=== PATIENT | male | born 1970 | race African-American/Black ===

== ENCOUNTER 2017-07-18 11:06 | Emergency (ER) | payer SELFPAY ==
[2017-07-18 13:43] VITALS: BP 167/117
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
== END 2017-07-18 13:43 | disposition home or self-care (01) ==
LOC: ED 11:06
DX: M54.9 Dorsalgia, unspecified (principal); G89.29 Other chronic pain; K21.9 Gastro-esophageal reflux disease without esophagitis; F17.210 Nicotine dependence, cigarettes, uncomplicated
CPT/HCPCS: 99281

== ENCOUNTER 2017-07-20 16:43 | Emergency (ER) | payer SELFPAY ==
[2017-07-20 19:04] VITALS: BP 143/104
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
[2017-07-20] MEDS ORDERED: Albuterol HFA INHALER* 8 gm MDI INH ONE (19:14)
== END 2017-07-20 19:29 | disposition home or self-care (01) ==
LOC: UCEAST 16:43
DX: G89.29 Other chronic pain (principal); M54.9 Dorsalgia, unspecified; I10 Essential (primary) hypertension; J98.01 Acute bronchospasm; B35.3 Tinea pedis; F17.200 Nicotine dependence, unspecified, uncomplicated; Z72.89 Other problems related to lifestyle
CPT/HCPCS: 99212; A9270-GY; G0463

== ENCOUNTER → 2017-09-28 17:20 | Emergency (ER) | payer OTHER ==
[~2017-09-28 17:20] MED LIST: Acetaminophen TAB* 325 MG PO ONE; Albuterol/Ipratropium NEB.SOL* Albuterol 2.5 MG/Ipratropium 0.5 MG 3 ML INH ONE; Ketorolac INJ* 30 MG/ML 1 ML VIAL IV ONE; Levofloxacin 750 MG IVPREMIX(* 750 MG/150 ML BAG IVPB ONE; Levofloxacin TAB* 750 MG PO ONE; NS 0.9% 1000 ML*IV.FLUID IV ONE; Ondansetron INJ* 2 MG/ML VIAL IV ONE; methylPREDNISolone 125 MG* 2 ML VIAL IV ONE
[2017-09-28] MEDS: Albuterol 2.5 MG/3 ML NEB.SOL* (0.083%) INH SCH (22:31)
[2017-09-28 22:43] LABS: ABS Basophils 0.1 10^3/ul (0-0.2); ABS Eosinophils 0.3 10^3/ul (0-0.6); ABS Lymphocytes 1.9 10^3/ul (1.0-4.8); ABS Monocytes 0.8 10^3/ul (0-0.8); ABS Neutrophils 3.8 10^3/ul (1.5-7.7); ABS Nucleated RBC 0 10^3/ul; Hematocrit 43 % (42-52); Hemoglobin 14.1 g/dl (14.0-18.0); Lymphocyte % 27.3 % (25-47); Mean Corpuscular HGB Conc 32 g/dl (31-36); Mean Corpuscular Hemoglobin 27 pg (27-31); Mean Corpuscular Volume 83 fL (80-94); Mean Platelet Volume 8 um3 (7.4-10.4); Nucleated Red Blood Cells % 0.1; Platelet Count 229 10^3/ul (150-450); Red Blood Count 5.24 10^6/ul (4.0-5.4); Red Cell Distribution Width 17 % (10.5-15); White Blood Count 6.8 10^3/ul (3.5-10.8)
[2017-09-28 22:57] LABS: EGFR Non-African American 49.6 (>60)
[2017-09-29 00:06] VITALS: BP 166/139
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
--- NOTE | 2017-09-29 07:45 | RAD ---
INDICATION: Cough COMPARISON: May 26, 2016 TECHNIQUE: An AP portable view obtained at 2215 hours is submitted. FINDINGS: Bones/Soft Tissues: There are no acute bony findings. Cardiomediastinal: There is an enlarged cardiac silhouette with an interval increase in size. Lungs: There are no infiltrates. Pleura: There are no pleural effusions. Other: None IMPRESSION: ENLARGED CARDIAC SILHOUETTE
== END | disposition home or self-care (01) ==
LOC: ED 17:20
DX: J11.1 Influenza due to unidentified influenza virus with other respiratory manifestations (principal); J20.9 Acute bronchitis, unspecified; F17.210 Nicotine dependence, cigarettes, uncomplicated; Z88.6 Allergy status to analgesic agent; Z88.8 Allergy status to other drugs, medicaments and biological substances
CPT/HCPCS: 36415; 71045; 80053; 83605; 85025; 86140; 87040; 87502; 94640; 96361; 96374; 96375; 99283; A9270-GY; J2930

== ENCOUNTER → 2018-01-26 08:37 | Day surgery (SDC) | payer OTHER ==
[~2018-01-26 08:37] MED LIST changes: -Acetaminophen TAB* 325 MG PO ONE; -Albuterol/Ipratropium NEB.SOL* Albuterol 2.5 MG/Ipratropium 0.5 MG 3 ML INH ONE; +Diazepam TAB(*) 5 MG ONE; +Heparin 2 UNITS/ML IVPREMIX* 3,000 ML IV ONE; +Heparin(*) 1000 UNIT/ML 10 ML VIAL CATH LAB IV ONE; +Iodixanol* (CONTRAST) 320 MG/ML 100 ML SDV ONE; -Ketorolac INJ* 30 MG/ML 1 ML VIAL IV ONE; -Levofloxacin 750 MG IVPREMIX(* 750 MG/150 ML BAG IVPB ONE; -Levofloxacin TAB* 750 MG PO ONE; +Lidocaine 1% INJ* 10 MG/ML 30 ML SDV ONE; +Midazolam* 1 MG/ML 10 ML VIAL (10 MG) ONE; +NS 0.9% 1000 ML* 1,000 ML IV SCH; -NS 0.9% 1000 ML*IV.FLUID IV ONE; -Ondansetron INJ* 2 MG/ML VIAL IV ONE; +VERAPAMIL 2.5 MG/ML 2 ML VIAL ** 5 mg/2 ml ONE; +fentaNYL* 50 MCG/ML 2 ML VIAL (100 MCG VIAL) ONE; -methylPREDNISolone 125 MG* 2 ML VIAL IV ONE; +nitroGLYCERIN DRIP* 25,000 MCG/250 ML BTL ONE
[2018-01-26 14:17] VITALS: BP 138/95
--- NOTE | 2018-01-27 10:32 | CATH ---
CC: ALISTAIR Dejesus * CARDIAC CATHETERIZATION REPORT: DATE OF PROCEDURE: 01/26/18 - [facility] CATH INDICATION FOR THE PROCEDURE: The patient with recurrent significant cardiomyopathy assessed for underlying coronary artery disease given severe left ventricular systolic dysfunction. PROCEDURE: Coronary arteriography. The patient was interviewed and examined in the office where the risks and benefits were explained. He understood them and wished to proceed. On the day of cardiac catheterization, his right radial artery was assessed in the holding area under ultrasound for assessment for possible radial artery approach, he was found to be acceptable for this. Pre-cardiac catheterization laboratory results: BUN and creatinine 15 and 1.3, sodium 140, potassium 3.9, chloride 107, bicarb 25, hemoglobin and hematocrit of 14.2 and 44 with a platelet count of 236,000. EQUIPMENT UTILIZED: 1. Radial artery sheath - 6-Mosotho Glidesheath. 2. Diagnostic catheter - a TIG4 curve 5-Mosotho catheter for the right coronary artery as well as attempts at the left coronary artery with an FL4 5-Mosotho catheter for the left coronary artery. 3. Exchange length wire was the Archuleta 260 cm curved guidewire. MEDICATIONS GIVEN DURING THE PROCEDURE: Included the radial artery cocktail with 3000 units of heparin, 3 mg verapamil and 300 mcg of nitroglycerin in addition to Valium 5 mg orally, fentanyl 25 mcg was given intravenously, and oxygen was given by nasal cannula. DESCRIPTION IN DETAIL: The patient was brought into the cardiovascular laboratory and a formal time-out was performed. He was prepped and draped in sterile fashion. Under ultrasound guidance, the right radial artery was anesthetized and then cannulated and the sheath was placed. The radial artery cocktail was given. Following this, diagnostic catheterization was performed utilizing initially the TIG4 curve 5-Mosotho catheter. To get better injections into the left coronary artery, this was exchanged for an FL4 curve 5-Mosotho diagnostic catheter. At the end of the case, the catheter and sheath were removed. Hemostasis was obtained with a Vasc Band. The reverse Barbeau was A. The total contrast used was 50 cc of Visipaque dye. The radiation exposure included 6.4 minutes of fluoro time. The air kerma radiation was 581 milligray. The DAP radiation was 3340 microgray per sq. m. RESULTS: CORONARY ARTERIOGRAPHY: A. Left coronary artery: 1. Left main - widely patent. 2. Left anterior descending artery - there was no significant disease seen throughout the course of the left anterior descending artery or its diagonal branch as it traversed to the apical region. The first diagonal branch was a large vessel free of disease paralleling the LAD to the anterolateral region. 3. Circumflex artery - a nondominant vessel supplying a very thin first obtuse marginal branch followed by moderate sized second bifurcating obtuse marginal branch and ending in a third low lying posterior left ventricular branches, no significant lesion seen throughout the course of the vessel. B. Right coronary artery - a dominant vessel supplying the PDA and 1 posterior left ventricular branch. There was no significant disease seen throughout the course of the vessel. OVERALL ASSESSMENT: Normal coronary arteries noted with no evidence of significant atherosclerosis. The patient will be followed up for a wound check next week. We will adjust medications by increasing his Coreg to 6.25 b.i.d. and anticipate increasing it further to 12.5 b.i.d. We will increase his furosemide to 20 mg a day. A consideration will be made after discussing with his family doctor what his true allergies are, whether or not we can reinstitute hydralazine which he had been on in the past or whether or not we have to consider nitrates. [id number]/[facility] #: [id number] KANDACE
== END | disposition home or self-care (01) ==
LOC: CHICATH 08:37
PROVIDERS: ATTEND Internal Medicine Cardiovascular Disease
DX: I42.9 Cardiomyopathy, unspecified (principal); I10 Essential (primary) hypertension; R06.02 Shortness of breath; I50.30 Unspecified diastolic (congestive) heart failure; I08.8 Other rheumatic multiple valve diseases; I27.20 Pulmonary hypertension, unspecified; R94.31 Abnormal electrocardiogram [ECG] [EKG]; I50.20 Unspecified systolic (congestive) heart failure; J44.9 Chronic obstructive pulmonary disease, unspecified; N18.1 Chronic kidney disease, stage 1; G47.33 Obstructive sleep apnea (adult) (pediatric); K21.9 Gastro-esophageal reflux disease without esophagitis; I12.9 Hypertensive chronic kidney disease with stage 1 through stage 4 chronic kidney disease, or unspecified chronic kidney disease; R73.03 Prediabetes; Z87.891 Personal history of nicotine dependence
CPT/HCPCS: 93454; A9270-GY; J1644; J2250; J3010

== ENCOUNTER 2018-05-04 10:37 | Inpatient (IN) | payer OTHER ==
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
--- NOTE | 2018-05-04 13:10 | RAD ---
INDICATION: Cough and shortness of breath. COMPARISON: Comparison is made with prior study from January 21, 2018. TECHNIQUE: Dual-energy PA and lateral views of the chest were obtained. FINDINGS: The heart is mildly enlarged and unchanged. There is mild diffuse prominence of the interstitial markings. No focal infiltrate or pleural effusion is seen. IMPRESSION: DIFFUSE INTERSTITIAL INFILTRATES CONSIDER CONGESTIVE HEART FAILURE OR PNEUMONIA.
[2018-05-04 13:18] LABS: ABS Basophils 0.1 10^3/ul (0-0.2); ABS Eosinophils 0.3 10^3/ul (0-0.6); ABS Lymphocytes 1.4 10^3/ul (1.0-4.8); ABS Monocytes 0.7 10^3/ul (0-0.8); ABS Neutrophils 4.8 10^3/ul (1.5-7.7); ABS Nucleated RBC 0 10^3/ul; Eosinophil % 4.4 % (0-6); Hematocrit 43 % (42-52); Hemoglobin 14.2 g/dl (14.0-18.0); Lymphocyte % 18.8 % (25-47); Mean Corpuscular HGB Conc 33 g/dl (31-36); Mean Corpuscular Hemoglobin 27 pg (27-31); Mean Corpuscular Volume 83 fL (80-94); Mean Platelet Volume 8.2 um3 (7.4-10.4); Nucleated Red Blood Cells % 0.3; Platelet Count 219 10^3/ul (150-450); Red Blood Count 5.19 10^6/ul (4.00-5.40); Red Cell Distribution Width 17 % (10.5-15); White Blood Count 7.2 10^3/ul (3.5-10.8)
[2018-05-04 13:26] LABS: INR 1.08 (0.77-1.02)
[2018-05-04 13:30] LABS: Urine Appearance Clear; Urine Blood Negative (Negative); Urine Color Yellow; Urine Ketones Negative (Negative); Urine Protein 2+(100 mg/dL) (Negative); Urine Red Blood Cell 1+(3-5/hpf) (Absent); Urine Specific Gravity 1.017 (1.010-1.030); Urine Urobilinogen Negative (Negative); Urine White Blood Cell Trace(0-5/hpf) (Absent)
[2018-05-04] MEDS ORDERED: Furosemide IV* 10 MG/ML VIAL (40 MG) IV ONE (13:35)
[2018-05-04] MEDS ORDERED: Nitroglycerin TAB 0.4 MG* 0.4 MG TAB SL ONE (13:35)
[2018-05-04 13:38] LABS: EGFR Non-African American 58.2 (>60)
[2018-05-04] MEDS ORDERED: Nitroglycerin 0.4 MG/HR PATCH* (10 MG) TRANSDERM ONE (15:33)
[2018-05-04] MEDS ORDERED: oxyCODONE TAB* 5 MG TAB PO ONE (15:33)
[2018-05-04] MEDS ORDERED: Magnesium Sulfate 2 GM IV* 2 GM/50 ML BAG IVPB ONE (16:14)
[2018-05-04] MEDS ORDERED: Albuterol/Ipratropium NEB.SOL* Albuterol 2.5 MG/Ipratropium 0.5 MG 3 ML INH PRN (16:19)
[2018-05-04] MEDS ORDERED: Mouth Piece, Nicotine* 1 EACH CARTRIDGE INH PRN ×2 (16:19)
[2018-05-04] MEDS ORDERED: Nicotine Inhaler* 10 MG AMP INH PRN (16:19)
[2018-05-04] MEDS ORDERED: Oxycodone TAB(NF) 10 MG TAB IMMEDIATE RELEASE PO SCH (17:00)
[2018-05-04] MEDS ORDERED: Potassium Chlor TAB* 20 MEQ TAB.ER PO ONE (17:57)
[2018-05-04] MEDS: Carvedilol TAB* 6.25 MG PO SCH (20:20)
[2018-05-04] MEDS: oxyCODONE TAB* 5 MG TAB PO PRN (20:22)
[2018-05-04] MEDS ORDERED: Carvedilol TAB* 6.25 MG PO SCH ×2 (21:00)
--- NOTE | 2018-05-04 21:29 | HP ---
HISTORY AND PHYSICAL: DATE OF ADMISSION: 05/04/18 PROVIDER: Abhilash Nunez NP ATTENDING PHYSICIAN: Dr. Rios * (report dictated by Abhilash Nunez NP). PRIMARY CARE PROVIDER: [facility], ALISTAIR Cam[facility]. CHIEF COMPLAINT: Increased shortness of breath. HISTORY OF PRESENT ILLNESS: Mr. Sanchez is a 47-year-old male with a past medical history of cardiomyopathy with an EF of 20 to 25%, history of current tobacco abuse, chronic back pain, hypertension, obstructive sleep apnea, on CPAP who presents to the emergency department today with report of worsening shortness of breath since 04/24/18. The patient reports slow progression of increased shortness of breath and lower extremity edema over the past 10 days. As well, he also reports that his calves feel tight bilaterally due to the edema. He has noticed recent weight gain. He reports it is difficult to tie his shoes. He reports exertional shortness of breath. He reports dry cough. Denies increased sputum production. No fevers, chills, nausea, vomiting, abdominal pain, diarrhea, or constipation. Today, he reports he is having such a difficult time wiping himself after a bowel movement due to his decreased range of motion due to his back pain and exerting himself, he reports he felt very short of breath. He denies orthopnea. He continues to smoke a couple cigarettes a day. He does report he has felt some "wheezing" the last couple days. He has not seen his primary care provider in over a month. He reports that he just finished approximately 6 weeks of cardiac rehab; however, he has not been in the last 2 weeks due to this increased worsening shortness of breath and feeling fatigued. He does report he had a few weeks last of the rehab program part. He reports that he was doing well and was having good exercise capacity. When we discussed his cardiomyopathy and low ejection fraction, he reported " I had no idea my heart was so weak." The patient reports he does not eat a low-salt diet and does not restrict salt in his food. He states that he tries to eat healthy; however, does use added salt with "Himalayan salt only." Currently, the patient reports that his shortness of breath feels a little better in the emergency department after receiving IV Lasix. He reports has filled the urinal multiple times since being in the emergency department. Currently, denies chest pain or shortness of breath. PAST MEDICAL HISTORY: 1. Hypertension. 2. Cardiomyopathy with an EF of 20 to 25%. 3. Current tobacco abuse. 4. Obstructive sleep apnea, on CPAP. 5. History of prediabetes. 6. Spinal stenosis of the lumbar region status post surgical decompression with lumbar laminectomy in 2014 and left L4-5 fusion in August 2016. 7. GERD. 8. Chronic kidney disease. 9. COPD. PAST SURGICAL HISTORY: 1. Uvulopalatopharyngoplasty (UPPP). 2. Decompressive lumbar laminectomy with instrumentation in November 2014. 3. Left L4-5 fusion in August 2016. 4. Cardiac catheterization in 2010 showing no significant stenotic coronary artery disease. 5. Cardiac catheterization in January 2018 showing normal coronary arteries with no evidence of significant atherosclerosis. CURRENT MEDICATIONS: 1. Albuterol HFA inhaler 2 puffs p.o. 4 times a day p.r.n. 2. Amlodipine 5 mg p.o. daily. 3. Oxycodone 10 mg p.o. q.6 hours p.r.n. 4. Hydrochlorothiazide 12.5 mg p.o. daily. 5. Coreg 12.5 mg p.o. b.i.d. ALLERGIES: LISINOPRIL, ASPIRIN, HYDRALAZINE, LATEX, IBUPROFEN, ACETAMINOPHEN, GADOTERIDOL, IODINATED CONTRAST, ORAL and IV DYE. FAMILY HISTORY: None. Father with drug overdose of heroin. Mother at age of 4141 years old. SOCIAL HISTORY: The patient reports he has smoked tobacco since the age of 14. He currently only smokes a couple cigarettes a day. Denies alcohol use. Currently, lives with his who is his healthcare proxy. He is currently not working since his back surgery in August 2016. He has 5 children. REVIEW OF SYSTEMS: A 14-point review of systems was performed. All the pertinent positives and negatives are mentioned in the history of present illness. Otherwise, they are negative. PHYSICAL EXAMINATION GENERAL APPEARANCE: A 47-year-old male, alert and oriented x3, sitting up in the emergency department stretcher, in no acute distress. VITAL SIGNS: Temperature 97.8, heart rate 90, respirations 18, pulse oximetry 98% on room air, blood pressure is 160/100, this is taken manually. Please note that the blood pressures recorded in the chart are most likely not accurate due to difficulty with the cuff in the emergency department. HEENT: Head is normocephalic, atraumatic. Pupils are equal and reactive to light. Oropharynx is clear. Moist mucous membranes. NECK: Supple. No JVD noted. LUNGS: Crackles noted in right base. Otherwise, clear throughout. No accessory muscle use. Mild expiratory wheezes bilaterally. CARDIAC: S1, S2. Regular rate and rhythm. Possible faint S3? Trace to 1+ lower extremity edema noted to bilateral lower extremities from his knees down through his feet. 2+ DP pulses bilaterally. ABDOMEN: Obese, soft, nontender, nondistended. Normal bowel sounds throughout. EXTREMITIES: Strength is 5/5 throughout. Full range of motion of all extremities. No clubbing, cyanosis. NEURO: Cranial nerves II through XII are grossly intact. No focal deficits noted. LABORATORY DATA AND DIAGNOSTIC STUDIES: Sodium 141, potassium 3.7, chloride 108, carbon dioxide 28, anion gap 8, BUN 15, creatinine 1.31, glucose 106. Lactic acid 1.0. Calcium 9.2. Magnesium 1.7. Total bilirubin 0.50, AST 24, ALT 24, alkaline phosphatase 69. Total creatine kinase 385, CK-MB 6.1. Troponin 0.26. C-reactive protein 13.27. BNP 623. Total protein 6.9, albumin 4.0. Lipase 152. TSH 0.87. INR 1.08. D-dimer less than 200. WBC 7.2, RBC 5.19, HGB 14.2, HCT 43, MCV 83, MCH 27, MCHC 33, RDW 17, platelet count 219. Urinalysis, 2+ protein, 1+ rbc, otherwise unremarkable. Chest x-ray, impression, "diffuse interstitial infiltrates, consider congestive heart failure, pneumonia." EKG showing a sinus rhythm with a rate of 87. In comparison to EKG on 10/09/15 , there appears to be no acute ST changes. ASSESSMENT AND PLAN: Mr. Sanchez is a 47-year-old male with a past medical history of hypertension, cardiomyopathy with an EF of 20 to 25%, current tobacco abuse, COPD, obstructive sleep apnea with CPAP, chronic kidney disease who presents to the emergency department with a report of worsening shortness of breath over the past 10 days with increased lower extremity swelling. 1. Shortness of breath. I suspect this is secondary to acute congestive heart failure exacerbation. The patient does not limit salt in his diet and it appears he most likely has a high salt intake. Chest x-ray showing evidence of congestive heart failure with diffuse interstitial infiltrates. It does not appear that he presents with pneumonia. He received 40 mg of IV Lasix in the emergency department and has been diuresing well. He reports currently his shortness of breath has improved. His BNP is elevated at 623. He denies knowing he had a low ejection fraction and was at risk for congestive heart failure. He denies CHF exacerbation before in the past. We will repeat echocardiogram to assess cardiac function. It sounds like he was doing well at cardiac rehab. We will continue him on Lasix IV 40 mg p.o. daily. Continue home medications of Norvasc and Coreg. We will replace magnesium. He presented with a magnesium of 1.7. Daily weights. Repeat magnesium, CBC, BMP in the morning. The patient should be considered to be referred back to [facility] for dietary support as he has already relationship with [facility]. 2. Elevated troponin. The patient presents with a troponin of 0.26. Most likely, this is secondary to CHF exacerbation. We will monitor on telemetry and trend troponins. The ER physician did speak with the pcb designer, Dr. Castanon who thought this is secondary to CHF. The patient had a normal cardiac catheterization in January of this year. The patient has no reported chest pain. 3. Hypertension. Continue home meds and adjust as necessary. Continue home medications, Norvasc and Coreg. We will hold hydrochlorothiazide. 4. Chronic obstructive pulmonary disease. The patient did have some mild expiratory wheezing on exam. I do not think this is a COPD exacerbation. We will order DuoNebs p.r.n. 5. Chronic back pain. Continue oxycodone p.r.n. 6. Obstructive sleep apnea. Continue CPAP at the patient's home setting. 7. Tobacco abuse. Smoking cessation. Nicotine supplementation. 8. DVT prophylaxis. Heparin subcu. 9. Code status. Full code. 10. Hospital status. Inpatient with CHF. TIME SPENT: Approximately 60 minutes were spent on this admission. ABHILASH NUNEZ, ROUTE DRIVER [id number]/[facility] #: [id number] KANDACE
[2018-05-04] MEDS: Heparin VIAL(*) 5000 UNITS/ML VIAL (FIVE THOUSAND) SUBCUT SCH (22:05)
[2018-05-04] MEDS: Nitro Patch/OINT Remove PATCH OFF SCH (23:51)
[2018-05-05] MEDS: Heparin VIAL(*) 5000 UNITS/ML VIAL (FIVE THOUSAND) SUBCUT SCH ×3 (05:19→21:13)
[2018-05-05 07:02] LABS: ABS Basophils 0 10^3/ul (0-0.2); ABS Eosinophils 0.4 10^3/ul (0-0.6); ABS Lymphocytes 1.7 10^3/ul (1.0-4.8); ABS Neutrophils 5.2 10^3/ul (1.5-7.7); ABS Nucleated RBC 0 10^3/ul; Eosinophil % 4.9 % (0-6); Hematocrit 44 % (42-52); Hemoglobin 14.4 g/dl (14.0-18.0); Lymphocyte % 20.1 % (25-47); Mean Corpuscular HGB Conc 33 g/dl (31-36); Mean Corpuscular Hemoglobin 27 pg (27-31); Mean Corpuscular Volume 83 fL (80-94); Mean Platelet Volume 8.7 um3 (7.4-10.4); Nucleated Red Blood Cells % 0.1; Platelet Count 215 10^3/ul (150-450); Red Blood Count 5.32 10^6/ul (4.00-5.40); Red Cell Distribution Width 16 % (10.5-15); White Blood Count 8.3 10^3/ul (3.5-10.8)
[2018-05-05 07:19] LABS: EGFR Non-African American 49.7 (>60)
[2018-05-05] MEDS ORDERED: amLODIPine TAB* 5 MG PO SCH (09:00)
[2018-05-05] MEDS: oxyCODONE TAB* 5 MG TAB PO PRN ×3 (09:34→23:23)
[2018-05-05] MEDS: Furosemide IV* 10 MG/ML VIAL (40 MG) IV SCH (09:34)
[2018-05-05] MEDS: Carvedilol TAB* 6.25 MG PO SCH ×2 (09:34→21:13)
--- NOTE | 2018-05-05 13:02 | PN ---
Subjective Date of Service: 05/05/18 Interval History: Mr. Sanchez is quite distraught at learning of his diagnosis of heart failure. He doesn't remember being told this though it was diagnosed as early as 2016 and has been progressing steadily since then. He denies chest pain. He reports that his breathing feels better but that he continues to get winded with activity. His lower extremity swelling has improved as well. He denies other complaint including nausea or abdominal pain. Objective Active Medications: Albuterol/Ipratropium (Duoneb (Albuterol 2.5 Mg/Ipratropium 0.5 Mg)) 1 neb INH Q4H PRN Amlodipine Besylate (Norvasc Tab*) 5 mg PO DAILY ARRON Carvedilol (Coreg Tab*) 12.5 mg PO BID ARRON Device (Nicotine Mouth Piece*) 1 each INH .USE WITH NICOTROL PRN Furosemide (Lasix Iv*) 40 mg IV DAILY [facility] Heparin Sodium (Porcine) (Heparin Vial(*)) 5,000 units SUBCUT Q8HR ARRON Nicotine (Nicotine Inhaler*) 10 mg INH Q2H PRN Oxycodone HCl (Roxycodone Tab*) 10 mg PO Q6H PRN Pharmacy Profile Note (Nitro Patch/Oint Remove*) 1 note PATCH OFF 2100 [facility] Vital Signs: Temp Pulse Resp BP Pulse Ox 98.0 F 87 22 146/109 94 05/05/18 08:56 05/05/18 08:56 05/05/18 09:34 05/05/18 08:56 05/05/18 08:56 Oxygen Devices in Use Now: None Appearance: Male lying in bed in NAD Eyes: No Scleral Icterus Ears/Nose/Mouth/Throat: Mucous Membranes Moist Neck: Trachea Midline Respiratory: Symmetrical Chest Expansion and Respiratory Effort Cardiovascular: NL Sounds; No Murmurs; No JVD Abdominal: NL Sounds; No Tenderness; No Distention Lymphatic: No Cervical Adenopathy Extremities: - - +1 pitting edema Skin: No Rash or Ulcers Neurological: Alert and Oriented x 3, NL Muscle Strength and Tone Nutrition: Taking PO's Result Diagrams: 05/05/18 05:50 05/05/18 05:50 Assess/Plan/Problems-Billing Assessment: Mr. Sanchez is a 47 yo M with a PMH of CHF with EF 20-25%, current tobacco use, and AURELIO on CPAP who was admitted on 05/04/18 with SOB secondary to acute on chronic systolic congestive heart failure exacerbation. - Patient Problems (1) Acute on chronic systolic CHF (congestive heart failure) Comment: - Worsening SOB with edema over the past few 10 days. Improved after lasix. - Echo today shows that his EF continues to deteriorate, now less than 20%. Nonischemic cardiomyopathy likely related to chronic uncontrolled hypertension. - Appreciate consultation from Dr. Vivas. Plan for life vest before discharge, patient not willing to do a defibrillator at this point though we will continue to speak with him about the importance of this. - Patient had angioedema with ACEI, so ACEI and ARBS contraindicated. Plan to add hydralazine and nitroglycerin. Continue home carvedilol. - Continue IV lasix, monitor I/Os and daily weights. - Had been following with Dr. Calderon. Patient has follow up appt with Dr. Chester next week. (2) V-tach Comment: - Two episodes of asymptomatic vtach today. - Xiomy repleted. - Patient will need life vest or ICD before discharge. (3) Elevated troponin Comment: - Denies chest pain but has SOB and edema consistent with CHF. - Trop peaked at 0.37. - Cardiac cath done on 01/2018 showing normal coronaries without significant CAD. (4) CKD (chronic kidney disease) stage 2, GFR 60-89 ml/min Comment: - Stable. (5) HTN (hypertension) Comment: - SBP 130-140s. - Continue carvedilol, hydralazine and nitroglycerin started. Stopped amlodipine. (6) Smoking Comment: - Nicotine replacement prn. (7) DVT prophylaxis Comment: - Heparin sc (8) Full code status Comment: Status and Disposition: Inpatient. Anticipate discharge to home when medically stable.
[2018-05-05] MEDS ORDERED: Potassium Chlor TAB* 20 MEQ TAB.ER PO ONE (14:14)
[2018-05-05] MEDS ORDERED: Magnesium Sulfate 2 GM IV* 2 GM/50 ML BAG IVPB ONE (14:16)
--- NOTE | 2018-05-05 15:27 | ECHO ---
Patient: ANDRAE BRANNON [facility] Rec#: [id number] : 1970 Date: 05/05/2018 Age: 47y Height: 168 cm / 66.1 in Weight: 101.6 kg / 223.9 lbs Sex: M BSA: 2.1 Room#: 452 Admit Date#: 05/05/2018 Type: Inpatient Referring: Tati Durbin Reading: Cristian Vivas MD Thread Spooler: Shayla Lawrence RDCS CC: NIRAJ FONSECA MILK PASTEURIZER Transthoracic Echocardiogram Indication: Congestive heart failure BP: 133/89 HR: 82 Rhythm: Paced Findings History: HTN, cardiomyopathy with EF 20-25%, AURELIO with CPAP, COPD, CKD, smoker. Technical Comments: The study quality is fair. Completed at 0836. Left Ventricle: The left ventricular chamber size is moderately dilated. Mild concentric left ventricular hypertrophy is observed. There is global hypokinesis of the left ventricle with minor regional variation. There is severely decreased left ventricular systolic function. The estimated ejection fraction is 20-25%. LV EF less than 20% globally in some views. Abnormal left ventricular diastolic function is observed. The left ventricular diastolic filling pattern is consistent with pseudonormalization. Left Atrium: The left atrium is moderately dilated. Right Ventricle: The right ventricle is not well visualized. The right ventricular cavity size is normal. The right ventricular global systolic function is low normal. Right Atrium: The right atrium is moderately dilated. Aortic Valve: The aortic valve is trileaflet. The aortic valve leaflets are mildly thickened. There is a trace of aortic regurgitation. There is no evidence of aortic stenosis. Mitral Valve: The mitral valve leaflets are mildly thickened. There is moderate mitral regurgitation. There is no evidence of mitral stenosis. Tricuspid Valve: The tricuspid valve leaflets are normal. There is mild tricuspid regurgitation. The right ventricular systolic pressure is estimated at 41 mmHg. There is evidence of mild pulmonary hypertension. There is no tricuspid stenosis. Pulmonic Valve: The pulmonic valve appears normal. There is a trace pulmonic regurgitation. There is no pulmonic stenosis. Pericardium: There is no significant pericardial effusion. A pericardial fat pad is visualized. Aorta: There is borderline dilatation of the ascending aorta. There is no dilatation of the aortic arch. The aortic root is normal in size. Pulmonary Artery: The main pulmonary artery appears normal. Venous: The inferior vena cava appears normal in size. There is an approximate 50% respiratory change in the inferior vena cava dimension. Summary: There are changes noted when compared to the previous study done on 12/02/2017, LV EF still severely reduced with interval decrease from 25-30% then. Conclusions The left ventricular chamber size is moderately dilated. Mild concentric left ventricular hypertrophy is observed. There is global hypokinesis of the left ventricle with minor regional variation. There is severely decreased left ventricular systolic function. The estimated ejection fraction is 20-25%. LV EF less than 20% globally in some views. The left atrium is moderately dilated. The right atrium is moderately dilated. There is a trace of aortic regurgitation. There is moderate mitral regurgitation. There is mild tricuspid regurgitation. The right ventricular systolic pressure is estimated at 41 mmHg. There is evidence of mild pulmonary hypertension. There is a trace pulmonic regurgitation. There is borderline dilatation of the ascending aorta. Measurements Name Value Normal Range RVIDd (AP) 2D 2.6 cm (0.9 - 2.6) RVDdMajor (2D) 4.2 cm (2.2 - 4.4) RAd ISD 4CH 6.4 cm (3.4 - 4.9) RA (A4C)W 4.2 cm (2.9 - 4.6) IVSd (2D) 1.1 cm (0.6 - 1) LVPWd (2D) 1.3 cm (0.6 - 1) LVIDd (2D) 6.2 cm (3.6 - 5.4) LVIDs (2D) 5.7 cm - LV FS (2D) 7 % (25 - 45) Aortic Annulus 1.6 cm (1.4 - 2.6) Ao root diameter (2D) 3.4 cm (2.1 - 3.5) Ascending Ao 3.4 cm (2.1 - 3.4) Aortic arch 2.8 cm (1.8 - 3.4) LA dimension (AP) 2D 4.6 cm (2.3 - 3.8) LAd ISD 4CH 6.6 cm (2.9 - 5.3) LA ISD 4CH W 4.2 cm (2.5 - 4.5) Name Value Normal Range LA ESV BP (A/L) index 43 ml/m2 - Name Value Normal Range MV E-wave Vmax 0.8 m/sec - MV deceleration time 123 msec - MV A-wave Vmax 0.5 m/sec - MV E:A ratio 1.7 ratio - LV septal e' Vmax 0.05 m/sec - LV lateral e' Vmax 0.04 m/sec - LV E:e' septal ratio 16 ratio - LV E:e' lateral ratio 20 ratio - Name Value Normal Range AV Vmax 1.1 m/sec - AV VTI 17.1 cm - AV peak gradient 5 mmHg - AV mean gradient 3 mmHg - LVOT Vmax 0.7 m/sec - LVOT VTI 13.2 cm - LVOT peak gradient 2 mmHg - LVOT mean gradient 1 mmHg - AMANDA Vmax 0.7 m/sec - Name Value Normal Range TR Vmax 3.1 m/sec - TR peak gradient 38 mmHg - RAP 3 mmHg - RVSP 41 mmHg - IVC diameter 1.8 cm - Name Value Normal Range PV Vmax 0.9 m/sec - PV peak gradient 3 mmHg -
[2018-05-05] MEDS ORDERED: hydrALAZINE TAB* 25 MG PO SCH (21:00)
[2018-05-05] MEDS: Nitro Patch/OINT Remove PATCH OFF SCH (21:30)
--- NOTE | 2018-05-05 23:21 | CONS ---
CC: Dr. Chester, Cardiology; Dr. Vivas; Hospitalist Service; [facility] * CONSULTATION REPORT: DATE OF CONSULT: 05/05/18 HISTORY OF PRESENT ILLNESS: The patient is a 47-year-old male patient with known history of severe nonischemic cardiomyopathy followed up with Dr. Bennett in the past, former patient of Dr. Bennett. He does have history of tobacco consumption, marijuana use, and history of systemic arterial hypertension, felt to be contributing to his nonischemic cardiomyopathy. He presented with symptoms of shortness of breath and was found to be in congestive heart failure. While he is on the monitor, he had nonsustained ventricular tachycardia documented episodes. Cardiology consult was further requested to evaluate his nonischemic cardiomyopathy and consideration for ICD implantation given his nonsustained V-tach. Apparently, the patient has some noncompliance with his medication. It was reported that he had "angioedema" secondary to MARLA inhibitors. He is on Coreg as an outpatient, not sure if he is taking it regularly. There are some issues with him being compliant with his medications. He gives no significant alcohol drinking. He gives no symptoms of chest pain. No nausea, no vomiting, no hematochezia, no fever, no chills, no skin rash, no tremors, no swelling of the lower extremities in the past. Not sure if he is using discretion in the salt intake. He was found to have a BNP of 623, troponins 0.23, 1.33, 0.37, 0.36. He had no symptoms of chest pain. He had a cardiac catheterization by Dr. Bennett, that was done in January and as per Dr. Bennett, that was done in 01/26/18. Normal coronary arteries. No evidence of significant atherosclerosis. PAST MEDICAL HISTORY: Include nonischemic cardiomyopathy, systemic arterial hypertension, and obesity. He does have history of tobacco consumption, obstructive sleep apnea on CPAP, prediabetes, gastroesophageal reflux disease, COPD, chronic kidney disease. PAST SURGICAL HISTORY: Include cardiac cath in 2010 as well as in January 2018; normal coronary artery system; left L4-5 effusion, August 2016; decompressive lumbar laminectomy and uvulopalatopharyngoplasty. MEDICATIONS: As outpatient: 1. Amlodipine 5 mg daily. 2. Coreg 12.5 mg twice a day. 3. Oxycodone. 4. Hydrochlorothiazide 12.5 mg daily. 5. Albuterol. ALLERGIES: Allergic to multiple medications include IODINE CONTRAST, ORAL and IV; LISINOPRIL; ASPIRIN; HYDRALAZINE; LATEX; IBUPROFEN; ACETAMINOPHEN; and not sure to be allergy to HYDRALAZINE was reported. He is not sure. FAMILY HISTORY: No family history of premature coronary artery disease. SOCIAL HISTORY: REVIEW OF SYSTEMS: Review of all other systems essentially is negative. PHYSICAL EXAM: On exam, he is awake, alert, and oriented. He is not in acute distress. Vitals: Blood pressure was reported to be 146/105 and then 147/96, temperature 98, respiratory rate 16, pulse 87. Head and Neck Exam: Normocephalic, atraumatic. Head, Ears, Nose, and Throat: Essentially benign. Neck: Supple. JVP is not elevated. No carotid bruit. No masses in the neck is appreciated. Chest: Clear to auscultation. No rales, no wheeze, no added sounds appreciated. Heart: Normal , regular, S1, S2. No added sounds, no gallops and no rubs. Abdomen: Benign, soft, positive bowel sounds. Extremities: No edema, no cyanosis, and no clubbing. Skin Exam: Normal. Psych: Normal affect and mood. BATTERY TESTER FIELD: No focal deficit is appreciated. DIAGNOSTIC STUDIES/LAB DATA: His lab showed the following: Sodium 141, potassium 3.9, chloride 106, total CO2 29, BUN 18, creatinine 1.5. Troponins, BNP as described. White blood cells 8.3, hemoglobin 14.4, hematocrit 44, and platelets 215. His chest x-ray, diffuse interstitial infiltrate consistent of congestive heart failure. His echo done today at 1208, EF globally less than 20% in some of the views, at best 20% to 25%. There is biatrial enlargement, trace aortic insufficiency, moderate mitral insufficiency, mild tricuspid insufficiency, [id number] pulmonary hypertension. His EKG showed him to be sinus rhythm, sinus tachycardia 103 probably right atrial enlargement, nonspecific diffuse PE abnormality. IMPRESSION: The patient is a 47-year-old with: 1. Severe nonischemic cardiopathy, EF less than 20%. 2. Cardiac cath done in January [address] Bennett, normal coronary artery system. 3. Systemic arterial hypertension, uncontrolled. 4. Obesity. 5. Obstructive sleep apnea. 6. Noncompliant. 7. Tobacco consumption and marijuana use. PLAN: Next, I talked with him as well as I discussed him with Dr. 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 This was discussed with the patient at length and after our lengthy talk benefits, risks discussed at length including sustained V-tach; sudden ; congestive heart failure, severe. He declined to stay in the hospital for ICD implantation arrangements, but he is willing once he gets discharged to have the LifeVest and he is aware of all of the benefits and risks. This was discussed at length with him as well as with Jesica Hopper from the hospitalist service and he is scheduled to see Dr. Chester, Cardiology next week. I instructed him to follow up very closely and he needs to be compliant. Medication flores, he needs beta- em, hydralazine, Nitro, and Lasix. Definitely MARLA inhibitor and ARBs are not to be use at the present time given his history of "angioedema" secondary to MARLA inhibitor. He needs to stop smoking, drinking alcohol, definitely stop marijuana use. Low salt, low fat diet. Physical activity as tolerated. Attempts to lose weight and to follow up accordingly. I answered all his concerns and questions up to his satisfaction. TIME SPENT: More than half of at least 60 to 65 plus minutes was in the education, counseling mode, explaining all of the above, and making further recommendations. [id number]/[facility] #: [id number] KANDACE
[2018-05-06 06:54] LABS: EGFR Non-African American 56.2 (>60)
[2018-05-06] MEDS: Heparin VIAL(*) 5000 UNITS/ML VIAL (FIVE THOUSAND) SUBCUT SCH ×3 (07:30→20:41)
[2018-05-06] MEDS: Furosemide IV* 10 MG/ML VIAL (40 MG) IV SCH (08:24)
[2018-05-06] MEDS: Carvedilol TAB* 6.25 MG PO SCH ×2 (08:24→20:39)
[2018-05-06] MEDS: Nitroglycerin 0.1 mg/Hr PATCH* (2.5 MG) TRANSDERM SCH (08:24)
[2018-05-06] MEDS: Spironolactone TAB* 25 MG PO SCH (08:25)
[2018-05-06] MEDS: oxyCODONE TAB* 5 MG TAB PO PRN ×2 (08:25→14:52)
--- NOTE | 2018-05-06 16:26 | PN ---
Subjective Date of Service: 05/06/18 Interval History: Much improved since admission. No new c/o. Uses his CPAP at home Objective Active Medications: Albuterol/Ipratropium (Duoneb (Albuterol 2.5 Mg/Ipratropium 0.5 Mg)) 1 neb INH Q4H PRN PRN Reason: SOB/WHEEZING Carvedilol (Coreg Tab*) 12.5 mg PO BID [facility] Last Admin: 05/06/18 08:24 Dose: 12.5 mg Device (Nicotine Mouth Piece*) 1 each INH .USE WITH NICOTROL PRN PRN Reason: CRAVING Heparin Sodium (Porcine) (Heparin Vial(*)) 5,000 units SUBCUT Q8HR [facility] Last Admin: 05/06/18 14:54 Dose: Not Given Nicotine (Nicotine Inhaler*) 10 mg INH Q2H PRN PRN Reason: CRAVING Nitroglycerin (Nitroglycerin 2.5 Mg Patch*) 1 patch TRANSDERM DAILY [facility] Last Admin: 05/06/18 08:24 Dose: 1 patch Oxycodone HCl (Roxycodone Tab*) 10 mg PO Q6H PRN PRN Reason: PAIN Last Admin: 05/06/18 14:52 Dose: 10 mg Pharmacy Profile Note (Nitro Patch/Oint Remove*) 1 note PATCH OFF 2100 [facility] Last Admin: 05/05/18 21:30 Dose: Not Given Spironolactone (Aldactone Tab*) 25 mg PO DAILY [facility] Last Admin: 05/06/18 08:25 Dose: 25 mg Torsemide (Demadex*) 20 mg PO DAILY [facility] Vital Signs - 8 hr 05/06/18 05/06/18 05/06/18 08:25 10:02 11:41 Temperature 97.8 F Pulse Rate 88 Respiratory 16 16 18 Rate Blood Pressure 122/94 (mmHg) O2 Sat by Pulse 98 Oximetry 05/06/18 14:52 Temperature Pulse Rate Respiratory 18 Rate Blood Pressure (mmHg) O2 Sat by Pulse Oximetry Oxygen Devices in Use Now: None Appearance: Alert, sitting on the edge of his bed. In good spirits. Looks comfortable. Eyes: No Scleral Icterus Respiratory: Symmetrical Chest Expansion and Respiratory Effort, Clear to Auscultation, Clear to Percussion Cardiovascular: NL Sounds; No Murmurs; No JVD, RRR Extremities: No Edema, No Clubbing, Cyanosis, - Skin: No Rash or Ulcers, No Nodules or Sclerosis, - Neurological: Alert and Oriented x 3, NL Sensation Result Diagrams: 05/05/18 05:50 05/06/18 06:11 Microbiology and Other Data: Microbiology 05/04/18 13:19 Aerobic Blood Culture - Preliminary Blood Venous No Growth Day 2 Anaerobic Blood Culture - Preliminary No Growth Day 2 05/04/18 13:07 Aerobic Blood Culture - Preliminary Blood Venous No Growth Day 2 Anaerobic Blood Culture - Preliminary No Growth Day 2 05/04/18 13:07 Urine Culture - Final Urine Assess/Plan/Problems-Billing Assessment: Mr. Sanchez is a 47 yo M with a PMH of CHF with EF 20-25%, current tobacco use, and AURELIO on CPAP who was admitted on 05/04/18 with SOB secondary to acute on chronic systolic congestive heart failure exacerbation. - Patient Problems (1) Acute on chronic systolic CHF (congestive heart failure) Current Visit: Yes Status: Acute Code(s): I50.23 - ACUTE ON CHRONIC SYSTOLIC (CONGESTIVE) HEART FAILURE SNOMED Code(s): 438190930 Comment: Improved after IV lasix. - Echo today shows that his EF continues to deteriorate, now less than 20%. Nonischemic cardiomyopathy likely related to chronic uncontrolled hypertension. - Appreciate consultation from Dr. Vivas. Life vest requested. Patient not willing to do a defibrillator at this point though we will continue to speak with him about the importance of this. - Patient had angioedema with ACEI and hydralzine, so ACEI and ARBS contraindicated. Continue NTG, carvedilol. Start po torsemide 05/07. Patient has follow up appt with Dr. Chester next week. (2) Smoking Current Visit: No Status: Acute Code(s): F17.200 - NICOTINE DEPENDENCE, UNSPECIFIED, UNCOMPLICATED SNOMED Code(s): 62740216 Comment: Pt advised to quit smoking and avoid second hand smoke. - Nicotine replacement prn. Status and Disposition: Inpatient. Anticipate discharge to home when medically stable.
[2018-05-06] MEDS: Nitro Patch/OINT Remove PATCH OFF SCH (20:41)
[2018-05-07] MEDS: Heparin VIAL(*) 5000 UNITS/ML VIAL (FIVE THOUSAND) SUBCUT SCH ×2 (05:12→13:20)
[2018-05-07 06:16] LABS: EGFR Non-African American 55.2 (>60)
[2018-05-07 07:47] VITALS: BP 116/82
[2018-05-07] MEDS: Spironolactone TAB* 25 MG PO SCH (08:13)
[2018-05-07] MEDS: Nitroglycerin 0.1 mg/Hr PATCH* (2.5 MG) TRANSDERM SCH (08:13)
[2018-05-07] MEDS: Carvedilol TAB* 6.25 MG PO SCH (08:13)
[2018-05-07] MEDS ORDERED: Torsemide TAB* 20 MG PO SCH (09:00)
--- NOTE | 2018-05-07 10:37 | PN ---
Progress Note - Progress Note Date of Service: 05/07/18 Note: Time spent on discharge 45 minutes, including exam of patient, discussion with patient, , CM, nurse, pharmacist, review of EMR and preparation of discharge documents.
--- NOTE | 2018-05-07 13:09 | PN ---
"Progress Note - Progress Note Date of Service: 05/07/18 Note: Search Terms: jeronimo sanchez, 1970 Search Date: 05/07/2018 01:08:10 PM The Drug Utilization Report below displays all of the controlled substance prescriptions, if any, that your patient has filled in the last twelve months. The information displayed on this report is compiled from pharmacy submissions to the Department, and accurately reflects the information as submitted by the pharmacies. This report was requested by: Charles Lawson | Reference #: [id number] Others' Prescriptions Patient Name: Jeronimo Sanchez Date: 1970 Address: [address] [place] [address] Sex: Male Rx Written Rx Dispensed Drug Quantity Days Supply Prescriber Name 04/10/2018 04/10/2018 oxycodone hcl 10 mg tablet 120 30 Tommy Garcia MD 03/10/2018 03/13/2018 oxycodone hcl 10 mg tablet 120 30 [place], Elif S (MS PA -C) 02/11/2018 02/11/2018 oxycodone hcl 10 mg tablet 120 30 [place], Elif S (MS PA -C) 01/07/2018 01/13/2018 hydromorphone 4 mg tablet 90 30 [place], Elif S (MS PA-C ) 12/11/2017 12/12/2017 hydromorphone 4 mg tablet 90 30 [place], Elif S (MS PA-C ) 11/09/2017 11/12/2017 hydromorphone 4 mg tablet 90 30 [place], Elif S (MS PA-C ) 10/14/2017 10/14/2017 hydromorphone 4 mg tablet 90 30 [place], Elif S (MS PA-C ) 10/01/2017 10/01/2017 hydromorphone 4 mg tablet 45 15 [place], Elif S (MS PA-C ) 09/17/2017 09/17/2017 hydromorphone 4 mg tablet 45 15 [place], Elif S (MS PA-C ) 09/02/2017 09/05/2017 oxycodone hcl er 10 mg tablet 30 30 Duncan Brown DO 09/02/2017 09/05/2017 oxycodone hcl er 20 mg tablet 30 30 Duncan Brown DO 05/12/2017 08/28/2017 promethazine vc-codeine syrup 100ml 5 Gabriel Ren 08/07/2017 08/07/2017 oxycodone hcl er 20 mg tablet 30 30 Elif Fierro (MS PA-C) 08/07/2017 08/07/2017 oxycodone hcl er 10 mg tablet 30 30 Elif Fierro (MS PA-C) 07/18/2017 07/21/2017 hydrocodone-acetaminophen 5-325 mg tablet 8 2 Jaspreet Del Angel 07/20/2017 07/21/2017 oxycodone hcl 10 mg tablet 40 20 Lesia Pettit MSN [employer]-C 06/18/2017 06/18/2017 oxycodone hcl 10 mg tablet 60 30 Gabriel Ren 06/18/2017 06/18/2017 oxycodone hcl 5 mg tablet 60 30 Gabriel Ren 06/10/2017 06/10/2017 oxycodone hcl 10 mg tablet 60 30 Devin Dorsey MD 06/10/2017 06/10/2017 oxycodone hcl 5 mg tablet 60 30 Devin Dorsey MD 06/03/2017 06/10/2017 promethazine vc-codeine syrup 100ml 5 Gabriel Ren 05/12/2017 05/14/2017 oxycodone hcl 10 mg tablet 60 30 Gabriel Ren 05/12/2017 05/13/2017 oxycodone hcl 5 mg tablet 60 30 Gabriel Ren"
--- NOTE | 2018-05-07 23:11 | DS ---
CC: Dr. Vivas; Elif Acevedole DISCHARGE SUMMARY: DATE OF ADMISSION: DATE OF DISCHARGE: 05/07/18 HOSPITAL COURSE: This 47-year-old man presents with dyspnea, has a history of severe cardiomyopathy, had little bit of wheezing. He noticed edema of his legs. He had a dry nonproductive cough. In the emergency room, he received intravenous furosemide and felt a little bit better. He was felt to have an acute on chronic exacerbation of systolic congestive heart failure. He was given more intravenous furosemide. On the day of discharge, he got an oral dose of torsemide. He had good diuresis with the intravenous furosemide. He had nonsustained V-tach which was asymptomatic on the monitor. He will receive a life vest and instruction in that and will go home with a life vest on the day of discharge. He was instructed to weigh himself daily, write down the weights and call a provider if his weight went up or down by more than 3 pounds from the baseline. He will have a BMP on 05/10/18. FINAL DIAGNOSES: 1. Severe cardiomyopathy with ventricular tachycardia. 2. Tobacco use disorder. DISCHARGE MEDICATIONS: 1. Nitroglycerin 0.1 mg per hour patch worn 12 hours a day. 2. Spironolactone 25 mg daily. 3. Torsemide 20 mg daily. 4. Albuterol inhaler 2 puffs every 4 hours p.r.n. 5. Oxycodone 10 mg every 6 hours p.r.n. 6. Carvedilol 12.5 mg b.i.d. I note the patient is reportedly allergic to both hydralazine and lisinopril. DISCHARGE DISPOSITION: Home. DISCHARGE CONDITION: Guarded. [id number]/[facility] #: [id number] [facility]
== END 2018-05-07 13:30 | disposition home or self-care (01) | DRG 205 ==
LOC: ED 10:37 → MEDTELE 15:46 → OBSVTOIN 05-05 14:18
PROVIDERS: ADMIT Internal Medicine; ATTEND Internal Medicine
DX: I42.9 Cardiomyopathy, unspecified (principal); I50.23 Acute on chronic systolic (congestive) heart failure; I47.2 Ventricular tachycardia; I13.0 Hypertensive heart and chronic kidney disease with heart failure and stage 1 through stage 4 chronic kidney disease, or unspecified chronic kidney disease; J44.9 Chronic obstructive pulmonary disease, unspecified; N18.2 Chronic kidney disease, stage 2 (mild); F17.210 Nicotine dependence, cigarettes, uncomplicated; M54.9 Dorsalgia, unspecified; G47.33 Obstructive sleep apnea (adult) (pediatric); K21.9 Gastro-esophageal reflux disease without esophagitis; I12.9 Hypertensive chronic kidney disease with stage 1 through stage 4 chronic kidney disease, or unspecified chronic kidney disease; R74.8 Abnormal levels of other serum enzymes; E66.9 Obesity, unspecified; F12.90 Cannabis use, unspecified, uncomplicated; Z79.891 Long term (current) use of opiate analgesic; Z79.899 Other long term (current) drug therapy; Z88.8 Allergy status to other drugs, medicaments and biological substances; Z88.6 Allergy status to analgesic agent; Z91.041 Radiographic dye allergy status; Z91.040 Latex allergy status; Z68.36 Body mass index [BMI] 36.0-36.9, adult; Z91.19 Patient's noncompliance with other medical treatment and regimen
CPT/HCPCS: 36415; 71046; 80048; 80053; 81003; 81015; 82550; 82553; 82728; 83036; 83605; 83690; 83735; 83880; 84443; 84484; 85025; 85379; 85610; 85730; 86140; 87040; 87086; 93005; 93306; 94640; 94660; 99283; A9270-GY; G0378; J1940; J3475

== ENCOUNTER 2018-09-16 10:18 | Emergency (ER) | payer OTHER ==
[2018-09-16 10:42] VITALS: BP 153/120
[2018-09-16] MEDS ORDERED: Albuterol 2.5 MG/3 ML NEB.SOL* (0.083%) INH ONE (11:59)
[2018-09-16] MEDS ORDERED: Ipratropium 0.5MG/2.5ML NEB* 0.5 MG/2.5 ML NEB.SOLN INH ONE (11:59)
[2018-09-16] MEDS ORDERED: Albuterol HFA INHALER* 8 gm MDI INH ONE ×2 (12:48→12:50)
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
== END 2018-09-16 13:08 | disposition home or self-care (01) ==
LOC: UCEAST 10:18
DX: J20.9 Acute bronchitis, unspecified (principal); S30.0XXA Contusion of lower back and pelvis, initial encounter; W19.XXXA Unspecified fall, initial encounter; Y92.9 Unspecified place or not applicable; Z88.8 Allergy status to other drugs, medicaments and biological substances; Z88.6 Allergy status to analgesic agent; Z91.041 Radiographic dye allergy status; Z91.040 Latex allergy status; F17.210 Nicotine dependence, cigarettes, uncomplicated
CPT/HCPCS: 71046; 72100; 99212; A9270-GY; G0463

== ENCOUNTER 2018-09-29 14:30 | Inpatient (IN) | payer OTHER ==
--- OUTSIDE RECORDS SUMMARY | 2018-09-29 14:44 | XMS REPORT | Continuity of Care Document ---
:1970 External Reference #:[id number] Author Name Janice Parada O.D. Address [address] [place] [address] Care Team Providers Name Role Phone Elif Fierro Primary Care Physician Unavailable Payers Type Date Identification Numbers Payment Provider Subscriber Policy Number: [id number] Ward Replaced By [facility] Jeronimo Sanchez PayID: [id number] [address] [place] [address] Policy Number: [id number] [employer] GABY Sanchez PayID: [id number] [address] [place] [address] Advance Directives Description No Information Available Problems Date Description Provider Status Onset: Chronic pain Active Onset: Essential hypertension Active Onset: 09/22/2018 Myopia Janice Parada O.D. Active Onset: 09/22/2018 Regular astigmatism Janice Parada O.D. Active Onset: 09/22/2018 Presbyopia Janice Parada O.D. 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 [employer] Work Status Disabled ETOH Use Occasionally consumes alcohol Tobacco Use Start: Unknown Light tobacco smoker (10 or fewer cigarettes/day) Smoking Status Reviewed: 09/22/18 Light tobacco smoker (10 or fewer cigarettes/day) Allergies, Adverse Reactions, Alerts Date Description Reaction Status Severity Comments 09/22/2018 Aspirin Active 09/22/2018 Tylenol Active 09/22/2018 Motrin Active 09/22/2018 Contrast Dye Active Medications Medication Date Status Form Strength Qnty SIG Indications Ordering Provider Prednisone 00/ Active Tablets 20mg Ryann 0000 Asad Tanner Fluticasone / Active Suspension 50mcg/Act Garrison Two Unknown Propionate 0000 Sprays In Each Nostril Every Day Oxycodone HCL / Active Tablets 10mg Lisk,Martha 0000 thy Torsemide / Active Tablets 20mg Take One Unknown 0000 Tablet By Mouth Every Day Spironolactone / Active Tablets 25mg Take One Unknown 0000 Tablet By Mouth Every Day Carvedilol / Active Tablets 12.5mg Take One Unknown 0000 Tablet By Mouth Twice A Day Immunizations Description No Information Available Vital Signs Description No Information Available Results Description No Information Available Procedures Description No Information Available Encounters Description No Information Available Plan of Treatment 09/22/2018 - Janice Parada O.D.H52.4 PresbyopiaComments:Smoking can increase the risk of developing or worsening any eye related disease, as well as affect your overall health. If you are a smoker, we strongly recommend that you quit.If you are not a smoker, we strongly recommend that you do not start. You have presbyopia. This is when the lens in your eye loses the ability to change focus, and happens as we age. A pair of reading glasses will help you see up close.Follow up:2 Year Follow Up You can expect to have your eyes dilated at your next visit. If Dr. Parada orders any additional testing, it may require extra time. We recommend that you bring sunglasses, as dilation drops often make you light sensitive until they wear off. We always recommend you bring someone to drive you home if you are uncomfortable driving with your eyes dilated. If you have any questions before your next visit, feel free to call our office at .H52.223 Regular astigmatism, bilateralComments :You have an astigmatism. Astigmatism is a common vision condition that happens when a person's cornea is not symmetrical. Dr. Parada has given you a prescription to correct for this.H52.13 Myopia, bilateralComments:You have Myopia, or near sightedness. I have given you a prescription for glasses.
[2018-09-29 15:28] LABS: ABS Basophils 0.1 10^3/ul (0-0.2); ABS Eosinophils 0.2 10^3/ul (0-0.6); ABS Lymphocytes 2.1 10^3/ul (1.0-4.8); ABS Nucleated RBC 0 10^3/ul; Eosinophil % 2.2 %; Hematocrit 45 % (42-52); Hemoglobin 14.5 g/dl (14.0-18.0); Lymphocyte % 19.9 %; Mean Corpuscular HGB Conc 32 g/dl (31-36); Mean Corpuscular Hemoglobin 28 pg (27-31); Mean Corpuscular Volume 88 fL (80-94); Mean Platelet Volume 8.9 fL (7.4-10.4); Nucleated Red Blood Cells % 0.2; Platelet Count 210 10^3/ul (150-450); Red Blood Count 5.18 10^6/ul (4.00-5.40); Red Cell Distribution Width 16 % (10.5-15); White Blood Count 10.4 10^3/ul (3.5-10.8)
[2018-09-29] MEDS ORDERED: Furosemide IV* 10 MG/ML VIAL (40 MG) IV SLOW PU ONE (15:47)
[2018-09-29 15:48] LABS: Albumin 4.1 g/dL (3.2-5.2); Albumin/Globulin Ratio 1.6 (1-3); BUN/Creatinine Ratio 12.9 (8-20); C Reactive Protein 10.71 mg/L (<8.01); Calcium 8.9 mg/dL (8.6-10.3); EGFR African American 61.6 (>60); EGFR Non-African American 50.9 (>60); Globulin 2.5 g/dL (2-4); Potassium 3.6 mmol/L (3.5-5.0); Total Bilirubin 0.5 mg/dL (0.2-1.0); Total Protein 6.6 g/dL (6.4-8.9)
[2018-09-29 15:58] LABS: Troponin I 0.24 ng/mL (<0.04)
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
[2018-09-29 16:36] LABS: Influenza A Molecular NEGATIVE (Negative); Influenza B Molecular NEGATIVE (Negative)
[2018-09-29] MEDS ORDERED: Fluticasone NASAL SPRAY 50MCG* 16 gm SPRAY BTL BOTH NARES PRN (18:12)
[2018-09-29] MEDS ORDERED: Mouth Piece, Nicotine* 1 EACH CARTRIDGE INH PRN (18:52)
[2018-09-29] MEDS: Nicotine Inhaler* 10 MG AMP INH PRN (21:05)
[2018-09-29] MEDS: Carvedilol TAB* 6.25 MG PO SCH (21:05)
[2018-09-29] MEDS: oxyCODONE TAB* 5 MG TAB PO PRN (21:05)
--- NOTE | 2018-09-29 21:28 | HP ---
HISTORY AND PHYSICAL: DATE OF ADMISSION: 09/29/18 PRIMARY CARE PROVIDER: Elif Fierro PA-C, [facility]. OUTPATIENT WATER RESOURCE PROJECT MANAGER: Dr. Carl Chester. CHIEF COMPLAINT: Shortness of breath, dyspnea on exertion, orthopnea, weight gain. HISTORY OF PRESENT ILLNESS: Jeronimo Sanchez is a 47-year-old male with past medical history of severe nonischemic cardiomyopathy with an EF of 20% to 25%; smoker; chronic back pain, on chronic opioids; hypertension; obstructive sleep apnea, on CPAP; and a history of intermittent medication noncompliance, who felt like his feet and hands were getting more more swollen, thought this was a potential side effect of his medications. So, decided to stop all of his medications, which included his torsemide, Coreg, and spironolactone. He did not discuss these changes with his [employer] stitcher or primary care provider. He has noted that he has gained approximately 40 pounds, currently around 249 from discharge of 210 back in April. He uses 3 pillows to prop himself up at night and still wakes up frequently short of breath and coughing. He has been coughing now with clear sputum. He denies any chest pain. His clothes have not fit him, he went shopping recently for a larger size and has had swelling in his legs, feet, and hands. He presented to the [facility], had a chest x-ray, which was concerning for pulmonary edema and elevated BNP of 349 after elevated troponin of 0.24, lactic acid of 2.2. Blood pressure of 193/122 , tachycardic and tachypneic and was referred to hospitalist service for admission for suspected acute CHF exacerbation in the setting severe nonischemic cardiomyopathy and medication noncompliance. He has been given 40 of IV Lasix and has already put out significant amount of clear urine. He went to [facility] on 09/11/18 for these symptoms and was given 40 mg of prednisone x5 days and a course of Augmentin. He also around this time followed up with Dr. Reed of ENT and he got 2 different nasal sprays. He has been noncompliant with his CPAP. Recently, he is complaining of excessive congestion around his mouth in the mornings and feeling suffocated inside. He had been up until 3 months ago going to cardiac rehab until "he got depressed." He attests there are no financial or access issues to his medications as he still has many of these at home currently. He does say he has a scale and does intermittently weigh himself. He sometimes follows a salt restricted diet, but complains that his oftenly buys for him cheese burgers 2 days in a row. He is still smoking about 3 cigarettes a day. PAST MEDICAL HISTORY: Severe nonischemic cardiomyopathy with ejection fraction 20% to 25%; obstructive sleep apnea; hypertension; chronic kidney disease stage 2; tobacco use; mild COPD on PFTs; GERD; prediabetes with A1c of 5.8% on ; chronic back pain, on chronic opioids. PAST SURGICAL HISTORY: Uvulopalatopharyngoplasty, decompressive lumbar laminectomy 2014 of left L4-L5 and lumbar fusion in August 2016. MEDICATIONS: Currently taking no cardiac meds for the last 3 weeks. Prior to that hw was prescribed 1. torsemide 20mg daily 2. coreg 12.5mg BID 3. spironolactone 25mg daily 4. oxycodone 10mg q6hr prn. ALLERGIES: LISINOPRIL (angioedema), IBUPROFEN, HYDRALAZINE, ASPIRIN, ACETAMINOPHEN (hives), LATEX. FAMILY HISTORY: His mother of AIDS and pneumonia, age 41. His father of heroin drug abuse in his 40s. He has a sister who has a high blood pressure, who is alive. SOCIAL HISTORY: The patient is on disability, worked 9 years at [employer] before having a syncopal episode. Current smoker of approximately 3 cigarettes per day, started at age 13, was max of 1 pack per day smoker. He is a rare alcohol user. He desires to be a full code. His medical surrogate his , Samantha Sanchez. They have 1 child. REVIEW OF SYSTEMS: A 14-point review of systems is negative except as per HPI. PHYSICAL EXAMINATION GENERAL APPEARANCE: Tachypneic, some mild respiratory distress. VITAL SIGNS: Temperature 98.5, pulse rate 103, satting 93% on room air, blood pressure 193/122. HEENT: Normocephalic, atraumatic. Pupils are equal, round, and reactive to light. Extraocular muscles intact. No scleral icterus. Moist mucous membranes. NECK: Supple. No cervical lymphadenopathy. LUNGS: No rhonchi or wheezing. Slight rales at the right base. CARDIAC: Regular rate and rhythm, but tachycardic. No murmurs, rubs, or gallops. ABDOMEN: Distended, soft. No rebound or guarding. EXTREMITIES: Warm, well perfused. 2 to 3+ pitting edema in bilateral lower extremities. NEUROLOGIC: Cranial nerves II through XII intact. Moving all extremities, grossly intact. SKIN: No lesions, no rashes. DIAGNOSTIC STUDIES/LAB DATA: White count 10.4, hemoglobin 14.5, hematocrit 45 , platelets 210. Sodium 140, potassium 3.6, chloride 108, carbon dioxide 25, BUN 19, creatinine 1.47, glucose 112, lactic acid 2.2. Total bili 0.5, AST 38, ALT 61, alk phos 63. Troponin 0.24, and repeat 0.26. CRP 10.7, BNP 349. Albumin 4.1. Influenza A and B negative. Imaging: Chest x-ray, impression: In the correct clinical setting, chest x- ray findings could be compatible with cardiogenic pulmonary edema. EKG demonstrates sinus tachycardia, T-wave inversion V5, V6, some abnormal R- wave progression. No ST depressions or elevations. Left axis deviation. Biatrial enlargement. QTc 456, heart rate 100. No significant change from prior study. ASSESSMENT AND PLAN: Jeronimo Sanchez is a 47-year-old male with past medical history of severe nonischemic cardiomyopathy, medication noncompliance, hypertension, presenting after stopping his meds 3 weeks ago as he was concerned that they may have been causing side effects of swelling in his feet and hands. He has had, however, progressive symptoms and he presents with classical signs of acute congestive heart failure. We will continue aggressive diuresis likely 60 mg IV b.i.d., strict I's and O's, daily weights. We are going to repeat an echocardiogram, last was in April 2018 with an EF of 20% to 25%. He last saw Dr. Chester on 07/06/18, who had considered initiating ARB, but given his history of medication noncompliance, thought that was risky that he might stop all of his medications instead if he felt like he was having any angioedema like sensations. Could consider initiating that this hospital stay under observation. Continue/restart spironolactone 25mg daily. Continue/ restart Coreg home dose of 12.5mg b.i.d. We will see what his repeat echocardiogram shows. For his chronic back pain, we will verify his dosing through [employer] monitoring program. He will eat a heart healthy diet. He is a full code. For his elevated troponin, he has a history of chronic elevation in the setting of likely acute CHF, we will trend those. Continue on telemetry. He has no chest pain currently, so he has been nonischemic on his left heart cath, last was in 01/26/18. We will give him a nicotine patch. Offer him CPAP , although likely will decline. Put him on heparin subcu 5000 t.i.d. for DVT prophylaxis. His surrogate is his , Samantha Sanchez. [id number]/CPS #: [id number] KANDACE
[2018-09-30] MEDS: Heparin VIAL(*) 5000 UNITS/ML VIAL (FIVE THOUSAND) SUBCUT SCH ×3 (05:35→20:35)
[2018-09-30 06:24] LABS: ABS Basophils 0.1 10^3/ul (0-0.2); ABS Eosinophils 0.3 10^3/ul (0-0.6); ABS Lymphocytes 2.2 10^3/ul (1.0-4.8); ABS Neutrophils 5.2 10^3/ul (1.5-7.7); ABS Nucleated RBC 0 10^3/ul; Eosinophil % 3.4 %; Hematocrit 45 % (42-52); Hemoglobin 14.3 g/dl (14.0-18.0); Lymphocyte % 25.7 %; Mean Corpuscular HGB Conc 32 g/dl (31-36); Mean Corpuscular Hemoglobin 28 pg (27-31); Mean Corpuscular Volume 88 fL (80-94); Mean Platelet Volume 8.7 fL (7.4-10.4); Nucleated Red Blood Cells % 0.3; Platelet Count 210 10^3/ul (150-450); Red Blood Count 5.06 10^6/ul (4.00-5.40); Red Cell Distribution Width 17 % (10.5-15); White Blood Count 8.7 10^3/ul (3.5-10.8)
[2018-09-30 06:41] LABS: Calcium 9.1 mg/dL (8.6-10.3); Magnesium 1.9 mg/dL (1.9-2.7); Potassium 4.1 mmol/L (3.5-5.0)
[2018-09-30 06:47] LABS: BUN/Creatinine Ratio 16.3 (8-20); EGFR African American 61.6 (>60); EGFR Non-African American 50.9 (>60)
[2018-09-30] MEDS ORDERED: Perflutren Lipid Microsphere* 3 ML VIAL ONE (07:56)
[2018-09-30] MEDS: Spironolactone TAB* 25 MG PO SCH (08:25)
[2018-09-30] MEDS: Furosemide IV* 10 MG/ML 10 ML VIAL (100 MG) IV SCH ×2 (08:25→14:07)
[2018-09-30] MEDS: Carvedilol TAB* 6.25 MG PO SCH ×2 (08:25→19:38)
[2018-09-30] MEDS: oxyCODONE TAB* 5 MG TAB PO PRN ×3 (08:49→22:25)
[2018-09-30] MEDS: Nicotine Inhaler* 10 MG AMP INH PRN (08:50)
--- NOTE | 2018-09-30 08:56 | PN ---
Subjective Date of Service: 09/30/18 Interval History: Breathing slightly better - able to walk to bathroom Used CPAP without difficulty Feels thirsty Objective Active Medications: Carvedilol (Coreg Tab*) 12.5 mg PO BID [facility] Last Admin: 09/30/18 08:25 Dose: 12.5 mg Device (Nicotine Mouth Piece*) 1 each INH ONCE PRN PRN Reason: CRAVING Last Admin: 09/29/18 21:05 Dose: 1 each Fluticasone Propionate (Flonase Nasal [place] 50mcg*) 2 spray BOTH NARES DAILY PRN PRN Reason: CONGESTION Furosemide (Lasix Iv*) 60 mg IV 0800,1500 [facility] Last Admin: 09/30/18 08:25 Dose: 60 mg Heparin Sodium (Porcine) (Heparin Vial(*)) 5,000 units SUBCUT Q8HR [facility] Last Admin: 09/30/18 05:35 Dose: 5,000 units Nicotine (Nicotine Inhaler*) 10 mg INH Q2H PRN PRN Reason: CRAVING Last Admin: 09/29/18 21:05 Dose: 10 mg Oxycodone HCl (Roxycodone Tab*) 10 mg PO Q6H PRN PRN Reason: PAIN Last Admin: 09/29/18 21:05 Dose: 10 mg Spironolactone (Aldactone Tab*) 25 mg PO DAILY [facility] Last Admin: 09/30/18 08:25 Dose: 25 mg Vital Signs - 8 hr 09/30/18 09/30/18 03:17 08:20 Temperature 97.5 F 97.3 F Pulse Rate 85 93 Respiratory 20 16 Rate Blood Pressure 145/94 162/112 (mmHg) O2 Sat by Pulse 87 95 Oximetry Oxygen Devices in Use Now: None Appearance: sitting in chair, NAD Eyes: No Scleral Icterus, PERRLA Ears/Nose/Mouth/Throat: NL Teeth, Lips, Gums, Mucous Membranes Moist Neck: NL Appearance and Movements; NL JVP, Trachea Midline Respiratory: Symmetrical Chest Expansion and Respiratory Effort, - - decreased in bases no rales Cardiovascular: NL Sounds; No Murmurs; No JVD, RRR Abdominal: NL Sounds; No Tenderness; No Distention, No Hepatosplenomegaly Extremities: - - 1+ LE edema b/l Skin: No Rash or Ulcers Neurological: Alert and Oriented x 3, NL Muscle Strength and Tone Result Diagrams: 09/30/18 06:02 02/08/19 06:02 Additional Lab and Data: Lab Results 09/29/18 09/29/18 09/29/18 Range/Units 15:11 15:11 15:11 WBC 10.4 (3.5-10.8) 10^3/ul RBC 5.18 (4.00-5.40) 10^6/ul Hgb 14.5 (14.0-18.0) g/dl Hct 45 (42-52) % MCV 88 (80-94) fL MCH 28 (27-31) pg MCHC 32 (31-36) g/dl RDW 16 H (10.5-15) % Plt Count 210 (150-450) 10^3/ul MPV 8.9 (7.4-10.4) fL Neut % (Auto) 67.8 % Lymph % (Auto) 19.9 % [place] % (Auto) 9.4 % Eos % (Auto) 2.2 % Baso % (Auto) 0.7 % Absolute Neuts (auto) 7.0 (1.5-7.7) 10^3/ul Absolute Lymphs (auto) 2.1 (1.0-4.8) 10^3/ul Absolute Monos (auto) 1.0 H (0-0.8) 10^3/ul Absolute Eos (auto) 0.2 (0-0.6) 10^3/ul Absolute Basos (auto) 0.1 (0-0.2) 10^3/ul Absolute Nucleated RBC 0 10^3/ul Nucleated RBC % 0.2 Sodium 140 (135-145) mmol/L Potassium 3.6 (3.5-5.0) mmol/L Chloride 108 (101-111) mmol/L Carbon Dioxide 25 (22-32) mmol/L Anion Gap 7 (2-11) mmol/L BUN 19 (6-24) mg/dL Creatinine 1.47 H (0.67-1.17) mg/dL Est GFR ( Amer) 61.6 (>60) Est GFR (Non-Af Amer) 50.9 (>60) BUN/Creatinine Ratio 12.9 (8-20) Glucose 112 H (70-100) mg/dL Lactic Acid 2.2 H* (0.5-2.0) mmol/L Calcium 8.9 (8.6-10.3) mg/dL Total Bilirubin 0.50 (0.2-1.0) mg/dL AST 38 (13-39) U/L ALT 61 H (7-52) U/L Alkaline Phosphatase 63 (34-104) U/L Troponin I 0.24 H* (<0.04) ng/mL C-Reactive Protein 10.71 H (<8.01) mg/L B-Natriuretic Peptide (<=100) pg/mL Total Protein 6.6 (6.4-8.9) g/dL Albumin 4.1 (3.2-5.2) g/dL Globulin 2.5 (2-4) g/dL Albumin/Globulin Ratio 1.6 (1-3) 09/29/18 Range/Units 15:11 WBC (3.5-10.8) 10^3/ul RBC (4.00-5.40) 10^6/ul Hgb (14.0-18.0) g/dl Hct (42-52) % MCV (80-94) fL MCH (27-31) pg MCHC (31-36) g/dl RDW (10.5-15) % Plt Count (150-450) 10^3/ul MPV (7.4-10.4) fL Neut % (Auto) % Lymph % (Auto) % [place] % (Auto) % Eos % (Auto) % Baso % (Auto) % Absolute Neuts (auto) (1.5-7.7) 10^3/ul Absolute Lymphs (auto) (1.0-4.8) 10^3/ul Absolute Monos (auto) (0-0.8) 10^3/ul Absolute Eos (auto) (0-0.6) 10^3/ul Absolute Basos (auto) (0-0.2) 10^3/ul Absolute Nucleated RBC 10^3/ul Nucleated RBC % Sodium (135-145) mmol/L Potassium (3.5-5.0) mmol/L Chloride (101-111) mmol/L Carbon Dioxide (22-32) mmol/L Anion Gap (2-11) mmol/L BUN (6-24) mg/dL Creatinine (0.67-1.17) mg/dL Est GFR ( Amer) (>60) Est GFR (Non-Af Amer) (>60) BUN/Creatinine Ratio (8-20) Glucose (70-100) mg/dL Lactic Acid (0.5-2.0) mmol/L Calcium (8.6-10.3) mg/dL Total Bilirubin (0.2-1.0) mg/dL AST (13-39) U/L ALT (7-52) U/L Alkaline Phosphatase (34-104) U/L Troponin I (<0.04) ng/mL C-Reactive Protein (<8.01) mg/L B-Natriuretic Peptide 349 H (<=100) pg/mL Total Protein (6.4-8.9) g/dL Albumin (3.2-5.2) g/dL Globulin (2-4) g/dL Albumin/Globulin Ratio (1-3) Microbiology and Other Data: Microbiology 09/29/18 16:06 Influenza Types A,B Antigen - Final Nasopharyngeal Specimen received for Influenza A/B Molecular testing Assess/Plan/Problems-Billing Assessment: 47 yo M severe NICM (ef 20% in 04/2018), AUERLIO, HTN, tobacco use, CKD pw chf exacerbation - Patient Problems (1) AURELIO (obstructive sleep apnea) Comment: counseled CPAP use patient in agreement and will continue CPAP (2) Acute on chronic systolic CHF (congestive heart failure) Comment: Patient dicontinued meds and CPAP, no home fluid restriction nor low salt diet Pt expressed frustration with declining functional status and discontinued meds. He did not have a goo dunderstanding of his condition which appears in setting of denial Repeat TTE performed restart coreg, aldactone Lasix 60IV BID strict I/o, daily weights fluid restrict 1200cc/day daily bmps CPAP Consideration for ARB (ACEi allergy) was proposed as outpatient. Consider starting in patient after other meds are started and BP is stable Declined ICD in past. Can be revisited again (3) CKD (chronic kidney disease) stage 2, GFR 60-89 ml/min Comment: stable trend (4) Elevated troponin Comment: No chest pain Down trending In setting of chf exacerbation (5) HTN (hypertension) Comment: lasix coreg (6) Smoking Comment: nicotine inhaler declining patch counseled cessation (7) DVT prophylaxis Comment: HSQ
--- NOTE | 2018-09-30 14:23 | ECHO ---
Patient: ANDREA BRANNON [facility] Rec#: [id number] : 1970 Date: 09/30/2018 Age: 47y Height: 167.64 cm / 66.0 in Weight: 108.86 kg / 239.9 lbs Sex: M BSA: 2.16 Room#: [facility] Admit Date#: 09/29/2018 Type: Inpatient Referring: Uvaldo Ford Reading: Marquez Hussein MD [employer]: Irish Ace RDCS CC: Carl Chester DO CC: NIRAJ FONSECA NP Transthoracic Echocardiogram Indication: CHF//SOB BP: 145/94 HR: 71 Rhythm: NSR Findings History: Nonischemic cardiomyopathy, smoker,HTN,AURELIO with CPAP,CKD,COPD,GERD,obesity. Technical Comments: The study is technically limited due to patient body habitus. Definity used to enhance images. Completed at 1144. Left Ventricle: The left ventricular chamber size is normal. Moderate to severe concentric left ventricular hypertrophy is observed. There is global hypokinesis of the left ventricle with minor regional variation. There is severely decreased left ventricular systolic function. The estimated ejection fraction is 25-30%. Abnormal left ventricular diastolic function is observed. Left Atrium: The left atrium is mild to moderately dilated. Right Ventricle: The right ventricular cavity size is normal. The right ventricular global systolic function is low normal. Right Atrium: The right atrium is mildly dilated. Aortic Valve: The aortic valve structure is not well visualized. There is no evidence of aortic regurgitation. There is no evidence of aortic stenosis. Mitral Valve: The mitral valve leaflets are mildly thickened. There is mild mitral regurgitation. Tricuspid Valve: The tricuspid valve leaflets are normal. There is no evidence of tricuspid valve regurgitation. Unable to estimate the right ventricular systolic pressure. Pulmonic Valve: The pulmonic valve appears normal. There is a trace pulmonic regurgitation. There is no pulmonic stenosis. Pericardium: There is no significant pericardial effusion. A pericardial fat pad is visualized. Aorta: There is no dilatation of the ascending aorta. There is no dilatation of the aortic arch. There is no dilation of the aortic root. Pulmonary Artery: The main pulmonary artery is not well visualized. Venous: The venous system is not well visualized. Contrast: Definity was used to optimize study. A total of 4 ml used. Intravenous contrast was used to enhance endocardial border definition. Conclusions There is severely decreased left ventricular systolic function. The estimated ejection fraction is 25-30%. There is global hypokinesis of the left ventricle with minor regional variation. The left ventricular chamber size is normal. Moderate to severe concentric left ventricular hypertrophy is observed. Abnormal left ventricular diastolic function is observed. The left atrium is mild to moderately dilated. The right atrium is mildly dilated. There is mild mitral regurgitation. Since the prior echocardiogram completed 05/05/18, there appears to be little change. Measurements Name Value Normal Range RVIDd (AP) 2D 2.8 cm (0.9 - 2.6) RVDdMajor (2D) 2.9 cm (2.2 - 4.4) RAd ISD 4CH 5.2 cm (3.4 - 4.9) RA (A4C)W 3.4 cm (2.9 - 4.6) IVSd (2D) 1.8 cm (0.6 - 1) LVPWd (2D) 1.6 cm (0.6 - 1) LVIDd (2D) 4.7 cm (3.6 - 5.4) LVIDs (2D) 4.4 cm - LV FS (2D) 6 % (25 - 45) Aortic Annulus 1.9 cm (1.4 - 2.6) Ao root diameter (2D) 3.3 cm (2.1 - 3.5) Ascending Ao 3.4 cm (2.1 - 3.4) Aortic arch 2.9 cm (1.8 - 3.4) Descending Ao 0.4 cm - LA dimension (AP) 2D 4.2 cm (2.3 - 3.8) LAd ISD 4CH 6 cm (2.9 - 5.3) LA ISD 4CH W 3.3 cm (2.5 - 4.5) Name Value Normal Range LA ESV SP 4CH (A/L) 45 ml - LA ESV SP 2CH (A/L) 78 ml - LA ESV BP (A/L) 62 ml - LA ESV BP (A/L) index 29 ml/m2 - LA ESV SP 4CH (MOD) 42 ml - LA ESV SP 2CH (MOD) 78 ml - Name Value Normal Range MV E-wave Vmax 0.7 m/sec - MV deceleration time 167 msec - MV A-wave Vmax 0.8 m/sec - MV E:A ratio 0.82 ratio - LV septal e' Vmax 0.05 m/sec - LV lateral e' Vmax 0.03 m/sec - LV E:e' septal ratio 14 ratio - LV E:e' lateral ratio 23.3 ratio - Name Value Normal Range AV Vmax 1.2 m/sec - AV VTI 22.9 cm - AV peak gradient 5.26 mmHg - AV mean gradient 3.28 mmHg - LVOT Vmax 0.7 m/sec - LVOT VTI 13.3 cm - LVOT peak gradient 2.1 mmHg - LVOT mean gradient 1.09 mmHg - Name Value Normal Range MR Vmax 4.7 m/sec - MR VTI 152.4 cm - Name Value Normal Range PV Vmax 0.7 m/sec - PV peak gradient 1 mmHg -
[2018-10-01] MEDS: Heparin VIAL(*) 5000 UNITS/ML VIAL (FIVE THOUSAND) SUBCUT SCH ×3 (05:01→21:00)
[2018-10-01 06:02] LABS: BUN/Creatinine Ratio 16.8 (8-20); Calcium 9.4 mg/dL (8.6-10.3); EGFR African American 51.1 (>60); EGFR Non-African American 42.2 (>60); Magnesium 1.9 mg/dL (1.9-2.7); Potassium 3.7 mmol/L (3.5-5.0)
[2018-10-01] MEDS ORDERED: Potassium Chlor TAB* 20 MEQ TAB.ER PO ONE (07:32)
[2018-10-01] MEDS ORDERED: Magnesium Oxide TAB* 400 MG PO ONE (07:32)
[2018-10-01] MEDS: Furosemide IV* 10 MG/ML VIAL (40 MG) IV SCH (08:21)
[2018-10-01] MEDS: Spironolactone TAB* 25 MG PO SCH (08:21)
[2018-10-01] MEDS: Carvedilol TAB* 6.25 MG PO SCH ×2 (08:21→19:50)
[2018-10-01] MEDS: oxyCODONE TAB* 5 MG TAB PO PRN ×2 (09:11→21:22)
--- NOTE | 2018-10-01 16:49 | PN ---
Subjective Date of Service: 10/01/18 Interval History: Breathing feels much better walking back and forth to bathroom CPAP works very well unlike his at home no complaints Objective Active Medications: Carvedilol (Coreg Tab*) 12.5 mg PO BID [facility] Last Admin: 10/01/18 08:21 Dose: 12.5 mg Device (Nicotine Mouth Piece*) 1 each INH ONCE PRN PRN Reason: CRAVING Last Admin: 09/29/18 21:05 Dose: 1 each Fluticasone Propionate (Flonase Nasal [place] 50mcg*) 2 spray BOTH NARES DAILY PRN PRN Reason: CONGESTION Furosemide (Lasix Iv*) 60 mg IV 0900 [facility] Last Admin: 10/01/18 08:21 Dose: 60 mg Heparin Sodium (Porcine) (Heparin Vial(*)) 5,000 units SUBCUT Q8HR [facility] Last Admin: 10/01/18 14:51 Dose: Not Given Nicotine (Nicotine Inhaler*) 10 mg INH Q2H PRN PRN Reason: CRAVING Last Admin: 09/30/18 08:50 Dose: 10 mg Oxycodone HCl (Roxycodone Tab*) 10 mg PO Q6H PRN PRN Reason: PAIN Last Admin: 10/01/18 09:11 Dose: 10 mg Spironolactone (Aldactone Tab*) 25 mg PO DAILY [facility] Last Admin: 10/01/18 08:21 Dose: 25 mg Vital Signs - 8 hr 10/01/18 10/01/18 09:11 11:10 Temperature 96.7 F Pulse Rate 91 Respiratory 20 16 Rate Blood Pressure 120/84 (mmHg) O2 Sat by Pulse 97 Oximetry Oxygen Devices in Use Now: None Appearance: NAD Eyes: No Scleral Icterus, PERRLA Ears/Nose/Mouth/Throat: Clear Oropharnyx, Mucous Membranes Moist Neck: NL Appearance and Movements; NL JVP, Trachea Midline Respiratory: Symmetrical Chest Expansion and Respiratory Effort, Clear to Auscultation Cardiovascular: RRR Abdominal: NL Sounds; No Tenderness; No Distention, No Hepatosplenomegaly Lymphatic: No Cervical Adenopathy Extremities: No Edema, - - no swelling Skin: No Rash or Ulcers Neurological: Alert and Oriented x 3 Result Diagrams: 09/30/18 06:02 10/01/18 05:10 Additional Lab and Data: Lab Results 09/29/18 09/29/18 09/29/18 Range/Units 15:11 15:11 15:11 WBC 10.4 (3.5-10.8) 10^3/ul RBC 5.18 (4.00-5.40) 10^6/ul Hgb 14.5 (14.0-18.0) g/dl Hct 45 (42-52) % MCV 88 (80-94) fL MCH 28 (27-31) pg MCHC 32 (31-36) g/dl RDW 16 H (10.5-15) % Plt Count 210 (150-450) 10^3/ul MPV 8.9 (7.4-10.4) fL Neut % (Auto) 67.8 % Lymph % (Auto) 19.9 % [place] % (Auto) 9.4 % Eos % (Auto) 2.2 % Baso % (Auto) 0.7 % Absolute Neuts (auto) 7.0 (1.5-7.7) 10^3/ul Absolute Lymphs (auto) 2.1 (1.0-4.8) 10^3/ul Absolute Monos (auto) 1.0 H (0-0.8) 10^3/ul Absolute Eos (auto) 0.2 (0-0.6) 10^3/ul Absolute Basos (auto) 0.1 (0-0.2) 10^3/ul Absolute Nucleated RBC 0 10^3/ul Nucleated RBC % 0.2 Sodium 140 (135-145) mmol/L Potassium 3.6 (3.5-5.0) mmol/L Chloride 108 (101-111) mmol/L Carbon Dioxide 25 (22-32) mmol/L Anion Gap 7 (2-11) mmol/L BUN 19 (6-24) mg/dL Creatinine 1.47 H (0.67-1.17) mg/dL Est GFR ( Amer) 61.6 (>60) Est GFR (Non-Af Amer) 50.9 (>60) BUN/Creatinine Ratio 12.9 (8-20) Glucose 112 H (70-100) mg/dL Lactic Acid 2.2 H* (0.5-2.0) mmol/L Calcium 8.9 (8.6-10.3) mg/dL Total Bilirubin 0.50 (0.2-1.0) mg/dL AST 38 (13-39) U/L ALT 61 H (7-52) U/L Alkaline Phosphatase 63 (34-104) U/L Troponin I 0.24 H* (<0.04) ng/mL C-Reactive Protein 10.71 H (<8.01) mg/L B-Natriuretic Peptide (<=100) pg/mL Total Protein 6.6 (6.4-8.9) g/dL Albumin 4.1 (3.2-5.2) g/dL Globulin 2.5 (2-4) g/dL Albumin/Globulin Ratio 1.6 (1-3) 09/29/18 Range/Units 15:11 WBC (3.5-10.8) 10^3/ul RBC (4.00-5.40) 10^6/ul Hgb (14.0-18.0) g/dl Hct (42-52) % MCV (80-94) fL MCH (27-31) pg MCHC (31-36) g/dl RDW (10.5-15) % Plt Count (150-450) 10^3/ul MPV (7.4-10.4) fL Neut % (Auto) % Lymph % (Auto) % [place] % (Auto) % Eos % (Auto) % Baso % (Auto) % Absolute Neuts (auto) (1.5-7.7) 10^3/ul Absolute Lymphs (auto) (1.0-4.8) 10^3/ul Absolute Monos (auto) (0-0.8) 10^3/ul Absolute Eos (auto) (0-0.6) 10^3/ul Absolute Basos (auto) (0-0.2) 10^3/ul Absolute Nucleated RBC 10^3/ul Nucleated RBC % Sodium (135-145) mmol/L Potassium (3.5-5.0) mmol/L Chloride (101-111) mmol/L Carbon Dioxide (22-32) mmol/L Anion Gap (2-11) mmol/L BUN (6-24) mg/dL Creatinine (0.67-1.17) mg/dL Est GFR ( Amer) (>60) Est GFR (Non-Af Amer) (>60) BUN/Creatinine Ratio (8-20) Glucose (70-100) mg/dL Lactic Acid (0.5-2.0) mmol/L Calcium (8.6-10.3) mg/dL Total Bilirubin (0.2-1.0) mg/dL AST (13-39) U/L ALT (7-52) U/L Alkaline Phosphatase (34-104) U/L Troponin I (<0.04) ng/mL C-Reactive Protein (<8.01) mg/L B-Natriuretic Peptide 349 H (<=100) pg/mL Total Protein (6.4-8.9) g/dL Albumin (3.2-5.2) g/dL Globulin (2-4) g/dL Albumin/Globulin Ratio (1-3) Microbiology and Other Data: Microbiology 09/29/18 16:06 Influenza Types A,B Antigen - Final Nasopharyngeal Specimen received for Influenza A/B Molecular testing Assess/Plan/Problems-Billing Assessment: 47 yo M severe NICM (ef 25), AURELIO, HTN, tobacco use, CKD pw chf exacerbation - Patient Problems (1) AURELIO (obstructive sleep apnea) Comment: CPAP use Pt's familt bring in home cpap so respiratory therapy can assist (2) Acute on chronic systolic CHF (congestive heart failure) Comment: Patient dicontinued meds and CPAP, no home fluid restriction nor low salt diet Pt expressed frustration with declining functional status and discontinued meds. He did not have a good understanding of his condition which appears in setting of denial restart coreg, aldactone Lasix 60IV BID decreased to daily on 10/01 based on rising creatinine strict I/O, daily weights fluid restrict 1200cc/day daily bmps CPAP Consideration for ARB (ACEi allergy) was proposed as outpatient. Consider starting in patient after other meds are started and BP is stable Declined ICD in past. Discussed at length today/ He will discuss more with his (3) CKD (chronic kidney disease) stage 2, GFR 60-89 ml/min Comment: trend (4) Elevated troponin Comment: No chest pain Down trending In setting of chf exacerbation (5) HTN (hypertension) Comment: lasix coreg (6) Smoking Comment: nicotine inhaler declining patch counseled cessation (7) DVT prophylaxis Comment: HSQ
[2018-10-01] MEDS ORDERED: Furosemide IV* 10 MG/ML 2 ML VIAL (20 MG) IV SLOW PU ONE (17:06)
[2018-10-02] MEDS: Heparin VIAL(*) 5000 UNITS/ML VIAL (FIVE THOUSAND) SUBCUT SCH (04:09)
[2018-10-02 06:32] LABS: BUN/Creatinine Ratio 19.7 (8-20); Blood Urea Nitrogen 30 mg/dL (6-24); CO2 Carbon Dioxide 28 mmol/L (22-32); Calcium 9.5 mg/dL (8.6-10.3); Chloride 103 mmol/L (101-111); EGFR African American 59.3 (>60); Glucose 115 mg/dL (70-100); Sodium 138 mmol/L (135-145)
[2018-10-02 06:44] LABS: Anion Gap 7 mmol/L (2-11)
[2018-10-02] MEDS: Carvedilol TAB* 6.25 MG PO SCH (08:16)
[2018-10-02] MEDS: Spironolactone TAB* 25 MG PO SCH (08:16)
[2018-10-02] MEDS: Furosemide IV* 10 MG/ML VIAL (40 MG) IV SCH (08:16)
[2018-10-02] MEDS: oxyCODONE TAB* 5 MG TAB PO PRN (10:32)
[2018-10-02 12:50] VITALS: BP 123/73
--- NOTE | 2018-10-02 22:23 | DS ---
CC: Elif Fierro PA-C; Dr. Carl Chester * DISCHARGE SUMMARY: DATE OF ADMISSION: 09/29/18 DATE OF DISCHARGE: 10/02/18 PRIMARY CARE PROVIDER: Elif Fierro PA-C. DYE TANK TENDER: Dr. Carl Chester. PRIMARY DIAGNOSIS: Systolic heart failure exacerbation. SECONDARY DIAGNOSES: Include: 1. Nonischemic cardiomyopathy. 2. Obstructive sleep apnea. 3. Hypertension. 4. Chronic kidney disease. 5. Tobacco use. 6. History of mild chronic obstructive pulmonary disease. 7. History of prediabetes. MEDICATIONS ON DISCHARGE: Include: 1. Torsemide 20 mg twice daily. 2. Fluticasone 2 sprays both nares as needed. 3. Spironolactone 25 mg daily. 4. Carvedilol 12.5 mg twice daily. 5. Oxycodone 10 mg every 6 hours as needed, none prescribed. Please note the increased dose of torsemide from 20 mg daily to 20 mg twice daily. ALLERGIES: Please note allergy to LISINOPRIL and ASPIRIN. Blood check on discharge Wednesday, 5 days from now, BMP and magnesium. PERTINENT IMAGING PERFORMED DURING HOSPITAL STAY: Transthoracic echocardiogram , impression: Severely decreased left ventricular systolic function with estimated EF of 25% to 30%, global hypokinesis of the left ventricle with minor regional variation. Left ventricular chamber size is normal, moderate to severe concentric left ventricular hypertrophy, abnormal left ventricular diastolic function, left atrium is mild to moderately dilated, right atrium is mildly dilated and there is mild MR. Little change from previous echocardiogram. HISTORY OF PRESENT ILLNESS AND HOSPITAL COURSE: This is a 47-year-old man with past medical history of nonischemic cardiomyopathy with decreased ejection fraction who had been doing relatively well, attending cardiac rehab; however, ultimately decided to stop taking his medications, stopped going to cardiac rehab, gained significant amount of weight associated with increased shortness of breath, presented to the hospital with combined systolic/ diastolic heart failure exacerbation. He was admitted to the hospital. His home medications were restarted. He was diuresed heavily with Lasix. His kidney function remained stable on approximately 80 mg of Lasix per day, with a slight increase after 120 mg of IV Lasix. Torsemide was increased to a total of 20 twice daily. On day of discharge, he was ambulating without shortness of breath around the hallways, required no oxygen and no lower extremity edema. Extensive conversation was had with the patient regarding medication compliance , fluid restriction and salt restriction. The patient will maintain fluid restriction to 1200 cc per day, low salt diet. I counseled the patient on smoking cessation, which he seems motivated to stop now. Additionally, extensive conversation was had with the patient and his regarding placement of an ICD. In the past, he has been hesitant; however, after discussion with the patient, would like to pursue placement of an ICD after following up Dr. Chester from this stay. I did ask the personnel consultant on-call to send a message to Dr. Chester via [employer] to relay this information. I would perhaps have the office call in the patient and set up a followup so he is not lost, would be of some benefit at this time when he is actively engaged in his medical care. There are no complications in the patient's hospital stay. At followup, please; 1. Repeat BMP is scheduled for 10/07/18. Please ensure stability of his renal function as well as potassium and magnesium. 2. Adjust torsemide as necessary based on actual fluid and salt consumption out of the hospital. 3. The patient encouraged to start daily weights. Please re-encourage and follow weights as he is compliant. 4. The patient has previously been enrolled in cardiac rehab, but re-enroll if possible. 5. As indicated in the body of this report, discussed placement of an ICD at length. The patient would now like to pursue the placement of an ICD, primary prevention of sudden cardiac . Please discuss further with the patient and arrange if he is still amenable. 6. No other specific labs or vitals that need followup. Reasons to return to the hospital including, but not limited to recurrent or worsening symptoms, including shortness of breath, chest pain, nausea, vomiting , lightheadedness, loss of consciousness, near loss of consciousness, palpitations, bleeding from any source or inability to obtain or tolerate medications are discussed with the patient. He acknowledged understanding. TIME SPENT: Greater than 90 minutes was spent on the discharge of this patient , greater than half was spent [id number] with the patient. [id number]/[facility] #: [id number] MTDD
== END 2018-10-02 13:30 | disposition home or self-care (01) | DRG 194 ==
LOC: ED 14:30 → MEDTELE 17:14 → OBSVTOIN 18:00
PROVIDERS: ADMIT Internal Medicine; ATTEND Internal Medicine
DX: I13.0 Hypertensive heart and chronic kidney disease with heart failure and stage 1 through stage 4 chronic kidney disease, or unspecified chronic kidney disease (principal); I50.23 Acute on chronic systolic (congestive) heart failure; I42.8 Other cardiomyopathies; N18.2 Chronic kidney disease, stage 2 (mild); M54.9 Dorsalgia, unspecified; G47.33 Obstructive sleep apnea (adult) (pediatric); J44.9 Chronic obstructive pulmonary disease, unspecified; K21.9 Gastro-esophageal reflux disease without esophagitis; R73.03 Prediabetes; F17.210 Nicotine dependence, cigarettes, uncomplicated; R74.8 Abnormal levels of other serum enzymes; Z88.6 Allergy status to analgesic agent; Z88.8 Allergy status to other drugs, medicaments and biological substances; Z91.14 Patient's other noncompliance with medication regimen; Z91.19 Patient's noncompliance with other medical treatment and regimen; Z79.891 Long term (current) use of opiate analgesic; Z79.899 Other long term (current) drug therapy; Z91.040 Latex allergy status; Z82.49 Family history of ischemic heart disease and other diseases of the circulatory system; Z81.3 Family history of other psychoactive substance abuse and dependence
CPT/HCPCS: 36415; 71046; 80048; 80053; 83605; 83735; 83880; 84484; 85025; 86140; 87040; 93005; 93306; 94660; 99284; A9270-GY; C8929; J1644; J1940

== ENCOUNTER 2018-11-21 22:52 | Emergency (ER) | payer OTHER ==
[2018-11-21 23:38] LABS: Influenza A Molecular NEGATIVE (Negative); Influenza B Molecular NEGATIVE (Negative)
[2018-11-22] MEDS ORDERED: Albuterol/Ipratropium NEB.SOL* Albuterol 2.5 MG/Ipratropium 0.5 MG 3 ML INH ONE (00:48)
[2018-11-22] MEDS ORDERED: Albuterol 2.5 MG/3 ML NEB.SOL* (0.083%) INH ONE (00:48)
[2018-11-22] MEDS ORDERED: predniSONE TAB* 20 MG PO ONE (00:49)
[2018-11-22] MEDS ORDERED: Levofloxacin TAB* 250 MG PO ONE (00:49)
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
[2018-11-22] MEDS ORDERED: Albuterol HFA INHALER* 8 gm MDI INH SCH (01:00)
[2018-11-22 01:54] VITALS: BP 153/89
== END 2018-11-22 01:53 | disposition home or self-care (01) ==
LOC: ED 22:52
DX: J20.9 Acute bronchitis, unspecified (principal); I11.0 Hypertensive heart disease with heart failure; I50.9 Heart failure, unspecified; G47.30 Sleep apnea, unspecified; F41.9 Anxiety disorder, unspecified; F32.9 Major depressive disorder, single episode, unspecified; Z88.8 Allergy status to other drugs, medicaments and biological substances; Z88.6 Allergy status to analgesic agent; Z91.041 Radiographic dye allergy status; Z91.040 Latex allergy status
CPT/HCPCS: 71046; 99282; A9270-GY; J7512

== ENCOUNTER 2018-11-24 18:58 | Emergency (ER) | payer OTHER ==
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
[2018-11-24 19:13] VITALS: BP 141/80
[2018-11-24] MEDS ORDERED: Albuterol/Ipratropium NEB.SOL* Albuterol 2.5 MG/Ipratropium 0.5 MG 3 ML INH ONE (19:24)
[2018-11-24] MEDS ORDERED: Albuterol HFA INHALER* 8 gm MDI INH ONE (20:14)
--- NOTE | 2018-11-24 20:30 | CONSULT ---
Consult Consult: I supervised the care of the physician health care legal assistant and I performed a history and physical on this patient. History: Cough, congestion, recently treated with steroid, Levaquin, breathing treatments at the ER. X-ray was negative for infiltrate. Physical exam: Harsh cough with wheezing and congestion in both bases. No wheeze/coarseness clear with cough. No JVD. No lower extremity edema. Plan: Breathing treatments here. X-ray negative for infiltrate, unchanged from previous. Does not appear to be CHF definitely not an infiltrate.
--- NOTE | 2018-11-25 13:34 | UC ---
- Progress Note Progress Note: CXR: IMPRESSION: #. Stigmata of probable obstructive lung disease. No evidence for pneumonia. No change in plan of care Course/Dx - Diagnoses Provider Diagnoses: COPD exacerbation Discharge - Sign-Out/Discharge Documenting (check all that apply): Post-Discharge Follow Up All imaging exams completed and their final reports reviewed: Yes - Discharge Plan Condition: Stable Disposition: HOME Prescriptions: Codeine Phosphate/Guaifenesin [Guaifen-Codeine 100-10 mg/5 ml] 5 ml PO QID PRN # 100 ml MDD 20mL PRN Reason: Cough Patient Education Materials: Acute Bronchitis (ED) Referrals: Elif Fierro PA [Primary Care Provider] - Additional Instructions: If you develop a fever, shortness of breath, chest pain, new or worsening symptoms - please call your PCP or go to the ED. Your blood pressure was high at todays visit. Please see your primary provider within 4 weeks for recheck and re-evaluation. Continue your medications as prescribed. Please follow up with your primary doctor if your symptoms do not improve - Billing Disposition and Condition Condition: STABLE Disposition: Home
== END 2018-11-24 20:27 | disposition home or self-care (01) ==
LOC: UCEAST 18:58
DX: I10 Essential (primary) hypertension (principal); I50.9 Heart failure, unspecified; F17.210 Nicotine dependence, cigarettes, uncomplicated; J44.1 Chronic obstructive pulmonary disease with (acute) exacerbation
CPT/HCPCS: 71046; 99212; A9270-GY; G0463

== ENCOUNTER 2018-12-06 15:03 | Emergency (ER) | payer OTHER ==
[2018-12-06 15:23] VITALS: BP 128/93
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
== END 2018-12-06 17:15 | disposition home or self-care (01) ==
LOC: UCEAST 15:03
DX: R05 Cough (principal); R53.83 Other fatigue; R06.02 Shortness of breath; I10 Essential (primary) hypertension; I50.9 Heart failure, unspecified; Z88.8 Allergy status to other drugs, medicaments and biological substances; Z88.6 Allergy status to analgesic agent; Z91.041 Radiographic dye allergy status; Z91.040 Latex allergy status; Z87.891 Personal history of nicotine dependence
CPT/HCPCS: 71046; 99201; G0463

== ENCOUNTER 2018-12-11 14:45 | Emergency (ER) | payer OTHER ==
[2018-12-11] MEDS ORDERED: Albuterol/Ipratropium NEB.SOL* Albuterol 2.5 MG/Ipratropium 0.5 MG 3 ML INH ONE (16:29)
[2018-12-11 16:39] VITALS: BP 179/118
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
== END 2018-12-11 16:37 | disposition home or self-care (01) ==
LOC: ED 14:45
DX: R05 Cough (principal); I50.9 Heart failure, unspecified; I11.0 Hypertensive heart disease with heart failure; K21.9 Gastro-esophageal reflux disease without esophagitis; M46.90 Unspecified inflammatory spondylopathy, site unspecified; F41.9 Anxiety disorder, unspecified; F32.9 Major depressive disorder, single episode, unspecified; Z88.8 Allergy status to other drugs, medicaments and biological substances; Z88.6 Allergy status to analgesic agent; Z91.041 Radiographic dye allergy status; Z88.3 Allergy status to other anti-infective agents; Z91.040 Latex allergy status; Z87.891 Personal history of nicotine dependence
CPT/HCPCS: 99282

== ENCOUNTER 2018-12-19 08:54 | Emergency (ER) | payer OTHER ==
[2018-12-19] MEDS ORDERED: Albuterol 2.5 MG/3 ML NEB.SOL* (0.083%) INH ONE (10:14)
[2018-12-19 10:28] LABS: Hematocrit 44 % (36-46); Hemoglobin 14.4 g/dL (14.0-18.0); Mean Corpuscular HGB Conc 33 g/dL (31-36); Mean Corpuscular Hemoglobin 28 pg (27-31); Mean Corpuscular Volume 86 fL (80-94); Mean Platelet Volume 7.9 fL (7.4-10.4); Platelet Count 212 10^3/uL (150-450); Red Blood Count 5.13 10^6 /uL (4.18-5.48); Red Cell Distribution Width 16 % (10.5-15); White Blood Count 6.9 10^3/uL (3.5-10.8)
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
[2018-12-19 10:51] LABS: Albumin 3.9 g/dL (3.2-5.2); Albumin/Globulin Ratio 1.4 (1-3); BUN/Creatinine Ratio 10.8 (8-20); EGFR African American 70.7 (>60); EGFR Non-African American 58.4 (>60); Globulin 2.8 g/dL (2-4); Total Bilirubin 0.4 mg/dL (0.2-1.0); Total Protein 6.7 g/dL (6.4-8.9)
[2018-12-19 11:27] LABS: Potassium 4.1 mmol/L (3.5-5.0)
[2018-12-19 12:13] VITALS: BP 171/111
[2018-12-22 15:17] LABS: Bordetella Pertussis IgG PT Negative (Negative)
== END 2018-12-19 12:12 | disposition home or self-care (01) ==
LOC: ED 08:54
DX: R05 Cough (principal); I11.0 Hypertensive heart disease with heart failure; I50.9 Heart failure, unspecified; G47.30 Sleep apnea, unspecified; K21.9 Gastro-esophageal reflux disease without esophagitis; F41.9 Anxiety disorder, unspecified; F32.9 Major depressive disorder, single episode, unspecified; Z88.6 Allergy status to analgesic agent; Z88.8 Allergy status to other drugs, medicaments and biological substances; Z91.041 Radiographic dye allergy status
CPT/HCPCS: 36415; 71045; 80053; 83880; 85027; 86615; 99282

== ENCOUNTER 2019-01-23 15:08 | Emergency (ER) | payer OTHER ==
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
[2019-01-23 19:07] VITALS: BP 156/111
== END 2019-01-23 19:06 | disposition home or self-care (01) ==
LOC: ED 15:08
DX: M54.9 Dorsalgia, unspecified (principal); I11.0 Hypertensive heart disease with heart failure; I50.9 Heart failure, unspecified; K21.9 Gastro-esophageal reflux disease without esophagitis; F41.9 Anxiety disorder, unspecified; F32.9 Major depressive disorder, single episode, unspecified; Z88.8 Allergy status to other drugs, medicaments and biological substances; Z88.6 Allergy status to analgesic agent; Z91.041 Radiographic dye allergy status; Z91.040 Latex allergy status; Z87.891 Personal history of nicotine dependence
CPT/HCPCS: 72110; 99282

== ENCOUNTER 2019-03-27 09:20 | Emergency (ER) | payer OTHER ==
[2019-03-27 10:50] VITALS: BP 150/98
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
== END 2019-03-27 10:49 | disposition home or self-care (01) ==
LOC: ED 09:20
DX: M54.9 Dorsalgia, unspecified (principal); W18.2XXA Fall in (into) shower or empty bathtub, initial encounter; Y92.002 Bathroom of unspecified non-institutional (private) residence as the place of occurrence of the external cause; I11.0 Hypertensive heart disease with heart failure; I50.9 Heart failure, unspecified; Z98.1 Arthrodesis status; Z88.8 Allergy status to other drugs, medicaments and biological substances; Z88.6 Allergy status to analgesic agent; Z91.041 Radiographic dye allergy status; Z91.040 Latex allergy status; Z87.891 Personal history of nicotine dependence
CPT/HCPCS: 99282

== ENCOUNTER 2019-04-04 23:06 | Inpatient (IN) | payer OTHER ==
--- OUTSIDE RECORDS SUMMARY | 2019-04-05 00:04 | XMS REPORT | Continuity of Care Document ---
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 Onset: 10/30/2013 Prediabetes Oswaldo Shay M.D.,FACP Onset: 06/22/2016 Obstructive sleep apnea syndrome Oswaldo Shay M.D.,FACP Onset: 2015 Note: on CPAP Primary cardiomyopathy Oswaldo Shay M.D.,FACP Onset: 06/22/2016 Note: EF 40% Obesity Jessica Gaitan MD Onset: 07/02/2016 Gastroesophageal reflux disease Jessica Gaitan MD Onset: 07/02/2016 Chronic kidney disease stage 1 Oswaldo Shay M.D.,FACP Onset: 07/15/2016 Light cigarette smoker (1-9 cigs/day) Oswaldo Shay M.D.,FACP Onset: 07/2016 Chronic obstructive lung disease Oswaldo Shay M.D.,FACP Onset: 2015 Note: mild on PFTs High enzyme level in serum Tati Durbin NP Onset: 05/04/2018 Acute on chronic combined systolic and Jesica Hopper NXimenaP. Onset: 05/05/2018 diastolic heart failure Chronic kidney disease stage 2 Jesica Hopper N.P. Onset: 05/05/2018 Hypertensive heart and chronic kidney disease Jesica Hopper N.P. Onset: 2017 with heart failure and stage 1 through stage 4 chronic kidney disease, or unspecified chronic kidney disease Tobacco use Jesica Hopper N.P. Onset: 05/05/2018 Acute on chronic systolic heart failure Jesica Hopper N.P. Onset: 05/05/2018 Tobacco user Charles Lawson M.D. Onset: 05/06/2018 Paroxysmal ventricular tachycardia Charles Lawson M.D. Onset: 05/07/2018 Social History Type Date Description Comments Sex Unknown ETOH Use Occasionally consumes alcohol Recreational Drug Use Sporadically uses Marijuana once a month Tobacco Use Start: Unknown Patient is a current smoker, smokes some days Smoking Status Reviewed: 02/20/19 Patient is a current smoker, smokes some days Exercise Type/Frequency Exercises sporadically Allergies, Adverse Reactions, Alerts Active Allergies Reaction Severity Comments Date Latex itch and gets little bumps 12/02/2010 Aspirin Nausea and Vomiting 07/11/2015 Acetaminophen hives, throat swells Severe 06/22/2016 Lisinopril angioedema 06/22/2016 Ibuprofen Nausea and Vomiting, 11/11/2017 Urticaria Iodinated Diagnostic Agents 11/11/2017 Hydralazine facial swelling 12/02/2017 Gadoteridol Nausea and Vomiting 02/01/2018 Medications Active Medications SIG Qnty Indications Ordering Date Provider Carvedilol 1 by mouth twice 180tabs I42.9 Carl Chester, 01/30/2019 12.5mg Tablets a day DO FACC Ventolin HFA 2 puffs by mouth Unknown 108(90Base) four times a day mcg/Act Aerosol as needed Triamcinolone apply thin film Unknown Acetonide twice daily 0.1% Cream Nitroglycerin apply daily and Unknown 0.1mg/HR remove at Patches 24HR bedtime as needed Spironolactone 1 by mouth every 90tabs Carl Chester, 25mg day DO FACC Tablets Torsemide 1 by mouth once 30tabs Carl Chester, 20mg Tablets daily DO FACC Oxycodone HCL 1 po every 6-8 Elif Fierro 10mg hrs prn ALISTAIR Reynolds Tablets Terbinafine HCL as directed Elif Fierro 1% Cream ALISTAIR Reynolds History Medications Carvedilol 1 tab by mouth 180tabs I42.9 Carl Chester, 10/14/2018 - 25mg twice a day DO FACC 01/30/2019 Tablets Immunizations Description No Information Available Vital Signs Date Vital Result Comment 04/03/2019 1:40pm Height 66 inches 5'6" Weight 233.50 lb Heart Rate 90 /min BP Systolic 138 mmHg BP Diastolic 76 mmHg Body Temperature 98.0 F Pain Level 9 O2 % BldC Oximetry 97 % BMI (Body Mass Index) 37.7 kg/m2 02/20/2019 12:42pm Height 66 inches 5'6" Weight 228.00 lb BP Systolic Sitting 130 mmHg BP Diastolic Sitting 88 mmHg Pain Level 10 BMI (Body Mass Index) 36.8 kg/m2 Results Test Date Facility Test Result H/L Range Note Xray 03/27/2019 [facility] CT Spine Lumbar W/O <pending> [address] [place] [address] [phone] MRI Lumbar Spine W/Wo <pending> Procedures Date Code Description Status 10/14/2018 02372 EKG Tracing & Interpretation Completed Medical Devices Description No Information Available Encounters Type Date Location Provider Dx Diagnosis Office Visit 10/14/2018 [facility] Carl Chester, I50.20 Unspecified 1:20p Of Ambulance Paramedic DO FACC systolic (congestive) heart failure I11.0 Hypertensive heart disease with heart failure I10 Essential (primary) hypertension G47.33 Obstructive sleep apnea (adult) (pediatric) E66.8 Other obesity N18.9 Chronic kidney disease, unspecified Z72.0 Tobacco use I47.2 Ventricular tachycardia Assessments Date Code Description Provider 04/03/2019 M47.814 Lumbar spondylosis ALISTAIR Erickson 02/20/2019 M43.17 Lumbar spondylolisthesis ALISTAIR Erickson 10/14/2018 I50.20 Unspecified systolic (congestive) heart Carl Chester, DO [facility] failure 10/14/2018 I11.0 Hypertensive heart disease with heart Carl Chester, DO [facility] failure 10/14/2018 I10 Essential (primary) hypertension Carl SXimena Chester, DO FACC 10/14/2018 G47.33 Obstructive sleep apnea (adult) Carl Chester, DO [facility] (pediatric) 10/14/2018 E66.8 Other obesity Carl SXimena Chester, DO [facility] 10/14/2018 N18.9 Chronic kidney disease, unspecified Carl Rodolfo Chester DO [facility]ACC 10/14/2018 Z72.0 Tobacco use Carl Rodolfo Chester DO [facility] 10/14/2018 I47.2 Ventricular tachycardia Carl Chester, DO [facility] Plan of Treatment Future Appointment(s):04/28/2019 3:30 pm - [facility]04/03/2019 - Rita Madrigal, PA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, thoracic regionReferral:Jamaal Morales MD, Physical Medicine/UpfmpS34.814 Spondylosis w/o myelopathy or radiculopathy, thoracic regionReferral:Jamaal Morales MD, Physical Medicine/Rehab Functional Status Description No Information Available Mental Status Description No Information Available Referrals Refer to Dr Reason for Referral Status Appt Date Jamaal Morales MD 48 y/o male poat L4 - S1 fusion has severe Created axial low back pain currently taking oxycodone 10 mg, but is not effective, 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 [address] [place] [address] [phone] [facility] [address] [place] [address] [phone]
[2019-04-05 01:56] LABS: ABS Basophils 0.1 10^3/ul (0-0.2); ABS Eosinophils 0.2 10^3/ul (0-0.6); ABS Lymphocytes 1.5 10^3/ul (1.0-4.8); ABS Monocytes 0.9 10^3/ul (0-0.8); Eosinophil % 2.2 %; Hematocrit 46 % (42-52); Hemoglobin 15.3 g/dL (14.0-18.0); Lymphocyte % 17.7 %; Mean Corpuscular HGB Conc 34 g/dL (31-36); Mean Corpuscular Hemoglobin 29 pg (27-31); Mean Corpuscular Volume 85 fL (80-94); Mean Platelet Volume 8.5 fL (7.4-10.4); Platelet Count 189 10^3/uL (150-450); Red Blood Count 5.36 10^6 /uL (4.18-5.48); Red Cell Distribution Width 15 % (10-15); White Blood Count 8.7 10^3/uL (3.5-10.8)
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
[2019-04-05 02:17] LABS: ALT 26 U/L (7-52); AST 26 U/L (13-39); Acetaminophen < 15 mcg/mL; Albumin 4.1 g/dL (3.2-5.2); Albumin/Globulin Ratio 1.3 (1-3); Alcohol < 10 mg/dL (<10); Alkaline Phosphatase 67 U/L (34-104); Anion Gap 6 mmol/L (2-11); BUN/Creatinine Ratio 11.5 (8-20); Blood Urea Nitrogen 15 mg/dL (6-24); CO2 Carbon Dioxide 29 mmol/L (22-32); Calcium 9.8 mg/dL (8.6-10.3); Chloride 102 mmol/L (101-111); EGFR African American 70.1 (>60); EGFR Non-African American 57.9 (>60); Globulin 3.1 g/dL (2-4); Glucose 112 mg/dL (70-100); Potassium 3.4 mmol/L (3.5-5.0); Salicylate < 2.50 mg/dL (<30); Sodium 137 mmol/L (135-145); Total Protein 7.2 g/dL (6.4-8.9)
[2019-04-05 02:19] LABS: Urine Appearance Clear; Urine Bacteria Absent (Absent); Urine Bilirubin Negative (Negative); Urine Blood Negative (Negative); Urine Color Yellow; Urine Glucose Negative (Negative); Urine Ketones Negative (Negative); Urine Nitrite Negative (Negative); Urine Protein 3+(>=500 mg/dL) (Negative); Urine Red Blood Cell Absent (Absent); Urine Specific Gravity 1.022 (1.010-1.030); Urine Urobilinogen Negative (Negative); Urine White Blood Cell Absent (Absent)
[2019-04-05 02:31] LABS: Urine Benzodiazepine Screen Presumptive Positive (None Detect); Urine Opiates Screen Presumptive Positive (None Detect)
[2019-04-05 02:32] LABS: TSH (Thyroid Stimulating Horm) 0.79 mcIU/mL (0.34-5.60)
[2019-04-05] MEDS ORDERED: Al Hydrox/Mg Hydrox/Simet LIQ* 30 ML UDC PO PRN (05:33)
[2019-04-05] MEDS ORDERED: Nicotine* 2MG (FRUIT FLAVOR) GUM PO PRN (05:33)
[2019-04-05] MEDS ORDERED: Albuterol HFA INHALER* 8 gm MDI INH PRN (05:41)
[2019-04-05] MEDS ORDERED: TERBINAFINE TOPICAL PRN (05:47)
[2019-04-05] MEDS ORDERED: oxyCODONE TAB* 5 MG TAB ONE (06:12)
[2019-04-05] MEDS: oxyCODONE TAB* 5 MG TAB PO PRN ×3 (06:15→21:10)
[2019-04-05] MEDS: Nicotine PATCH 21 MG/24 HR* PATCH TRANSDERM SCH (13:46)
[2019-04-05] MEDS: Torsemide TAB 10 MG PO SCH (13:46)
[2019-04-05] MEDS: Vitamin THERAPEUTIC TAB PO SCH (13:46)
[2019-04-05] MEDS: Cetirizine* 10 MG TAB PO SCH (13:47)
[2019-04-05] MEDS: Mometasone/Formoter 100/5 MDI INH SCH ×2 (13:47→21:12)
[2019-04-05] MEDS: BuPROPion XL* 150 MG TAB.XL PO SCH (13:47)
[2019-04-05] MEDS: Spironolactone TAB* 25 MG PO SCH (13:47)
[2019-04-05] MEDS: Carvedilol TAB* 6.25 MG PO SCH (13:50)
[2019-04-05] MEDS ORDERED: Nicotine Patch Removal NOTE PATCH OFF SCH (21:00)
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
[2019-04-06 10:57] VITALS: BP 139/68
[2019-04-06] MEDS: Carvedilol TAB* 6.25 MG PO SCH (13:00)
[2019-04-06] MEDS: Spironolactone TAB* 25 MG PO SCH (13:00)
[2019-04-06] MEDS: Torsemide TAB 10 MG PO SCH (13:01)
[2019-04-06] MEDS: Cetirizine* 10 MG TAB PO SCH (13:01)
[2019-04-06] MEDS: BuPROPion XL* 150 MG TAB.XL PO SCH (13:01)
[2019-04-06] MEDS: Vitamin THERAPEUTIC TAB PO SCH (13:01)
[2019-04-06] MEDS: Mometasone/Formoter 100/5 MDI INH SCH (13:02)
[2019-04-06] MEDS: oxyCODONE TAB* 5 MG TAB PO PRN (13:04)
[2019-04-06] MEDS: Nicotine PATCH 21 MG/24 HR* PATCH TRANSDERM SCH (13:05)
--- NOTE | 2019-04-06 17:26 | DS ---
CONTINUATION ADDENDUM NOW INCLUDED ON THIS REPORT CC: [place]; [facility]; [facility] * DISCHARGE SUMMARY: DATE OF ADMISSION: 04/05/19 DATE OF DISCHARGE: 04/06/19 PROVIDER: Heaven Bae NP, in Psychiatry. SUPERVISING PHYSICIAN: Dr. Morales Dugan.* (DICTATED BY HEAVEN BAE NP ) DIAGNOSIS: Substance-induced mood disorder. CONDITION AT THE TIME OF DISCHARGE: Improved, psychiatrically cleared, stable. Jeronimo did not participate in groups. He was not social with his peers. His is agreeable to his discharge, although Jeronimo is a bit more reluctant. He has done well here psychiatrically in that he may not have been particularly depressed when he arrived and he is not particularly depressed when he leaves. I did start Wellbutrin XL for him. He is scheduled to attend [facility]. MENTAL STATUS EXAM: At the time of discharge, Jeronimo is calm and cooperative , but makes poor eye contact. He is alert and oriented x4. His grooming is adequate. His speech pace is normal. His thought processes are logical. He is not psychotic or delusional. He denies AH, VH, SI, and HI. His insight is fair. His judgment is good. He states he is willing to follow up and he is urged to see a therapist. DISCHARGE INSTRUCTIONS TO THE PATIENT: A. Medications: 1. Albuterol inhaler 2 puffs q.6 hours p.r.n. cough. 2. Wellbutrin XL 150 mg daily. 3. Coreg 6.25 mg daily. 4. Cetirizine 10 mg daily. 5. Fluticasone propionate/salmeterol 100/50 inhaled twice a day. 6. Dulera 100/5 two puffs twice a day. 7. Nicotine gum 2 mg q.2 hours p.r.n. craving. 8. Oxycodone immediate release 10 mg q.6 hours p.r.n. pain, this was not prescribed from the hospital. 9. Spironolactone 25 mg daily. 10. Terbinafine HCl 15 g cream topically t.i.d. p.r.n. rash. 11. Torsemide 20 mg daily. B. Diet is cardiac. C. Activities as tolerated. Jeronimo is a heavy smoker, but he has declined a referral to the [facility] Smokers' Quitline at this time. If he decides to access this free service in the future, he can contact the Quitline toll free at [phone]. There are no studies pending at the time of discharge. D. Followup care. He has an appointment at [facility] on 04/10/19, at 10:45 with Nerissa Donovan. He has an appointment at the [facility] which is scheduled on 04/07/19, at 3:30. He has a referral in to [facility], who will contact him for a case management. He also has an appointment with [facility] on Wednesday, , at 11 a.m. with Samara. Tori Escobar. He is going home with his to his apartment in [facility]. F. Substance abuse followup. He is referred to the [facility] for substance abuse treatment. HOSPITAL COURSE: Part A: Chief Complaint: "I don't get the respect I think I deserve." The patient is a 48-year-old black male with a history of substance abuse who arrives brought in by car and is here on a voluntary status following his being missing for a day and ending up in the emergency department, stating he is no longer interested in living. Jeronimo on Wednesday had a colonoscopy. Apparently, he did not respond well to the anesthesia and later in the day became confused and wandered away from his home. His searched for him from 6 p.m. to midnight, and when he did not return, she phoned the police. He was labeled a missing person and there was concern that he had ended his life. He was found, however, in the hospital emergency department, where he stated that he feels as though he has been fighting for a long time and then he sleeps a lot. He feels like he does not want to participate with his family and that he is not motivated. He also reports that he cries sometimes, especially when he is thinking of harming himself or abandoning his family. Jeronimo states he does not have any trusting relationships and that he has a very limited network of supports. On Wednesday, however, he was snorting cocaine and had a disagreement with his . He said that he does not feel like his family cares enough, but he was surprised at the overwhelming response to his missing personship being reported. He also had a fight with his about his visiting family down state. He does not feel as though he is supported by her, although they have been together for, I believe, 27 years. When asked why the suicidal ideation right now, he states "I need to own up to, " "there is a problem here." "I need to admit there is a problem" and I need this hospitalization to "help me see the light again." He states that he has been putting himself on the back burner. He has not been washing. He has been breaking promises. He has been procrastinating and sleeping all day. His stressors include not being a social person, hiding his cocaine use and the recent administration of anesthesia, which may account for the benzodiazepines that are present on his toxicology screen. As well as his confusion. He is somnolent. He is frequently sad. He cries at unusual times. He is experiencing psychomotor retardation. He is avoiding activities. He cannot concentrate. CONTINUATION ADDENDUM: HOSPITAL COURSE: Part B: Psychiatric treatment was rendered. Jeronimo was admitted to the adult behavioral unit and placed on 15-minute checks for his safety. Jeronimo did not participate in unit groups or in socializing with other patients. In fact, he slept and went to meals and that was the extent of his interaction. He had stated understanding that he knew he would not be able to stay unless he participated and that was 1 element of the choice to discharge him. The other is that he was no longer suicidal and he agreed that, that was the case. I did start him on Wellbutrin XL 150 mg in an effort to provide him with a remedy to the lack of the energy that he feels and the lack of interest in motivation that he feels. 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 Jeronimo's labs came back with positives on the opiates, benzodiazepines, cocaine, and cannabinoids screens. He was unenthusiastic about sharing those results with his , which may be one of the reason as he was eager to stay in the hospital; that is to not argue with his when he got home. When I told Jeronimo that he would be going home, he became somewhat hostile and walked away. He was then confronted by his social sciences lecturer who made it very clear that he was going to be going home today. It is thought that he is unhappy about his finding out that he had been using cocaine. No consults were entered. He is improved. He is motivated in some regards to seek help at the [facility] as he wants to "vent" his frustrations. 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 Jeronimo is future oriented and ready to go home in our estimation and he did become more agreeable to that idea over the course of the lunch hour. HEAVEN BAE NP [id number]/CPS #: [id number]/CPS #: [id number] KANDACE
--- NOTE | 2019-04-06 20:12 | DS ---
CC: Reach; [facility]; [facility] [place] DISCHARGE SUMMARY: DATE OF ADMISSION: DATE OF DISCHARGE: ADDENDUM: HOSPITAL COURSE: Part B: Psychiatric treatment was rendered. Jeronimo was admitted to the adult behavioral unit and placed on 15-minute checks for his safety. Jeronimo did not participate in unit groups or in socializing with other patients. In fact, he slept and went to meals and that was the extent of his interaction. He had stated understanding that he knew he would not be able to stay unless he participated and that was 1 element of the choice to discharge him. The other is that he was no longer suicidal and he agreed that, that was the case. I did start him on Wellbutrin XL 150 mg in an effort to provide him with a remedy to the lack of the energy that he feels and the lack of interest in motivation that he feels. 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 Jeronimo's labs came back with positives on the opiates, benzodiazepines, cocaine, and cannabinoids screens. He was unenthusiastic about sharing those results with his , which may be one of the reason as he was eager to stay in the hospital; that is to not argue with his when he got home. When I told Jeronimo that he would be going home, he became somewhat hostile and walked away. He was then confronted with who made it very clear that he was going to be going home today. No consults were entered. He is improved. He is motivated in some regards to seek help at the [facility] as he wants to "vent" his frustrations. He would also do well to continue to see his assessment nurse and his medical staff as he is having congestive heart failure and has COPD and is a heavy smoker as well. Jeronimo is future oriented and ready to go home in our estimation and he did become more agreeable to that idea over the course of the lunch hour. RONEL FLORES, FRANSISCO [id number]/[facility] #: [id number] [facility] CENTERBushra
== END 2019-04-06 13:38 | disposition home or self-care (01) | DRG 776 ==
LOC: ED 23:06 → BSU 04-05 04:25 → ED 04-05 05:50 → BSU 04-05 21:00
PROVIDERS: ADMIT Psychiatry & Neurology Psychiatry; ATTEND Psychiatry & Neurology Psychiatry
DX: F19.14 Other psychoactive substance abuse with psychoactive substance-induced mood disorder (principal); I13.0 Hypertensive heart and chronic kidney disease with heart failure and stage 1 through stage 4 chronic kidney disease, or unspecified chronic kidney disease; I50.9 Heart failure, unspecified; J44.9 Chronic obstructive pulmonary disease, unspecified; R07.9 Chest pain, unspecified; G47.30 Sleep apnea, unspecified; K21.9 Gastro-esophageal reflux disease without esophagitis; M47.9 Spondylosis, unspecified; F41.9 Anxiety disorder, unspecified; F32.9 Major depressive disorder, single episode, unspecified; N18.9 Chronic kidney disease, unspecified; Z82.49 Family history of ischemic heart disease and other diseases of the circulatory system; Z83.3 Family history of diabetes mellitus; F17.210 Nicotine dependence, cigarettes, uncomplicated
CPT/HCPCS: 36415; 80053; 80307; 80320; 80329; 81003; 81015; 84443; 85025; 94660; 99222; 99238; 99285; A9270-GY; G0480

== ENCOUNTER 2019-04-09 18:13 | Emergency (ER) | payer OTHER ==
--- OUTSIDE RECORDS SUMMARY | 2019-04-09 18:28 | XMS REPORT | Continuity of Care Document ---
:1970 External Reference #:[id number] Author Name Mary Dejesus (transmitted by agent of provider Tommy Garcia) Address [address] [place] [address] Care Team Providers Name Role Phone HCP/LW on file Care Team Information Auditor Medical Claims Unavailable Problems Active Problems Provider Date Essential hypertension Mary Dejesus Onset: 02/11/2018 Chronic pain syndrome Margot Infante PA Onset: 03/16/2018 Cardiomyopathy Margot Infante PA Onset: 03/16/2018 Social History Type Date Description Comments Sex Unknown Tobacco Use Start: Unknown Denies Cigarette Use ETOH Use Denies alcohol use Recreational Drug Use Denies Drug Use Tobacco Use Start: Unknown End: Unknown Patient is a former smoker Smoking Status Reviewed: 01/26/19 Patient is a former smoker Sun Exposure Does not use sunscreen Seat Belt/Car Seat always uses seat belt Guns in Home No Smoke Alarms Yes smoke alarm Allergies, Adverse Reactions, Alerts Active Allergies Reaction Severity Comments Date Ibuprofen hives, vomiting 08/06/2017 Acetaminophen hives, vomiting 08/06/2017 Contrast Dye 08/14/2017 Latex 08/14/2017 Lisinopril cough Moderate 01/28/2018 Medications Active Medications SIG Qnty Indications Ordering Date Provider Carvedilol take one tablet by 60tabs Duncan Brown, 02/17/2019 12.5mg mouth twice a day, D.O. Tablets no more refills w/o appt Fluticasone 2 puff bid 2units R06.00 Duncan Brown, 01/29/2019 Propionate/Salmeterol D.O. 232-14mcg/Act Aerosol Cetirizine HCL 1 by mouth every 30tabs J30.9 Silcoff, 01/26/2019 10mg day for allergies Flores Sanders Tablets Torsemide take one tablet by 30tabs I42.9 Silcoff, 10/02/2018 20mg Tablets mouth twice a day Flores Sanders Oxycodone HCL 1 q6 hours, as 112tabs G89.4 Silcoff, 02/11/2018 10mg needed for pain; Flores Sanders Tablets rx due 03/06/19 Triamcinolone apply to affected 30gm R21 Silcoff, 12/22/2017 Acetonide areas on legs for Flores Sanders 0.1% Cream the rash, 2 times a day, discontinue when it improves Tubing And Mouth Use nightly for 1units G47.30 Silcoff, 10/26/2017 Piece/Mask For Cpap sleep apnea Flores Sanders Terbinafine HCL use two times a 60gm B35.3 Silcoff, 10/01/2017 1% day on feet x at Flores Sanders Cream least 3 months Ventolin HFA 1-2 puffs every 8gm Silcoff, 09/29/2017 4-6 hours as Flores Sanders 108(90Base) mcg/Act needed Aerosol Spironolactone take 1 tablet by 90tabs Silcoff, 25mg mouth daily for Flores Sanders Tablets heart failure Nitroglycerin Unknown 0.1mg/HR Patches 24HR History Medications Oxycodone HCL 1 capsule by mouth 28caps Tommy Garcia, 02/16/2019 - 5mg four times a day, M.DXimena 02/16/2019 Capsules for back pain Oxycodone HCL 1 tablets every 28tabs Tommy Garcia, 02/16/2019 - 5mg 4-6 hours for pain M.DXimena 02/18/2019 Tablets Immunizations CPT Code Status Date Vaccine Lot # [id number] Given 07/18/2018 Influenza Virus Vaccine, Quadrivalent, Split, [id number] Preservative Free U-Flu Refused 09/17/2017 Influenza,Unspecified Vital Signs Date Vital Result Comment 03/02/2019 9:01am BP Systolic 132 mmHg BP Diastolic 92 mmHg Weight 228.00 lb with sneakers 01/26/2019 1:15pm BP Systolic 130 mmHg BP Diastolic 100 mmHg BP Systolic Recheck 138 mmHg BP Diastolic Recheck 98 mmHg Heart Rate 94 /min O2 % BldC Oximetry 96 % Weight 226.50 lb Results Test Date Facility Test Result H/L Range Note CBC Auto Diff 04/05/2019 [facility] White Blood 8.7 10^3/uL Normal 3.5-10.8 [phone] Count Red Blood Count 5.36 10^6/uL Normal 4.18-5.48 Hemoglobin 15.3 g/dL Normal 14.0-18.0 Hematocrit 46 % Normal 42-52 Mean Corpuscular Volume 85 fL Normal 80-94 Mean Corpuscular Hemoglobin 29 pg Normal 27-31 Mean Corpuscular HGB Conc 34 g/dL Normal 31-36 Red Cell Distribution Width 15 % Normal 10-15 Platelet Count 189 10^3/uL Normal 150-450 Mean Platelet Volume 8.5 fL Normal 7.4-10.4 Abs Neutrophils 6.0 10^3/uL Normal 1.5-7.7 Abs Lymphocytes 1.5 10^3/uL Normal 1.0-4.8 Abs Monocytes 0.9 10^3/uL High 0-0.8 Abs Eosinophils 0.2 10^3/uL Normal 0-0.6 Abs Basophils 0.1 10^3/uL Normal 0-0.2 Abs Nucleated RBC 0.0 10^3/uL Granulocyte % 68.8 % Lymphocyte % 17.7 % Monocyte % 10.5 % Eosinophil % 2.2 % Basophil % 0.8 % Nucleated Red Blood Cells % 0.0 Urine Drug 04/05/2019 [facility] Urine Amphetamine None Detected None Detect SCR ED & [phone] Screen Pain Clinic Urine Barbiturates Screen None Detected None Detect Urine Benzodiazepine Screen Presumptive Posi <SEE NOTE> Abnormal None Detect 1 Urine Cannabinoids Screen Presumptive Posi <SEE NOTE> Abnormal None Detect 2 Urine Cocaine Screen Presumptive Posi <SEE NOTE> Abnormal None Detect 3 Urine Opiates Screen Presumptive Posi <SEE NOTE> Abnormal None Detect 4 Urine Phencyclidine Screen None Detected None Detect 5 Urinalysis Profile 04/05/2019 [facility] Urine Color Yellow [phone] Urine Appearance Clear Urine Specific [place] 1.022 Normal 1.010-1.030 Urine pH 6.0 Normal 5-9 Urine Urobilinogen Negative Negative Urine Ketones Negative Negative Urine Protein 3+(>=500 mg/dL) Abnormal Negative Urine Leukocytes Negative Negative Urine Blood Negative Negative Urine Nitrite Negative Negative Urine Bilirubin Negative Negative Urine Glucose Negative Negative Urine White Blood Cell Absent Absent Urine Red Blood Cell Absent Absent Urine Bacteria Absent Absent Comp Metabolic Panel 04/05/2019 [facility] Sodium 137 mmol/L Normal 135-145 [phone] Potassium 3.4 mmol/L Low 3.5-5.0 Chloride 102 mmol/L Normal 101-111 Co2 Carbon Dioxide 29 mmol/L Normal 22-32 Anion Gap 6 mmol/L Normal 2-11 Glucose 112 mg/dL High 70-100 Blood Urea Nitrogen 15 mg/dL Normal 6-24 Creatinine 1.31 mg/dL High 0.67-1.17 BUN/Creatinine Ratio 11.5 Normal 8-20 Calcium 9.8 mg/dL Normal 8.6-10.3 Total Protein 7.2 g/dL Normal 6.4-8.9 Albumin 4.1 g/dL Normal 3.2-5.2 Globulin 3.1 g/dL Normal 2-4 Albumin/Globulin Ratio 1.3 Normal 1-3 Total Bilirubin 0.60 mg/dL Normal 0.2-1.0 Alkaline Phosphatase 67 U/L Normal 34-104 Alt 26 U/L Normal 7-52 Ast 26 U/L Normal 13-39 Egfr Non- 57.9 >60 Egfr 70.1 >60 6 Laboratory test finding 04/05/2019 [facility] Acetaminophen < 15 g/ mL 7 [phone] Alcohol < 10 mg/dL Normal <10 Salicylate < 2.50 mg/dL <30 TSH (Thyroid Stim Horm) 0.79 mcIU/mL Normal 0.34-5.60 Urine Drug Screen Inhouse 03/02/2019 In House Ua Cocaine - Ua Opiates - Ua Amphetamines - Urine Methanphetamines - Urine Benzodiazepines QN [place] - Urine Oxycodone QL + Drug Abuse 20 Urine 02/16/2019 [facility] Urine Amphetamine Negative ng /mL 8 [phone] Urine Barbiturates Negative ng/mL 9 Urine Benzodiazepines Negative ng/mL 10 Urine Cocaine Negative ng/mL 11 Urine Phencyclidine Negative ng/mL Cutoff: 25 Urine Tetrahydrocannabinol Negative ng/mL Cutoff: 50 12 Creatinine, Urine 27.5 mg/dL Specific [place] 1.008 pH 6.3 Oxidants Negative 13 Adulterants Comment Normal Codeine, Ur Not Detected ng/mL Cutoff: 25 14 Cwxzdgn-4-wycx-glucuronide, Ur Not Detected ng/mL 15 Morphine, Ur Not Detected ng/mL Cutoff: 25 16 Ybtcprmf-5-xcnj-glucuronide, U Not Detected ng/mL 17 6-monoacetylmorphine, Ur Not Detected ng/mL Cutoff: 25 18 Hydrocodone, Ur Not Detected ng/mL Cutoff: 25 19 Norhydrocodone, Ur Not Detected ng/mL Cutoff: 25 20 Dihydrocodeine, Ur Not Detected ng/mL Cutoff: 25 21 Hydromorphone, Ur Not Detected ng/mL Cutoff: 25 22 Nxohubgiguiqy7xlajmxpashwemqy Not Detected ng/mL 23 Oxycodone, Ur Present ng/mL Abnormal Cutoff: 25 24 Noroxycodone, Ur Present ng/mL Abnormal Cutoff: 25 25 Oxymorphone, Ur Not Detected ng/mL Cutoff: 25 26 Kxindomrbhv-4-yfxn-glucuronide Present ng/mL Abnormal 27 Noroxymorphone, Ur Present ng/mL Abnormal Cutoff: 25 28 Fentanyl, Ur Not Detected ng/mL Cutoff: 2 29 Norfentanyl, Ur Not Detected ng/mL Cutoff: 2 30 Meperidine, Ur Not Detected ng/mL Cutoff: 25 31 Normeperidine, Ur Not Detected ng/mL Cutoff: 25 32 Naloxone, Ur Not Detected ng/mL Cutoff: 25 33 Qscafehs-2-lzev-glucuronide, U Not Detected ng/mL 34 Methadone, Ur Not Detected ng/mL Cutoff: 25 35 Eddp, Ur Not Detected ng/mL Cutoff: 25 36 Propoxyphene, Ur Not Detected ng/mL Cutoff: 25 37 Norpropoxyphene, Ur Not Detected ng/mL Cutoff: 25 38 Tramadol, Ur Not Detected ng/mL Cutoff: 25 39 O-desmethyltramadol, Ur Not Detected ng/mL Cutoff: 25 40 Tapentadol, Ur Not Detected ng/mL Cutoff: 25 41 N-desmethyltapentadol, Ur Not Detected ng/mL Cutoff: 50 42 Gwwjdguqit-ktii-sdwnemoumyw, U Not Detected ng/mL 43 Buprenorphine, Ur Not Detected ng/mL Cutoff: 5 44 Norbuprenorphine, Ur Not Detected ng/mL Cutoff: 5 45 Norbuprenorphine glucuronide Not Detected ng/mL Cutoff: 20 46 Opioid Interpretation See Comment 47 Laboratory test finding 01/26/2019 In House Hemoglobin A1c 5.6 Ua Inhouse 01/26/2019 In House Ua Glucose - 48 Ua Bilirubin - Ua Ketones - Ua Specific [place] 1.010 Ua Blood - Ua PH 6.0 Ua Protein - Ua Urobilinogen - Ua Nitrite - Ua Leukocytes - Comp Metabolic Panel 12/19/2018 [facility] Sodium 139 mmol/L Normal 135-145 [phone] Chloride 110 mmol/L Normal 101-111 Co2 Carbon Dioxide 24 mmol/L Normal 22-32 Glucose 105 mg/dL High 70-100 Blood Urea Nitrogen 14 mg/dL Normal 6-24 Creatinine 1.30 mg/dL High 0.67-1.17 BUN/Creatinine Ratio 10.8 Normal 8-20 Calcium 9.0 mg/dL Normal 8.6-10.3 Total Protein 6.7 g/dL Normal 6.4-8.9 Albumin 3.9 g/dL Normal 3.2-5.2 Globulin 2.8 g/dL Normal 2-4 Albumin/Globulin Ratio 1.4 Normal 1-3 Total Bilirubin 0.40 mg/dL Normal 0.2-1.0 Alkaline Phosphatase 64 U/L Normal 34-104 Alt 22 U/L Normal 7-52 Egfr Non- 58.4 >60 Egfr 70.7 >60 49 Potassium 4.1 mmol/L Normal 3.5-5.0 Anion Gap 5 mmol/L Normal 2-11 Ast 18 U/L Normal 13-39 Bordetella 12/19/2018 [facility] Bordetella Negative Negative 50 Pertussis AB, Igg [phone] Pertussis IgG PT Bordetella Pertussis IgG Fha 11.60 IU/mL 51 Laboratory test 12/19/2018 [facility] B-Type 152 pg/mL High <=100 finding [phone] Natriuretic Peptide BNP CBC No Diff 12/19/2018 [facility] White Blood 6.9 Normal 3.5-10.8 [phone] Count 10^3/uL Red Blood Count 5.13 10^6/uL Normal 4.18-5.48 Hemoglobin 14.4 g/dL Normal 14.0-18.0 Hematocrit 44 % Normal 36-46 Mean Corpuscular Volume 86 fL Normal 80-94 Mean Corpuscular Hemoglobin 28 pg Normal 27-31 Mean Corpuscular HGB Conc 33 g/dL Normal 31-36 Red Cell Distribution Width 16 % High 10.5-15 Platelet Count 212 10^3/uL Normal 150-450 Mean Platelet Volume 7.9 fL Normal 7.4-10.4 Rapid Influenza A 11/21/2018 [facility] Influenza A NEGATIVE Negative 52 & B Molecular [phone] Molecular Influenza B Molecular NEGATIVE Negative 1 Presumptive Positive Presumptive positive results are unconfirmed. 2 Presumptive Positive Presumptive positive results are unconfirmed. 3 Presumptive Positive Presumptive positive results are unconfirmed. 4 Presumptive Positive Presumptive positive results are unconfirmed. 5 The urine specimen was tested at the listed cutoffs: Drug class test level (ng/mL) Amphetamines 500 Barbiturates 200 Benzodiazepine metabolites 200 Cocaine metabolites 150 Cannabinoids 50 Opiates 300 Pcp 25 Specimen was received without chain of custody. Results should be used for medical purposes only. 6 Because ethnic data is not always readily available, this report includes an eGFR for both -Americans and non- Americans. The National Kidney Disease Education Program (NKDEP) does not endorse the use of the MDRD equation for patients that are not between the ages of 18 and 70, are , have extremes of body size, muscle mass, or nutritional status, or are non- or non-. According to the National Kidney Foundation, irrespective of diagnosis, the stage of the disease is based on the level of kidney function: Stage Description GFR(mL/min/1.73 m(2)) 1 Kidney damage with normal or decreased GFR 90 2 Kidney damage with mild decrease in GFR 60-89 3 Moderate decrease in GFR 30-59 4 Severe decrease in GFR 15-29 5 Kidney failure <15 (or dialysis) 7 Therapeutic concentration: <50 ug/mL Toxic concentration: >120 ug/mL 8 REFERENCE VALUE Cutoff: 500 9 REFERENCE VALUE Cutoff: 200 10 REFERENCE VALUE Cutoff: 100 11 REFERENCE VALUE Cutoff: 150 12 ADDITIONAL INFORMATION This report is intended for use in clinical monitoring or management of patients. It is not intended for use in employment-related testing. 13 REFERENCE VALUE Cutoff: 200 mg/L 14 Tylenol 3 15 Metabolite of codeine REFERENCE VALUE Cutoff: 100 16 Masha Ludwig, Contin; Also a minor metabolite (10%) of codeine and can be seen in low concentrations (<2,000 ng/mL) with poppy seed ingestion. 17 Metabolite of morphine REFERENCE VALUE Cutoff: 100 18 Metabolite of heroin 19 Lortab, [place], Vicodin; Also a very minor metabolite of codeine and impurity (<1%) of oxycodone. 20 Metabolite of hydrocodone 21 Metabolite of hydrocodone 22 Dilaudid, Exalgo; Also a metabolite of hydrocodone and a minor (<5%) metabolite of morphine. 23 Metabolite of hydromorphone REFERENCE VALUE Cutoff: 100 24 Endocet, Percocet, Oxycontin 25 Metabolite of oxycodone 26 Numorphan, Opana; Also a metabolite of oxycodone. 27 Metabolite of oxymorphone REFERENCE VALUE Cutoff: 100 28 Metabolite of oxymorphone 29 Actiq, Duragesic, Fentora 30 Metabolite of fentanyl 31 Demerol 32 Metabolite of meperidine 33 Narcan 34 Metabolite of naloxone REFERENCE VALUE Cutoff: 100 35 Dolophine 36 Metabolite of methadone 37 Darvon, Darvocet 38 Metabolite of propoxyphene 39 Tradol, Ultram, Ultracet 40 Metabolite of tramadol 41 Nucynta 42 Metabolite of tapentadol 43 Metabolite of tapentadol REFERENCE VALUE Cutoff: 100 44 Buprenex, Suboxone 45 Metabolite of buprenorphine 46 Metabolite of buprenorphine 47 Test detected the presence of oxycodone and several metabolites (noroxycodone, noroxymorphone, and jzjnvzrfcnh-3-namy-glucuronide). Suspect use of oxycodone and/or oxymorphone within the past three days. ADDITIONAL INFORMATION This test was developed and its performance characteristics determined by [facility] in a manner consistent with CLIA requirements. This test has not been cleared or approved by the U.S. Food and Drug Administration. Test Performed by: [facility] [employer] [facility] [address] [place] [id number] 48 void, clear, light yellow 49 Because ethnic data is not always readily available, this report includes an eGFR for both -Americans and non- Americans. The National Kidney Disease Education Program (NKDEP) does not endorse the use of the MDRD equation for patients that are not between the ages of 18 and 70, are , have extremes of body size, muscle mass, or nutritional status, or are non- or non-. According to the National Kidney Foundation, irrespective of diagnosis, the stage of the disease is based on the level of kidney function: Stage Description GFR(mL/min/1.73 m(2)) 1 Kidney damage with normal or decreased GFR 90 2 Kidney damage with mild decrease in GFR 60-89 3 Moderate decrease in GFR 30-59 4 Severe decrease in GFR 15-29 5 Kidney failure <15 (or dialysis) 50 No IgG antibodies to pertussis toxin (PT) detected. Results may be falsely negative in patients with < 2 weeks of symptoms. 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 unspecified M54.5 Low back pain R06.00 Dyspnea, unspecified G89.4 Chronic pain syndrome E66.9 Obesity, unspecified J30.9 Allergic rhinitis, unspecified K59.00 Constipation, unspecified I10 Essential (primary) hypertension Z12.11 Encounter for screening for malignant neoplasm of colon J44.9 Chronic obstructive pulmonary disease, unspecified Office Visit 10/10/2018 1:20p Main Office Elif [place], I42.9 Cardiomyopathy, P.A. unspecified I50.22 Chronic systolic (congestive) heart failure I10 Essential (primary) hypertension M54.5 Low back pain Z91.128 Patient's intentl undrdose of meds regimen for oth reason T50.0x6D Underdosing of mineralocorticoids and their antag, subs T46.5x6D Underdosing of other antihypertensive drugs, subs encntr Assessments Date Code Description Provider 03/02/2019 G89.4 Chronic pain syndrome Elif [place], P.A. 03/02/2019 Z79.891 oil heaterman (current) use of opiate analgesic Elif [place] , P.A. 01/26/2019 I42.9 Cardiomyopathy, unspecified Elif [place], P.A. 01/26/2019 M54.5 Low back pain Elif [place], P.A. 01/26/2019 R06.00 Dyspnea, unspecified Elif [place], P.A. 01/26/2019 G89.4 Chronic pain syndrome Elif [place], P.A. 01/26/2019 E66.9 Obesity, unspecified Elif [place], P.A. 01/26/2019 J30.9 Allergic rhinitis, unspecified Elif [place], P.A. 01/26/2019 K59.00 Constipation, unspecified Elif [place], P.A. 01/26/2019 I10 Essential (primary) hypertension Elif [place], P.A. 01/26/2019 Z12.11 Encounter for screening for malignant Elif [place], P.A. neoplasm of colon 01/26/2019 J44.9 Chronic obstructive pulmonary disease, Elif [place], P.A. unspecified 10/10/2018 I42.9 Cardiomyopathy, unspecified Elif [place], P.A. 10/10/2018 I50.22 Chronic systolic (congestive) heart failure Elif [place] , P.A. 10/10/2018 I10 Essential (primary) hypertension Elif [place], P.A. 10/10/2018 M54.5 Low back pain Elif [place], P.A. 10/10/2018 Z91.128 Patient's intentional underdosing of Elif [place], P.A. medication regimen for 10/10/2018 T50.0x6D Underdosing of mineralocorticoids and their Rachel Dejesus. antagonists, sub 10/10/2018 T46.5x6D Underdosing of other antihypertensive drugs, Rachel Dejesus. subsequent enco Plan of Treatment 03/02/2019 - Mary DejesusG89.4 Chronic pain ofgyfptlB44.891 oil heaterman ( current) use of opiate analgesicComments:discussed that will be keeping much closer eye on his use and UDS than has been q 3-6 months, will be required to come in monthly Functional Status Description No Information Available Mental Status Description No Information Available Referrals Refer to Reason for Referral Status Appt Date [facility] Colon screen, no sxs at this time, has Sent 2018 multiple other issues Consult and Testing - Specialist decides - Follow up needed [facility] [place] [address] [phone] Jessica Gaitan MD pt with COPD, uses CPAP, has cardiomyopathy and Sent chr low back pain. COPD poor control. Pt has difficulty getting to our office regularly, lives in [place]. [facility] [address], [address] [place] [address] [phone] Marlene Hill Md Chronic back pain with hx of lumbar spine Closed fusion this pain recently took pt to the hospital [facility] [address], [place] [address] [phone]
--- OUTSIDE RECORDS SUMMARY | 2019-04-09 18:28 | XMS REPORT | Continuity of Care Document ---
:1970 External Reference #:[id number] Author Name Mary Dejesus (transmitted by agent of provider Tommy Garcia) Address [address] [place] [address] Care Team Providers Name Role Phone HCP/LW on file Care Team Information [employer] Dipper Unavailable Problems Active Problems Provider Date Essential [...] 10/01/2017 1% day on feet x at [facility] least 3 months Ventolin HFA [...] Oxycodone HCL 1 tablets every 28tabs Tommy aGrcia, 02/16/2019 - 5mg 4-6 hours for pain M.DXimena 02/18/2019 Tablets Immunizations CPT Code Status Date Vaccine Lot # [id number] Given 07/18/2018 Influenza Virus Vaccine, Quadrivalent, Split, [...] H/L Range Note CBC Auto Diff 04/05/2019 [facility] White Blood 8.7 10^3/uL Normal 3.5-10.8 [phone] Count Red Blood Count 5.36 10^6/uL Normal [...] Blood Cells % 0.0 Urine Drug 04/05/2019 [facility] Urine Amphetamine None Detected None Detect SCR ED & [phone] Screen Pain Clinic Urine Barbiturates Screen None [...] Detected None Detect 5 Urinalysis Profile 04/05/2019 [facility] Urine Color Yellow [phone] Urine Appearance Clear Urine Specific [place] 1.022 Normal 1.010-1.030 Urine pH 6.0 Normal 5-9 Urine Urobilinogen Negative Negative Urine Ketones Negative Negative Urine Protein 3+(>=500 mg/dL) Abnormal Negative Urine Leukocytes Negative Negative Urine Blood Negative Negative Urine Nitrite Negative Negative Urine Bilirubin Negative Negative Urine Glucose Negative Negative Urine White Blood Cell Absent Absent Urine Red Blood Cell Absent Absent Urine Bacteria Absent Absent Comp Metabolic Panel 04/05/2019 [facility] Sodium 137 mmol/L Normal 135-145 [phone] Potassium 3.4 mmol/L Low 3.5-5.0 Chloride 102 [...] 70.1 >60 6 Laboratory test finding 04/05/2019 [facility] Acetaminophen < 15 g/ mL 7 [phone] Alcohol < 10 mg/dL Normal <10 Salicylate < 2.50 mg/dL <30 TSH (Thyroid Stim Horm) 0.79 mcIU/mL Normal 0.34-5.60 Urine Drug Screen Inhouse 03/02/2019 In House Ua Cocaine - Ua Opiates - Ua Amphetamines - Urine Methanphetamines - Urine Benzodiazepines QN Lyn[place] - Urine Oxycodone QL + Drug Abuse 20 Urine 02/16/2019 [facility] Urine Amphetamine Negative ng /mL 8 [phone] Urine Barbiturates Negative ng/mL 9 Urine Benzodiazepines Negative ng/mL 10 Urine Cocaine Negative ng/mL 11 Urine Phencyclidine Negative ng/mL Cutoff: 25 Urine Tetrahydrocannabinol Negative ng/mL Cutoff: 50 12 Creatinine, Urine 27.5 mg/dL Specific [place] 1.008 pH 6.3 Oxidants Negative 13 Adulterants Comment Normal Codeine, Ur Not Detected ng/mL Cutoff: 25 14 Dpgshfi-0-uvax-glucuronide, Ur Not Detected ng/mL 15 Morphine, Ur Not Detected ng/mL Cutoff: 25 16 Mxmfnmsh-3-ejuf-glucuronide, U Not Detected ng/mL 17 6-monoacetylmorphine, Ur Not Detected ng/mL Cutoff: 25 18 Hydrocodone, Ur Not Detected ng/mL Cutoff: 25 19 Norhydrocodone, Ur Not Detected ng/mL Cutoff: 25 20 Dihydrocodeine, Ur Not Detected ng/mL Cutoff: 25 21 Hydromorphone, Ur Not Detected ng/mL Cutoff: 25 22 Ltqlifgwixnfz8njkoxzlrjbmpgjr Not Detected ng/mL 23 Oxycodone, Ur Present ng/mL Abnormal Cutoff: 25 24 Noroxycodone, Ur Present ng/mL Abnormal Cutoff: 25 25 Oxymorphone, Ur Not Detected ng/mL Cutoff: 25 26 Gplcspubjxl-8-zvfr-glucuronide Present ng/mL Abnormal 27 Noroxymorphone, Ur Present ng/mL Abnormal Cutoff: 25 28 Fentanyl, Ur Not Detected ng/mL Cutoff: 2 29 Norfentanyl, Ur Not Detected ng/mL Cutoff: 2 30 Meperidine, Ur Not Detected ng/mL Cutoff: 25 31 Normeperidine, Ur Not Detected ng/mL Cutoff: 25 32 Naloxone, Ur Not Detected ng/mL Cutoff: 25 33 Zikmppko-5-vnes-glucuronide, U Not Detected ng/mL 34 Methadone, Ur [...] Ur Not Detected ng/mL Cutoff: 50 42 Nrhnsrezeg-kyif-tinckscaiqp, U Not Detected ng/mL 43 Buprenorphine, Ur Not Detected ng/mL Cutoff: 5 44 Norbuprenorphine, Ur Not Detected ng/mL Cutoff: 5 45 Norbuprenorphine glucuronide Not Detected ng/mL Cutoff: 20 46 Opioid Interpretation See Comment 47 Laboratory test finding 01/26/2019 In House Hemoglobin A1c 5.6 Ua Inhouse 01/26/2019 In House Ua Glucose - 48 Ua Bilirubin - Ua Ketones - Ua Specific [place] 1.010 Ua Blood - Ua PH 6.0 Ua Protein - Ua Urobilinogen - Ua Nitrite - Ua Leukocytes - Comp Metabolic Panel 12/19/2018 [facility] Sodium 139 mmol/L Normal 135-145 [phone] Chloride 110 mmol/L Normal 101-111 Co2 Carbon [...] Ast 18 U/L Normal 13-39 Bordetella 12/19/2018 [facility] Bordetella Negative Negative 50 Pertussis AB, Igg [phone] Pertussis IgG PT Bordetella Pertussis IgG Fha 11.60 IU/mL 51 Laboratory test 12/19/2018 [facility] B-Type 152 pg/mL High <=100 finding [phone] Natriuretic Peptide BNP CBC No Diff 12/19/2018 [facility] White Blood 6.9 Normal 3.5-10.8 [phone] Count 10^3/uL Red Blood Count 5.13 10^6/uL [...] fL Normal 7.4-10.4 Rapid Influenza A 11/21/2018 [facility] Influenza A NEGATIVE Negative 52 & B Molecular [phone] Molecular Influenza B Molecular NEGATIVE Negative 1 [...] 100 18 Metabolite of heroin 19 Lortab, [place], Vicodin; Also a very minor metabolite of [...] oxycodone and several metabolites (noroxycodone, noroxymorphone, and lzjclmzeglx-3-fuub-glucuronide). Suspect use of oxycodone and/or oxymorphone within the past three days. ADDITIONAL INFORMATION This test was developed and its performance characteristics determined by [facility] in a manner consistent with CLIA requirements. This test has not been cleared or approved by the U.S. Food and Drug Administration. Test Performed by: [facility] [address] [place] [address] [id number] 48 void, clear, light yellow 49 Because [...] >=100 IU/mL = Positive Test Performed by: [facility] [address] [place] [id number] [employer] Farm Support Specialist: [id number] Procedures Date Code Description Status 01/26/2019 12098 Bronchospasm Evaluation Pre & Post Completed Medical Devices Description No Information Available Encounters Type Date Location Provider Dx Diagnosis Office Visit 03/02/2019 Main Office Mary Dejesus G89.4 Chronic pain 8:40a syndrome 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 unspecified I50.22 Chronic systolic (congestive) heart failure I10 Essential (primary) hypertension M54.5 Low back pain Z91.128 Patient's intentl undrdose of meds regimen for oth reason T50.0x6D Underdosing of mineralocorticoids and their antag, subs T46.5x6D Underdosing of other antihypertensive drugs, subs encntr Assessments Date Code Description Provider 03/02/2019 G89.4 Chronic pain syndrome Elif [place], P.A. 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 01/26/2019 I42.9 Cardiomyopathy, unspecified Elif [place], P.A. 01/26/2019 M54.5 Low back pain Elif [place], P.A. 01/26/2019 R06.00 Dyspnea, unspecified Elif [place], P.A. 01/26/2019 G89.4 Chronic pain syndrome Elif [place], P.A. 01/26/2019 E66.9 Obesity, unspecified Elif [place], P.A. 01/26/2019 J30.9 Allergic rhinitis, unspecified Elif [place], P.A. 01/26/2019 K59.00 Constipation, unspecified Elif [place], P.A. 01/26/2019 I10 Essential (primary) hypertension Elif [place], P.A. 01/26/2019 Z12.11 Encounter for screening for malignant Elif [place], P.A. neoplasm of colon 01/26/2019 J44.9 Chronic obstructive pulmonary disease, Elif [place], P.A. unspecified 10/10/2018 I42.9 Cardiomyopathy, unspecified Elif [place], P.A. 10/10/2018 I50.22 Chronic systolic (congestive) heart failure Elif [place] , P.A. 10/10/2018 I10 Essential (primary) hypertension Elif [place], P.A. 10/10/2018 M54.5 Low back pain Elif [place], P.A. 10/10/2018 Z91.128 Patient's intentional underdosing of Elif [place], P.A. medication regimen for 10/10/2018 T50.0x6D Underdosing of mineralocorticoids and their Rachel Dejesus. antagonists, sub 10/10/2018 T46.5x6D Underdosing of other antihypertensive drugs, Rachel Dejesus. subsequent enco Plan of Treatment 03/02/2019 - Mary DejesusG89.4 Chronic pain irbduqmjI23.891 long term care administrator ( current) use of opiate analgesicComments:discussed that will be keeping much closer eye on his use and UDS than has been q 3-6 months, will be required to come in monthly Functional Status Description No Information Available Mental Status Description No Information Available Referrals Refer to Reason for Referral Status Appt Date [facility] Colon screen, no sxs at this time, has Sent 2018 multiple other issues Consult and Testing - Specialist decides - Follow up needed [facility] [place] [address] [phone] Jessica Gaitan MD pt with COPD, uses CPAP, has cardiomyopathy and Sent chr low back pain. COPD poor control. Pt has difficulty getting to our office regularly, lives in [place]. [facility] [address], [address] [place] [address] [phone] Marlene Hill Md Chronic back pain with hx of lumbar spine Closed fusion this pain recently took pt to the hospital [facility] [address], [place] [address] [phone]
[2019-04-09] MEDS ORDERED: Tetracaine 0.5% OPTH.SOL 4 ML* 1 DROP BTL SCH (19:00)
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
[2019-04-09] MEDS ORDERED: Fluorescein Sodium TOPICAL* 1 MG TEST STRIP OPHTHALMIC ONE (19:24)
[2019-04-09] MEDS ORDERED: Gentamicin 0.3% OPHTH.SOLN* 5 ML BTL RIGHT EYE SCH (19:30)
[2019-04-09 20:11] VITALS: BP 142/92
== END 2019-04-09 20:04 | disposition home or self-care (01) ==
LOC: ED 18:13
DX: S05.01XA Injury of conjunctiva and corneal abrasion without foreign body, right eye, initial encounter (principal); R05 Cough; X58.XXXA Exposure to other specified factors, initial encounter; Y92.9 Unspecified place or not applicable; I50.9 Heart failure, unspecified; I11.0 Hypertensive heart disease with heart failure; K21.9 Gastro-esophageal reflux disease without esophagitis; F41.9 Anxiety disorder, unspecified; F32.9 Major depressive disorder, single episode, unspecified; Z87.891 Personal history of nicotine dependence; Z88.8 Allergy status to other drugs, medicaments and biological substances; Z88.6 Allergy status to analgesic agent; Z91.041 Radiographic dye allergy status; Z91.040 Latex allergy status
CPT/HCPCS: 99281; A9270-GY

== ENCOUNTER 2019-04-10 22:21 | Emergency (ER) | payer OTHER ==
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
[2019-04-10] MEDS ORDERED: Tetracaine 0.5% OPTH.SOL 4 ML* 1 DROP BTL ONE ×2 (23:21→23:30)
[2019-04-10] MEDS ORDERED: Gentamicin 0.3% OPHTH.SOLN* 5 ML BTL LEFT EYE SCH (23:30)
[2019-04-10 23:48] VITALS: BP 153/107
== END 2019-04-10 23:47 | disposition home or self-care (01) ==
LOC: ED 22:21
DX: H10.33 Unspecified acute conjunctivitis, bilateral (principal); I11.0 Hypertensive heart disease with heart failure; I50.9 Heart failure, unspecified; Z88.8 Allergy status to other drugs, medicaments and biological substances; Z88.6 Allergy status to analgesic agent; Z91.041 Radiographic dye allergy status; Z91.040 Latex allergy status; Z87.891 Personal history of nicotine dependence
CPT/HCPCS: 99281; A9270-GY

== ENCOUNTER 2019-04-24 20:40 | Emergency (ER) | payer OTHER ==
--- OUTSIDE RECORDS SUMMARY | 2019-04-24 20:49 | XMS REPORT | Continuity of Care Document ---
:1970 External Reference #:[id number] Author Name Mary Dejesus (transmitted by agent of provider Duncan Brown) Address [address] [place] [address] Care Team Providers Name Role Phone HCP/LW on file Care Team Information Supervisor Functional Testing Unavailable Problems Active Problems Provider Date Essential [...] CPT Code Status Date Vaccine Lot # [id number] Given 07/18/2018 Influenza Virus Vaccine, Quadrivalent, Split, [...] H/L Range Note CBC Auto Diff 04/05/2019 [facility] White Blood 8.7 10^3/uL Normal 3.5-10.8 [phone] Count Red Blood Count 5.36 10^6/uL Normal [...] Blood Cells % 0.0 Urine Drug 04/05/2019 [facility] Urine Amphetamine None Detected None Detect SCR ED & [phone] Screen Pain Clinic Urine Barbiturates Screen None [...] Detected None Detect 5 Urinalysis Profile 04/05/2019 [facility] Urine Color Yellow [phone] Urine Appearance Clear Urine Specific [place] 1.022 Normal 1.010-1.030 Urine pH 6.0 Normal 5-9 Urine Urobilinogen Negative Negative Urine Ketones Negative Negative Urine Protein 3+(>=500 mg/dL) Abnormal Negative Urine Leukocytes Negative Negative Urine Blood Negative Negative Urine Nitrite Negative Negative Urine Bilirubin Negative Negative Urine Glucose Negative Negative Urine White Blood Cell Absent Absent Urine Red Blood Cell Absent Absent Urine Bacteria Absent Absent Comp Metabolic Panel 04/05/2019 [facility] Sodium 137 mmol/L Normal 135-145 [phone] Potassium 3.4 mmol/L Low 3.5-5.0 Chloride 102 [...] 70.1 >60 6 Laboratory test finding 04/05/2019 [facility] Acetaminophen < 15 g/ mL 7 [phone] Alcohol < 10 mg/dL Normal <10 Salicylate < 2.50 mg/dL <30 TSH (Thyroid Stim Horm) 0.79 mcIU/mL Normal 0.34-5.60 Urine Drug Screen Inhouse 03/02/2019 In House Ua Cocaine - Ua Opiates - Ua Amphetamines - Urine Methanphetamines - Urine Benzodiazepines QN [place] - Urine Oxycodone QL + Drug Abuse 20 Urine 02/16/2019 [facility] Urine Amphetamine Negative ng /mL 8 [phone] Urine Barbiturates Negative ng/mL 9 Urine Benzodiazepines Negative ng/mL 10 Urine Cocaine Negative ng/mL 11 Urine Phencyclidine Negative ng/mL Cutoff: 25 Urine Tetrahydrocannabinol Negative ng/mL Cutoff: 50 12 Creatinine, Urine 27.5 mg/dL Specific [place] 1.008 pH 6.3 Oxidants Negative 13 Adulterants Comment Normal Codeine, Ur Not Detected ng/mL Cutoff: 25 14 Wfjyowj-1-qtct-glucuronide, Ur Not Detected ng/mL 15 Morphine, Ur Not Detected ng/mL Cutoff: 25 16 Tdypyhxd-7-rzww-glucuronide, U Not Detected ng/mL 17 6-monoacetylmorphine, Ur Not Detected ng/mL Cutoff: 25 18 Hydrocodone, Ur Not Detected ng/mL Cutoff: 25 19 Norhydrocodone, Ur Not Detected ng/mL Cutoff: 25 20 Dihydrocodeine, Ur Not Detected ng/mL Cutoff: 25 21 Hydromorphone, Ur Not Detected ng/mL Cutoff: 25 22 Xsqsqxoazqery1lktvphbqvjmrzdv Not Detected ng/mL 23 Oxycodone, Ur Present ng/mL Abnormal Cutoff: 25 24 Noroxycodone, Ur Present ng/mL Abnormal Cutoff: 25 25 Oxymorphone, Ur Not Detected ng/mL Cutoff: 25 26 Kuujslnmqfq-1-ggfb-glucuronide Present ng/mL Abnormal 27 Noroxymorphone, Ur Present ng/mL Abnormal Cutoff: 25 28 Fentanyl, Ur Not Detected ng/mL Cutoff: 2 29 Norfentanyl, Ur Not Detected ng/mL Cutoff: 2 30 Meperidine, Ur Not Detected ng/mL Cutoff: 25 31 Normeperidine, Ur Not Detected ng/mL Cutoff: 25 32 Naloxone, Ur Not Detected ng/mL Cutoff: 25 33 Hxkvuwlb-2-fysi-glucuronide, U Not Detected ng/mL 34 Methadone, Ur [...] Ur Not Detected ng/mL Cutoff: 50 42 Tpacqewdvi-qyyu-jdcubhlsebc, U Not Detected ng/mL 43 Buprenorphine, Ur Not Detected ng/mL Cutoff: 5 44 Norbuprenorphine, Ur Not Detected ng/mL Cutoff: 5 45 Norbuprenorphine glucuronide Not Detected ng/mL Cutoff: 20 46 Opioid Interpretation See Comment 47 Laboratory test finding 01/26/2019 In House Hemoglobin A1c 5.6 Ua Inhouse 01/26/2019 In House Ua Glucose - 48 Ua Bilirubin - Ua Ketones - Ua Specific [place] 1.010 Ua Blood - Ua PH 6.0 Ua Protein - Ua Urobilinogen - Ua Nitrite - Ua Leukocytes - Comp Metabolic Panel 12/19/2018 [facility] Sodium 139 mmol/L Normal 135-145 [phone] Chloride 110 mmol/L Normal 101-111 Co2 Carbon [...] Ast 18 U/L Normal 13-39 Bordetella 12/19/2018 [facility] Bordetella Negative Negative 50 Pertussis AB, Igg [phone] Pertussis IgG PT Bordetella Pertussis IgG Fha 11.60 IU/mL 51 Laboratory test 12/19/2018 [facility] B-Type 152 pg/mL High <=100 finding [phone] Natriuretic Peptide BNP CBC No Diff 12/19/2018 [facility] White Blood 6.9 Normal 3.5-10.8 [phone] Count 10^3/uL Red Blood Count 5.13 10^6/uL [...] fL Normal 7.4-10.4 Rapid Influenza A 11/21/2018 [facility] Influenza A NEGATIVE Negative 52 & B Molecular [phone] Molecular Influenza B Molecular NEGATIVE Negative 1 [...] 100 18 Metabolite of heroin 19 Lortab, [place], Vicodin; Also a very minor metabolite of [...] oxycodone and several metabolites (noroxycodone, noroxymorphone, and qwmvrjqpznm-1-yvrc-glucuronide). Suspect use of oxycodone and/or oxymorphone within the past three days. ADDITIONAL INFORMATION This test was developed and its performance characteristics determined by [facility] in a manner consistent with CLIA requirements. This test has not been cleared or approved by the U.S. Food and Drug Administration. Test Performed by: 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 unspecified M54.5 Low back pain R06.00 Dyspnea, unspecified G89.4 Chronic pain syndrome E66.9 Obesity, unspecified J30.9 Allergic rhinitis, unspecified K59.00 Constipation, unspecified I10 Essential (primary) hypertension Z12.11 Encounter for screening for malignant neoplasm of colon J44.9 Chronic obstructive pulmonary disease, unspecified Assessments Date Code Description Provider 03/02/2019 G89.4 Chronic pain syndrome Elif Harvard, P.A. 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 01/26/2019 I42.9 Cardiomyopathy, unspecified Elif Harvard, P.A. 01/26/2019 M54.5 Low back pain Elif Harvard, P.A. 01/26/2019 R06.00 Dyspnea, unspecified Elif Harvard, P.A. 01/26/2019 G89.4 Chronic pain syndrome Elif Harvard, P.A. 01/26/2019 E66.9 Obesity, unspecified Elif Harvard, P.A. 01/26/2019 J30.9 Allergic rhinitis, unspecified Elif Harvard, P.A. 01/26/2019 K59.00 Constipation, unspecified Elif Harvard, P.A. 01/26/2019 I10 Essential (primary) hypertension Elif Fierro, P.A. 01/26/2019 Z12.11 Encounter for screening for malignant neoplasm Elif Fierro P.A. of colon 01/26/2019 J44.9 Chronic obstructive pulmonary disease, Elif Harvard, P.A. unspecified Plan of Treatment 03/02/2019 - Elif Fierro, P.A.G89.4 Chronic pain mxeqfkisI18.891 nursing home ( current) use of opiate analgesicComments:discussed that will be keeping much closer eye on his use and UDS than has been q 3-6 months, will be required to come in monthly Functional Status Description No Information Available Mental Status Description No Information Available Referrals Refer to Reason for Referral Status Appt Date [facility] [place] [facility] Colon screen, no sxs at this time, has Sent 2018 multiple other issues Consult and Testing - Specialist decides - Follow up needed [facility] [place] [address] [phone] Marlene Hill Md Chronic back pain with hx of lumbar spine Closed fusion this pain recently took pt to the hospital [facility] [address], [place] [address] [phone] Jessica Gaitan MD pt with COPD, uses CPAP, has cardiomyopathy and Closed chr low back pain. COPD poor control. Pt has difficulty getting to our office regularly, lives in [place]. [facility] [address], [address] [place] [address] [phone]
--- OUTSIDE RECORDS SUMMARY | 2019-04-24 20:49 | XMS REPORT | Continuity of Care Document ---
:1970 External Reference #:[id number] Author Name Lashon Whitehead DO (transmitted by agent of provider Stacia Banks) Address [address] [place] [id number] Care Team Providers Name Role Phone Rita Madrigal PA - Medical Care Team Information Tourist Agent [phone] Problems Active Problems Provider Date Essential hypertension [...] on chronic combined systolic and Jesica Hopper N.P. Onset: 05/05/2018 diastolic heart failure Chronic kidney [...] is a current smoker, smokes some days Tobacco Use Start: Unknown Light tobacco smoker (10 or fewer cigarettes/day) Smoking Status Reviewed: 04/13/19 Light tobacco smoker (10 or fewer cigarettes/day) Exercise Type/Frequency Exercises sporadically Allergies, Adverse Reactions, Alerts Active Allergies Reaction Severity Comments Date Latex itch and gets little bumps 12/02/2010 Aspirin Nausea and Vomiting 07/11/2015 Acetaminophen hives, throat swells Severe 06/22/2016 Lisinopril angioedema 06/22/2016 Ibuprofen Nausea and Vomiting, 11/11/2017 [place] Iodinated Diagnostic Agents 11/11/2017 Hydralazine facial swelling 12/02/2017 Gadoteridol Nausea and Vomiting 02/01/2018 Medications Active Medications SIG Qnty Indications Ordering Date Provider Promethazine HCL every 4 hours as 473ml R05 Lashon Whitehead, 04/13/2019 needed for cough DO 6.25mg/5ML Syrup Amoxicillin/Clavulana one by mouth twice 10tabs R05 Lashon Whitehead, 2018 te Potassium a day DO 500-125mg Tablets Carvedilol 1 by mouth twice a 180tabs I42.9 Carl S. 01/30/2019 12.5mg day Chester, DO FACC Tablets Ventolin HFA 2 puffs by mouth Unknown four times a day 108(90Base) mcg/Act as needed Aerosol Triamcinolone apply thin film Unknown Acetonide twice daily 0.1% Cream Nitroglycerin apply daily and Unknown 0.1mg/HR remove at bedtime Patches 24HR as needed Spironolactone 1 by mouth every 90tabs Carl S. 25mg day Chester, DO FACC Tablets Torsemide 1 by mouth once 90tabs Carl S. 20mg Tablets daily Chester, DO FACC Oxycodone HCL 1 po every 6-8 hrs BensonElif arnold 10mg prn SXimena PA Tablets Terbinafine HCL as directed Benson Elif 1% S., PA Cream Promethazine-Codeine 5 milliliters Unknown every 4 hours as 6.25-10mg/5ML needed Solution Immunizations Description No Information Available Vital Signs Date Vital Result Comment 04/13/2019 9:57am Height 66 inches 5'6" Weight 222.25 lb Heart Rate 67 /min BP Systolic 124 mmHg BP Diastolic 91 mmHg Body Temperature 98.1 F O2 % BldC Oximetry 97 % BMI (Body Mass Index) 35.9 kg/m2 04/03/2019 1:40pm Height 66 inches 5'6" Weight 233.50 lb Heart Rate 90 /min BP Systolic 138 mmHg BP Diastolic 76 mmHg Body Temperature 98.0 F Pain Level 9 O2 % BldC Oximetry 97 % BMI (Body Mass Index) 37.7 kg/m2 Results Test Date Facility Test Result H/L Range Note Xray 03/27/[address] [facility] [address] Spine Lumbar W/O <pending> [address] [place] [address] [phone] MRI Lumbar Spine W/Wo <pending> Procedures Description No Information Available Medical Devices Description No Information Available Encounters Description No Information Available Assessments Date Code Description Provider 04/13/2019 R05 Cough Lashon Whitehead, 04/13/2019 I11.0 Hypertensive heart disease with heart failure Lashon Whitehead DO 04/13/2019 I10 Essential (primary) hypertension Lashon Whitehead DO 04/13/2019 J44.9 Chronic obstructive pulmonary disease, Lashon Whitehead DO unspecified 04/13/2019 G47.33 Obstructive sleep apnea (adult) (pediatric) Lashon Whitehead DO 04/13/2019 E66.8 Other obesity Lahson Whitehead DO 04/03/2019 M47.814 Lumbar spondylosis ALISTAIR Erickson 02/20/2019 M43.17 Lumbar spondylolisthesis ALISTAIR Erickson Plan of Treatment Future Appointment(s):05/11/2019 8:20 am - Lashon Whitehead DO at [facility] - [address]/28/2019 3:30 pm - ALISTAIR Erickson [facility]04/13/2019 - MANDO Matthew CoughNew Medication: Promethazine HCL 6.25 mg/5ML - every 4 hours as needed for coughAmoxicillin/ Clavulanate Potassium 500-125 mg - one by mouth twice a dayFollow up:one wsbabF07.0 Hypertensive heart disease with heart tdfretmD29 Essential (primary) iayljrfdruglY22.9 Chronic obstructive pulmonary disease, anicihffaqwW50.33 Obstructive sleep apnea (adult) (pediatric)E66.8 Other obesity Functional Status Description No Information Available Mental Status Description No Information Available Referrals Refer to Reason for Referral Status Appt Jamaal Blanco MD 48 y/o male poat L4 - S1 fusion has severe Sent axial low back pain currently taking oxycodone 10 mg, but is not effective, 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 [address] [place] [address] [phone] [facility] [address] [place], [place] [id number] [phone]
--- OUTSIDE RECORDS SUMMARY | 2019-04-24 20:49 | XMS REPORT | Continuity of Care Document ---
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 Unavailable Problems Active Problems Provider Date Essential [...] CPT Code Status Date Vaccine Lot # [id number] Given 07/18/2018 Influenza Virus Vaccine, Quadrivalent, Split, [...] H/L Range Note CBC Auto Diff 04/05/2019 [facility] White Blood 8.7 10^3/uL Normal 3.5-10.8 [phone] Count Red Blood Count 5.36 10^6/uL Normal [...] Blood Cells % 0.0 Urine Drug 04/05/2019 [facility] Urine Amphetamine None Detected None Detect SCR ED & [phone] Screen Pain Clinic Urine Barbiturates Screen None [...] Detected None Detect 5 Urinalysis Profile 04/05/2019 [facility] Urine Color Yellow [phone] Urine Appearance Clear Urine Specific [place] 1.022 Normal 1.010-1.030 Urine pH 6.0 Normal 5-9 Urine Urobilinogen Negative Negative Urine Ketones Negative Negative Urine Protein 3+(>=500 mg/dL) Abnormal Negative Urine Leukocytes Negative Negative Urine Blood Negative Negative Urine Nitrite Negative Negative Urine Bilirubin Negative Negative Urine Glucose Negative Negative Urine White Blood Cell Absent Absent Urine Red Blood Cell Absent Absent Urine Bacteria Absent Absent Comp Metabolic Panel 04/05/2019 [facility] Sodium 137 mmol/L Normal 135-145 [phone] Potassium 3.4 mmol/L Low 3.5-5.0 Chloride 102 [...] 70.1 >60 6 Laboratory test finding 04/05/2019 [facility] Acetaminophen < 15 g/ mL 7 [phone] Alcohol < 10 mg/dL Normal <10 Salicylate < 2.50 mg/dL <30 TSH (Thyroid Stim Horm) 0.79 mcIU/mL Normal 0.34-5.60 Urine Drug Screen Inhouse 03/02/2019 In House Ua Cocaine - Ua Opiates - Ua Amphetamines - Urine Methanphetamines - Urine Benzodiazepines QN Lima - Urine Oxycodone QL + Drug Abuse 20 Urine 02/16/2019 [facility] Urine Amphetamine Negative ng /mL 8 [phone] Urine Barbiturates Negative ng/mL 9 Urine Benzodiazepines Negative ng/mL 10 Urine Cocaine Negative ng/mL 11 Urine Phencyclidine Negative ng/mL Cutoff: 25 Urine Tetrahydrocannabinol Negative ng/mL Cutoff: 50 12 Creatinine, Urine 27.5 mg/dL Specific [place] 1.008 pH 6.3 Oxidants Negative 13 Adulterants Comment Normal Codeine, Ur Not Detected ng/mL Cutoff: 25 14 Zwbkpdy-5-lxtf-glucuronide, Ur Not Detected ng/mL 15 Morphine, Ur Not Detected ng/mL Cutoff: 25 16 Bctqmgfd-0-hwmf-glucuronide, U Not Detected ng/mL 17 6-monoacetylmorphine, Ur Not Detected ng/mL Cutoff: 25 18 Hydrocodone, Ur Not Detected ng/mL Cutoff: 25 19 Norhydrocodone, Ur Not Detected ng/mL Cutoff: 25 20 Dihydrocodeine, Ur Not Detected ng/mL Cutoff: 25 21 Hydromorphone, Ur Not Detected ng/mL Cutoff: 25 22 Kucrikqyrlldf6jbxybyakvrghgdq Not Detected ng/mL 23 Oxycodone, Ur Present ng/mL Abnormal Cutoff: 25 24 Noroxycodone, Ur Present ng/mL Abnormal Cutoff: 25 25 Oxymorphone, Ur Not Detected ng/mL Cutoff: 25 26 Uixyewrklvh-1-yhee-glucuronide Present ng/mL Abnormal 27 Noroxymorphone, Ur Present ng/mL Abnormal Cutoff: 25 28 Fentanyl, Ur Not Detected ng/mL Cutoff: 2 29 Norfentanyl, Ur Not Detected ng/mL Cutoff: 2 30 Meperidine, Ur Not Detected ng/mL Cutoff: 25 31 Normeperidine, Ur Not Detected ng/mL Cutoff: 25 32 Naloxone, Ur Not Detected ng/mL Cutoff: 25 33 Zipjrwar-9-tewl-glucuronide, U Not Detected ng/mL 34 Methadone, Ur [...] Ur Not Detected ng/mL Cutoff: 50 42 Xakvwvtnqf-kpqd-lyeizgnztta, U Not Detected ng/mL 43 Buprenorphine, Ur Not Detected ng/mL Cutoff: 5 44 Norbuprenorphine, Ur Not Detected ng/mL Cutoff: 5 45 Norbuprenorphine glucuronide Not Detected ng/mL Cutoff: 20 46 Opioid Interpretation See Comment 47 Laboratory test finding 01/26/2019 In House Hemoglobin A1c 5.6 Ua Inhouse 01/26/2019 In House Ua Glucose - 48 Ua Bilirubin - Ua Ketones - Ua Specific [place] 1.010 Ua Blood - Ua PH 6.0 Ua Protein - Ua Urobilinogen - Ua Nitrite - Ua Leukocytes - Comp Metabolic Panel 12/19/2018 [facility] Sodium 139 mmol/L Normal 135-145 [phone] Chloride 110 mmol/L Normal 101-111 Co2 Carbon [...] Ast 18 U/L Normal 13-39 Bordetella 12/19/2018 [facility] Bordetella Negative Negative 50 Pertussis AB, Igg [phone] Pertussis IgG PT Bordetella Pertussis IgG Fha 11.60 IU/mL 51 Laboratory test 12/19/2018 [facility] B-Type 152 pg/mL High <=100 finding [phone] Natriuretic Peptide BNP CBC No Diff 12/19/2018 [facility] White Blood 6.9 Normal 3.5-10.8 [phone] Count 10^3/uL Red Blood Count 5.13 10^6/uL [...] fL Normal 7.4-10.4 Rapid Influenza A 11/21/2018 [facility] Influenza A NEGATIVE Negative 52 & B Molecular [phone] Molecular Influenza B Molecular NEGATIVE Negative 1 [...] 100 18 Metabolite of heroin 19 Lortab, [place], Vicodin; Also a very minor metabolite of [...] oxycodone and several metabolites (noroxycodone, noroxymorphone, and lnahgloszus-1-nyjx-glucuronide). Suspect use of oxycodone and/or oxymorphone within the past three days. ADDITIONAL INFORMATION This test was developed and its performance characteristics determined by [facility] in a manner consistent with CLIA requirements. This test has not been cleared or approved by the U.S. Food and Drug Administration. Test Performed by: [facility] [employer] [facility] [address] [place] [address] 48 void, clear, light yellow 49 Because [...] >=100 IU/mL = Positive Test Performed by: [facility] [address] [place] [id number] Productivity Engineer: [id number] Procedures Date Code Description Status 01/26/2019 55200 Bronchospasm Evaluation Pre & Post Completed Medical Devices Description No Information Available Encounters Type Date Location Provider Dx Diagnosis Office Visit 03/02/2019 Main Office Mary Dejesus G89.4 Chronic pain 8:40a syndrome 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 01/26/2019 I42.9 Cardiomyopathy, unspecified Elif [place], P.A. 01/26/2019 M54.5 Low back pain Elif [place], P.A. 01/26/2019 R06.00 Dyspnea, unspecified Elif [place], P.A. 01/26/2019 G89.4 Chronic pain syndrome Elif [place], P.A. 01/26/2019 E66.9 Obesity, unspecified Elif [place], P.A. 01/26/2019 J30.9 Allergic rhinitis, unspecified Elif [place], P.A. 01/26/2019 K59.00 Constipation, unspecified Elif [place], P.A. 01/26/2019 I10 Essential (primary) hypertension Elif Fierro, P.A. 01/26/2019 Z12.11 Encounter for screening for malignant neoplasm Elif Fierro P.A. of colon 01/26/2019 J44.9 Chronic obstructive pulmonary disease, Elif [place], P.A. unspecified Plan of Treatment 03/02/2019 - Elif Fierro, P.A.G89.4 Chronic pain gsmaqftvT80.891 FPC ( current) use of opiate analgesicComments:discussed that will be keeping much closer eye on his use and UDS than has been q 3-6 months, will be required to come in monthly Functional Status Description No Information Available Mental Status Description No Information Available Referrals Refer to Reason for Referral Status Appt Date [facility] Colon screen, no sxs at this time, has Sent 2018 multiple other issues Consult and Testing - Specialist decides - Follow up needed [facility] [place] [address] [phone] Marlene Hill Md Chronic back pain with hx of lumbar spine Closed fusion this pain recently took pt to the hospital [facility] [address], [place] [address] [phone] Jessica Gaitan MD pt with COPD, uses CPAP, has cardiomyopathy and Closed chr low back pain. COPD poor control. Pt has difficulty getting to our office regularly, lives in [place]. [facility] of [address], [address] [place] [address] [phone]
--- OUTSIDE RECORDS SUMMARY | 2019-04-24 20:49 | XMS REPORT | Continuity of Care Document ---
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 Onset: 05/05/2018 diastolic heart failure Chronic kidney [...] (10 or fewer cigarettes/day) Smoking Status Reviewed: 04/18/19 Light tobacco smoker (10 or fewer cigarettes/day) [...] Date Provider Carvedilol 1 by mouth twice 60tabs I42.9 Uvaldo Ford MD 04/18/2019 25mg Tablets a day Omeprazole 1 by mouth every 30caps Uvaldo Ford MD 04/18/[address] day Promethazine HCL every 4 hours as 473ml R05 Uvaldo Ford MD 04/13/2019 6.25mg/5ML needed for cough Syrup Amoxicillin/Clavulanate one by mouth 10tabs R05 Lashon Whitehead, 04/13/2019 Potassium twice a day DO 500-125mg Tablets Ventolin HFA 2 puffs by mouth Unknown 108(90Base) four times a day mcg/Act Aerosol as needed Triamcinolone Acetonide apply thin film Unknown twice daily 0.1% Cream Nitroglycerin apply daily and Unknown 0.1mg/HR remove at Patches 24HR bedtime as needed Spironolactone 1 by mouth every 90tabs Carl Chester, 25mg Tablets day DO FACC Torsemide 1 by mouth once 90tabs Carl [place], 20mg Tablets daily DO FACC Oxycodone HCL 1 po every 6-8 GnadenhuttenElif 10mg Tablets hrs prn ALISTAIR Reynolds Terbinafine HCL as directed GnadenhuttenFlorentinoElif 1% Cream ALISTAIR Reynolds Black Seed Oil Liquid 2 tsp Unknown daily History Medications Carvedilol 1 by mouth 180tabs I42.9 Carl Chester, 01/30/2019 - 12.5mg twice a day DO FACC 04/18/2019 Tablets Immunizations Description No Information Available Vital Signs Date Vital Result Comment 04/18/2019 4:14pm Height 66 inches 5'6" Weight 225.00 lb Shoes Heart Rate 110 /min BP Systolic 140 mmHg BP Diastolic 89 mmHg Body Temperature 98.0 F O2 % BldC Oximetry 98 % BMI (Body Mass Index) 36.3 kg/m2 04/13/2019 9:57am Height 66 inches 5'6" Weight 222.25 lb Heart Rate 67 /min BP Systolic 124 mmHg BP Diastolic 91 mmHg Body Temperature 98.1 F O2 % BldC Oximetry 97 % BMI (Body Mass Index) 35.9 kg/m2 Results Test Date Facility Test Result H/L Range Note Order 04/18/2019 [employer] In-House EKG given to Lipid Profile 04/13/2019 [facility] Triglycerides 88 mg/dL 1 (Trig/Chol/HDL) [address] [place] [address] [phone] Cholesterol 157 mg/dL 2 HDL Cholesterol 43.8 mg/dL 3 LDL Cholesterol 96 mg/dL 4 Laboratory test 04/13/2019 [facility] Hemoglobin A1c 6.0 % High 4.0-5.[address] (Glyco HGB) [place] [address] [phone] Xray 03/27/[address] [facility] [address] Spine Lumbar <pending [address] W/O > [place] [address] [phone] MRI Lumbar Spine W/Wo <pending> 1 Desirable: <150 Borderline High: 150-199 High: 200-499 Very High: >500 2 Desirable: <200 Borderline High: 200-239 High: >239 3 Low: <40 Desirable: 40-60 High: >60 4 Desirable: <100 Near Optimal: 100-129 Borderline High: 130-159 High: 160-189 Very High: >189 5 Therapeutic target for the treatment of diabetes mellitus patients is <7% HBA1C, and in selective patients <6.0%. Please refer to [place] [employer] diabetic care guidelines for further information. Procedures Date Code Description Status 04/18/2019 80799 EKG Tracing & Interpretation Completed Medical Devices Description No Information Available Encounters Type Date Location Provider Dx Diagnosis Office Visit 02/20/2019 Neurosurgery Rita Madrigal M54.16 Radiculopathy, 1:00[facility] lumbar region Z98.1 Arthrodesis status Assessments Date Code Description Provider 04/18/2019 I50.22 Chronic systolic (congestive) heart failure Aarti Peguero MD 04/18/2019 I10 Essential (primary) hypertension Aarti Peguero MD 04/18/2019 R05 Cough Aarti Peguero MD 04/13/2019 R05 Cough Lashon Whitehead DO 04/13/2019 I11.0 Hypertensive heart disease with heart failure Lashon Whitehead, 04/13/2019 I10 Essential (primary) hypertension Lashon Whitehead DO 04/13/2019 J44.9 Chronic obstructive pulmonary disease, Lashon Whitehead, DO unspecified 04/13/2019 G47.33 Obstructive sleep apnea (adult) (pediatric) Lashon Whitehead , 04/13/2019 E66.8 Other obesity Lashon Whitehead DO 04/03/2019 M47.814 Lumbar spondylosis ALISTAIR Erickson 02/20/2019 M54.16 Radiculopathy, lumbar region ALISTAIR Erickson 02/20/2019 Z98.1 Arthrodesis status ALISTAIR Erickson Plan of Treatment Future Appointment(s):04/26/2019 4:00 pm - Uvaldo Ford MD at [facility] - [address]/ 8:20 am - Lashon Whitehead DO at [facility] - [address]/28/2019 3:30 pm - ALISTAIR Erickson at [facility]04/18/2019 - Aarti Peguero MDI50.22 Chronic systolic ( congestive) heart failureComments:Double your torsemide for next four days, then take your normal dose which is 1 tablet daily. Your coreg has been increased to 25 mg twice daily.Follow up in 1 week.I10 Essential (primary) hxosloohbvuyG08 CoughComments:We have added omeprazole 40 mg once daily. Functional Status Description No Information Available Mental Status Description No Information Available Referrals Refer to Dr Reason for Referral Status Appt Calr Perea, , FACC increased cough, ?PND for last month. Created missed last appointment with you. tachycardic. [address] [place] [address] [phone] Jamaal Morales MD 48 y/o male poat L4 - S1 fusion has severe axial Sent low back pain currently taking oxycodone 10 mg, but is not effective, 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 [address] [place] [address] [phone]
[2019-04-24] MEDS ORDERED: Albuterol/Ipratropium NEB.SOL* Albuterol 2.5 MG/Ipratropium 0.5 MG 3 ML INH ONE (21:15)
[2019-04-24 21:42] LABS: ABS Basophils 0.1 10^3/ul (0-0.2); ABS Eosinophils 0.3 10^3/ul (0-0.6); ABS Lymphocytes 1.8 10^3/ul (1.0-4.8); ABS Monocytes 0.9 10^3/ul (0-0.8); ABS Neutrophils 5.9 10^3/ul (1.5-7.7); Eosinophil % 3.1 %; Hematocrit 46 % (42-52); Hemoglobin 15.5 g/dL (14.0-18.0); Lymphocyte % 20.3 %; Mean Corpuscular HGB Conc 34 g/dL (31-36); Mean Corpuscular Hemoglobin 29 pg (27-31); Mean Corpuscular Volume 85 fL (80-94); Platelet Count 232 10^3/uL (150-450); Red Blood Count 5.43 10^6 /uL (4.18-5.48); Red Cell Distribution Width 15 % (10-15); White Blood Count 9.1 10^3/uL (3.5-10.8)
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
[2019-04-24 22:03] LABS: ALT 21 U/L (7-52); Albumin/Globulin Ratio 1.3 (1-3); Alkaline Phosphatase 75 U/L (34-104); BUN/Creatinine Ratio 10.6 (8-20); Blood Urea Nitrogen 19 mg/dL (6-24); C Reactive Protein 9.35 mg/L (<8.01); CO2 Carbon Dioxide 28 mmol/L (22-32); Chloride 103 mmol/L (101-111); EGFR African American 48.6 (>60); EGFR Non-African American 40.1 (>60); Globulin 3.2 g/dL (2-4); Glucose 102 mg/dL (70-100); Sodium 138 mmol/L (135-145); Total Protein 7.2 g/dL (6.4-8.9)
[2019-04-24 22:04] LABS: AST 21 U/L (13-39); Anion Gap 7 mmol/L (2-11); Potassium 3.6 mmol/L (3.5-5.0)
[2019-04-24 22:07] LABS: Troponin I 0.13 ng/mL (<0.04)
[2019-04-24] MEDS ORDERED: guaiFENesin/CODIEN 100MG-10MG* 5 ML UDC PO ONE (22:11)
[2019-04-24] MEDS ORDERED: predniSONE TAB* 20 MG PO ONE (22:14)
[2019-04-24 22:49] VITALS: BP 148/101
== END 2019-04-24 22:48 | disposition home or self-care (01) ==
LOC: ED 20:40
DX: J40 Bronchitis, not specified as acute or chronic (principal); I11.0 Hypertensive heart disease with heart failure; I50.9 Heart failure, unspecified; K21.9 Gastro-esophageal reflux disease without esophagitis; F41.9 Anxiety disorder, unspecified; F32.9 Major depressive disorder, single episode, unspecified; Z87.891 Personal history of nicotine dependence; Z79.899 Other long term (current) drug therapy; Z88.8 Allergy status to other drugs, medicaments and biological substances; Z88.6 Allergy status to analgesic agent; Z91.041 Radiographic dye allergy status; Z91.040 Latex allergy status
CPT/HCPCS: 36415; 71046; 80053; 83880; 84484; 85025; 86140; 93005; 99283; A9270-GY; J7512

== ENCOUNTER 2019-05-12 05:26 | Inpatient (IN) | payer OTHER ==
[2019-05-12 06:42] LABS: INR 1.24 (0.82-1.09)
[2019-05-12 06:51] LABS: ALT 31 U/L (7-52); AST 19 U/L (13-39); Albumin 4.2 g/dL (3.2-5.2); Albumin/Globulin Ratio 1.7 (1-3); Alkaline Phosphatase 73 U/L (34-104); Anion Gap 9 mmol/L (2-11); BUN/Creatinine Ratio 13.9 (8-20); Blood Urea Nitrogen 22 mg/dL (6-24); CO2 Carbon Dioxide 24 mmol/L (22-32); Calcium 9.4 mg/dL (8.6-10.3); Chloride 105 mmol/L (101-111); EGFR African American 56.5 (>60); EGFR Non-African American 46.7 (>60); Globulin 2.5 g/dL (2-4); Glucose 87 mg/dL (70-100); Potassium 3.9 mmol/L (3.5-5.0); Sodium 138 mmol/L (135-145); Total Protein 6.7 g/dL (6.4-8.9)
[2019-05-12 06:57] LABS: Troponin I 0.19 ng/mL (<0.04)
[2019-05-12 08:21] LABS: ABS Basophils 0.1 10^3/ul (0-0.2); ABS Eosinophils 0.1 10^3/ul (0-0.6); ABS Lymphocytes 1.6 10^3/ul (1.0-4.8); ABS Monocytes 1.1 10^3/ul (0-0.8); ABS Neutrophils 10.7 10^3/ul (1.5-7.7); Eosinophil % 0.4 %; Hematocrit 44 % (42-52); Hemoglobin 14.4 g/dL (14.0-18.0); Lymphocyte % 11.5 %; Mean Corpuscular HGB Conc 33 g/dL (31-36); Mean Corpuscular Hemoglobin 28 pg (27-31); Mean Corpuscular Volume 85 fL (80-94); Mean Platelet Volume 8.1 fL (7.4-10.4); Platelet Count 195 10^3/uL (150-450); Red Blood Count 5.17 10^6 /uL (4.18-5.48); Red Cell Distribution Width 16 % (10-15); White Blood Count 13.5 10^3/uL (3.5-10.8)
--- OUTSIDE RECORDS SUMMARY | 2019-05-12 08:30 | XMS REPORT | Continuity of Care Document ---
:1970 External Reference #:[id number] Author Name Carl Chester DO FACC (transmitted by agent of provider Betsy Toledo) Address [facility] [place] [address] Care Team Providers Name Role Phone Lashon Whitehead DO - Hospitalist Care Team Information Receiving Manager Rita Madrigal PA - Medical Care Team Information Receiving Manager [phone] Problems Active Problems Provider Date Essential hypertension [...] (10 or fewer cigarettes/day) Smoking Status Reviewed: 04/26/19 Light tobacco smoker (10 or fewer cigarettes/day) [...] Qnty Indications Ordering Date Provider Promethazine HCL take every 8 14tabs R05 Uvaldo Ford MD 04/20/2019 25mg hours as needed Tablets for nausea or cough Carvedilol 1 by mouth twice 60tabs I42.9 Uvaldo Ford MD 04/18/2019 25mg Tablets a day Omeprazole 1 by mouth every 30caps Uvaldo Ford MD 04/18/[address] day Amoxicillin/Clavulanate one by mouth 10tabs R05 Lashon [...] Tablets daily DO FACC Oxycodone HCL 1 by mouth every 60tabs Uvaldo Ford MD 10mg Tablets 6 hours as needed for severe pain Terbinafine HCL as directed Elif Fierro 1% Cream [place], [place] Black Seed Oil Liquid 2 tsp Unknown daily History Medications Promethazine HCL every 4 hours as 473ml R05 Uvaldo Ford MD 04/13/2019 - needed for cough 04/20/2019 6.25mg/5ML Syrup Carvedilol 1 by mouth twice 180tabs I42.9 Carl Reynolds 01/30/2019 - 12.5mg Tablets a day DO Henrik 04/18/2019 FACC Immunizations Description No Information Available Vital Signs Date Vital Result Comment 04/26/2019 3:54pm Height 66 inches 5'6" Weight 226.00 lb Heart Rate 112 /min BP Systolic Sitting 148 mmHg BP Diastolic Sitting 100 mmHg Body Temperature 97.7 F O2 % BldC Oximetry 97 % BMI (Body Mass Index) 36.5 kg/m2 04/18/2019 4:14pm Height 66 inches 5'6" Weight 225.00 lb Shoes Heart Rate 110 /min BP Systolic 140 mmHg BP Diastolic 89 mmHg Body Temperature 98.0 F O2 % BldC Oximetry 98 % BMI (Body Mass Index) 36.3 kg/m2 Results Test Date Facility Test Result H/L Range Note CBC Auto 04/24/2019 [facility] White Blood 9.1 10^3/uL Normal 3.5-10.[address] [place] [address] [phone] Red Blood Count 5.43 10^6/uL Normal 4.18-5.48 Hemoglobin 15.5 g/dL Normal 14.0-18.0 Hematocrit 46 % Normal 42-52 Mean Corpuscular Volume 85 fL Normal 80-94 Mean Corpuscular Hemoglobin 29 pg Normal 27-31 Mean Corpuscular HGB Conc 34 g/dL Normal 31-36 Red Cell Distribution Width 15 % Normal 10-15 Platelet Count 232 10^3/uL Normal 150-450 Mean Platelet Volume 8.0 fL Normal 7.4-10.4 Abs Neutrophils 5.9 10^3/uL Normal 1.5-7.7 Abs Lymphocytes 1.8 10^3/uL Normal 1.0-4.8 Abs Monocytes 0.9 10^3/uL High 0-0.8 Abs Eosinophils 0.3 10^3/uL Normal 0-0.6 Abs Basophils 0.1 10^3/uL Normal 0-0.2 Abs Nucleated RBC 0.0 10^3/uL Granulocyte % 65.2 % Lymphocyte % 20.3 % Monocyte % 10.5 % Eosinophil % 3.1 % Basophil % 0.9 % Nucleated Red Blood Cells % 0.0 Comp Metabolic 04/24/2019 [facility] Sodium 138 mmol/L Normal 135-[address] [place] [address] [phone] Chloride 103 mmol/L Normal 101-111 Co2 Carbon Dioxide 28 mmol/L Normal 22-32 Glucose 102 mg/dL High 70-100 Blood Urea Nitrogen 19 mg/dL Normal 6-24 Creatinine 1.80 mg/dL High 0.67-1.17 BUN/Creatinine Ratio 10.6 Normal 8-20 Calcium 9.0 mg/dL Normal 8.6-10.3 Total Protein 7.2 g/dL Normal 6.4-8.9 Albumin 4.0 g/dL Normal 3.2-5.2 Globulin 3.2 g/dL Normal 2-4 Albumin/Globulin Ratio 1.3 Normal 1-3 Total Bilirubin 0.30 mg/dL Normal 0.2-1.0 Alkaline Phosphatase 75 U/L Normal 34-104 Alt 21 U/L Normal 7-52 Egfr Non- 40.1 >60 Egfr 48.6 >60 1 Potassium 3.6 mmol/L Normal 3.5-5.0 Anion Gap 7 mmol/L Normal 2-11 Ast 21 U/L Normal 13-39 Laboratory test 04/24/2019 [facility] C Reactive 9.35 mg/L High <8.[address] [place] [address] [phone] Troponin-I (TnI) 0.13 ng/mL Critical high <0.04 2 B-Type Natriuretic Peptide BNP 52 pg/mL <=100 Laboratory test 04/22/2019 [facility] B-Type 96 pg/mL <=[address] [place] [address] Peptide BNP [phone] Magnesium 1.7 mg/dL Low 1.9-2.7 Basic Metabolic 04/22/2019 [facility] Sodium 139 mmol/L Normal 135-[address] [place] [address] [phone] Potassium 4.0 mmol/L Normal 3.5-5.0 Chloride 104 mmol/L Normal 101-111 Co2 Carbon Dioxide 28 mmol/L Normal 22-32 Anion Gap 7 mmol/L Normal 2-11 Glucose 102 mg/dL High 70-100 Blood Urea Nitrogen 14 mg/dL Normal 6-24 Creatinine 1.48 mg/dL High 0.67-1.17 BUN/Creatinine Ratio 9.5 Normal 8-20 Calcium 9.4 mg/dL Normal 8.6-10.3 Egfr Non- 50.3 >60 Egfr 60.9 >60 3 Order 04/18/2019 [employer] In-House EKG given to Lipid Profile 04/13/2019 [facility] Triglycerides 88 mg/dL 4 (Trig/Chol/HDL) [address] [place] [address] [phone] Cholesterol 157 mg/dL 5 HDL Cholesterol 43.8 mg/dL 6 LDL Cholesterol 96 mg/dL 7 Laboratory test 04/13/2019 [facility] Hemoglobin A1c 6.0 % High 4.0-5.[address] (Glyco HGB) [place] [address] [phone] Xray 03/27/[address] [facility] [address] Spine Lumbar <pending [address] W/O > [place] [address] [phone] MRI Lumbar Spine W/Wo <pending> 1 Because ethnic data is not always readily [...] 15-29 5 Kidney failure <15 (or dialysis) 2 Result TnIDx:0.13 Called to [id number] at: 22:05:21 by:[id number] Read back by: [id number] Troponin-I testing on Plasma Separator Tubes (PST) has a known false positive rate of 0.20-0.40%. All positive troponins reflex immediately to secondary confirmatory testing. Using the ChronoWakeI 800 Access Immunoassay systems, the 99th percentile upper reference limit was demonstrated to be < 0.03 ng/mL. 3 Because ethnic data is not always readily [...] 15-29 5 Kidney failure <15 (or dialysis) 4 Desirable: <150 Borderline High: 150-199 High: 200-499 Very High: >500 5 Desirable: <200 Borderline High: 200-239 High: >239 6 Low: <40 Desirable: 40-60 High: >60 7 Desirable: <100 Near Optimal: 100-129 Borderline High: 130-159 High: 160-189 Very High: >189 8 Therapeutic target for the treatment of diabetes mellitus patients is <7% HBA1C, and in selective patients <6.0%. Please refer to [place] [employer] diabetic care guidelines for further information. Procedures Date Code Description Status 04/18/2019 29113 EKG Tracing & Interpretation Completed Medical Devices Description No Information Available Encounters Type Date Location Provider Dx Diagnosis Office Visit 04/13/2019 9:40a [facility] Internal Medicine Lashon Whitehead DO R05 Cough - Suite [address] I11.0 Hypertensive heart disease with heart failure I10 Essential (primary) hypertension J44.9 Chronic obstructive pulmonary disease, unspecified G47.33 Obstructive sleep apnea (adult) (pediatric) E66.8 Other obesity Office Visit 02/20/2019 Neurosurgery Rita M54.16 Radiculopathy, 1:00p [facility] [place] lumbar region Z98.1 Arthrodesis status Assessments Date Code Description Provider 04/26/2019 I10 Essential (primary) hypertension Uvaldo Ford MD 04/26/2019 I50.22 Chronic systolic (congestive) heart failure Uvaldo Ford MD 04/26/2019 R05 Cough Uvaldo Ford MD 04/18/2019 I50.22 Chronic systolic (congestive) heart failure Aarti Peguero MD 04/18/2019 I10 Essential (primary) hypertension Aarti Peguero MD 04/18/2019 R05 Cough Aarti Peguero MD 04/13/2019 R05 Cough Lashon Whitehead, 04/13/2019 I11.0 Hypertensive heart disease with heart failure Lashon Whitehead, 04/13/2019 I10 Essential (primary) hypertension Lashon Whitehead, 04/13/2019 J44.9 Chronic obstructive pulmonary disease, Lashon Whitehead DO unspecified 04/13/2019 G47.33 Obstructive sleep apnea (adult) (pediatric) Lashon Whitehead , 04/13/2019 E66.8 Other obesity Lashon Whitehead DO 04/03/2019 M47.814 Lumbar spondylosis ALISTAIR Erickson 02/20/2019 M54.16 Radiculopathy, lumbar region [facility] Erickson 02/20/2019 Z98.1 Arthrodesis status [facility] Erickson Plan of Treatment Future Appointment(s):06/07/2019 12:00 pm - Marlene Hill MD at [facility]05/11/2019 8:20 am - Lashon Whitehead DO at [facility] Internal Medicine - [address]/26/2019 - Uvaldo Ford MDI10 Essential (primary) putdqkwvolncP04.22 Chronic systolic (congestive) heart failureFollow up:With Dr. Whitehead in 1-2 weeks.R05 Cough Functional Status Description No Information Available Mental Status Description No Information Available Referrals Refer to Dr Reason for Referral Status Appt Date Carl Chester DO, FACC increased cough, ?PND for last month. Sent 2018 missed last appointment with you. tachycardic. [facility] [place] [address] [phone] Jamaal Morales MD 48 y/o male poat L4 - S1 fusion has severe Scheduled axial low back pain currently taking oxycodone 10 mg, but is not effective, 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 [address] [place] [address] [phone]
--- OUTSIDE RECORDS SUMMARY | 2019-05-12 08:30 | XMS REPORT | Continuity of Care Document ---
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 Fahad Hopper Onset: 05/05/2018 diastolic heart failure Chronic kidney [...] consumes alcohol Recreational Drug Use Sporadically uses once a month Marijuana Tobacco Use Start: Unknown End: Patient is a former Unknown smoker Smoking Status Reviewed: 05/10/19 Patient is a former smoker Exercise Type/Frequency Exercises sporadically Allergies, Adverse Reactions, [...] Date Provider Carvedilol 1 by mouth twice I42.9 Uvaldo Ford MD 05/10/2019 12.5mg Tablets a day Triamcinolone apply thin film Unknown Acetonide twice daily 0.1% Cream Nitroglycerin apply daily and Unknown 0.1mg/HR remove at Patches 24HR bedtime as needed Spironolactone 1 by mouth every 90tabs Carl Chester, 25mg day DO FACC Tablets Torsemide 1 by mouth once 90tabs Carl Chester, 20mg Tablets daily DO FACC Oxycodone HCL 1 by mouth every 120tabs Juanita Mcwilliams MD 10mg 6 hours as Tablets needed for severe pain Terbinafine HCL as directed Elif Fierro 1% Cream S., [place] Black Seed Oil Liquid 2 tsp Unknown daily History Medications Promethazine HCL take every 8 14tabs R05 Uvaldo Ford MD 04/20/2019 - 25mg hours as needed 05/10/2019 Tablets for nausea or cough Carvedilol 1 by mouth 60tabs I42.9 Uvaldo Ford MD 04/18/2019 - 25mg Tablets twice a day 05/10/2019 Omeprazole 1 by mouth 30caps Uvaldo Ford MD 04/18/2019 - 40mg every day 05/10/2019 Capsules Promethazine HCL every 4 hours 473ml R05 Uvaldo Ford MD 04/13/2019 - as needed for 04/20/2019 6.25mg/5ML Syrup cough Amoxicillin/Clavulana one by mouth 10tabs R05 Lashon Whitehead, 04/13/2019 - te Potassium twice a day DO 05/10/2019 500-125mg Tablets Carvedilol 1 by mouth 180tabs I42.9 Carl Chester, 01/30/2019 - 12.5mg twice a day DO FACC 04/18/2019 Tablets Ventolin HFA 2 puffs by 8gm Unknown - mouth four 05/10/2019 108(90Base) mcg/Act times a day as Aerosol needed Immunizations Description No Information Available Vital Signs Date Vital Result Comment 05/10/2019 8:32am Height 66 inches 5'6" Weight 219.00 lb Heart Rate 92 /min BP Systolic 135 mmHg 128/96 BP Diastolic 98 mmHg 128/96 Body Temperature 98.2 F O2 % BldC Oximetry 95 % BMI (Body Mass Index) 35.3 kg/m2 04/26/2019 3:54pm Height 66 inches 5'6" Weight 226.00 lb Heart Rate 112 /min BP Systolic Sitting 148 mmHg BP Diastolic Sitting 100 mmHg Body Temperature 97.7 F O2 % BldC Oximetry 97 % BMI (Body Mass Index) 36.5 kg/m2 Results Test Date Facility Test Result H/L Range Note CBC Auto 04/24/2019 [facility] White Blood 9.1 10^3/uL Normal 3.5-10.[address] [place] [address] [phone] Red Blood Count 5.43 10^6/uL Normal 4.18-5.48 [...] Blood Cells % 0.0 Comp Metabolic 04/24/2019 [facility] Sodium 138 mmol/L Normal 135-145 Panel [address] [place] [address] [phone] Chloride 103 mmol/L Normal 101-111 Co2 Carbon [...] 21 U/L Normal 13-39 Laboratory test 04/24/2019 [facility] C Reactive 9.35 mg/L High <8.[address] [place] [address] [phone] Troponin-I (TnI) 0.13 ng/mL Critical high <0.04 2 B-Type Natriuretic Peptide BNP 52 pg/mL <=100 Laboratory test 04/22/2019 [facility] B-Type 96 pg/mL <=100 finding [address] [place] [address] Peptide BNP [phone] Magnesium 1.7 mg/dL Low 1.9-2.7 Basic Metabolic 04/22/2019 [facility] Sodium 139 mmol/L Normal 135-[address] [place] [address] [phone] Potassium 4.0 mmol/L Normal 3.5-5.0 Chloride 104 mmol/L Normal 101-111 Co2 Carbon Dioxide 28 mmol/L Normal 22-32 Anion Gap 7 mmol/L Normal 2-11 Glucose 102 mg/dL High 70-100 Blood Urea Nitrogen 14 mg/dL Normal 6-24 Creatinine 1.48 mg/dL High 0.67-1.17 BUN/Creatinine Ratio 9.5 Normal 8-20 Calcium 9.4 mg/dL Normal 8.6-10.3 Egfr Non- 50.3 >60 Egfr 60.9 >60 3 Order 04/18/2019 [facility] In-House EKG given to Lipid Profile 04/13/2019 [facility] Triglycerides 88 mg/dL 4 (Trig/Chol/HDL) [address] [place] [address] [phone] Cholesterol 157 mg/dL 5 HDL Cholesterol 43.8 mg/dL 6 LDL Cholesterol 96 mg/dL 7 Laboratory test 04/13/2019 [facility] Hemoglobin A1c 6.0 % High 4.0-5.[address] (Glyco HGB) [place] [address] [phone] Xray 03/27/2019 [facility] CT Spine Lumbar <pending [address] W/O > [place] [address] [phone] MRI Lumbar Spine W/Wo <pending> 1 Because [...] (or dialysis) 2 Result TnIDx:0.13 Called to [id number] at: 22:05:21 by:[id number] Read back by: [id number] Troponin-I testing on Plasma Separator Tubes (PST) has a known false positive rate of 0.20-0.40%. All positive troponins reflex immediately to secondary confirmatory testing. Using the Gracenote DxI 800 Access Immunoassay systems, the 99th percentile [...] in selective patients <6.0%. Please refer to [place] Diabetes Association diabetic care guidelines for further information. Procedures Date Code Description Status 04/18/2019 31496 EKG Tracing & Interpretation Completed Medical Devices Description No Information Available Encounters Type Date Location Provider Dx Diagnosis Office Visit 04/13/2019 9:40a [facility] Internal Medicine Lashon Whitehead DO R05 Cough - Suite [address] I11.0 Hypertensive heart disease with heart failure I10 Essential (primary) hypertension J44.9 Chronic obstructive pulmonary disease, unspecified G47.33 Obstructive sleep apnea (adult) (pediatric) E66.8 Other obesity Office Visit 02/20/2019 Neurosurgery Rita M54.16 Radiculopathy, 1:00p [facility] ALISTAIR Madrigal lumbar region Z98.1 Arthrodesis status Assessments Date Code Description Provider 05/10/2019 K62.5 Hemorrhage of anus and rectum Juanita Mcwilliams MD 05/10/2019 G89.4 Chronic pain syndrome Juanita Mcwilliams MD 04/26/2019 I10 Essential (primary) hypertension Uvaldo Ford MD 04/26/2019 I50.22 Chronic systolic (congestive) heart failure Uvaldo Ford MD 04/26/2019 R05 Katie Ford MD 04/18/2019 I50.22 Chronic systolic (congestive) [...] Lashon Whitehead DO 04/13/2019 E66.8 Other obesity Lashon Whitehead DO 04/03/2019 M47.814 Lumbar spondylosis ALISTAIR Erickson 02/20/2019 M54.16 Radiculopathy, lumbar region [facility] Erickson 02/20/2019 Z98.1 Arthrodesis status ALISTAIR Erickson Plan of Treatment Future Appointment(s):06/07/2019 12:00 pm - Marlene Hill MD at [facility]05/10/2019 - Juanita Mcwilliams MDK62.5 Hemorrhage of anus and rectumReferral:Darren Zamora MD, PxdzfjnbpjtdoghfI74.4 Chronic pain syndromeComments:Medication was refilled for 30 days Functional Status Description No Information Available Mental Status Description No Information Available Referrals Refer to Reason for Referral Status Appt Date Darren Zamora MD Created [address] [place] [address] [phone] Carl Chester, DO, FACC increased cough, ?PND for last month. Sent 2018 missed last appointment with you. tachycardic. [address] [place] [address] [phone] Jamaal Morales MD 48 y/o male poat L4 - S1 fusion has severe Scheduled axial low back pain currently taking oxycodone 10 mg, but is not effective, 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 [address] [place] [address] [phone]
--- OUTSIDE RECORDS SUMMARY | 2019-05-12 08:31 | XMS REPORT | Continuity of Care Document ---
:1970 External Reference #:[id number] Author Name Uvaldo Ford MD (transmitted by agent of provider Stacia Banks) Address [address] [place] [id number] Care Team Providers Name Role Phone Lashon Whitehead DO - Hospitalist Care Team Information [employer] Rita Madrigal PA - Medical Care Team Information [employer] T[employer] [phone] Problems Active Problems Provider Date Essential hypertension [...] directed Elif Fierro 1% Cream [facility]IST[facility] Reynolds Black Seed Oil [...] Result H/L Range Note CBC Auto 04/24/2019 [facility] White Blood 9.1 10^3/uL Normal 3.5-10.[address] [place] [address] [phone] Red Blood Count 5.43 10^6/uL Normal 4.18-5.48 [...] Blood Cells % 0.0 Comp Metabolic 04/24/2019 [facility] Sodium 138 mmol/L Normal 135-[address] [place] [address] [phone] Chloride 103 mmol/L Normal 101-111 Co2 Carbon [...] 21 U/L Normal 13-39 Laboratory test 04/24/2019 [facility] C Reactive 9.35 mg/L High <8.[address] [place] [address] [phone] Troponin-I (TnI) 0.13 ng/mL Critical high <0.04 2 B-Type Natriuretic Peptide BNP 52 pg/mL <=100 Laboratory test 04/22/2019 [facility] B-Type 96 pg/mL <=[address] [place] [address] Peptide BNP [phone] Magnesium 1.7 mg/dL Low 1.9-2.7 Basic Metabolic 04/22/2019 [facility] Sodium 139 mmol/L Normal 135-[address] [place] [address] [phone] Potassium 4.0 mmol/L Normal 3.5-5.0 Chloride 104 mmol/L Normal 101-111 Co2 Carbon Dioxide 28 mmol/L Normal 22-32 Anion Gap 7 mmol/L Normal 2-11 Glucose 102 mg/dL High 70-100 Blood Urea Nitrogen 14 mg/dL Normal 6-24 Creatinine 1.48 mg/dL High 0.67-1.17 BUN/Creatinine Ratio 9.5 Normal 8-20 Calcium 9.4 mg/dL Normal 8.6-10.3 Egfr Non- 50.3 >60 Egfr 60.9 >60 3 Order 04/18/2019 [employer] In-House EKG given to Lipid Profile 04/13/2019 [facility] Triglycerides 88 mg/dL 4 (Trig/Chol/HDL) [address] [place] [address] [phone] Cholesterol 157 mg/dL 5 HDL Cholesterol 43.8 mg/dL 6 LDL Cholesterol 96 mg/dL 7 Laboratory test 04/13/2019 [facility] Hemoglobin A1c 6.0 % High 4.0-5.6 [address] (Glyco HGB) [place] [address] [phone] Xray 03/27/[address] [facility] [address] Spine Lumbar <pending [address] W/O > [place] [address] [phone] MRI Lumbar Spine W/Wo <pending> 1 Because [...] (or dialysis) 2 Result TnIDx:0.13 Called to [id number] at: 22:05:21 by:[id number] Read back by: [id number] Troponin-I testing on Plasma Separator Tubes (PST) has a known false positive rate of 0.20-0.40%. All positive troponins reflex immediately to secondary confirmatory testing. Using the [employer] InnsI 800 Access Immunoassay systems, the 99th percentile [...] in selective patients <6.0%. Please refer to [place] [employer] diabetic care guidelines for further information. Procedures Date Code Description Status 04/18/2019 94264 EKG Tracing & Interpretation Completed Medical Devices Description No Information Available Encounters Type Date Location Provider Dx Diagnosis Office Visit 04/13/2019 9:40a [facility] Internal Medicine Lashon Whitehead DO R05 Cough [...] status ALISTAIR Erickson Plan of Treatment Future Appointment(s):05/09/2019 8:20 am - Carl Chester DO FACC at [facility]05/11/2019 8:20 am - Lashon Whitehead DO at [facility] Internal Medicine - [address]/26/2019 - Uvaldo Ford MDI10 Essential (primary) eoxymqehpttdB64.22 Chronic systolic (congestive) heart failureFollow up:With Dr. Whitehead in 1-2 weeks.R05 Cough Functional Status Description No Information Available Mental Status Description No Information Available Referrals Refer to Dr Reason for Referral Status Appt Date Carl Chester DO, FACC increased cough, ?PND for last month. Sent 2018 missed last appointment with you. tachycardic. [facility] [place] [address] [phone] Jamaal Morales MD 48 y/o male poat L4 - S1 fusion has severe axial Sent 06/05/2019 low back pain currently taking oxycodone 10 mg, but is not effective, 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 [address] [place] [address] [phone]
--- OUTSIDE RECORDS SUMMARY | 2019-05-12 08:31 | XMS REPORT | Continuity of Care Document ---
:1970 External Reference #:[id number] Author Name Uvaldo Ford MD (transmitted by agent of provider Stacia Banks) Address [address] [place] [id number] Care Team Providers Name Role Phone Lashon Whitehead DO - Hospitalist Care Team Information Rate Analyst [phone] Rita Madrigal PA - Medical Care Team Information Rate Analyst [phone] Problems Active Problems Provider Date Essential hypertension [...] Result H/L Range Note CBC Auto 04/24/2019 [facility] White Blood 9.1 10^3/uL Normal 3.5-10.[address] [place] [address] [phone] Red Blood Count 5.43 10^6/uL Normal 4.18-5.48 [...] Blood Cells % 0.0 Comp Metabolic 04/24/2019 [facility] Sodium 138 mmol/L Normal 135-[address] [place] [address] [phone] Chloride 103 mmol/L Normal 101-111 Co2 Carbon [...] 21 U/L Normal 13-39 Laboratory test 04/24/2019 [facility] C Reactive 9.35 mg/L High <8.[address] [place] [address] [phone] Troponin-I (TnI) 0.13 ng/mL Critical high <0.04 2 B-Type Natriuretic Peptide BNP 52 pg/mL <=100 Laboratory test 04/22/2019 [facility] B-Type 96 pg/mL <=[address] [place] [address] Peptide BNP [phone] Magnesium 1.7 mg/dL Low 1.9-2.7 Basic Metabolic 04/22/2019 [facility] Sodium 139 mmol/L Normal 135-[address] [place] [address] [phone] Potassium 4.0 mmol/L Normal 3.5-5.0 Chloride 104 mmol/L Normal 101-111 Co2 Carbon Dioxide 28 mmol/L Normal 22-32 Anion Gap 7 mmol/L Normal 2-11 Glucose 102 mg/dL High 70-100 Blood Urea Nitrogen 14 mg/dL Normal 6-24 Creatinine 1.48 mg/dL High 0.67-1.17 BUN/Creatinine Ratio 9.5 Normal 8-20 Calcium 9.4 mg/dL Normal 8.6-10.3 Egfr Non- 50.3 >60 Egfr 60.9 >60 3 Order 04/18/2019 [facility] In-House EKG given to Lipid Profile 04/13/2019 [facility] Triglycerides 88 mg/dL 4 (Trig/Chol/HDL) [address] [place] [address] [phone] Cholesterol 157 mg/dL 5 HDL Cholesterol 43.8 mg/dL 6 LDL Cholesterol 96 mg/dL 7 Laboratory test 04/13/2019 [facility] Hemoglobin A1c 6.0 % High 4.0-5.[address] (Glyco HGB) [place] [address] [phone] Xray 03/27/[address] [facility] [address] Spine Lumbar <pending [address] W/O > [place] [address] [phone] MRI Lumbar Spine W/Wo <pending> 1 Because [...] (or dialysis) 2 Result TnIDx:0.13 Called to [id number] at: 22:05:21 by:[id number] Read back by: [id number] Troponin-I testing on Plasma Separator Tubes (PST) has a known false positive rate of 0.20-0.40%. All positive troponins reflex immediately to secondary confirmatory testing. Using the [employer]aggable[employer] 800 Access Immunoassay systems, the 99th percentile [...] in selective patients <6.0%. Please refer to [place] [employer] diabetic care guidelines for further information. Procedures Date Code Description Status 04/18/2019 36255 EKG Tracing & Interpretation Completed Medical Devices Description No Information Available Encounters Type Date Location Provider Dx Diagnosis Office Visit 04/13/2019 9:40a [facility] Lashon Whitehead DO R05 Cough [...] am - Carl Chester DO FACC at [facility]05/11/2019 8:20 am - Lashon Whitehead DO at [facility] - [address]/26/2019 - Uvaldo Ford MDI10 Essential (primary) [id number] Chronic systolic (congestive) heart [id number] Cough Functional Status Description No Information Available Mental Status Description No Information Available Referrals Refer to Dr Reason for Referral Status Appt Date Carl Chester DO, FACC increased cough, ?PND for last month. Sent 2018 missed last appointment with you. tachycardic. [facility] [place] [address] [phone] Jamaal Morales MD 48 y/o male poat L4 - S1 fusion has severe axial Sent 06/05/2019 low back pain currently taking oxycodone 10 mg, but is not effective, 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 [address] [place] [address] [phone]
[2019-05-12 09:01] LABS: Troponin I 0.21 ng/mL (<0.04)
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
[2019-05-12] MEDS ORDERED: Ondansetron INJ* 2 MG/ML VIAL IV PRN (09:53)
[2019-05-12] MEDS ORDERED: Acetaminophen TAB* 325 MG PO PRN (09:53)
[2019-05-12] MEDS ORDERED: Albuterol HFA INHALER* 8 gm MDI INH PRN (10:03)
[2019-05-12 10:49] LABS: Troponin I 0.21 ng/mL (<0.04)
[2019-05-12] MEDS: Enoxaparin(*) 40 MG/0.4 ML SYR SUBCUT SCH (11:57)
[2019-05-12] MEDS: oxyCODONE TAB* 5 MG TAB PO PRN ×2 (12:04→20:45)
--- NOTE | 2019-05-12 12:41 | HP ---
CC: Dr. Lashon Whitehead; Dr. Carl Chester * ADMISSION HISTORY AND PHYSICAL: DATE OF ADMISSION: 05/12/19 PRIMARY CARE PROVIDER: Dr. Lashon Whitehead. MY ATTENDING WHILE IN THE HOSPITAL: Dr. Manisha Rios.* (DICTATED BY ALISTAIR PEÑALOZA) CONSULTING FIELD CROP FARM WORKER: Dr. Carl Chester. CHIEF COMPLAINT: Hopelessness, cocaine use. HISTORY OF PRESENT ILLNESS: Mr. Sanchez is a 48-year-old male with past medical history significant for severe nonischemic cardiomyopathy related to a combination of hypertension, alcohol abuse and cocaine use, who presents to the emergency department today after claiming that yesterday he used cocaine for the first time in 18 years and had 3 beers not caring whether or not he ended his life, this is after conflict with his who he has a very tumultuous relationship with. The patient came into the emergency department, seeking help with regards to his drug use. While in the emergency department, the patient was found to have an elevated troponin. The patient states that he over the past 2 weeks particularly has not been taking his meds assiduously, but this is not new for him, he does not generally take his meds assiduously. He has been having episodes of chest pain that can last seconds to minutes, can be severe, associated with diaphoresis, palpitations and shortness of breath and afterwards, he feels incredibly tired, some times has to lay down for a significant periods of time. He feels as if sometimes he is going to pass out with these episodes, but has not passed out. The patient previously has refused or not been eligible for a primary prevention ICD and does have a history of paroxysmal ventricular tachycardia. The patient states that after these episodes, he usually takes his meds particularly his carvedilol and torsemide, which do seem to help prevent these episodes from occurring. The patient was recently treated through his primary care provider for bronchitis. The patient has not noticed any swelling in his legs. The patient does feel as if sometimes he does not make very much urine and has been having issues with mild urinary incontinence. The patient has also been having issues with rectal bleeding since his colonoscopy last month after which time he was admitted to the psychiatric unit. The patient denies any other changes in medications, fevers, chills. The patient denies current chest pain. The patient denies nausea or vomiting, abdominal pain. The patient has never had a large amount of rectal bleeding. Due to concern for elevated troponin, history of chest pain and substance abuse, we were asked to evaluate the patient for admission to the hospital. PAST MEDICAL HISTORY: Hypertension, congestive heart failure, reduced ejection fraction most recently 20% to 25%, lumbar spinal pathology, COPD, alcohol and cocaine abuse, history of paroxysmal and ventricular tachycardia, chronic kidney disease stage 2, obstructive sleep apnea, GERD, prediabetes, chronic pain. PAST SURGICAL HISTORY: Colonoscopy, 2 lumbar surgeries, 1 lumbar fusion, uvulopharyngoplasty. MEDICATIONS: 1. Torsemide 20 mg p.o. daily. 2. Carvedilol 25 mg p.o. b.i.d. 3. Spironolactone 12.5 mg p.o. daily. 4. Oxycodone 10 mg p.o. daily. 5. Ventolin inhaler as needed. 6. Flaxseed oil. Of note, the patient has been taking all of these medications intermittently. ALLERGIES: LISINOPRIL, IBUPROFEN, HYDRALAZINE, ASPIRIN, TYLENOL, LATEX. FAMILY HISTORY: The patient's mother of complications with AIDS. The patient's father's family history is unknown. The patient does not know the medical history of his siblings. SOCIAL HISTORY: The patient smoked 7 to 10 cigarettes in the last 24 hours and has states that he has been abstinent for a significant period of time since then, but used to smoke about 10 cigarettes a day. The patient drinks alcohol infrequently, drank 3 beers in the last 24 hours. The patient has never used any illicit drugs except for cocaine. The patient is on disability and works at [employer]. The patient was recently admitted to the hospital due to suicidality and cocaine use in March 2019. The patient is and has 5 children. The patient has very tumultuous relationship with his , but still would like her to be his surrogate decision maker. The patient's 's name is Samantha Sanchez. REVIEW OF SYSTEMS: A 10-point review of systems was reviewed and is negative except as above in the HPI. PHYSICAL EXAMINATION GENERAL: The patient is a 48-year-old male, who appears stated age and sitting comfortably in the bed, in no acute distress. VITAL SIGNS: At the time of evaluation, temperature 98.2, pulse rate 94, respiratory rate 20, oxygen saturation 96% on room air, blood pressure 156/101. HEENT: Head: Normocephalic and atraumatic. Sclerae anicteric. No conjunctival injection. Nasal mucosa moist. Oral mucosa moist. No pharyngeal erythema, discharge or exudate. NECK: Supple, nontender. No lymphadenopathy. No carotid bruits auscultated. No JVD. RESPIRATORY: Clear to auscultation bilaterally. No wheezes, rales, or rhonchi. Good air exchange bilaterally. CARDIAC: Regular rate and rhythm. No clicks, murmurs, gallops, or rubs. Pulses are 2+ in the bilateral dorsalis pedis, posterior tibialis, and radial areas. 1+ bilateral lower extremity edema noted. ABDOMEN: Soft, nontender, nondistended. Bowel sounds present and normoactive in all 4 quadrants. No hepatosplenomegaly. No abdominal bruits auscultated. No hepatojugular reflux. GENITOURINARY: No suprapubic or CVA tenderness. NEURO: Cranial nerves II through XII intact. No focal deficits. Alert and oriented x3. PSYCHIATRIC: Pleasant and cooperative. SKIN: Clean, dry and intact. No rashes. DIAGNOSTIC STUDIES/LAB DATA: White blood cell count 13.5, hemoglobin 14.4, platelet count 195. INR 1.24, APTT 30.0. Sodium , potassium 3.9, chloride 105, carbon dioxide 24, anion gap 9, BUN 22, creatinine 1.58, glucose 87, calcium 9.4. Bilirubin 0.7, AST 19, ALT 31, alkaline phosphatase 73. Troponin I 0.19, repeat 0.21. BNP 241. Protein 6.7, albumin 4.2, globulin 2.5. Studies: EKG shows normal sinus rhythm, T-wave inversions in the lateral leads , left ventricular hypertrophy, left axis deviation, left atrial enlargement, incomplete right bundle branch block. Chest x-ray read as no acute cardiopulmonary disease. Compared to previous exam , EKG is unchanged. ASSESSMENT AND PLAN: Impression: Mr. Sanchez is a 48-year-old male with past medical history significant for hypertension, nonischemic cardiomyopathy, cocaine abuse, paroxysmal ventricular tachycardia, who presents to the emergency department with relapse on cocaine and 2 weeks of intermittent chest pain particularly with exertion and is medication noncompliant. The patient will be admitted to the hospital for cardiac evaluation and medical optimization. 1. Chest pain. The patient's chest pain is mainly with exertion. The patient is not having obstructive coronary artery disease as of a catheterization from 2018 is unlikely related to type 1, myocardial infarction or even unstable angina. The patient claims to have only used cocaine once, but this has not worn out based on previous records and drug screens. The patient has history of nonsustained ventricular tachycardia and has been noncompliant with his meds , particularly he is taking his beta-em on and off, this may represent episodes of ventricular tachycardia or other tachyarrhythmia brought in by cocaine, beta-em discontinuation syndrome or naturally occurring based on his low ejection fraction. The patient will have a repeat echocardiogram, is likely no utility in a stress test. At this point, the patient is seen in consultation by Cardiology, who is familiar with his history. The patient will have his troponins trended and repeat EKG in the morning. 2. Congestive heart failure. The patient's BNP is slightly elevated above his normal. The patient has increased shortness of breath with exertion and some lower extremity edema. The patient has not been taking his medications. The patient will be restarted on his home medication dosing and his clinical status will be assessed. The patient will be on strict I's and O's and daily weights, at some point ARB may be considered particularly given the patient's hypertension, though given his recent cocaine use, his hypertension will be trended over a longer period of time. Continue spironolactone, carvedilol, torsemide. 3. Hypertension. Management as above. 4. Alcohol and cocaine abuse. The patient will be seen in consultation by Psychiatry who are familiar with his case and recommend current treatment and outpatient resources for management of his cocaine and alcohol use disorders. 5. Chronic obstructive pulmonary disease. P.r.n. inhaler. The patient is not currently in exacerbation. 6. History of ventricular tachycardia. The patient will be monitored on telemetry with medication compliance to assess for recurrence. 7. Rectal bleeding. The patient's rectal bleeding sounds to be hemorrhoidal. The patient has a followup appointment through an outside specifications writer, which he should go to. The patient is currently not anemic, RDW possibly showing early iron deficiency. 8. Leukocytosis. This is likely relative to his cocaine use. 9. DVT prophylaxis. Lovenox subcu. 10. FEN. The patient will have a heart-healthy diet without caffeine. The patient does not require any fluids. 11. Disposition: The patient will be admitted to observation in the hospital. TIME SPENT: Approximately 60 minutes was spent on the admission of this patient , 30 of which was spent [id number] with the patient obtaining history and physical and discussing treatment plan. This plan has been discussed with my attending, Dr. Manisha Rios, and she is in agreement. ALISTAIR PEÑALOZA [id number]/CPS #: [id number] KANDACE
[2019-05-12] MEDS ORDERED: Perflutren Lipid Microsphere* 3 ML VIAL ONE (14:01)
--- NOTE | 2019-05-12 15:50 | CONSULT ---
Subjective Date of Service: 05/12/19 Interval History: Service: Hospitalist Date of consult 05/12/2019 CC: Psychological distres Reason for consult: CHF HPI Jeronimo Sanchez is a 48 year old black man known to me from previous medical encounters. He was recently discharged from [facility] for multiple no show appointments. He has history of heart failure exacerbation secondary to medication non-adherence. His prior CHF exacerbations are usually manifested by chest pain and dyspnea. He has chronically elevated troponin levels related to his structural heart disease. He recently separate from his . He relapsed on cocaine after 18 years. He has not been taking his medications or using CPAP regularly. He has intermittent sharp chest pain, dyspnea and palpitations. BP is severely elevated. His troponin is near baseline. There is no evidence of a type 1 OH. PMhx: Hypertensive related non-ischemic cardiomyopathy, systolic HF NSVT patient ultimately decided not to have a primary prevention ICD Hypertension CKD Sleep apnea Obesity. Surgical Hx: Uvulopalatopharyngloplasty (UPPP) Decompressive Lumbar Laminectomy w/Instrumentation - (11/2014) left L4-5 Allergies: Latex 12/02/10 Aspirin 07/11/15 Acetaminophen 06/22/16 Lisinopril 06/22/16 - angioedema Iodinated Diagnostic Agents 11/11/17 Hydralazine 12/02/17 Gadoteridol 02/01/18 allergy list reviewed on 10/14/2018 FH: None. Father: due to Drug Overdose - heroin. Mother: due to AIDS - (age 41 Years). SH: Recently separate from after 25 years of marriage Recent cocaine use relapse + tobacco use + alcohol use, patient states not excessive Medications Active Medications: Albuterol (Ventolin Hfa Inhaler*) 2 puff INH Q4H PRN PRN Reason: SOB/WHEEZING Carvedilol (Coreg Tab*) 25 mg PO BID [facility] Enoxaparin Sodium (Lovenox(*)) 40 mg SUBCUT Q24H [facility] Last Admin: 05/12/19 11:57 Dose: 40 mg Ondansetron HCl (Zofran Inj*) 4 mg IV Q6H PRN PRN Reason: NAUSEA Oxycodone HCl (Roxycodone Tab*) 10 mg PO Q6H PRN PRN Reason: back pain Last Admin: 05/12/19 12:04 Dose: 10 mg Spironolactone (Aldactone Tab*) 25 mg PO DAILY [facility] Torsemide (Demadex*) 20 mg PO BID [facility] Home Medications: Albuterol HFA INHALER* [Ventolin HFA Inhaler*] 2 puff INH Q4H PRN 05/12/19 [ History Confirmed 05/12/19] Carvedilol TAB* [Coreg TAB*] 25 mg PO BID 05/12/19 [History Confirmed 05/12/19] Oxycodone HCl 10 mg PO Q6H PRN 05/12/19 [History Confirmed 05/12/19] Spironolactone 25 mg PO DAILY 05/12/19 [History Confirmed 05/12/19] Torsemide 20 mg PO BID 05/12/19 [History Confirmed 05/12/19] Review of Systems - Measurements Intake and Output: Intake and Output Last 24 Hours 05/10/19 05/11/19 05/12/19 05/13/19 06:59 06:59 06:59 06:59 Weight 219 lb 224 lb 8 oz - Review of Systems Constitutional Symptoms: Positive: Weakness, Fatigue Negative: Weight Gain, Weight Loss, Fever, Night Sweats Dermatology: Negative: Rash, Skin Lesions HEENT: Negative: Change in Hearing, Vertigo Eyes: Negative: Change in Vision, Double Vision Thyroid: Positive: Palpitations Negative: Cold Intolerance, Heat Intolerance, Weight Loss, Weight Gain Pulmonary: Positive: Respiratory Distress, Shortness of Breath, Exercise Intolerance Cardiology: Positive: Chest Pain, Shortness of Breath, Palpitations Negative: Swelling of Ankles, Peripheral Vascular Dis, Edema, Syncope Gastroenterology: Negative: Blood in Stools, Haematemesis Genital - Urinary: Negative: Dysuria, Hematuria Musculoskeletal: Negative: Joint Pain, Joint Stiffness Endocrinology: Positive: Obesity Negative: Polydipsia, Polyuria Hematologic/Lymphatic: Negative: Use of Anticoagulant, Use of Antiplatelet Drugs Neurology: Negative: Change in Vision, Change in Speech, Change in Walking, Hx of Stroke \TIA Psychiatry: Positive: Depressed Mood, Guilt Feelings Allergic/Immunologic: Negative: Hx HIV, Immunocompromise Review of Systems Statement: All other review of systems negative, unless stated above. Objective Vital Signs: Temp Pulse Resp BP Pulse Ox 98.2 F 101 20 138/81 96 05/12/19 11:45 05/12/19 11:45 05/12/19 14:06 05/12/19 11:45 05/12/19 11:45 Oxygen Devices in Use Now: None Appearance: nad, pleasant Ears/Nose/Mouth/Throat: Clear Oropharnyx, Mucous Membranes Moist Neck: NL Appearance and Movements; NL JVP, Trachea Midline Respiratory: Symmetrical Chest Expansion and Respiratory Effort, Clear to Auscultation Cardiovascular: RRR, No Edema, - - uncertain jvp, no significant murmur Abdominal: - - soft, obese, nontender Extremities: No Edema, No Clubbing, Cyanosis Skin: No Rash or Ulcers Neurological: Alert and Oriented x 3 Laboratory Results: 05/12/19 08:08 05/12/19 06:25 INR (Anticoag Therapy) 1.24 (0.82-1.09) H 05/12/19 06:25 APTT 30.0 seconds (26.0-38.0) 05/12/19 06:25 Total Bilirubin 0.70 mg/dL (0.2-1.0) 05/12/19 06:25 AST 19 U/L (13-39) 05/12/19 06:25 ALT 31 U/L (7-52) 05/12/19 06:25 Alkaline Phosphatase 73 U/L (34-104) 05/12/19 06:25 B-Natriuretic Peptide 241 pg/mL (<=100) H 05/12/19 06:25 Total Protein 6.7 g/dL (6.4-8.9) 05/12/19 06:25 Albumin 4.2 g/dL (3.2-5.2) 05/12/19 06:25 Globulin 2.5 g/dL (2-4) 05/12/19 06:25 Albumin/Globulin Ratio 1.7 (1-3) 05/12/19 06:25 05/12/19 05/12/19 05/12/19 06:25 08:28 10:20 Troponin I 0.19 H* 0.21 H* 0.21 H* 09/29/2018 bnp 349, cTnI 0.26 relatively stable on repeat lfts' normal except alt 61 09/30/2018 wbc 8.7, hgb 14.3, plts 210 10/12/2018 na 138, k 4.3, cr 1.52 Diagnostic Imaging: Echocardiogram - (09/30/2018) Concentric LVH, LVEF 25-30%, LA mild-moderately dilated, mild MR Echocardiogram - (05/05/2018) LVEF 20-25%, moderate LA dilation, moderate MR, mild pulmonary HTN Echocardiogram - (12/02/2017) LVEF 25-30% Echocardiogram - (08/04/2016) LVEF 40% Echocardiogram - (06/15/2011) LVEF 35-40% Echocardiogram - (10/09/2015) LVEF 40-45% Cardiac Procedures: Cardiac Catheterization - (01/26/2018) Normal coronary arteries Cardiac Catheterization - (06/15/2011) no significant stenotic coronary artery disease. CXR: 05/12/19 IMPRESSION: No acute cardiomegaly process. Transthoracic Echocardiogram Study Date: 05/12/2019 Summary: - Left ventricle: The cavity size is mildly dilated. Wall thickness is moderately increased. Systolic function is moderately to severely reduced. The estimated ejection fraction is 25-30%. Severe diffuse hypokinesis. - Right ventricle: The cavity size is normal. Systolic function is normal. - Left atrium: The atrium is mildly to moderately dilated. - No significant valvular abnormalities noted. EKG Data: ekg 05/12/2019 #1. Sinus tachcyardia 111 bpm, LAD/repolarization abnormalities likely related to lvh Reepat ekg: NSr 89 bpm,pac LAD and repolarization abnormalities likely related to LVH similar to 04/24/2019 Assessment/Plan 1. Acute on chronic NICM systolic HF exacerbation - Secondary to medication nonadherence, CPAP nonadherence and cocaine use 2. Hypertension 3. CKD 4. Obesity 5. Sleep apnea 6. History of recurrent medication non-adherence Recommend to restart prior medications including - Torsemide 20 mg po bid - Spironolactone 25 mg po daily - Carvedilol 25 mg po bid - He would benefit from an ARB trial (as I think chance of angioedema would be low) at some point although he has a known chronic history of issues with medications leading to self discontinue of all medications so will hold off for now on adding medication and focus on adherence with medications prescribed Recommend CPAP adherence and need for weight loss It was discussed, and patient expressed understanding that further illicit drug or medication nonadherence increases his risk of things including but not limited to . Patient will need to find another cardiology practice to establish care with after discharge
--- NOTE | 2019-05-12 16:16 | ECHO ---
*[facility]* [place] [address] Fax #: [phone] Transthoracic Echocardiogram Patient: Jeronimo Sanchez : 1970 Study Date: 05/12/2019 Age: 48 Gender: M HR: 119 bpm Height: 66 in /167.6 cm BSA: 2.08 m^2 Weight: 218.5 lb /99.3 kg BMI: 35.3 kg/m^2 *Adolescent Medicine Specialist: Irish Sims [facility] *Referring Physician: * Gabriel Johnson *Reading Physician: * Carl Chester MD Indications: Congestive Heart Failure. History: Chronic kidney disease, AURELIO with CPAP,former smoker,ETOH, cocaine and marijuana use. Risk factors: Hypertension. Conclusions Summary: - Left ventricle: The cavity size is mildly dilated. Wall thickness is moderately increased. Systolic function is moderately to severely reduced. The estimated ejection fraction is 25-30%. Severe diffuse hypokinesis. - Right ventricle: The cavity size is normal. Systolic function is normal. - Left atrium: The atrium is mildly to moderately dilated. - No significant valvular abnormalities noted. Recommendations: Findings similar to 09/2018 echocardiogram. Study data: Transthoracic echocardiogram. Procedure: Transthoracic echocardiography was performed. Image quality was suboptimal. Intravenous Definity , 4.5 mlswas administered. Image enhancement administered by Complete 2D, spectral Doppler, and color flow Doppler. Patient status: Observation. Patient room number: 442-2. Rhythm: Tachycardia. Findings Left ventricle: The cavity size is mildly dilated. Wall thickness is moderately increased. Systolic function is moderately to severely reduced. The estimated ejection fraction is 25-30%. Severe diffuse hypokinesis. Doppler parameters are consistent with abnormal left ventricular relaxation (grade 1 diastolic dysfunction). Right ventricle: The cavity size is normal. Systolic function is normal. Ventricular septum: Well visualized. Left atrium: Well visualized. The atrium is mildly to moderately dilated. Right atrium: Well visualized. The atrium is normal in size. Atrial septum: Well visualized. No defect or patent foramen ovale is identified. Mitral valve: Well visualized. The leaflets are mildly thickened. No echocardiographic evidence for prolapse. There is no evidence of stenosis. There is mild regurgitation. Aortic valve: Well visualized. The valve is trileaflet. The leaflets are normal thickness. There is no evidence of stenosis. There is no significant regurgitation. Tricuspid valve: Poorly visualized. The leaflets are normal thickness. There is no evidence of stenosis. Cannot assess regurgitation. Pulmonic valve: Not well visualized. Aorta: The aorta is well visualized and normal size. The aortic root appears normal. The aortic arch appears normal. Pericardium: There is no pericardial effusion. No evidence of pleural fluid accumulation. Pulmonary arteries: Not well visualized. Systemic veins: Not well visualized. Pulmonary veins: Visualization of the pulmonary venous anatomy is incomplete, but a significant abnormality is unlikely. Measurements Left ventricle Value Ref Right atrium Value Ref IFTIKHAR, LAX (H) 6.1 cm 4.2 - SI dim, ES (H) 5.4 cm 3.4 - 5.3 5.8 ML dim, ES, A4C 3.9 cm 2.6 - 4.4 ESD, LAX (H) 5.0 cm 2.5 - SI dim, ES, A4C (H) 5.4 cm 3.4 - 5.3 4.0 SI dim/bsa, ES, A4C 2.6 cm/m^2 1.8 - 3.0 FS, LAX (L) 18 % 25 - 43 PW, ED, LAX (H) 1.5 cm 0.6 - Aortic valve Value Ref 1.0 Jeanmarie diam, ED 2.0 cm --------- FS (L) 18 % 25 - 43 Jeanmarie diam/bsa, ED 1.0 cm/m^2 --------- Mid-wall FS 10 % -------- Peak v, S 1.5 m/sec --------- PW, ED (H) 1.5 cm 0.6 - VTI, S 25.2 cm --------- 1.0 Mean grad, S 5.0 mm Hg --------- PW/ID, ED 0.25 -------- Peak grad, S 9.0 mm Hg --------- E', lat jeanmarie, TDI (L) 4.1 cm/sec >=10.0 LVOT/AV, VTI ratio 0.62 - -------- E/e', lat jeanmarie, TDI 17 -------- E', med jeanmarie, TDI 10.7 cm/sec >=7.0 Mitral valve Value R ef E/e', med jeanmarie, TDI 6 -------- Peak E 0.69 m/sec ---- ----- E', avg, TDI 7.4 cm/sec -------- Peak A 0.9 m/sec ---- ----- E/e', avg, TDI 9 <=14 Decel time 95 ms - -------- Peak E/A ratio 0.8 --------- LVOT Value Ref Peak fabio, S 1.13 m/sec -------- Pulmonic valve Value Ref VTI, S 15.7 cm -------- Peak v, S 0.76 m/sec --------- Peak grad, S 5 mm Hg -------- Peak grad, S 2.0 mm Hg --------- Mean grad, S 2 mm Hg -------- Aortic root Value Ref Ventricular septum Value Ref Root diam 3.4 cm <4.2 IVS, ED 1.0 cm 0.6 - Root max diam, ED 3.4 cm <4.2 1.0 Ascending aorta Value Ref Right ventricle Value Ref AAo AP diam, S 3.1 cm --------- IFTIKHAR, LAX 2.3 cm -------- AAo AP diam/bsa, S 1.5 cm/m^2 --------- IFTIKHAR minor ax, A4C 3.1 cm 1.9 - mid 3.5 Aortic arch Value Ref Arch diam 2.4 cm --------- Left atrium Value Ref ML dim, A4C 4.4 cm -------- SI dim, A4C 7.2 cm -------- Vol/bsa, ES, 1-p 26 ml/m^2 12 - 37 A4C Vol/bsa, ES, A/L 30 ml/m^2 16 - 34 Legend: (L) and (H) darren values outside specified reference range. Prepared and electronically signed by Carl Chester MD 05/12/2019 16:15
[2019-05-12 16:19] LABS: Troponin I 0.21 ng/mL (<0.04)
[2019-05-12] MEDS: Carvedilol TAB* 25 MG PO SCH (20:42)
[2019-05-12] MEDS: Torsemide TAB* 20 MG PO SCH (20:42)
[2019-05-13] MEDS: oxyCODONE TAB* 5 MG TAB PO PRN (01:20)
[2019-05-13 07:04] LABS: ABS Eosinophils 0.3 10^3/ul (0-0.6); ABS Lymphocytes 1.5 10^3/ul (1.0-4.8); ABS Monocytes 0.9 10^3/ul (0-0.8); ABS Neutrophils 4.5 10^3/ul (1.5-7.7); Eosinophil % 3.5 %; Hematocrit 46 % (42-52); Lymphocyte % 20.4 %; Mean Corpuscular HGB Conc 33 g/dL (31-36); Mean Corpuscular Hemoglobin 28 pg (27-31); Mean Corpuscular Volume 86 fL (80-94); Mean Platelet Volume 8.4 fL (7.4-10.4); Nucleated Red Blood Cells % 0.1; Platelet Count 187 10^3/uL (150-450); Red Blood Count 5.32 10^6 /uL (4.18-5.48); Red Cell Distribution Width 16 % (10-15); White Blood Count 7.2 10^3/uL (3.5-10.8)
[2019-05-13 07:23] LABS: EGFR African American 54.8 (>60); EGFR Non-African American 45.3 (>60); HDL Cholesterol 52.2 mg/dL; Magnesium 1.7 mg/dL (1.9-2.7); Potassium 3.6 mmol/L (3.5-5.0)
[2019-05-13] MEDS ORDERED: Magnesium Sulfate 2 GM IV* 2 GM/50 ML BAG IVPB ONE (08:36)
[2019-05-13] MEDS: Enoxaparin(*) 40 MG/0.4 ML SYR SUBCUT SCH (09:23)
[2019-05-13] MEDS: Spironolactone TAB* 25 MG PO SCH (09:23)
[2019-05-13] MEDS: Carvedilol TAB* 25 MG PO SCH ×2 (09:23→20:48)
[2019-05-13] MEDS: Torsemide TAB* 20 MG PO SCH (09:23)
--- NOTE | 2019-05-13 10:21 | PN ---
Subjective Date of Service: 05/13/19 Interval History: f/u CHF exacerbation patient resting comfortably on cpap, denies any chest pain or dyspnea BP coming under better control with prior medications restarted tele: NSR, no arrhythmias Medications Active Medications: Albuterol (Ventolin Hfa Inhaler*) 2 puff INH Q4H PRN PRN Reason: SOB/WHEEZING Carvedilol (Coreg Tab*) 25 mg PO BID [facility] Last Admin: 05/13/19 09:23 Dose: 25 mg Enoxaparin Sodium (Lovenox(*)) 40 mg SUBCUT Q24H [facility] Last Admin: 05/13/19 09:23 Dose: 40 mg Ondansetron HCl (Zofran Inj*) 4 mg IV Q6H PRN PRN Reason: NAUSEA Oxycodone HCl (Roxycodone Tab*) 10 mg PO Q6H PRN PRN Reason: back pain Last Admin: 05/13/19 01:20 Dose: 10 mg Spironolactone (Aldactone Tab*) 25 mg PO DAILY [facility] Last Admin: 05/13/19 09:23 Dose: 25 mg Torsemide (Demadex*) 20 mg PO BID [facility] Last Admin: 05/13/19 09:23 Dose: 20 mg Objective Vital Signs: Temp Pulse Resp BP Pulse Ox 97.4 F 75 20 148/95 100 05/13/19 09:35 05/13/19 09:10 05/13/19 09:10 05/13/19 09:10 05/13/19 09:10 Oxygen Devices in Use Now: None Appearance: nad, Neck: Trachea Midline Respiratory: Symmetrical Chest Expansion and Respiratory Effort Cardiovascular: RRR, No Edema, - - uncertain jvp, no significant murmur Abdominal: - - soft, obese, nontender Extremities: No Edema Skin: No Rash or Ulcers Neurological: Alert and Oriented x 3 Laboratory Results: 05/13/19 06:50 05/13/19 06:50 INR (Anticoag Therapy) 1.24 (0.82-1.09) H 05/12/19 06:25 APTT 30.0 seconds (26.0-38.0) 05/12/19 06:25 Total Bilirubin 0.70 mg/dL (0.2-1.0) 05/12/19 06:25 AST 19 U/L (13-39) 05/12/19 06:25 ALT 31 U/L (7-52) 05/12/19 06:25 Alkaline Phosphatase 73 U/L (34-104) 05/12/19 06:25 B-Natriuretic Peptide 241 pg/mL (<=100) H 05/12/19 06:25 Total Protein 6.7 g/dL (6.4-8.9) 05/12/19 06:25 Albumin 4.2 g/dL (3.2-5.2) 05/12/19 06:25 Globulin 2.5 g/dL (2-4) 05/12/19 06:25 Albumin/Globulin Ratio 1.7 (1-3) 05/12/19 06:25 Triglycerides 86 mg/dL 05/13/19 06:50 Cholesterol 172 mg/dL 05/13/19 06:50 LDL Cholesterol 103 mg/dL 05/13/19 06:50 HDL Cholesterol 52.2 mg/dL 05/13/19 06:50 05/12/19 05/12/19 05/12/19 06:25 08:28 10:20 Troponin I 0.19 H* 0.21 H* 0.21 H* 05/12/19 15:51 Troponin I 0.21 H* Diagnostic Imaging: Echocardiogram - (09/30/2018) Concentric LVH, LVEF 25-30%, LA mild-moderately dilated, mild MR Echocardiogram - (05/05/2018) LVEF 20-25%, moderate LA dilation, moderate MR, mild pulmonary HTN Echocardiogram - (12/02/2017) LVEF 25-30% Echocardiogram - (08/04/2016) LVEF 40% Echocardiogram - (06/15/2011) LVEF 35-40% Echocardiogram - (10/09/2015) LVEF 40-45% Cardiac Procedures: Cardiac Catheterization - (01/26/2018) Normal coronary arteries Cardiac Catheterization - (06/15/2011) no significant stenotic coronary artery disease. CXR: 05/12/19 IMPRESSION: No acute cardiomegaly process. Transthoracic Echocardiogram Study Date: 05/12/2019 Summary: - Left ventricle: The cavity size is mildly dilated. Wall thickness is moderately increased. Systolic function is moderately to severely reduced. The estimated ejection fraction is 25-30%. Severe diffuse hypokinesis. - Right ventricle: The cavity size is normal. Systolic function is normal. - Left atrium: The atrium is mildly to moderately dilated. - No significant valvular abnormalities noted. EKG Data: ekg 05/12/2019 #1. Sinus tachcyardia 111 bpm, LAD/repolarization abnormalities likely related to lvh Reepat ekg: NSr 89 bpm,pac LAD and repolarization abnormalities likely related to LVH similar to 04/24/2019 Assessment/Plan 1. Acute on chronic NICM systolic HF exacerbation - Secondary to medication nonadherence, CPAP nonadherence and cocaine use 2. Hypertension 3. CKD 4. Obesity 5. Sleep apnea 6. 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 Please do not hesitate to contact me with questions or concerns.
[2019-05-13] MEDS ORDERED: Acetaminophen TAB* 325 MG PO PRN (12:28)
[2019-05-13] MEDS ORDERED: Metoclopramide TAB* 10 MG PO ONE (13:12)
[2019-05-13] MEDS ORDERED: NS 0.9% 1000 ML** 1,000 ML IV ONE (15:59)
--- NOTE | 2019-05-13 16:52 | PN ---
Subjective Date of Service: 05/13/19 Interval History: Patient felt dizzy after getting up from bed. Feeling sleepy No chestpain or shortness of breath Is not participating well in conversation Non adherence on CPAP Objective Active Medications: Albuterol (Ventolin Hfa Inhaler*) 2 puff INH Q4H PRN PRN Reason: SOB/WHEEZING Carvedilol (Coreg Tab*) 12.5 mg PO BID [facility] Enoxaparin Sodium (Lovenox(*)) 40 mg SUBCUT Q24H [facility] Last Admin: 05/13/19 09:23 Dose: 40 mg Sodium Chloride (Ns 0.9% 1000 Ml) 1,000 mls @ 150 mls/hr IV .PER RATE ONE Stop: 05/13/19 22:38 Ondansetron HCl (Zofran Inj*) 4 mg IV Q6H PRN PRN Reason: NAUSEA Oxycodone HCl (Roxycodone Tab*) 10 mg PO Q6H PRN PRN Reason: back pain Last Admin: 05/13/19 01:20 Dose: 10 mg Spironolactone (Aldactone Tab*) 25 mg PO DAILY [facility] Last Admin: 05/13/19 09:23 Dose: 25 mg Vital Signs - 8 hr 05/13/19 05/13/19 05/13/19 09:10 09:35 11:15 Temperature 96.5 F 97.4 F 97.4 F Pulse Rate 75 74 Respiratory 20 20 Rate Blood Pressure 148/95 115/91 (mmHg) O2 Sat by Pulse 100 99 Oximetry 05/13/19 05/13/19 13:46 15:33 Temperature Pulse Rate 51 88 Respiratory Rate Blood Pressure 136/79 100/71 (mmHg) O2 Sat by Pulse Oximetry Oxygen Devices in Use Now: None Exam: Patient is lying on a bed and is feeling sleepy HEENT: NOrmocephalic and atrauamtic LUngs: clear on ascultation Heart: S1/S2 heard with no murmur Abdomen: Soft, nondistended and nontender. NOrmal BS heard Extremities: NO swelling Neuro: Alert, conscious and oriented; although sleepy Result Diagrams: 05/13/19 06:50 05/13/19 06:50 Additional Lab and Data: Lab Results 05/12/19 05/12/19 05/12/19 Range/Units 06:25 06:25 06:25 WBC (3.5-10.8) 10^3/uL RBC (4.18-5.48) 10^6 /uL Hgb (14.0-18.0) g/dL Hct (42-52) % MCV (80-94) fL MCH (27-31) pg MCHC (31-36) g/dL RDW (10-15) % Plt Count (150-450) 10^3/uL MPV (7.4-10.4) fL Neut % (Auto) % Lymph % (Auto) % [place] % (Auto) % Eos % (Auto) % Baso % (Auto) % Absolute Neuts (auto) (1.5-7.7) 10^3/ul Absolute Lymphs (auto) (1.0-4.8) 10^3/ul Absolute Monos (auto) (0-0.8) 10^3/ul Absolute Eos (auto) (0-0.6) 10^3/ul Absolute Basos (auto) (0-0.2) 10^3/ul Absolute Nucleated RBC 10^3/ul Nucleated RBC % INR (Anticoag Therapy) 1.24 H (0.82-1.09) APTT 30.0 (26.0-38.0) seconds Sodium 138 (135-145) mmol/L Potassium 3.9 (3.5-5.0) mmol/L Chloride 105 (101-111) mmol/L Carbon Dioxide 24 (22-32) mmol/L Anion Gap 9 (2-11) mmol/L BUN 22 (6-24) mg/dL Creatinine 1.58 H (0.67-1.17) mg/dL Est GFR ( Amer) 56.5 (>60) Est GFR (Non-Af Amer) 46.7 (>60) BUN/Creatinine Ratio 13.9 (8-20) Glucose 87 (70-100) mg/dL Calcium 9.4 (8.6-10.3) mg/dL Total Bilirubin 0.70 (0.2-1.0) mg/dL AST 19 (13-39) U/L ALT 31 (7-52) U/L Alkaline Phosphatase 73 (34-104) U/L Troponin I 0.19 H* (<0.04) ng/mL B-Natriuretic Peptide 241 H (<=100) pg/mL Total Protein 6.7 (6.4-8.9) g/dL Albumin 4.2 (3.2-5.2) g/dL Globulin 2.5 (2-4) g/dL Albumin/Globulin Ratio 1.7 (1-3) 05/12/19 05/12/19 Range/Units 08:08 08:28 WBC 13.5 H (3.5-10.8) 10^3/uL RBC 5.17 (4.18-5.48) 10^6 /uL Hgb 14.4 (14.0-18.0) g/dL Hct 44 (42-52) % MCV 85 (80-94) fL MCH 28 (27-31) pg MCHC 33 (31-36) g/dL RDW 16 H (10-15) % Plt Count 195 (150-450) 10^3/uL MPV 8.1 (7.4-10.4) fL Neut % (Auto) 79.2 % Lymph % (Auto) 11.5 % Door % (Auto) 8.4 % Eos % (Auto) 0.4 % Baso % (Auto) 0.5 % Absolute Neuts (auto) 10.7 H (1.5-7.7) 10^3/ul Absolute Lymphs (auto) 1.6 (1.0-4.8) 10^3/ul Absolute Monos (auto) 1.1 H (0-0.8) 10^3/ul Absolute Eos (auto) 0.1 (0-0.6) 10^3/ul Absolute Basos (auto) 0.1 (0-0.2) 10^3/ul Absolute Nucleated RBC 0.0 10^3/ul Nucleated RBC % 0.0 INR (Anticoag Therapy) (0.82-1.09) APTT (26.0-38.0) seconds Sodium (135-145) mmol/L Potassium (3.5-5.0) mmol/L Chloride (101-111) mmol/L Carbon Dioxide (22-32) mmol/L Anion Gap (2-11) mmol/L BUN (6-24) mg/dL Creatinine (0.67-1.17) mg/dL Est GFR ( Amer) (>60) Est GFR (Non-Af Amer) (>60) BUN/Creatinine Ratio (8-20) Glucose (70-100) mg/dL Calcium (8.6-10.3) mg/dL Total Bilirubin (0.2-1.0) mg/dL AST (13-39) U/L ALT (7-52) U/L Alkaline Phosphatase (34-104) U/L Troponin I 0.21 H* (<0.04) ng/mL B-Natriuretic Peptide (<=100) pg/mL Total Protein (6.4-8.9) g/dL Albumin (3.2-5.2) g/dL Globulin (2-4) g/dL Albumin/Globulin Ratio (1-3) Assess/Plan/Problems-Billing Assessment: 48 y/o M with h/o NICM(EF 25-30%), NSVT, Alcohol and cocaine abuse, chronic elevated troponin presented with episodes of chest pain associated with diaphoresis, palpitation and SOB. Found to have cocaine use, acute on chronic heart failure. Echo shows EF of 25-30% with severe diffuse hypokinesis. - Patient Problems (1) Orthostatic hypotension Current Visit: Yes Status: Acute Code(s): I95.1 - ORTHOSTATIC HYPOTENSION SNOMED Code(s): 72864449 Comment: patient felt dizzy after getting up from bed and was wobbly found to have orthostatic hypotension giving iv fluids (2) Acute on chronic systolic CHF (congestive heart failure) Current Visit: No Status: Acute Code(s): I50.23 - ACUTE ON CHRONIC SYSTOLIC (CONGESTIVE) HEART FAILURE SNOMED Code(s): 397842085 Comment: HX of NICM Hx of NSVT; refused ICD in past Non adherence to mediaction and diet. used cocaine 1 day before presentation after conflict with . Echo shows EF of 25-30% with severe diffuse hypokinesis counselled on medication use and foolowing heart healthy diet continue spironolactone 25 mg and carvedilol mg torsemide stopped because of orthostatic hypotension (3) Elevated troponin Current Visit: No Status: Acute Code(s): R74.8 - ABNORMAL LEVELS OF OTHER SERUM ENZYMES SNOMED Code(s): 028055470 Comment: has chronically elevated troponin on baseline due to structural heart disease has to be compliant with his med (4) Chronic kidney disease (CKD) Current Visit: Yes Status: Acute Code(s): N18.9 - CHRONIC KIDNEY DISEASE, UNSPECIFIED SNOMED Code(s): 296287291 Comment: GFR 45 creatinine 1.62 baseline (5) HTN (hypertension) Current Visit: No Status: Acute Code(s): I10 - ESSENTIAL (PRIMARY) HYPERTENSION SNOMED Code(s): 67001622 Comment: on coreg and aldactone stopped torsemide (6) Substance abuse Current Visit: Yes Status: Acute Code(s): F19.10 - OTHER PSYCHOACTIVE SUBSTANCE ABUSE, UNCOMPLICATED SNOMED Code(s): 51331125 Comment: past history of cocaine, opiod and marijuana use drinks alcohol infrequently used cocaine and 3 beers 1 day before presentation because of conflict with his (7) DVT prophylaxis Current Visit: No Status: Acute Code(s): FIF1640 - SNOMED Code(s): 883546589 Comment: on lovenox (8) Full code status Current Visit: No Status: Acute Code(s): Z78.9 - OTHER SPECIFIED HEALTH STATUS SNOMED Code(s): 222107010 Comment: Status and Disposition: Inpatient Attending: Helen Bell Attestation Documenting Resident: Aarti Peguero Supervising Physician: Helen Bell Attending/Supervising Physician Comment: Pt with cocaine chest pain, possible HF exacerbation. History of nonadherence to medications, ongoing substance use disorder. Symptoms resolved but now with orthostatic hypotension, confirmed on vitals, likely from high dose of carvedilol started last night (unlikely pt taking this beta-em recently, so caused rapid lowering of BP and HR). Will decrease BB dose, stop torsemide ( got it last night), give 1 L IVF, and follow symptoms. Pt euvolemic on exam. Also nonadherence to CPAP. With daytime somnolence. Attestation: This service has been performed in part by a resident under the direction of a teaching physician.I, Helen Bell, performed the service, or was physically present during the critical, or watts portions of the service, furnished by the resident. I participated in the management of the patient.
[2019-05-14] MEDS: Spironolactone TAB* 25 MG PO SCH (08:56)
[2019-05-14] MEDS: Carvedilol TAB* 25 MG PO SCH (08:56)
[2019-05-14] MEDS: Enoxaparin(*) 40 MG/0.4 ML SYR SUBCUT SCH (08:56)
[2019-05-14 13:16] LABS: Urine Appearance Clear; Urine Bacteria Absent (Absent); Urine Bilirubin Negative (Negative); Urine Blood Negative (Negative); Urine Color Yellow; Urine Glucose Negative (Negative); Urine Ketones Trace (Negative); Urine Nitrite Negative (Negative); Urine Protein 2+(100 mg/dL) (Negative); Urine Red Blood Cell 1+(3-5/hpf) (Absent); Urine Specific Gravity 1.026 (1.010-1.030); Urine Urobilinogen Negative (Negative); Urine White Blood Cell Trace(0-5/hpf) (Absent)
[2019-05-14 13:29] LABS: BUN/Creatinine Ratio 13.1 (8-20); Calcium 9.1 mg/dL (8.6-10.3); EGFR African American 70.7 (>60); EGFR Non-African American 58.4 (>60); Magnesium 2.2 mg/dL (1.9-2.7); Potassium 3.9 mmol/L (3.5-5.0)
--- NOTE | 2019-05-14 17:03 | PN ---
Subjective Date of Service: 05/14/19 Interval History: Pt feeling much better today after stopping diuretic, giving IVF, and decreasing BB dose. Now more open on interview. Reports he does not have a home to return to, cannot contact his son either. Very interested in detox. Denies symptoms now except tiredness, and reports poor adherence to CPAP. Case discussed with SW and plan for discharge to detox after the weekend. Objective Active Medications: Albuterol (Ventolin Hfa Inhaler*) 2 puff INH Q4H PRN PRN Reason: SOB/WHEEZING Carvedilol (Coreg Tab*) 12.5 mg PO BID [facility] Last Admin: 05/14/19 08:56 Dose: 12.5 mg Enoxaparin Sodium (Lovenox(*)) 40 mg SUBCUT Q24H [facility] Last Admin: 05/14/19 08:56 Dose: 40 mg Ondansetron HCl (Zofran Inj*) 4 mg IV Q6H PRN PRN Reason: NAUSEA Oxycodone HCl (Roxycodone Tab*) 10 mg PO Q6H PRN PRN Reason: back pain Last Admin: 05/13/19 01:20 Dose: 10 mg Spironolactone (Aldactone Tab*) 25 mg PO DAILY [facility] Last Admin: 05/14/19 08:56 Dose: 25 mg Vital Signs - 8 hr 05/14/19 05/14/19 12:00 15:15 Temperature 98 F 97.6 F Pulse Rate 67 55 Respiratory 18 24 Rate Blood Pressure 113/87 102/54 (mmHg) O2 Sat by Pulse 98 99 Oximetry Oxygen Devices in Use Now: None Appearance: tired appearing, NAD, alert and interactive Eyes: No Scleral Icterus Ears/Nose/Mouth/Throat: Clear Oropharnyx, Mucous Membranes Moist Neck: NL Appearance and Movements; NL JVP, Trachea Midline Respiratory: Symmetrical Chest Expansion and Respiratory Effort, Clear to Auscultation Cardiovascular: NL Sounds; No Murmurs; No JVD, RRR Abdominal: NL Sounds; No Tenderness; No Distention, No Hepatosplenomegaly Extremities: No Edema Skin: No Rash or Ulcers Neurological: Alert and Oriented x 3 Result Diagrams: 05/13/19 06:50 05/14/19 11:12 Additional Lab and Data: Lab Results 09/20/19 09/20/19 09/20/19 Range/Units 06:25 06:25 06:25 WBC (3.5-10.8) 10^3/uL RBC (4.18-5.48) 10^6 /uL Hgb (14.0-18.0) g/dL Hct (42-52) % MCV (80-94) fL MCH (27-31) pg MCHC (31-36) g/dL RDW (10-15) % Plt Count (150-450) 10^3/uL MPV (7.4-10.4) fL Neut % (Auto) % Lymph % (Auto) % [place] % (Auto) % Eos % (Auto) % Baso % (Auto) % Absolute Neuts (auto) (1.5-7.7) 10^3/ul Absolute Lymphs (auto) (1.0-4.8) 10^3/ul Absolute Monos (auto) (0-0.8) 10^3/ul Absolute Eos (auto) (0-0.6) 10^3/ul Absolute Basos (auto) (0-0.2) 10^3/ul Absolute Nucleated RBC 10^3/ul Nucleated RBC % INR (Anticoag Therapy) 1.24 H (0.82-1.09) APTT 30.0 (26.0-38.0) seconds Sodium 138 (135-145) mmol/L Potassium 3.9 (3.5-5.0) mmol/L Chloride 105 (101-111) mmol/L Carbon Dioxide 24 (22-32) mmol/L Anion Gap 9 (2-11) mmol/L BUN 22 (6-24) mg/dL Creatinine 1.58 H (0.67-1.17) mg/dL Est GFR ( Amer) 56.5 (>60) Est GFR (Non-Af Amer) 46.7 (>60) BUN/Creatinine Ratio 13.9 (8-20) Glucose 87 (70-100) mg/dL Calcium 9.4 (8.6-10.3) mg/dL Total Bilirubin 0.70 (0.2-1.0) mg/dL AST 19 (13-39) U/L ALT 31 (7-52) U/L Alkaline Phosphatase 73 (34-104) U/L Troponin I 0.19 H* (<0.04) ng/mL B-Natriuretic Peptide 241 H (<=100) pg/mL Total Protein 6.7 (6.4-8.9) g/dL Albumin 4.2 (3.2-5.2) g/dL Globulin 2.5 (2-4) g/dL Albumin/Globulin Ratio 1.7 (1-3) 05/12/19 05/12/19 Range/Units 08:08 08:28 WBC 13.5 H (3.5-10.8) 10^3/uL RBC 5.17 (4.18-5.48) 10^6 /uL Hgb 14.4 (14.0-18.0) g/dL Hct 44 (42-52) % MCV 85 (80-94) fL MCH 28 (27-31) pg MCHC 33 (31-36) g/dL RDW 16 H (10-15) % Plt Count 195 (150-450) 10^3/uL MPV 8.1 (7.4-10.4) fL Neut % (Auto) 79.2 % Lymph % (Auto) 11.5 % [place] % (Auto) 8.4 % Eos % (Auto) 0.4 % Baso % (Auto) 0.5 % Absolute Neuts (auto) 10.7 H (1.5-7.7) 10^3/ul Absolute Lymphs (auto) 1.6 (1.0-4.8) 10^3/ul Absolute Monos (auto) 1.1 H (0-0.8) 10^3/ul Absolute Eos (auto) 0.1 (0-0.6) 10^3/ul Absolute Basos (auto) 0.1 (0-0.2) 10^3/ul Absolute Nucleated RBC 0.0 10^3/ul Nucleated RBC % 0.0 INR (Anticoag Therapy) (0.82-1.09) APTT (26.0-38.0) seconds Sodium (135-145) mmol/L Potassium (3.5-5.0) mmol/L Chloride (101-111) mmol/L Carbon Dioxide (22-32) mmol/L Anion Gap (2-11) mmol/L BUN (6-24) mg/dL Creatinine (0.67-1.17) mg/dL Est GFR ( Amer) (>60) Est GFR (Non-Af Amer) (>60) BUN/Creatinine Ratio (8-20) Glucose (70-100) mg/dL Calcium (8.6-10.3) mg/dL Total Bilirubin (0.2-1.0) mg/dL AST (13-39) U/L ALT (7-52) U/L Alkaline Phosphatase (34-104) U/L Troponin I 0.21 H* (<0.04) ng/mL B-Natriuretic Peptide (<=100) pg/mL Total Protein (6.4-8.9) g/dL Albumin (3.2-5.2) g/dL Globulin (2-4) g/dL Albumin/Globulin Ratio (1-3) Assess/Plan/Problems-Billing Assessment: 48M with NICM (EF 25-30%), NSVT, polysubstance abuse (cocaine/etoh), chronic elevated troponin, presented with episodes of chest pain associated with diaphoresis, palpitation and SOB. Found to have cocaine use, acute on chronic heart failure. Echo shows EF of 25-30% with severe diffuse hypokinesis. - Patient Problems (1) Acute on chronic systolic CHF (congestive heart failure) Comment: HX of NICM, NSVT; refused ICD in past. Non adherence to mediaction and diet. Used cocaine 1 day before presentation after conflict with . Echo shows EF of 25-30% with severe diffuse hypokinesis. - cardiology consulted and recommended restarting home meds, low suspicion for ACS - counselled on medication use and following heart healthy diet - continue spironolactone 25 mg and carvedilol 12.5 mg bid - torsemide stopped because of orthostatic hypotension - monitor volume status (2) Orthostatic hypotension Comment: patient felt dizzy after getting up from bed and was wobbly found to have orthostatic hypotension, improved after IVF and decreasing carvedilol dose (3) Elevated troponin Comment: has chronically elevated troponin on baseline due to structural heart disease has to be compliant with his med (4) AURELIO (obstructive sleep apnea) Comment: - encourage adherence to CPAP (5) Chronic kidney disease (CKD) Comment: GFR 45 creatinine 1.62 baseline (6) HTN (hypertension) Comment: - cont spironolactone and carvedilol (7) Substance abuse Comment: past history of cocaine, opiod and marijuana use drinks alcohol infrequently used cocaine and 3 beers 1 day before presentation because of conflict with his - interested in detox on discharge, DENI rosales (8) DVT prophylaxis Current Visit: No Status: Acute Code(s): CSR3655 - SNOMED Code(s): 956383694 Comment: on lovenox (9) Full code status Current Visit: No Status: Acute Code(s): Z78.9 - OTHER SPECIFIED HEALTH STATUS SNOMED Code(s): 755500196 Comment: Status and Disposition: Inpatient
[2019-05-14] MEDS ORDERED: oxyCODONE TAB* 5 MG TAB PO PRN (20:22)
[2019-05-14] MEDS: Carvedilol TAB* 6.25 MG PO SCH (21:43)
[2019-05-15] MEDS: Enoxaparin(*) 40 MG/0.4 ML SYR SUBCUT SCH (09:08)
[2019-05-15] MEDS: Spironolactone TAB* 25 MG PO SCH (09:08)
[2019-05-15] MEDS: Carvedilol TAB* 6.25 MG PO SCH ×2 (09:08→22:08)
--- NOTE | 2019-05-15 15:43 | PN ---
Subjective Date of Service: 05/15/19 Interval History: Pt had no complain of chest pain, palpitation. He felt tremulous though, last drink was before admission. No sweating, no nausea, vomiting. Keen for outpt detox. Objective Active Medications: Albuterol (Ventolin Hfa Inhaler*) 2 puff INH Q4H PRN PRN Reason: SOB/WHEEZING Carvedilol (Coreg Tab*) 6.25 mg PO BID [facility] Last Admin: 05/15/19 09:08 Dose: 6.25 mg Enoxaparin Sodium (Lovenox(*)) 40 mg SUBCUT Q24H [facility] Last Admin: 05/15/19 09:08 Dose: 40 mg Ondansetron HCl (Zofran Inj*) 4 mg IV Q6H PRN PRN Reason: NAUSEA Oxycodone HCl (Roxycodone Tab*) 10 mg PO 12 PRN PRN Reason: back pain Spironolactone (Aldactone Tab*) 25 mg PO DAILY [facility] Last Admin: 05/15/19 09:08 Dose: 25 mg Vital Signs - 8 hr 05/15/19 05/15/19 08:00 11:15 Temperature 98 F Pulse Rate 71 Respiratory 20 20 Rate Blood Pressure 128/89 (mmHg) O2 Sat by Pulse 97 Oximetry Oxygen Devices in Use Now: None Exam: General - NAD, sitting up in bed, well groomed Cardiovascular - RRR no m/r/g, no JVD, no carotid bruits Lungs - Clear to auscltation, no use of acessory muscles, no crackles or wheezes. Skin - No rashes, skin warm and dry, no erythematous areas Abdomen - Normal bowel sounds, abdomen soft and nontender Extremities - No edema, cyanosis or clubbing Musculo Skeletal - 5/5 strength, normal range of motion, no swollen or erythematous joints. Neurological Alert and oriented x 3, CN 2-12 grossly intact. Psychiatry- mood is stable, not anxious. Result Diagrams: 05/13/19 06:50 05/14/19 11:12 Additional Lab and Data: Lab Results 05/12/19 05/12/19 05/12/19 Range/Units 06:25 06:25 06:25 WBC (3.5-10.8) 10^3/uL RBC (4.18-5.48) 10^6 /uL Hgb (14.0-18.0) g/dL Hct (42-52) % MCV (80-94) fL MCH (27-31) pg MCHC (31-36) g/dL RDW (10-15) % Plt Count (150-450) 10^3/uL MPV (7.4-10.4) fL Neut % (Auto) % Lymph % (Auto) % [place] % (Auto) % Eos % (Auto) % Baso % (Auto) % Absolute Neuts (auto) (1.5-7.7) 10^3/ul Absolute Lymphs (auto) (1.0-4.8) 10^3/ul Absolute Monos (auto) (0-0.8) 10^3/ul Absolute Eos (auto) (0-0.6) 10^3/ul Absolute Basos (auto) (0-0.2) 10^3/ul Absolute Nucleated RBC 10^3/ul Nucleated RBC % INR (Anticoag Therapy) 1.24 H (0.82-1.09) APTT 30.0 (26.0-38.0) seconds Sodium 138 (135-145) mmol/L Potassium 3.9 (3.5-5.0) mmol/L Chloride 105 (101-111) mmol/L Carbon Dioxide 24 (22-32) mmol/L Anion Gap 9 (2-11) mmol/L BUN 22 (6-24) mg/dL Creatinine 1.58 H (0.67-1.17) mg/dL Est GFR ( Amer) 56.5 (>60) Est GFR (Non-Af Amer) 46.7 (>60) BUN/Creatinine Ratio 13.9 (8-20) Glucose 87 (70-100) mg/dL Calcium 9.4 (8.6-10.3) mg/dL Total Bilirubin 0.70 (0.2-1.0) mg/dL AST 19 (13-39) U/L ALT 31 (7-52) U/L Alkaline Phosphatase 73 (34-104) U/L Troponin I 0.19 H* (<0.04) ng/mL B-Natriuretic Peptide 241 H (<=100) pg/mL Total Protein 6.7 (6.4-8.9) g/dL Albumin 4.2 (3.2-5.2) g/dL Globulin 2.5 (2-4) g/dL Albumin/Globulin Ratio 1.7 (1-3) 05/12/19 05/12/19 Range/Units 08:08 08:28 WBC 13.5 H (3.5-10.8) 10^3/uL RBC 5.17 (4.18-5.48) 10^6 /uL Hgb 14.4 (14.0-18.0) g/dL Hct 44 (42-52) % MCV 85 (80-94) fL MCH 28 (27-31) pg MCHC 33 (31-36) g/dL RDW 16 H (10-15) % Plt Count 195 (150-450) 10^3/uL MPV 8.1 (7.4-10.4) fL Neut % (Auto) 79.2 % Lymph % (Auto) 11.5 % [place] % (Auto) 8.4 % Eos % (Auto) 0.4 % Baso % (Auto) 0.5 % Absolute Neuts (auto) 10.7 H (1.5-7.7) 10^3/ul Absolute Lymphs (auto) 1.6 (1.0-4.8) 10^3/ul Absolute Monos (auto) 1.1 H (0-0.8) 10^3/ul Absolute Eos (auto) 0.1 (0-0.6) 10^3/ul Absolute Basos (auto) 0.1 (0-0.2) 10^3/ul Absolute Nucleated RBC 0.0 10^3/ul Nucleated RBC % 0.0 INR (Anticoag Therapy) (0.82-1.09) APTT (26.0-38.0) seconds Sodium (135-145) mmol/L Potassium (3.5-5.0) mmol/L Chloride (101-111) mmol/L Carbon Dioxide (22-32) mmol/L Anion Gap (2-11) mmol/L BUN (6-24) mg/dL Creatinine (0.67-1.17) mg/dL Est GFR ( Amer) (>60) Est GFR (Non-Af Amer) (>60) BUN/Creatinine Ratio (8-20) Glucose (70-100) mg/dL Calcium (8.6-10.3) mg/dL Total Bilirubin (0.2-1.0) mg/dL AST (13-39) U/L ALT (7-52) U/L Alkaline Phosphatase (34-104) U/L Troponin I 0.21 H* (<0.04) ng/mL B-Natriuretic Peptide (<=100) pg/mL Total Protein (6.4-8.9) g/dL Albumin (3.2-5.2) g/dL Globulin (2-4) g/dL Albumin/Globulin Ratio (1-3) Assess/Plan/Problems-Billing Assessment: 48M with NICM (EF 25-30%), NSVT, polysubstance abuse (cocaine/etoh), chronic elevated troponin, presented with episodes of chest pain associated with diaphoresis, palpitation and SOB. Found to have cocaine use, acute on chronic heart failure. Echo shows EF of 25-30% with severe diffuse hypokinesis. - Patient Problems (1) Acute on chronic systolic CHF (congestive heart failure) Current Visit: Yes Status: Acute Code(s): I50.23 - ACUTE ON CHRONIC SYSTOLIC (CONGESTIVE) HEART FAILURE SNOMED Code(s): 756329221 Comment: HX of NICM, NSVT; refused ICD in past. Non adherence to mediaction and diet. Used cocaine 1 day before presentation after conflict with . Echo shows EF of 25-30% with severe diffuse hypokinesis. - cardiology consulted and recommended restarting home meds, trop baseline, low ACS suspicion. - counselled on medication use and following heart healthy diet - continue spironolactone 25 mg and carvedilol 12.5 mg bid - torsemide stopped because of orthostatic hypotension - monitor volume status (2) Elevated troponin Current Visit: Yes Status: Acute Code(s): R74.8 - ABNORMAL LEVELS OF OTHER SERUM ENZYMES SNOMED Code(s): 136700199 Comment: has chronically elevated troponin on baseline due to structural heart disease (3) Substance abuse Current Visit: Yes Status: Acute Code(s): F19.10 - OTHER PSYCHOACTIVE SUBSTANCE ABUSE, UNCOMPLICATED SNOMED Code(s): 88201649 Comment: - past history of cocaine, opiod and marijuana use - drinks alcohol infrequently - used cocaine and 3 beers 1 day before presentation because of conflict with his - interested in detox on discharge, SW aware (4) Chronic kidney disease (CKD) Current Visit: Yes Status: Acute Code(s): N18.9 - CHRONIC KIDNEY DISEASE, UNSPECIFIED SNOMED Code(s): 250059309 Comment: GFR 45 creatinine 1.62 baseline (5) HTN (hypertension) Current Visit: Yes Status: Acute Code(s): I10 - ESSENTIAL (PRIMARY) HYPERTENSION SNOMED Code(s): 30108907 Comment: - cont spironolactone and carvedilol (6) Orthostatic hypotension Current Visit: Yes Status: Acute Code(s): I95.1 - ORTHOSTATIC HYPOTENSION SNOMED Code(s): 44323685 Comment: patient felt dizzy after getting up from bed and was wobbly found to have orthostatic hypotension, improved after IVF and decreasing carvedilol dose (7) AURELIO (obstructive sleep apnea) Current Visit: Yes Status: Acute Code(s): G47.33 - OBSTRUCTIVE SLEEP APNEA ( ADULT) (PEDIATRIC) SNOMED Code(s): 50287655 Comment: - encourage adherence to CPAP (8) DVT prophylaxis Current Visit: No Status: Acute Code(s): QWV0402 - SNOMED Code(s): 136136658 Comment: on lovenox (9) Full code status Current Visit: No Status: Acute Code(s): Z78.9 - OTHER SPECIFIED HEALTH STATUS SNOMED Code(s): 206987221 Comment: Status and Disposition: Inpatient, will need a inpatient facility for detox. Attestation Documenting Resident: Ellie Trevino Supervising Physician: Lashon Whitehead Attending/Supervising Physician Comment: chest pain resolved, no evidence of heart failure exacerbation. he remains depressed and distressed about his home situation. wam monitoring today as he is about 72 hours since his last drink (was drinking 1/2 bottle of vodka plus " a few" beers per day); if remains stable we will dc wam. tolerating low doses of heart failure meds, had not been taking them at home. social work following for help with dispo planning as he is currently homeless. Attestation: This service has been performed in part by a resident under the direction of a teaching physician.I, Lashon Whitehead, performed the service, or was physically present during the critical, or watts portions of the service, furnished by the resident. I participated in the management of the patient.
[2019-05-16] MEDS: Spironolactone TAB* 25 MG PO SCH (08:43)
[2019-05-16] MEDS: Enoxaparin(*) 40 MG/0.4 ML SYR SUBCUT SCH (08:43)
[2019-05-16] MEDS: Carvedilol TAB* 6.25 MG PO SCH (08:43)
--- NOTE | 2019-05-16 10:11 | PN ---
Subjective Date of Service: 05/16/19 Interval History: Patient complained of tingling and sensation abnormality in his fingers and legs since yesterday. He was agitated yesterday evening but improving this morning. He complained of double vision, generalized tingling, distorted body image, no nausea/vomiting, no chest pain. Objective Active Medications: Albuterol (Ventolin Hfa Inhaler*) 2 puff INH Q4H PRN PRN Reason: SOB/WHEEZING Carvedilol (Coreg Tab*) 6.25 mg PO BID [facility] Last Admin: 05/16/19 08:43 Dose: 6.25 mg Enoxaparin Sodium (Lovenox(*)) 40 mg SUBCUT Q24H [facility] Last Admin: 05/16/19 08:43 Dose: 40 mg Oxycodone HCl (Roxycodone Tab*) 10 mg PO 12 PRN PRN Reason: back pain Last Admin: 05/15/19 22:08 Dose: 10 mg Spironolactone (Aldactone Tab*) 25 mg PO DAILY [facility] Last Admin: 05/16/19 08:43 Dose: 25 mg Vital Signs - 8 hr 05/16/19 05/16/19 05/16/19 03:00 03:08 05:00 Temperature 98.2 F Pulse Rate 63 Respiratory 20 20 20 Rate Blood Pressure 120/76 (mmHg) O2 Sat by Pulse 98 Oximetry 05/16/19 05/16/19 05/16/19 05:18 07:15 07:30 Temperature 97.4 F Pulse Rate 93 Respiratory 20 20 20 Rate Blood Pressure 116/80 135/83 (mmHg) O2 Sat by Pulse 97 Oximetry Oxygen Devices in Use Now: None Exam: General - NAD, lying on the bed. Cardiovascular - RRR no m/r/g, no JVD, no carotid bruits Lungs - Clear to auscltation, no use of acessory muscles, no crackles or wheezes. Skin - No rashes, skin warm and dry, no erythematous areas Abdomen - Normal bowel sounds, abdomen soft and nontender Extremities - No edema, cyanosis or clubbing Musculo Skeletal - 5/5 strength, normal range of motion, no swollen or erythematous joints. Neurological Alert and oriented x 3, CN 2-12 grossly intact. left side sensation deficit. Psychiatry- anxious and mild agitation Result Diagrams: 05/13/19 06:50 05/14/19 11:12 Additional Lab and Data: Lab Results 05/12/19 05/12/19 05/12/19 Range/Units 06:25 06:25 06:25 WBC (3.5-10.8) 10^3/uL RBC (4.18-5.48) 10^6 /uL Hgb (14.0-18.0) g/dL Hct (42-52) % MCV (80-94) fL MCH (27-31) pg MCHC (31-36) g/dL RDW (10-15) % Plt Count (150-450) 10^3/uL MPV (7.4-10.4) fL Neut % (Auto) % Lymph % (Auto) % Wagoner % (Auto) % Eos % (Auto) % Baso % (Auto) % Absolute Neuts (auto) (1.5-7.7) 10^3/ul Absolute Lymphs (auto) (1.0-4.8) 10^3/ul Absolute Monos (auto) (0-0.8) 10^3/ul Absolute Eos (auto) (0-0.6) 10^3/ul Absolute Basos (auto) (0-0.2) 10^3/ul Absolute Nucleated RBC 10^3/ul Nucleated RBC % INR (Anticoag Therapy) 1.24 H (0.82-1.09) APTT 30.0 (26.0-38.0) seconds Sodium 138 (135-145) mmol/L Potassium 3.9 (3.5-5.0) mmol/L Chloride 105 (101-111) mmol/L Carbon Dioxide 24 (22-32) mmol/L Anion Gap 9 (2-11) mmol/L BUN 22 (6-24) mg/dL Creatinine 1.58 H (0.67-1.17) mg/dL Est GFR ( Amer) 56.5 (>60) Est GFR (Non-Af Amer) 46.7 (>60) BUN/Creatinine Ratio 13.9 (8-20) Glucose 87 (70-100) mg/dL Calcium 9.4 (8.6-10.3) mg/dL Total Bilirubin 0.70 (0.2-1.0) mg/dL AST 19 (13-39) U/L ALT 31 (7-52) U/L Alkaline Phosphatase 73 (34-104) U/L Troponin I 0.19 H* (<0.04) ng/mL B-Natriuretic Peptide 241 H (<=100) pg/mL Total Protein 6.7 (6.4-8.9) g/dL Albumin 4.2 (3.2-5.2) g/dL Globulin 2.5 (2-4) g/dL Albumin/Globulin Ratio 1.7 (1-3) 05/12/19 05/12/19 Range/Units 08:08 08:28 WBC 13.5 H (3.5-10.8) 10^3/uL RBC 5.17 (4.18-5.48) 10^6 /uL Hgb 14.4 (14.0-18.0) g/dL Hct 44 (42-52) % MCV 85 (80-94) fL MCH 28 (27-31) pg MCHC 33 (31-36) g/dL RDW 16 H (10-15) % Plt Count 195 (150-450) 10^3/uL MPV 8.1 (7.4-10.4) fL Neut % (Auto) 79.2 % Lymph % (Auto) 11.5 % Wagoner % (Auto) 8.4 % Eos % (Auto) 0.4 % Baso % (Auto) 0.5 % Absolute Neuts (auto) 10.7 H (1.5-7.7) 10^3/ul Absolute Lymphs (auto) 1.6 (1.0-4.8) 10^3/ul Absolute Monos (auto) 1.1 H (0-0.8) 10^3/ul Absolute Eos (auto) 0.1 (0-0.6) 10^3/ul Absolute Basos (auto) 0.1 (0-0.2) 10^3/ul Absolute Nucleated RBC 0.0 10^3/ul Nucleated RBC % 0.0 INR (Anticoag Therapy) (0.82-1.09) APTT (26.0-38.0) seconds Sodium (135-145) mmol/L Potassium (3.5-5.0) mmol/L Chloride (101-111) mmol/L Carbon Dioxide (22-32) mmol/L Anion Gap (2-11) mmol/L BUN (6-24) mg/dL Creatinine (0.67-1.17) mg/dL Est GFR ( Amer) (>60) Est GFR (Non-Af Amer) (>60) BUN/Creatinine Ratio (8-20) Glucose (70-100) mg/dL Calcium (8.6-10.3) mg/dL Total Bilirubin (0.2-1.0) mg/dL AST (13-39) U/L ALT (7-52) U/L Alkaline Phosphatase (34-104) U/L Troponin I 0.21 H* (<0.04) ng/mL B-Natriuretic Peptide (<=100) pg/mL Total Protein (6.4-8.9) g/dL Albumin (3.2-5.2) g/dL Globulin (2-4) g/dL Albumin/Globulin Ratio (1-3) Assess/Plan/Problems-Billing Assessment: 48M with NICM (EF 25-30%), NSVT, polysubstance abuse (cocaine/etoh), chronic elevated troponin, presented with episodes of chest pain associated with diaphoresis, palpitation and SOB. Found to have cocaine use, acute on chronic heart failure. Echo shows EF of 25-30% with severe diffuse hypokinesis. - Patient Problems (1) Acute on chronic systolic CHF (congestive heart failure) Current Visit: Yes Status: Acute Code(s): I50.23 - ACUTE ON CHRONIC SYSTOLIC (CONGESTIVE) HEART FAILURE SNOMED Code(s): 191762609 Comment: HX of NICM, NSVT; refused ICD in past. Non adherence to mediaction and diet. Used cocaine 1 day before presentation after conflict with . Echo shows EF of 25-30% with severe diffuse hypokinesis. - cardiology consulted and recommended restarting home meds, trop baseline, low ACS suspicion. - counselled on medication use and following heart healthy diet - continue spironolactone 25 mg and carvedilol 12.5 mg bid - torsemide stopped because of orthostatic hypotension (2) Elevated troponin Current Visit: Yes Status: Acute Code(s): R74.8 - ABNORMAL LEVELS OF OTHER SERUM ENZYMES SNOMED Code(s): 475343268 Comment: has chronically elevated troponin on baseline due to structural heart disease (3) Substance abuse Current Visit: Yes Status: Acute Code(s): F19.10 - OTHER PSYCHOACTIVE SUBSTANCE ABUSE, UNCOMPLICATED SNOMED Code(s): 70723783 Comment: - past history of cocaine, opiod and marijuana use - drinks alcohol infrequently - used cocaine and 3 beers 1 day before presentation because of conflict with his - interested in detox on discharge,awaiting [facility] inview today. (4) Chronic kidney disease (CKD) Current Visit: Yes Status: Acute Code(s): N18.9 - CHRONIC KIDNEY DISEASE, UNSPECIFIED SNOMED Code(s): 307823967 Comment: GFR 45 creatinine 1.62 baseline (5) HTN (hypertension) Current Visit: Yes Status: Acute Code(s): I10 - ESSENTIAL (PRIMARY) HYPERTENSION SNOMED Code(s): 79308994 Comment: - cont spironolactone and carvedilol (6) Orthostatic hypotension Current Visit: Yes Status: Acute Code(s): I95.1 - ORTHOSTATIC HYPOTENSION SNOMED Code(s): 09076862 Comment: patient felt dizzy after getting up from bed and was wobbly found to have orthostatic hypotension, improved after IVF and decreasing carvedilol dose (7) AURELIO (obstructive sleep apnea) Current Visit: Yes Status: Acute Code(s): G47.33 - OBSTRUCTIVE SLEEP APNEA ( ADULT) (PEDIATRIC) SNOMED Code(s): 87505176 Comment: - encourage adherence to CPAP (8) DVT prophylaxis Current Visit: No Status: Acute Code(s): THN1883 - SNOMED Code(s): 277043826 Comment: on lovenox (9) Full code status Current Visit: No Status: Acute Code(s): Z78.9 - OTHER SPECIFIED HEALTH STATUS SNOMED Code(s): 499548223 Comment: Status and Disposition: Inpatient, will need a inpatient facility for detox. waiting [facility] phone interview today. Attestation Documenting Resident: Ellie Trevino Supervising Physician: Ranjith Whitehead Attestation: This service has been performed in part by a resident under the direction of a teaching physician.I, Ranjith Whitehead, performed the service, or was physically present during the critical, or watts portions of the service, furnished by the resident. I participated in the management of the patient.
[2019-05-16 13:39] VITALS: BP 141/87
--- NOTE | 2019-05-16 17:14 | PN ---
Subjective Date of Service: 05/16/19 Interval History: Called to see patient for AMA Patient was frustrated that renal social worker didn't help him much in terms of his placement. He met renal social worker Pilar this morning, and was told about 1pm interview with [facility]. He was unhappy that renal social worker said she would assist him, but she never came back and assisted him. I called renal social worker, she is willing to come back tomorrow to help him with this interview. Reassured him that we would help him with all these and send him to a place in the end. Patient understood the plan. Patient insisted that he wanted to leave against medical advice. When asked about his plan, he said he would stay in his son's place short term. He had made appointment with [facility] tomorrow to get outpt detox , he is planning to go back to work while doing outpt detox. In a long run, he is planning to get apartment from social security. Consequences of leaving AMA were explained to patient, 1. back to substance use , previous efforts of quitting wasted, 2. longer waiting time outpatient, it takes months to get into a detox place, 3. unable to obtain an inpatient detox spot, 4. life threatening condition related to substance uses. Patient was unable to understand and repeat above consequences. Family member, his son; nurse in charge Michelle was also present during the conversation. His son is willing to accommodate him as a interim. AMA form signed, attending Dr. Whitehead was informed. Objective Active Medications: Albuterol (Ventolin Hfa Inhaler*) 2 puff INH Q4H PRN PRN Reason: SOB/WHEEZING Carvedilol (Coreg Tab*) 6.25 mg PO BID [facility] Last Admin: 05/16/19 08:43 Dose: 6.25 mg Enoxaparin Sodium (Lovenox(*)) 40 mg SUBCUT Q24H [facility] Last Admin: 05/16/19 08:43 Dose: 40 mg Oxycodone HCl (Roxycodone Tab*) 10 mg PO 12 PRN PRN Reason: back pain Last Admin: 05/15/19 22:08 Dose: 10 mg Spironolactone (Aldactone Tab*) 25 mg PO DAILY [facility] Last Admin: 05/16/19 08:43 Dose: 25 mg Vital Signs - 8 hr 05/16/19 11:37 Temperature 97.5 F Pulse Rate 83 Respiratory 20 Rate Blood Pressure 141/87 (mmHg) O2 Sat by Pulse 97 Oximetry Oxygen Devices in Use Now: None Result Diagrams: 05/13/19 06:50 05/14/19 11:12 Additional Lab and Data: Lab Results 05/12/19 05/12/19 05/12/19 Range/Units 06:25 06:25 06:25 WBC (3.5-10.8) 10^3/uL RBC (4.18-5.48) 10^6 /uL Hgb (14.0-18.0) g/dL Hct (42-52) % MCV (80-94) fL MCH (27-31) pg MCHC (31-36) g/dL RDW (10-15) % Plt Count (150-450) 10^3/uL MPV (7.4-10.4) fL Neut % (Auto) % Lymph % (Auto) % Davis % (Auto) % Eos % (Auto) % Baso % (Auto) % Absolute Neuts (auto) (1.5-7.7) 10^3/ul Absolute Lymphs (auto) (1.0-4.8) 10^3/ul Absolute Monos (auto) (0-0.8) 10^3/ul Absolute Eos (auto) (0-0.6) 10^3/ul Absolute Basos (auto) (0-0.2) 10^3/ul Absolute Nucleated RBC 10^3/ul Nucleated RBC % INR (Anticoag Therapy) 1.24 H (0.82-1.09) APTT 30.0 (26.0-38.0) seconds Sodium 138 (135-145) mmol/L Potassium 3.9 (3.5-5.0) mmol/L Chloride 105 (101-111) mmol/L Carbon Dioxide 24 (22-32) mmol/L Anion Gap 9 (2-11) mmol/L BUN 22 (6-24) mg/dL Creatinine 1.58 H (0.67-1.17) mg/dL Est GFR ( Amer) 56.5 (>60) Est GFR (Non-Af Amer) 46.7 (>60) BUN/Creatinine Ratio 13.9 (8-20) Glucose 87 (70-100) mg/dL Calcium 9.4 (8.6-10.3) mg/dL Total Bilirubin 0.70 (0.2-1.0) mg/dL AST 19 (13-39) U/L ALT 31 (7-52) U/L Alkaline Phosphatase 73 (34-104) U/L Troponin I 0.19 H* (<0.04) ng/mL B-Natriuretic Peptide 241 H (<=100) pg/mL Total Protein 6.7 (6.4-8.9) g/dL Albumin 4.2 (3.2-5.2) g/dL Globulin 2.5 (2-4) g/dL Albumin/Globulin Ratio 1.7 (1-3) 05/12/19 05/12/19 Range/Units 08:08 08:28 WBC 13.5 H (3.5-10.8) 10^3/uL RBC 5.17 (4.18-5.48) 10^6 /uL Hgb 14.4 (14.0-18.0) g/dL Hct 44 (42-52) % MCV 85 (80-94) fL MCH 28 (27-31) pg MCHC 33 (31-36) g/dL RDW 16 H (10-15) % Plt Count 195 (150-450) 10^3/uL MPV 8.1 (7.4-10.4) fL Neut % (Auto) 79.2 % Lymph % (Auto) 11.5 % Davis % (Auto) 8.4 % Eos % (Auto) 0.4 % Baso % (Auto) 0.5 % Absolute Neuts (auto) 10.7 H (1.5-7.7) 10^3/ul Absolute Lymphs (auto) 1.6 (1.0-4.8) 10^3/ul Absolute Monos (auto) 1.1 H (0-0.8) 10^3/ul Absolute Eos (auto) 0.1 (0-0.6) 10^3/ul Absolute Basos (auto) 0.1 (0-0.2) 10^3/ul Absolute Nucleated RBC 0.0 10^3/ul Nucleated RBC % 0.0 INR (Anticoag Therapy) (0.82-1.09) APTT (26.0-38.0) seconds Sodium (135-145) mmol/L Potassium (3.5-5.0) mmol/L Chloride (101-111) mmol/L Carbon Dioxide (22-32) mmol/L Anion Gap (2-11) mmol/L BUN (6-24) mg/dL Creatinine (0.67-1.17) mg/dL Est GFR ( Amer) (>60) Est GFR (Non-Af Amer) (>60) BUN/Creatinine Ratio (8-20) Glucose (70-100) mg/dL Calcium (8.6-10.3) mg/dL Total Bilirubin (0.2-1.0) mg/dL AST (13-39) U/L ALT (7-52) U/L Alkaline Phosphatase (34-104) U/L Troponin I 0.21 H* (<0.04) ng/mL B-Natriuretic Peptide (<=100) pg/mL Total Protein (6.4-8.9) g/dL Albumin (3.2-5.2) g/dL Globulin (2-4) g/dL Albumin/Globulin Ratio (1-3) Assess/Plan/Problems-Billing Assessment: 48M with NICM (EF 25-30%), NSVT, polysubstance abuse (cocaine/etoh), chronic elevated troponin, presented with episodes of chest pain associated with diaphoresis, palpitation and SOB. Found to have cocaine use, acute on chronic heart failure. Echo shows EF of 25-30% with severe diffuse hypokinesis. - Patient Problems (1) Acute on chronic systolic CHF (congestive heart failure) Current Visit: Yes Status: Acute Code(s): I50.23 - ACUTE ON CHRONIC SYSTOLIC (CONGESTIVE) HEART FAILURE SNOMED Code(s): 114707003 Comment: HX of NICM, NSVT; refused ICD in past. Non adherence to mediaction and diet. Used cocaine 1 day before presentation after conflict with . Echo shows EF of 25-30% with severe diffuse hypokinesis. - cardiology consulted and recommended restarting home meds, trop baseline, low ACS suspicion. - counselled on medication use and following heart healthy diet - continue spironolactone 25 mg and carvedilol 12.5 mg bid - torsemide stopped because of orthostatic hypotension (2) Elevated troponin Current Visit: Yes Status: Acute Code(s): R74.8 - ABNORMAL LEVELS OF OTHER SERUM ENZYMES SNOMED Code(s): 884184258 Comment: has chronically elevated troponin on baseline due to structural heart disease (3) Substance abuse Current Visit: Yes Status: Acute Code(s): F19.10 - OTHER PSYCHOACTIVE SUBSTANCE ABUSE, UNCOMPLICATED SNOMED Code(s): 49307766 Comment: - past history of cocaine, opiod and marijuana use - drinks alcohol infrequently - used cocaine and 3 beers 1 day before presentation because of conflict with his - interested in detox on discharge,awaiting [facility] inview today. (4) Chronic kidney disease (CKD) Current Visit: Yes Status: Acute Code(s): N18.9 - CHRONIC KIDNEY DISEASE, UNSPECIFIED SNOMED Code(s): 769262715 Comment: GFR 45 creatinine 1.62 baseline (5) HTN (hypertension) Current Visit: Yes Status: Acute Code(s): I10 - ESSENTIAL (PRIMARY) HYPERTENSION SNOMED Code(s): 16424266 Comment: - cont spironolactone and carvedilol (6) Orthostatic hypotension Current Visit: Yes Status: Acute Code(s): I95.1 - ORTHOSTATIC HYPOTENSION SNOMED Code(s): 14491509 Comment: patient felt dizzy after getting up from bed and was wobbly found to have orthostatic hypotension, improved after IVF and decreasing carvedilol dose (7) AURELIO (obstructive sleep apnea) Current Visit: Yes Status: Acute Code(s): G47.33 - OBSTRUCTIVE SLEEP APNEA ( ADULT) (PEDIATRIC) SNOMED Code(s): 73271164 Comment: - encourage adherence to CPAP (8) DVT prophylaxis Current Visit: No Status: Acute Code(s): LHH5391 - SNOMED Code(s): 943692536 Comment: on lovenox (9) Full code status Current Visit: No Status: Acute Code(s): Z78.9 - OTHER SPECIFIED HEALTH STATUS SNOMED Code(s): 445953829 Comment: Status and Disposition: Inpatient, will need a inpatient facility for detox. waiting [facility] phone interview today. Attestation Documenting Resident: Ellie Trevino Supervising Physician: Ranjith Whitehead Attestation: This service has been performed in part by a resident under the direction of a teaching physician.I, Ranjith Whitehead, performed the service, or was physically present during the critical, or watts portions of the service, furnished by the resident. I participated in the management of the patient.
--- NOTE | 2019-05-16 23:26 | DS ---
CC: Lashon Whitehead DO * DISCHARGE SUMMARY: DATE OF ADMISSION: 05/12/19 DATE OF DISCHARGE: 05/16/19 PRINCIPAL DISCHARGE DIAGNOSES: 1. Non-ST elevation myocardial infarction. 2. Acute on chronic systolic heart failure. 3. Polysubstance use disorder. SECONDARY DISCHARGE DIAGNOSES: 1. Obstructive sleep apnea. 2. Chronic kidney disease. 3. Chronic pain syndrome. MEDICATIONS AT DISCHARGE: 1. Coreg 25 mg b.i.d. 2. Spironolactone 25 mg daily. 3. Oxycodone 10 mg q.12 p.r.n. pain. PHYSICAL EXAMINATION AT DISCHARGE: Temperature 97.5, heart rate 83, respiratory rate 20, pulse ox 97% on room air, blood pressure 141/87. General: Alert, well appearing, agitated, young man, who is in no respiratory distress , breathing comfortably. Ambulating in the hallways, requesting to leave AMA. HEENT: Pupils equal, round, and reactive to light with no nystagmus. Oral mucosa is moist. Neck: No JVP or adenopathy. Chest: He is in regular rate and rhythm with no murmurs. His lungs are clear bilaterally. Abdomen: Soft, nontender, nondistended. No guarding or rebound. Extremities: No edema, rashes, or ulcers. HOSPITAL COURSE BY PROBLEM: 1. NSTEMI. This was thought to be a type 2 NSTEMI and related to cocaine use. Dr. Chester was consulted and agreed that this was a type 2 NSTEMI provoked by substance use. He was restarted on his beta em, which she had not been taking at home and his chest pain did not return during this hospitalization. An echocardiogram showed no regional wall motion abnormalities. 2. Acute on chronic systolic heart failure, likely again related to substance use. An echo was repeated and showed an ejection fraction of 25% to 30% with severe diffuse hypokinesis. He has declined discussions of an ICD. He has history of angioedema to MARLA inhibitors, so this was avoided and he was continued on a beta em and spironolactone. Imdur and hydralazine is a good consideration for him; however, he admits that he does not take his medications at home and will be unlikely to take this regimen. Unfortunately, he has been discharged from our cardiology clinic due to no shows, so he will follow up with me as an outpatient. He was educated on the cardiac dangers of both alcohol and cocaine and he had been using heavily prior to arrival to the hospital. 3. Polysubstance use disorder. He initially expressed interest in a rehabilitation program and social work was following along closely. They offered him several rehab options, however, he was not interested in the ones they offered and he elected to leave AMA on 05/16/19 as discussed below. 4. Obstructive sleep apnea. He wore his CPAP during his hospitalization and tolerated it well. He is to continue wearing at home. 5. Chronic kidney disease. His creatinine returned to its baseline at 1.3. DISPOSITION: Mr. Sanchez has elected to leave against medical advice on . A lengthy discussion was had with Mr. Sanchez about the risks of leaving AMA , the benefits of staying to obtain a more secure disposition plan. However, he demonstrated clear thought process and ability to make decisions for himself with appropriate reasoning and demonstrated frustration in the options available to him for rehab, so he has chosen to leave AMA today. He agrees to take his home medications and come to see me in the office. [id number]/CPS #: [id number] MTDD
== END 2019-05-16 17:00 | disposition left against medical advice (07) | DRG 190 ==
LOC: ED 05:26 → MEDTELE 11:15 → OBSVTOIN 05-14 12:05
PROVIDERS: ADMIT Internal Medicine; ATTEND Internal Medicine
DX: I21.A1 Myocardial infarction type 2 (principal); I50.23 Acute on chronic systolic (congestive) heart failure; I47.2 Ventricular tachycardia; I42.8 Other cardiomyopathies; I13.0 Hypertensive heart and chronic kidney disease with heart failure and stage 1 through stage 4 chronic kidney disease, or unspecified chronic kidney disease; G47.33 Obstructive sleep apnea (adult) (pediatric); G89.4 Chronic pain syndrome; N18.2 Chronic kidney disease, stage 2 (mild); J44.9 Chronic obstructive pulmonary disease, unspecified; F14.10 Cocaine abuse, uncomplicated; F10.10 Alcohol abuse, uncomplicated; K21.9 Gastro-esophageal reflux disease without esophagitis; R73.03 Prediabetes; D72.828 Other elevated white blood cell count; I95.1 Orthostatic hypotension; I45.10 Unspecified right bundle-branch block; F17.210 Nicotine dependence, cigarettes, uncomplicated; E66.9 Obesity, unspecified; Z68.35 Body mass index [BMI] 35.0-35.9, adult; Z79.891 Long term (current) use of opiate analgesic; Z99.89 Dependence on other enabling machines and devices; Z79.899 Other long term (current) drug therapy; Z88.8 Allergy status to other drugs, medicaments and biological substances; Z88.6 Allergy status to analgesic agent; Z91.040 Latex allergy status; Z91.14 Patient's other noncompliance with medication regimen
CPT/HCPCS: 36415; 36600; 70450; 71045; 80048; 80053; 80061; 81003; 81015; 82803; 83036; 83735; 83880; 84484; 85025; 85610; 85730; 87086; 93005; 93306; 94660; 96365; 96372; 99284; A9270-GY; C8929; G0378; J1650; J3475

== ENCOUNTER 2019-05-18 07:43 | Inpatient (IN) | payer OTHER ==
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
[2019-05-18 08:12] LABS: ABS Basophils 0.1 10^3/ul (0-0.2); ABS Eosinophils 0.1 10^3/ul (0-0.6); ABS Lymphocytes 1.5 10^3/ul (1.0-4.8); ABS Monocytes 0.9 10^3/ul (0-0.8); ABS Neutrophils 7.3 10^3/ul (1.5-7.7); Eosinophil % 0.8 %; Hematocrit 49 % (42-52); Lymphocyte % 15.6 %; Mean Corpuscular HGB Conc 33 g/dL (31-36); Mean Corpuscular Hemoglobin 28 pg (27-31); Mean Corpuscular Volume 86 fL (80-94); Mean Platelet Volume 8.1 fL (7.4-10.4); Nucleated Red Blood Cells % 0.1; Platelet Count 254 10^3/uL (150-450); Red Cell Distribution Width 16 % (10-15); White Blood Count 9.9 10^3/uL (3.5-10.8)
[2019-05-18 08:18] LABS: INR 1.31 (0.82-1.09)
[2019-05-18 08:21] LABS: ALT 27 U/L (7-52); Albumin 4.5 g/dL (3.2-5.2); Albumin/Globulin Ratio 1.4 (1-3); Alkaline Phosphatase 71 U/L (34-104); BUN/Creatinine Ratio 12.6 (8-20); Blood Urea Nitrogen 22 mg/dL (6-24); CO2 Carbon Dioxide 26 mmol/L (22-32); Calcium 9.8 mg/dL (8.6-10.3); Chloride 102 mmol/L (101-111); EGFR African American 50.2 (>60); EGFR Non-African American 41.5 (>60); Globulin 3.3 g/dL (2-4); Glucose 92 mg/dL (70-100); Sodium 137 mmol/L (135-145); Total Protein 7.8 g/dL (6.4-8.9)
[2019-05-18 08:28] LABS: Troponin I 0.19 ng/mL (<0.04)
[2019-05-18 08:38] LABS: CKMB ng/mL 5.8 ng/mL (0.6-6.3)
[2019-05-18 08:48] LABS: Anion Gap 9 mmol/L (2-11)
[2019-05-18 09:00] LABS: C Reactive Protein 12.87 mg/L (<8.01); Creatine Kinase 188 U/L (10-223)
[2019-05-18 09:38] LABS: Potassium Redraw 3.9 mmol/L (3.5-5.0)
[2019-05-18 09:56] LABS: Urine Appearance Clear; Urine Bacteria Absent (Absent); Urine Bilirubin Negative (Negative); Urine Blood Negative (Negative); Urine Color Amber; Urine Glucose Negative (Negative); Urine Ketones Negative (Negative); Urine Nitrite Negative (Negative); Urine Protein 2+(100 mg/dL) (Negative); Urine Red Blood Cell Trace(0-2/hpf) (Absent); Urine Specific Gravity 1.025 (1.010-1.030); Urine Squamous Epithelial Cell Present (Absent); Urine Urobilinogen Positive (Negative); Urine White Blood Cell Trace(0-5/hpf) (Absent)
[2019-05-18 10:11] LABS: Urine Benzodiazepine Screen None Detected (None Detect); Urine Opiates Screen None Detected (None Detect)
[2019-05-18 11:32] LABS: Troponin I 0.16 ng/mL (<0.04)
[2019-05-18] MEDS ORDERED: Acetaminophen TAB* 325 MG PO PRN (11:58)
[2019-05-18] MEDS ORDERED: NS 0.9% 1000 ML** 1,000 ML IV SCH (12:00)
[2019-05-18] MEDS ORDERED: Albuterol HFA INHALER* 8 gm MDI INH PRN (13:08)
--- NOTE | 2019-05-18 13:45 | HP ---
History of Present Illness - History of Present Illness Reason for Visit: Chest Pain History of Present Illness: Mr. Sanchez is a 48 years old male with past medical history of severe nonischemic cardiomyopathy realted to a combination of hypertension, alcohol and cocaine use disorder, presented to ED for chest pain after AMA discharge the day before (05/16). He was admitted previous admission for chest pain after cocaine use, also was seeking for inpatient detoxication, he left AMA before getting accepted in an inpatient detox program. He didn't go for outpatient appointment as he promised. Instead he went to a bar and snored cocaine again , also he had a cup of vodka yesterday night. He had worsening chest pain after having cocaine. He had longstanding intermittent chest pain, he described as "pulsatation" chest pain, starting from central chest, radiating to left ribs and flanks, lasting 3-4 mins each time, cocaine use made it worse, Coreg and spironolactone made it better. Also he complained of shortness of breath, aggravated by exertion for long. Noted collaborative history from his son, he had 2 episodes of vomiting this morning. When asked what he wanted to do differently this time, he said he wanted to go outpatient detoxication now, also he wanted to get a life vest and go to cardiac rehab. When asked about barriers for stopping cocaine, he admitted that those "old folks" asked him to do it again, he regretted that he redid it, he said he didn't want to destroyhis heart and family with his cocaine use. - Past Medical History Past Medical History: 1. HTN 2. Nonischemic cardiomyopathy, EF 20-25% 3. Lumbar spinal pathology 4. COPD 5. Alcohol and cocaine abuse 6. History of paroxysmal and ventricular tachycardia 7. Chronic kidney stage 2 8. Obstructive sleep apnea 9. GERD 10. Prediabetes - Past Surgical History Past Surgical History: 1. colonoscopy 2. 2 lumbar surgeries 3. 1 lumbar fusion 4. uvulopharyngoplasty - Past Family History Past Family History: Mother of AIDS complications. Father's history unknown. - Past Social History Past Social History: He used to smoke about 10 cigarettes per day for unknown years. He drank vodka 1 cup yesterday, used cocaine yesterday. Denied other substance use. Working in [employer], last work 1 week ago. He is with 5 children, his relationship with his is currently at edge. Review of Systems - Review of Systems Constitutional: Negative: Fever, Chills, Sweats, Weakness, Malaise, Other Eyes: Negative: Pain, Vision Change, Conjunctivae Inflammation, Eyelid Inflammation, Redness, Other ENT: Negative: Ear Pain, Ear Discharge, Nose Pain, Nose Discharge, Nose Congestion, Mouth Pain, Mouth Swelling, Throat Pain, Throat Swelling, Other Respiratory: Negative: Cough, Dry, Shortness of Breath, Hemoptysis, SOB with Excertion, Pleuritic Pain, Sputum, Wheezing Cardiovascular: Positive: Chest Pain Gastrointestinal: Negative: Nausea, Vomiting, Abdominal Pain, Diarrhea, Constipation, Melena, Hematochezia, Other Genitourinary: Negative: Dysuria, Frequency, Incontinence, Hematuria, Retention , Other Musculoskeletal: Negative: Neck Pain, Shoulder Pain, Arm Pain, Back Pain, Hand Pain, Leg Pain, Foot Pain, Other Skin: Negative: Rash, Lesions, Cortez, Bruising, Other Neurological: Negative: Weakness, Numbness, Incoordination, Change in Speech, Confusion, Seizures, Other - Medications/Allergies Allergies/Adverse Reactions: Allergies Allergy/AdvReac Type Severity Reaction Status Date / Time lisinopril Allergy Severe See Comment Verified 05/28/19 03:12 aspirin Allergy Intermediate Itching Verified 05/28/19 03:12 hydralazine Allergy Intermediate See Comment Verified 05/28/19 03:12 Iodinated Contrast Media Allergy Intermediate See Comment Verified 05/28/19 03: 12 [Iodinated Contrast- Oral and IV Dye] acetaminophen Allergy Hives Verified 05/28/19 03:12 gadoteridol Allergy Nausea Verified 05/28/19 03:12 latex Allergy Rash And Verified 05/28/19 03:12 Itching ibuprofen AdvReac Intermediate Nausea And Verified 05/28/19 03:12 Vomiting Medications: Home Med 1. Torsemide 20 mg p.o. daily. 2. Carvedilol 25 mg p.o. b.i.d. 3. Spironolactone 12.5 mg p.o. daily. 4. Oxycodone 10 mg p.o. daily. 5. Ventolin inhaler as needed. 6. Flaxseed oil. Patient has been taking all of these medications intermittently. Exam Vital Signs: Vital Signs (72 hours) 05/18/19 05/18/19 05/18/19 07:46 08:00 08:02 Temperature 98.3 F Pulse Rate 111 113 Respiratory 18 24 22 Rate Blood Pressure 148/85 111/77 (mmHg) O2 Sat by Pulse 97 96 Oximetry 05/18/19 05/18/19 05/18/19 09:00 09:08 09:40 Temperature Pulse Rate 109 111 115 Respiratory 17 32 38 Rate Blood Pressure 142/101 140/101 (mmHg) O2 Sat by Pulse 95 96 96 Oximetry 05/18/19 05/18/19 05/18/19 10:00 10:08 10:38 Temperature Pulse Rate 103 107 Respiratory 26 31 30 Rate Blood Pressure 122/80 130/89 (mmHg) O2 Sat by Pulse 95 94 Oximetry 05/18/19 05/18/19 05/18/19 11:00 11:08 11:38 Temperature Pulse Rate 102 99 99 Respiratory 33 28 27 Rate Blood Pressure 150/83 119/89 (mmHg) O2 Sat by Pulse 95 98 96 Oximetry 05/18/19 05/18/19 05/18/19 12:00 12:07 12:38 Temperature Pulse Rate Respiratory 26 26 24 Rate Blood Pressure 125/82 (mmHg) O2 Sat by Pulse Oximetry 05/18/19 05/18/19 05/18/19 12:59 13:00 13:08 Temperature 99.1 F Pulse Rate 109 103 Respiratory 16 25 18 Rate Blood Pressure 125/82 126/86 (mmHg) O2 Sat by Pulse 94 96 Oximetry Exam: General - appeared stated age, lying on the bed with a dirty leonidas, no acute distress Eyes - PERRLA, EOM intact, mildly red Lymph Nodes - No lymphadenopathy Cardiovascular - RRR no m/r/g, no JVD, no carotid bruits Lungs - Clear to auscltation, no use of acessory muscles, no crackles or wheezes. Skin - right side abdomen scratching naranjo. No rashes, skin warm and dry, no erythematous areas Abdomen - Normal bowel sounds, abdomen soft and nontender Extremeties - No edema, cyanosis or clubbing Musculo Skeletal - 5/5 strength, normal range of motion, no swollen or erythematous joints. Neurological Alert and oriented x 3, CN 2-12 grossly intact. Assessment/Plan - Assessment/Plan Assessment: Mr. Sanchez is a 48 years old male with significant past medical history of nonischemic cardiomyopathy with EF 20-25%, cocaine and alcohol abuse, presented with relapse on cocaine and recurrent intermittent chest pain. He was just AMA discharged 2 days ago for which he was admitted for the same reason, found to have cocaine related chest pain, and planned for inpatient detoxication placement. Trop is downtrending from the last result with no EKG change, likely it's related to cocaine use. Plan: 1. Chest pain - Trop elevated at 0.16, downtrending from last result during last admission EKG no new changes, T wave inversion at lateral leads are old changes CXR: no active cardiopulmonary diseases Likely cocaine related - keep trending trop I - no need for benzodiazepine since 0 chest pain now, nitroglycerin prn - cardiology consult for life vest - continue old med including spironolactone, torsemide, carvedilol 2. Cocaine use disorder - patient refused inpatient detox program - would refer forensic social worker for outpatient program 3. Alcohol use disorder - [facility] protocol - currently score 0 - would watch for withdrawal sx 4. DVT prophylaxis - ambulant, no med required - Attestation Documenting Resident: Ellie Trevino Supervising Physician: Ranjith Whitehead Attestation: This service has been performed in part by a resident under the direction of a teaching physician.I, Ranjith Whitehead, performed the service, or was physically present during the critical, or watts portions of the service, furnished by the resident. I participated in the management of the patient.
[2019-05-18 15:13] LABS: Troponin I 0.18 ng/mL (<0.04)
[2019-05-18] MEDS: Heparin VIAL(*) 5000 UNITS/ML VIAL (FIVE THOUSAND) SUBCUT SCH ×2 (15:24→22:56)
[2019-05-18] MEDS: oxyCODONE TAB* 5 MG TAB PO PRN (15:25)
[2019-05-18] MEDS: Carvedilol TAB* 6.25 MG PO SCH (20:35)
[2019-05-18] MEDS: Torsemide TAB* 20 MG PO SCH (20:37)
[2019-05-18] MEDS ORDERED: LORazepam TAB(*) 1 MG PO SCH (23:00)
[2019-05-19] MEDS: Heparin VIAL(*) 5000 UNITS/ML VIAL (FIVE THOUSAND) SUBCUT SCH ×3 (05:42→20:56)
[2019-05-19] MEDS: oxyCODONE TAB* 5 MG TAB PO PRN (05:48)
[2019-05-19] MEDS: Spironolactone TAB* 25 MG PO SCH (09:31)
[2019-05-19] MEDS: Torsemide TAB* 20 MG PO SCH ×2 (09:31→20:56)
[2019-05-19] MEDS: Thiamine TAB* 100 MG TAB PO SCH (09:31)
[2019-05-19] MEDS: Carvedilol TAB* 6.25 MG PO SCH ×2 (09:32→20:56)
[2019-05-19 17:22] LABS: Magnesium 1.8 mg/dL (1.9-2.7); Potassium 4.3 mmol/L (3.5-5.0)
--- NOTE | 2019-05-19 18:28 | PN ---
Subjective Date of Service: 05/19/19 Interval History: Feeling good, motivated to make changes in his life. No furhter chest pain Objective Active Medications: Albuterol (Ventolin Hfa Inhaler*) 2 puff INH Q4H PRN PRN Reason: SOB/WHEEZING Carvedilol (Coreg Tab*) 6.25 mg PO BID [facility] Last Admin: 05/19/19 09:32 Dose: 6.25 mg Heparin Sodium (Porcine) (Heparin Vial(*)) 5,000 units SUBCUT Q8HR [facility] Last Admin: 05/19/19 13:59 Dose: 5,000 units Lorazepam (Ativan Tab(*)) 0 - 6 mg PO .PER [facility] PROTOCOL [facility]; Protocol Last Admin: 05/18/19 22:55 Dose: 2 mg Magnesium Chloride (Slow Mag Ec Tab*) 64 mg PO DAILY [facility] Oxycodone HCl (Roxycodone Tab*) 10 mg PO Q12H PRN PRN Reason: back pain Last Admin: 05/19/19 05:48 Dose: 10 mg Spironolactone (Aldactone Tab*) 25 mg PO DAILY [facility] Last Admin: 05/19/19 09:31 Dose: 25 mg Thiamine HCl (Vitamin B-1 Tab*) 100 mg PO DAILY [facility] Last Admin: 05/19/19 09:31 Dose: 100 mg Torsemide (Demadex*) 20 mg PO BID [facility] Last Admin: 05/19/19 09:31 Dose: 20 mg Vital Signs - 8 hr 05/19/19 05/19/19 05/19/19 12:00 13:56 16:00 Temperature 98 F 97.9 F 97.4 F Pulse Rate 99 92 104 Respiratory 16 28 18 Rate Blood Pressure 132/84 111/72 109/82 (mmHg) O2 Sat by Pulse 100 100 99 Oximetry Oxygen Devices in Use Now: None Appearance: alert, well appearing, walking his room Eyes: No Scleral Icterus Ears/Nose/Mouth/Throat: NL Teeth, Lips, Gums Neck: NL Appearance and Movements; NL JVP Respiratory: Symmetrical Chest Expansion and Respiratory Effort Cardiovascular: RRR Abdominal: NL Sounds; No Tenderness; No Distention Lymphatic: No Cervical Adenopathy Extremities: No Edema Result Diagrams: 05/18/19 07:58 05/19/19 17:01 Microbiology and Other Data: Microbiology 05/18/19 09:37 Urine Culture - Final Urine No Growth (<1,000 CFU/mL) Assess/Plan/Problems-Billing Assessment: 48 year old man with history of NICM, chronic pain syndrome, and HTN admitted with cocaine chest pain - Patient Problems (1) Chest pain Current Visit: No Status: Acute Code(s): R07.9 - CHEST PAIN, UNSPECIFIED SNOMED Code(s): 85450823 Comment: Resolved; likely related to cocaine use Echo shows LVH, mod MR, EF 45%.(was 55% in 2013) stress shows ischemia and EF of 37%. Pt has h/o negative cath in 2010. Cardiology re-evaluated him last week; no new recommendations. (2) Acute on chronic systolic CHF (congestive heart failure) Current Visit: No Status: Acute Code(s): I50.23 - ACUTE ON CHRONIC SYSTOLIC (CONGESTIVE) HEART FAILURE SNOMED Code(s): 595761748 Comment: now with NSVT unable to get him a lifevest because his last one was lost with a missing piece replete lytes; attempt diuresis, increase coreg, monitor on tele (3) Elevated troponin Current Visit: No Status: Acute Code(s): R74.8 - ABNORMAL LEVELS OF OTHER SERUM ENZYMES SNOMED Code(s): 579206046 Comment: likely related to cocaine + acute on chronic chf (4) Cocaine use disorder Current Visit: Yes Status: Acute Code(s): F14.10 - COCAINE ABUSE, UNCOMPLICATED SNOMED Code(s): 98016052 Comment: interested in rehab for etoh + cocaine and alcohol and drug [place]
[2019-05-19] MEDS: Magnesium Chloride EC TAB* 64 MG PO SCH (20:56)
[2019-05-20] MEDS: Heparin VIAL(*) 5000 UNITS/ML VIAL (FIVE THOUSAND) SUBCUT SCH ×3 (06:12→21:15)
[2019-05-20 07:26] LABS: BUN/Creatinine Ratio 17.4 (8-20); Calcium 9.6 mg/dL (8.6-10.3); EGFR African American 62.8 (>60); EGFR Non-African American 51.9 (>60); Magnesium 1.8 mg/dL (1.9-2.7); Potassium 3.9 mmol/L (3.5-5.0)
[2019-05-20] MEDS ORDERED: Potassium Chlor TAB* 20 MEQ TAB.ER PO ONE (07:32)
[2019-05-20] MEDS: Magnesium Chloride EC TAB* 64 MG PO SCH (08:23)
[2019-05-20] MEDS: oxyCODONE TAB* 5 MG TAB PO PRN ×2 (08:23→21:16)
[2019-05-20] MEDS: Carvedilol TAB* 6.25 MG PO SCH ×2 (08:23→21:15)
[2019-05-20] MEDS: Torsemide TAB* 20 MG PO SCH (08:23)
[2019-05-20] MEDS: Thiamine TAB* 100 MG TAB PO SCH (08:24)
[2019-05-20] MEDS: Spironolactone TAB* 25 MG PO SCH (08:24)
[2019-05-20] MEDS ORDERED: Torsemide TAB* 20 MG PO PRN (14:18)
--- NOTE | 2019-05-20 18:37 | DS ---
ADDENDUM NOW INCLUDED ON THIS REPORT CC: Dr. Uvaldo Ford, [facility] * DISCHARGE SUMMARY: DATE OF ADMISSION: 05/18/19 DATE OF DISCHARGE: 05/20/19 DISPOSITION: Against medical advice. PRINCIPAL DISCHARGE DIAGNOSES: 1. Nonsustained ventricular tachycardia. 2. Nonischemic cardiomyopathy. 3. Cocaine chest pain. 4. Cocaine use disorder. SECONDARY DISCHARGE DIAGNOSES: 1. Alcohol use disorder. 2. Chronic kidney disease. 3. Chronic pain syndrome. 4. Obstructive sleep apnea. PHYSICAL EXAMINATION: At discharge, temperature 98.3, heart rate 90, respiratory rate 20, pulse ox 100% on room air, blood pressure 116/81. General : Alert, well- appearing young man in no distress. He is breathing comfortably , ambulating around his room. HEENT: Pupils 4 mm bilaterally and reactive to light. Oral mucosa is moist. Neck: No JVP is appreciable. No adenopathy. Chest: He is in a regular rate and rhythm with a laterally displaced PMI. His lungs are clear bilaterally. Abdomen is obese, soft, nontender, nondistended. No guarding or rebound. Extremities: No edema, rashes, or ulcers. Neurologic: His gait is normal. His strength is 5/5 throughout. He is oriented. Psych: He is pleasant with reasonable thought processes and forward thinking. HOSPITAL COURSE BY PROBLEM: 1. Cocaine chest pain. Mr. Sanchez presented to the emergency department 2 days after leaving against medical advice and using cocaine after his discharge with recurrent chest pain that began immediately after cocaine use. His troponin was elevated again with no EKG changes and by the time he arrived to the emergency department, his chest pain was resolved. Cardiology had seen the patient several days prior and I did touch base with them. They agreed with continuing medical management and Mr. Sanchez agreed to restarting his medications, which he had not picked up when he left the hospital. His chest pain did not recur during his admission. 2. Nonsustained V-tach. On 05/19/19, Mr. Sanchez had a 26-beat run of V-tach. Even prior to this episode, he was agreeable to a LifeVest; however, this decision was complicated by the fact that he had a LifeVest in the past and had never returned it to the supply company. We contacted them and they were willing to supply him with a new LifeVest if he was able to return all of the parts, but he was unable to find all the parts of his LifeVest to return. Therefore, I asked Cardiology if they be willing to implant an ICD and they agreed that this would be a reasonable choice for Mr. Sanchez. They offered to implant an ICD on 05/22/19. I discussed this option with Mr. Sanchez, explained that this will be a life saving procedure and he understands; however, he does not want to stay the weekend for this and prefers to go home and look for the part of his LifeVest that is missing and opt for the LifeVest instead of the implantable ICD. His beta-em was uptitrated while he was here and he was given magnesium and he will be discharged on magnesium. 3. Nonischemic cardiomyopathy. He was continued on a beta-em. He was normotensive during his hospitalization. He has a history of angioedema to an MARLA inhibitor and also has an allergy to HYDRALAZINE. He has been sensitive to torsemide in the past, so he was discharged on p.r.n. torsemide and is instructed to take it only if he gains 3 pounds in a day. 4. Cocaine and alcohol use disorders. Social work was consulted and they helped to arrange outpatient rehab for him at [facility]. He also has an appointment with [facility], which he agrees to follow up with. DISPOSITION: Mr. Sanchez has chosen to leave against medical advice on 05/20/19 and defer the option of having an ICD implanted by Cardiology in 2 days. I have explained to him at length the risks for sudden cardiac and fatal arrhythmias given his heart failure and tendency towards ventricular arrhythmias. He clearly understands these risks and is able to repeat them back to me and says he would rather take the risk of dying at home than stay in the hospital and have an ICD placed. He expresses thoughtful insight and understanding of his disease process and is willing to accept the risk of leaving against medical advice on 05/20/19. CONDITION AT THE TIME OF DISCHARGE: Guarded. ADDENDUM: Mr. Sanchez spoke with his and his son, who suggested to him that he stay over the weekend and have the ICD placed on Wednesday. I talked to Jeronimo and his son and his myself and explained the reasoning for the ICD and they agreed. Quan now agrees to stay after our conversations and I will communicate this plan with Dr. Vivas. [id number]/CPS #: [id number] A- [id number]/CPS #: [id number] KANDACE
--- NOTE | 2019-05-20 19:02 | DS ---
DISCHARGE SUMMARY: DATE OF ADMISSION: DATE OF DISCHARGE: ADDENDUM: Mr. Sanchez spoke with his and his son, who suggested to him that he stay over the weekend and have the ICD placed on Wednesday. I talked to Jeronimo and his son and his myself and explained the reasoning for the ICD and they agreed. Quan now agrees to stay after our conversations and I will communicate this plan with Dr. Vivas. [id number]/[facility] #: [id number] KANDACE
[2019-05-21] MEDS: Heparin VIAL(*) 5000 UNITS/ML VIAL (FIVE THOUSAND) SUBCUT SCH ×3 (05:26→20:01)
[2019-05-21] MEDS: Thiamine TAB* 100 MG TAB PO SCH (09:02)
[2019-05-21] MEDS: Spironolactone TAB* 25 MG PO SCH (09:02)
[2019-05-21] MEDS: Magnesium Chloride EC TAB* 64 MG PO SCH (09:02)
[2019-05-21] MEDS: Carvedilol TAB* 6.25 MG PO SCH ×2 (09:02→19:57)
--- NOTE | 2019-05-21 09:13 | PN ---
Subjective Date of Service: 05/21/19 Interval History: Mr. Sanchez changed his mind yesterday about leaving AMA. He decided to stay for an ICD on Wednesday after talking with his and son. He feels good today and has no complaints other than his back pain, which is unchanged from baseline. Objective Active Medications: Albuterol (Ventolin Hfa Inhaler*) 2 puff INH Q4H PRN PRN Reason: SOB/WHEEZING Carvedilol (Coreg Tab*) 12.5 mg PO BID [facility] Last Admin: 05/21/19 09:02 Dose: 12.5 mg Heparin Sodium (Porcine) (Heparin Vial(*)) 5,000 units SUBCUT Q8HR [facility] Last Admin: 05/21/19 05:26 Dose: 5,000 units Lorazepam (Ativan Tab(*)) 0 - 6 mg PO .PER [facility] PROTOCOL [facility]; Protocol Last Admin: 05/18/19 22:55 Dose: 2 mg Magnesium Chloride (Slow Mag Ec Tab*) 64 mg PO DAILY [facility] Last Admin: 05/21/19 09:02 Dose: 64 mg Spironolactone (Aldactone Tab*) 25 mg PO DAILY [facility] Last Admin: 05/21/19 09:02 Dose: 25 mg Thiamine HCl (Vitamin B-1 Tab*) 100 mg PO DAILY [facility] Last Admin: 05/21/19 09:02 Dose: 100 mg Torsemide (Demadex*) 20 mg PO DAILY PRN PRN Reason: edema Vital Signs - 8 hr 05/21/19 05/21/19 03:58 08:00 Temperature 98.0 F 97.4 F Pulse Rate 80 86 Respiratory 18 18 Rate Blood Pressure 102/57 146/105 (mmHg) O2 Sat by Pulse 96 100 Oximetry Oxygen Devices in Use Now: None Appearance: alert, well appearing, walking around the room Eyes: No Scleral Icterus Ears/Nose/Mouth/Throat: NL Teeth, Lips, Gums Neck: NL Appearance and Movements; NL JVP Respiratory: Symmetrical Chest Expansion and Respiratory Effort Cardiovascular: NL Sounds; No Murmurs; No JVD, RRR Abdominal: NL Sounds; No Tenderness; No Distention Lymphatic: No Cervical Adenopathy Extremities: No Edema Skin: No Rash or Ulcers Neurological: Alert and Oriented x 3 Result Diagrams: 05/18/19 07:58 05/20/19 06:50 Microbiology and Other Data: Microbiology 05/18/19 09:37 Urine Culture - Final Urine No Growth (<1,000 CFU/mL) Assess/Plan/Problems-Billing Assessment: 48 year old man with history of NICM, chronic pain syndrome, and HTN admitted with cocaine chest pain - Patient Problems (1) NSVT (nonsustained ventricular tachycardia) Current Visit: Yes Status: Acute Code(s): I47.2 - VENTRICULAR TACHYCARDIA SNOMED Code(s): 235195221 Comment: improved with increased dose of coreg plan for ICD tomorrow; will discuss with Dr. Vivas check mag and K today (2) Chest pain Current Visit: No Status: Acute Code(s): R07.9 - CHEST PAIN, UNSPECIFIED SNOMED Code(s): 50157608 Comment: Resolved; likely related to cocaine use Echo shows LVH, mod MR, EF 25-30% with regional wall motion abnormalities Negative LHC in 2010 (3) Acute on chronic systolic CHF (congestive heart failure) Current Visit: No Status: Acute Code(s): I50.23 - ACUTE ON CHRONIC SYSTOLIC (CONGESTIVE) HEART FAILURE SNOMED Code(s): 356537852 Comment: euvolemic; continue bb, spironolactone. no MARLA or imdur/hydral due to allergies. (4) Elevated troponin Current Visit: No Status: Acute Code(s): R74.8 - ABNORMAL LEVELS OF OTHER SERUM ENZYMES SNOMED Code(s): 721838153 Comment: likely related to cocaine + acute on chronic chf (5) Cocaine use disorder Current Visit: Yes Status: Acute Code(s): F14.10 - COCAINE ABUSE, UNCOMPLICATED SNOMED Code(s): 42975224 Comment: interested in rehab for etoh + cocaine and alcohol and drug [place] Status and Disposition: plan for ICD tomorrow
[2019-05-21] MEDS: oxyCODONE TAB* 5 MG TAB PO PRN ×3 (09:55→23:25)
[2019-05-21 11:21] LABS: Magnesium 1.8 mg/dL (1.9-2.7); Potassium 4.2 mmol/L (3.5-5.0)
[2019-05-21] MEDS: Magnesium Oxide TAB* 400 MG PO SCH (16:04)
[2019-05-22] MEDS: Heparin VIAL(*) 5000 UNITS/ML VIAL (FIVE THOUSAND) SUBCUT SCH ×3 (05:39→20:20)
[2019-05-22] MEDS: oxyCODONE TAB* 5 MG TAB PO PRN ×3 (06:58→20:19)
[2019-05-22] MEDS: Carvedilol TAB* 6.25 MG PO SCH ×2 (08:06→20:17)
[2019-05-22] MEDS: Magnesium Oxide TAB* 400 MG PO SCH (08:06)
[2019-05-22] MEDS: Thiamine TAB* 100 MG TAB PO SCH (08:07)
[2019-05-22] MEDS: Spironolactone TAB* 25 MG PO SCH (08:07)
[2019-05-22 09:05] LABS: ABS Basophils 0.1 10^3/ul (0-0.2); ABS Eosinophils 0.3 10^3/ul (0-0.6); ABS Lymphocytes 1.9 10^3/ul (1.0-4.8); ABS Monocytes 0.8 10^3/ul (0-0.8); ABS Neutrophils 3.2 10^3/ul (1.5-7.7); Eosinophil % 5.3 %; Hematocrit 43 % (42-52); Hemoglobin 14.1 g/dL (14.0-18.0); Lymphocyte % 30.2 %; Mean Corpuscular HGB Conc 33 g/dL (31-36); Mean Corpuscular Hemoglobin 28 pg (27-31); Mean Corpuscular Volume 86 fL (80-94); Mean Platelet Volume 8.1 fL (7.4-10.4); Nucleated Red Blood Cells % 0.1; Platelet Count 234 10^3/uL (150-450); Red Blood Count 4.98 10^6 /uL (4.18-5.48); Red Cell Distribution Width 16 % (10-15); White Blood Count 6.3 10^3/uL (3.5-10.8)
[2019-05-22 09:19] LABS: Anion Gap 5 mmol/L (2-11); BUN/Creatinine Ratio 17.4 (8-20); Blood Urea Nitrogen 26 mg/dL (6-24); CO2 Carbon Dioxide 27 mmol/L (22-32); Calcium 9.5 mg/dL (8.6-10.3); Chloride 103 mmol/L (101-111); EGFR African American 60.4 (>60); EGFR Non-African American 49.9 (>60); Glucose 97 mg/dL (70-100); Magnesium 1.8 mg/dL (1.9-2.7); Potassium 4.3 mmol/L (3.5-5.0); Sodium 135 mmol/L (135-145)
[2019-05-22 09:38] LABS: Troponin I 0.15 ng/mL (<0.04)
[2019-05-22] MEDS ORDERED: Dextrose 50% Syringe 50 ML* 25 GM/50 ML SYRINGE IV PUSH STA (09:41)
[2019-05-22] MEDS ORDERED: Dextrose 50% Syringe 50 ML* 25 GM/50 ML SYRINGE IV PUSH ONE (10:00)
--- NOTE | 2019-05-22 13:03 | CONS ---
CARDIOLOGY CONSULTATION: DATE OF CONSULT: 05/22/19 INDICATION FOR CONSULTATION: Cardiomyopathy, ventricular tachycardia. HISTORY OF PRESENT ILLNESS: The patient is a 48-year-old gentleman with a history of severe non-ischemic cardiomyopathy. The patient had been in our practice for a number of years. He had been followed by Dr. Chester. The patient had been a no show on a number of office visits and noncompliance with medical advice and he was discharged from our practice by Dr. Chester. The patient was admitted to the hospital for inpatient detoxification and chest pain. While he was in the hospital, he had runs of nonsustained ventricular tachycardia. I was consulted to discuss with the patient his cardiology medical care and his potential for ICD. The patient at this time is asymptomatic. He has no chest pain, no shortness of breath, no palpitations, no lightheadedness, dizziness, or syncope. PAST MEDICAL HISTORY: Significant for: 1. Hypertension. 2. Non-ischemic cardiomyopathy. 3. COPD. 4. Alcohol and cocaine abuse. 5. Paroxysmal ventricular tachycardia. 6. Prediabetes. PAST SURGICAL HISTORY: 1. Colonoscopy. 2. Lumbar surgery. MEDICATIONS: Outpatient medications are reviewed. ALLERGIES: To LISINOPRIL, HYDRALAZINE, and IODINE CONTRAST DYE. FAMILY HISTORY: Mother of age, father of unknown causes. SOCIAL HISTORY: He uses tobacco and significant alcohol and cocaine use. He works at [employer]. He is . REVIEW OF SYSTEMS: Negative for fevers and chills. Negative for changes in bowel or bladder habits. Negative for change in weight. Other 12-point reviews unremarkable. PHYSICAL EXAM: Height 5 feet 6 inches, weight 219 pounds, temperature 97.7, heart rate 83, blood pressure 143/93, respiratory rate is 20, oxygen saturation 100% on room air. Sclerae anicteric. Oropharynx is pink without erythema. Carotids are 2+ without bruits. JVD is normal. Thyroid is normal. Cardiac Exam: S1, S2 without any murmurs, rubs, or gallops. PMI is normal. Lungs are clear to auscultation. Abdomen is obese, soft, nontender, and nondistended with normoactive bowel sounds. Extremities show no edema. He has 2+ pulses throughout. The patient is awake, alert, and oriented. He moves all 4 extremities equally. DIAGNOSTIC STUDIES/LAB DATA: CBC within normal limits. Chemistries within normal limits. Troponin is minimally elevated at 0.15. BUN 26, creatinine 1.4. Tox screen is positive for cocaine and cannabis use. IMPRESSION AND RECOMMENDATIONS: This is a 48-year-old gentleman with a history of non-ischemic cardiomyopathy, who was admitted to the hospital for chemical detoxification. The patient in our practice but was discharged because of noncompliance with both office visits and medications. I was consulted to talk to the patient about ICD implantation. The patient clearly meets criteria for ICD implantation. Because of his ongoing substance abuse and noncompliance in the past, I am hesitant to place a defibrillator in this patient. The patient has been discharged from our patient. The patient is on appropriate medications. My recommendation, the patient will be discharged on a LifeVest. The patient should seek another machine welt butter to overtake his cardiology care and through that office arrange for ICD implantation. This was discussed with the care givers of this patient during this hospitalization. They understand my reluctance to place ICD in the patient who has been very noncompliant in the past. [id number]/CPS #: [id number] MTDD
--- NOTE | 2019-05-22 17:02 | PN ---
Subjective Date of Service: 05/22/19 Interval History: Saw patient around 8:30am this morning,complained of sudden onset of diaphoresis and SOB. Checked sugar 96, glucose drink was given with relief. Appreciate cardiology input regarding ICD placement. He was discharged from cardiology service due to too many no shows, also direct harm related to ICD insertion overweights the continuous churn buttermaker benefits of ICD. Dr. Zapata and I had long conversation with patient and his family, decision made not for ICD insertion, instead looking for getting a external defibrillation for her. We are trying to sort out the barriers of getting a lifevest though he is known for losing his prev lifevest. Objective Active Medications: Albuterol (Ventolin Hfa Inhaler*) 2 puff INH Q4H PRN PRN Reason: SOB/WHEEZING Carvedilol (Coreg Tab*) 12.5 mg PO BID [facility] Last Admin: 05/22/19 08:06 Dose: 12.5 mg Heparin Sodium (Porcine) (Heparin Vial(*)) 5,000 units SUBCUT Q8HR [facility] Last Admin: 05/22/19 15:23 Dose: 5,000 units Lorazepam (Ativan Tab(*)) 0 - 6 mg PO .PER [facility] PROTOCOL [facility]; Protocol Last Admin: 05/18/19 22:55 Dose: 2 mg Magnesium Oxide (Magox 400 Tab*) 400 mg PO DAILY [facility] Last Admin: 05/22/19 08:06 Dose: 400 mg Oxycodone HCl (Roxycodone Tab*) 10 mg PO Q6H PRN PRN Reason: back pain Last Admin: 05/22/19 12:47 Dose: 10 mg Spironolactone (Aldactone Tab*) 25 mg PO DAILY [facility] Last Admin: 05/22/19 08:07 Dose: 25 mg Thiamine HCl (Vitamin B-1 Tab*) 100 mg PO DAILY [facility] Last Admin: 05/22/19 08:07 Dose: 100 mg Vital Signs - 8 hr 05/22/19 05/22/19 05/22/19 11:39 12:47 15:28 Respiratory 20 18 18 Rate Oxygen Devices in Use Now: None Exam: Oxygen Devices in Use Now: None Appearance: alert, well appearing, walking his room Eyes: No Scleral Icterus Ears/Nose/Mouth/Throat: NL Teeth, Lips, Gums Neck: NL Appearance and Movements; NL JVP Respiratory: Symmetrical Chest Expansion and Respiratory Effort Cardiovascular: RRR Abdominal: NL Sounds; No Tenderness; No Distention Lymphatic: No Cervical Adenopathy Extremities: No Edema Result Diagrams: 05/22/19 08:53 05/22/19 08:53 Microbiology and Other Data: Microbiology 05/18/19 09:37 Urine Culture - Final Urine No Growth (<1,000 CFU/mL) Assess/Plan/Problems-Billing Assessment: 48 year old man with history of NICM, chronic pain syndrome, and HTN admitted with cocaine chest pain. - Patient Problems (1) Acute on chronic systolic CHF (congestive heart failure) Current Visit: No Status: Acute Code(s): I50.23 - ACUTE ON CHRONIC SYSTOLIC (CONGESTIVE) HEART FAILURE SNOMED Code(s): 097078517 Comment: euvolemic; continue bb, spironolactone. no MARLA or imdur/hydral due to allergies. plan for life vest for arrythmia prevention and follow up with [place] flower arranger since he was discharged from [facility] flower arranger service (2) Chest pain Current Visit: No Status: Acute Code(s): R07.9 - CHEST PAIN, UNSPECIFIED SNOMED Code(s): 55750734 Comment: Resolved; likely related to cocaine use Echo shows LVH, mod MR, EF 25-30% with regional wall motion abnormalities Negative LHC in 2010 (3) Elevated troponin Current Visit: No Status: Acute Code(s): R74.8 - ABNORMAL LEVELS OF OTHER SERUM ENZYMES SNOMED Code(s): 108321277 Comment: likely related to cocaine + acute on chronic chf (4) Cocaine use disorder Current Visit: Yes Status: Acute Code(s): F14.10 - COCAINE ABUSE, UNCOMPLICATED SNOMED Code(s): 87041581 Comment: interested in rehab for etoh + cocaine and alcohol and drug [place] Status and Disposition: plan to get lifevest for him before discharge. Attestation Documenting Resident: Ellie Trevino Supervising Physician: Nolan Zapata Attending/Supervising Physician Comment: Agree with plan as outline din today's note by Dr. Trevino unless indicated here. Seen multiple times today. Cardiology service hesitant to place ICD 2/2 long history of non compliance with follow up shown by patient in the past. Plan is to work with life vest manufacturers service representative to get a new device in order to bridge to different outpatient cardiologists. Pt is adamant about changing his pervious behaviors although it is understood there are multiple psychosocial contributions to his non adherence. Working with [facility] and community resources to assist patient in community. Attestation: This service has been performed in part by a resident under the direction of a teaching physician.I, Nolan Zapata, performed the service, or was physically present during the critical, or watts portions of the service, furnished by the resident. I participated in the management of the patient.
[2019-05-23] MEDS: Heparin VIAL(*) 5000 UNITS/ML VIAL (FIVE THOUSAND) SUBCUT SCH ×2 (05:42→13:41)
[2019-05-23] MEDS: Carvedilol TAB* 6.25 MG PO SCH ×2 (10:03→20:29)
[2019-05-23] MEDS: Spironolactone TAB* 25 MG PO SCH (10:03)
[2019-05-23] MEDS: Magnesium Oxide TAB* 400 MG PO SCH (10:03)
[2019-05-23] MEDS: Thiamine TAB* 100 MG TAB PO SCH (10:03)
[2019-05-23] MEDS: oxyCODONE TAB* 5 MG TAB PO PRN ×2 (13:41→20:29)
--- NOTE | 2019-05-23 15:04 | PN ---
Subjective Date of Service: 05/23/19 Interval History: No complains overnight. Concerned about discharge plan. He had called [facility] himself and scheduled a cardiologsits appointment. NO new tachyarrhythmia in EKG Objective Active Medications: Albuterol (Ventolin Hfa Inhaler*) 2 puff INH Q4H PRN PRN Reason: SOB/WHEEZING Carvedilol (Coreg Tab*) 12.5 mg PO BID [facility] Last Admin: 05/23/19 10:03 Dose: 12.5 mg Heparin Sodium (Porcine) (Heparin Vial(*)) 5,000 units SUBCUT Q8HR [facility] Last Admin: 05/23/19 13:41 Dose: 5,000 units Lorazepam (Ativan Tab(*)) 0 - 6 mg PO .PER [facility] PROTOCOL [facility]; Protocol Last Admin: 05/18/19 22:55 Dose: 2 mg Magnesium Oxide (Magox 400 Tab*) 400 mg PO DAILY [facility] Last Admin: 05/23/19 10:03 Dose: 400 mg Oxycodone HCl (Roxycodone Tab*) 10 mg PO Q6H PRN PRN Reason: back pain Last Admin: 05/23/19 13:41 Dose: 10 mg Spironolactone (Aldactone Tab*) 25 mg PO DAILY [facility] Last Admin: 05/23/19 10:03 Dose: 25 mg Thiamine HCl (Vitamin B-1 Tab*) 100 mg PO DAILY [facility] Last Admin: 05/23/19 10:03 Dose: 100 mg Vital Signs - 8 hr 05/23/19 05/23/19 05/23/19 07:42 08:00 11:22 Temperature 98.5 F 98.3 F Pulse Rate 81 86 Respiratory 20 20 20 Rate Blood Pressure 147/90 125/79 (mmHg) O2 Sat by Pulse 100 100 Oximetry 05/23/19 13:41 Temperature Pulse Rate Respiratory 20 Rate Blood Pressure (mmHg) O2 Sat by Pulse Oximetry Oxygen Devices in Use Now: None Exam: Appearance: alert, well appearing, walking around the room Eyes: No Scleral Icterus Ears/Nose/Mouth/Throat: NL Teeth, Lips, Gums Neck: NL Appearance and Movements; NL JVP Respiratory: Symmetrical Chest Expansion and Respiratory Effort Cardiovascular: NL Sounds; No Murmurs; No JVD, RRR Abdominal: NL Sounds; No Tenderness; No Distention Lymphatic: No Cervical Adenopathy Extremities: No Edema Skin: No Rash or Ulcers Neurological: Alert and Oriented x 3 Result Diagrams: 05/22/19 08:53 05/22/19 08:53 Microbiology and Other Data: Microbiology 05/18/19 09:37 Urine Culture - Final Urine No Growth (<1,000 CFU/mL) Assess/Plan/Problems-Billing Assessment: 48 year old man with history of NICM, chronic pain syndrome, and HTN admitted with cocaine chest pain. - Patient Problems (1) Acute on chronic systolic CHF (congestive heart failure) Current Visit: No Status: Acute Code(s): I50.23 - ACUTE ON CHRONIC SYSTOLIC (CONGESTIVE) HEART FAILURE SNOMED Code(s): 058397819 Comment: euvolemic; continue bb, spironolactone. no MARLA or imdur/hydral due to allergies. to negotiate with [employer] to find life vest cover after getting it lost. plan for life vest for arrythmia prevention and follow up with [place] box car loader since he was discharged from [facility] box car loader service (2) Chest pain Current Visit: No Status: Acute Code(s): R07.9 - CHEST PAIN, UNSPECIFIED SNOMED Code(s): 57620299 Comment: Resolved; likely related to cocaine use Echo shows LVH, mod MR, EF 25-30% with regional wall motion abnormalities Negative LHC in 2010 (3) Elevated troponin Current Visit: No Status: Acute Code(s): R74.8 - ABNORMAL LEVELS OF OTHER SERUM ENZYMES SNOMED Code(s): 641695722 Comment: likely related to cocaine + acute on chronic chf (4) Cocaine use disorder Current Visit: Yes Status: Acute Code(s): F14.10 - COCAINE ABUSE, UNCOMPLICATED SNOMED Code(s): 82966313 Comment: interested in rehab for etoh + cocaine and alcohol and drug [place] Status and Disposition: plan to get lifevest for him before discharge. Attestation Documenting Resident: Ellie Trevino Supervising Physician: Nolan Zapata Attending/Supervising Physician Comment: Agree with plan as outlined in note from today by Dr. Trevion unless indicated here. NICM with NSVT during this stay - candidate for ICD but cardiology group hesitant to place 2/2 substance use and history of non compliance. Lifevest is alternative but he has lost a piece ($8000) and was minimally communicative with [employer] when they tried to retrieve the vest from him previously. Additional information from [facility] include date that pt only wore the lifevest for 9 of 91 days he had it (<10%). Pt adamant that he wants to live, change and be compliant in the future. Unclear best path forward for this pt and we understand that an ethics consult has been placed to help identify best/safest/ most just pathway forward. During the day pt frustrated with lack of progress. Intermittently planning to leave but then stays. After my last conversation with pt he indicated he would be staying. Attestation: This service has been performed in part by a resident under the direction of a teaching physician.I, Nolan Zapata, performed the service, or was physically present during the critical, or watts portions of the service, furnished by the resident. I participated in the management of the patient.
[2019-05-24 08:40] VITALS: BP 125/89
[2019-05-24] MEDS: Carvedilol TAB* 6.25 MG PO SCH (09:13)
[2019-05-24] MEDS: oxyCODONE TAB* 5 MG TAB PO PRN (09:13)
[2019-05-24] MEDS: Spironolactone TAB* 25 MG PO SCH (09:14)
[2019-05-24] MEDS: Thiamine TAB* 100 MG TAB PO SCH (09:14)
[2019-05-24] MEDS: Magnesium Oxide TAB* 400 MG PO SCH (09:15)
--- NOTE | 2019-05-24 23:01 | DS ---
CC: Dr. Whitehead * DISCHARGE SUMMARY: DATE OF ADMISSION: 05/18/19 DATE OF LEAVING AGAINST MEDICAL ADVICE: 05/24/19 PRIMARY CARE PROVIDER: Dr. Whitehead. DISPOSITION ON DISCHARGE: The patient left AMA. CONDITION ON DISCHARGE: Stable, although tenuous. HISTORY OF PRESENT ILLNESS: This is a 48-year-old man with past medical history of nonischemic cardiomyopathy, EF less than 30%, who presented to the hospital with chest pain in the setting of cocaine use. He had elevated biomarkers. Troponin peaked at 0.19, although not thought to be ischemic in nature. During the course of the hospital stay, the patient was noted to have an over 20-beat run of nonsustained ventricular tachycardia. In the setting of his decreased ejection fraction as well as notable NSVT, ICD was recommended. However, on further review with the private pilot, he has been discharged from the cardiology practice and there was some concern if an ICD was placed then he would not follow up, putting him at an increased risk for complication with placement of ICD. ICD was postponed; however, the patient was not discharged. The patient has previously been given a LifeVest and we were in discussion with [employer] about obtaining the LifeVest; however, he had lost the tube backer which is an 8000-dollar piece. Additionally, [employer] relayed the information that while he had the LifeVest, he only wore it for 9 out of 91 days and he was quite unresponsive when they are trying to contact him to recover the device. For this reason, [employer] was unwilling to give him another LifeVest. In this setting, presented with the situation of not being able to receive a LifeVest and not being offered an ICD, an Ethics consultation was obtained on the day of the patient's AMA. Their recommendations were rendered approximately an hour-and-a- half prior to the patient deciding to leave. Therefore, no action was able to be taken on any of the recommendations including further discussion with cardiology team. At the time of the patient's leaving against medical advice, he did adequately understand the risks and benefits of leaving. However, my appreciation of his distress was that nothing was happening and nothing would happen while he was in the hospital stay, although I did indicate we were trying to arrange further services and support, and potentially placement and/ or transfer for an ICD placement. However, the patient decided that he would want to leave. He was of sound mind to make this decision in this author's opinion. A discussion with the patient was had in the presence of multiple RNs , as well as the patient's son, who is in agreement about the patient leaving. Alternatives to leaving were presented and summarily declined by the patient. At the time of leaving, he has not been established with any new private pilot nor was there any plan to obtain a Zoll and/or ICD with a new company and/or a private pilot. The patient was encouraged to look for the missing tube backer for his LifeVest and if he finds it, to contact the company rep. Prior to his discharge he was arranged with a bottle caser from [facility], which may assist in him negotiating the healthcare environment outside the hospital. All medications were refilled, sent to pharmacy of choosing, and discussed with the patient before he left. He has a followup appointment arranged prior to his discharge. Reasons to return to the hospital including, but not limited to, recurrent or worsening symptoms, chest pain, shortness of breath, nausea, vomiting, lightheadedness, loss of consciousness, near loss of consciousness, bleeding from any source, inability to obtain or tolerate medication were discussed with the patient. Additionally, the risk of leaving against medical advice including , but not limited to, severe morbidity including stroke, heart attack, loss of consciousness, broken bones, or sudden , which we discussed at length. We discussed with the patient, he acknowledged understanding. TIME SPENT: Greater than 60 minutes were spent on the discharge of this patient , greater than half of that time was spent [id number] with the patient. [id number]/CPS #: [id number] KANDACE
--- NOTE | 2019-06-08 12:14 | PN ---
Progress Note - Progress Note Date of Service: 06/08/19 Note: Addendum to discharge on 05/24/2019 Discharge diagnosis: Chest pain
== END 2019-05-24 15:30 | disposition left against medical advice (07) | DRG 205 ==
LOC: ED 07:43 → MEDTELE 11:58 → OBSVTOIN 05-21 15:45
PROVIDERS: ADMIT Internal Medicine; ATTEND Internal Medicine
DX: I42.9 Cardiomyopathy, unspecified (principal); I50.23 Acute on chronic systolic (congestive) heart failure; I47.2 Ventricular tachycardia; I13.0 Hypertensive heart and chronic kidney disease with heart failure and stage 1 through stage 4 chronic kidney disease, or unspecified chronic kidney disease; G47.33 Obstructive sleep apnea (adult) (pediatric); J44.9 Chronic obstructive pulmonary disease, unspecified; 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, unspecified with other cocaine-induced disorder; K21.9 Gastro-esophageal reflux disease without esophagitis; N18.2 Chronic kidney disease, stage 2 (mild); F10.10 Alcohol abuse, uncomplicated; E66.9 Obesity, unspecified; G89.4 Chronic pain syndrome; R07.89 Other chest pain; R73.03 Prediabetes; R74.8 Abnormal levels of other serum enzymes; Z87.891 Personal history of nicotine dependence; Z88.8 Allergy status to other drugs, medicaments and biological substances; Z88.6 Allergy status to analgesic agent; Z91.041 Radiographic dye allergy status; Z91.040 Latex allergy status; Z79.891 Long term (current) use of opiate analgesic; Z79.899 Other long term (current) drug therapy; Z68.35 Body mass index [BMI] 35.0-35.9, adult
CPT/HCPCS: 36415; 71046; 80048; 80053; 80307; 81003; 81015; 82550; 82553; 83735; 83880; 84132; 84484; 85025; 85610; 86140; 87086; 93005; 94660; 99284; A9270-GY; G0378; J1644

== ENCOUNTER 2019-05-28 02:49 | Emergency (ER) | payer OTHER ==
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
--- OUTSIDE RECORDS SUMMARY | 2019-05-28 03:58 | XMS REPORT | Continuity of Care Document ---
:1970 External Reference #:[id number] Author Name Jose Gonzalez M.D. (transmitted by agent of provider Claudine Mccullough ) Address [address] [place] [id number] Care Team Providers Name Role Phone Lashon Whitehead DO - Hospitalist Care Team Information [employer]de[employer] Consultant [phone] Rita Madrigal PA - Medical Care Team Information [employer] Ende[employer] Consultant [phone] Problems Active Problems Provider Date Essential hypertension [...] ventricular tachycardia Charles Lawson M.D. Onset: 05/07/2018 Cough Uvaldo Ford MD Onset: 04/26/2019 Chronic pain syndrome Uvaldo Ford MD Onset: 04/26/2019 Thoracic spondylosis without myelopathy Uvaldo Ford MD Onset: 04/26/2019 Chronic systolic dysfunction of left ventricle Uvaldo Ford MD Onset: 2018 Social History Type Date Description Comments Sex [...] Ford MD 05/10/2019 12.5mg Tablets a day Albuterol Sulfate HFA 2 puffs by mouth 8gm Juanita Mcwilliams MD 05/10/2019 four times a day 108(90Base) mcg/Act as [...] Date Facility Test Result H/L Range Note Laboratory 05/18/20 [facility] Troponin-I 0.16 ng/mL Critical <0.04 1 test finding [address] (TnI) [place] [address] [phone] Urine Drug SCR 05/18/20 [facility] Urine None None ED & Pain [address] Amphetamine [place] [address] Screen [phone] Urine Barbiturates Screen None Detected None Detect Urine Benzodiazepine Screen None Detected None Detect Urine Cannabinoids Screen Presumptive Posi <SEE NOTE> Abnormal None Detect 2 Urine Cocaine Screen Presumptive Posi <SEE NOTE> Abnormal None Detect 3 Urine Opiates Screen None Detected None Detect Urine Phencyclidine Screen None Detected None Detect 4 Laboratory test 05/18/2019 [facility] Potassium 3.9 mmol/L Normal 3.5-5.[address] [place] [address] [phone] Ast Redraw 19 U/L Normal 13-39 CBC Auto 05/18/2019 [facility] White Blood 9.9 10^3/uL Normal 3.5-10.[address] [place] [address] [phone] Red Blood Count 5.70 10^6/uL High 4.18-5.48 Hemoglobin 16.0 g/dL Normal 14.0-18.0 Hematocrit 49 % Normal 42-52 Mean Corpuscular Volume 86 fL Normal 80-94 Mean Corpuscular Hemoglobin 28 pg Normal 27-31 Mean Corpuscular HGB Conc 33 g/dL Normal 31-36 Red Cell Distribution Width 16 % High 10-15 Platelet Count 254 10^3/uL Normal 150-450 Mean Platelet Volume 8.1 fL Normal 7.4-10.4 Abs Neutrophils 7.3 10^3/uL Normal 1.5-7.7 Abs Lymphocytes 1.5 10^3/uL Normal 1.0-4.8 Abs Monocytes 0.9 10^3/uL High 0-0.8 Abs Eosinophils 0.1 10^3/uL Normal 0-0.6 Abs Basophils 0.1 10^3/uL Normal 0-0.2 Abs Nucleated RBC 0.0 10^3/uL Granulocyte % 73.9 % Lymphocyte % 15.6 % Monocyte % 8.8 % Eosinophil % 0.8 % Basophil % 0.9 % Nucleated Red Blood Cells % 0.1 Comp Metabolic 05/18/2019 [facility] Sodium 137 mmol/L Normal 135-145 Panel 101 [place] [address] [phone] Chloride 102 mmol/L Normal 101-111 Co2 Carbon Dioxide 26 mmol/L Normal 22-32 Glucose 92 mg/dL Normal 70-100 Blood Urea Nitrogen 22 mg/dL Normal 6-24 Creatinine 1.75 mg/dL High 0.67-1.17 BUN/Creatinine Ratio 12.6 Normal 8-20 Calcium 9.8 mg/dL Normal 8.6-10.3 Total Protein 7.8 g/dL Normal 6.4-8.9 Albumin 4.5 g/dL Normal 3.2-5.2 Globulin 3.3 g/dL Normal 2-4 Albumin/Globulin Ratio 1.4 Normal 1-3 Total Bilirubin 0.90 mg/dL Normal 0.2-1.0 Alkaline Phosphatase 71 U/L Normal 34-104 Alt 27 U/L Normal 7-52 Egfr Non- 41.5 >60 Egfr 50.2 >60 5 Potassium TNP mmol/L 3.5-5.0 6 Anion Gap 9 mmol/L Normal 2-11 Ast TNP U/L 13-39 7 Laboratory 05/18/2019 [facility] Troponin-I 0.19 Critical < 0.04 8 test finding 101 (TnI) ng/[place] [address] [phone] CKMB 05/18/2019 [facility] CKMB ng/mL 5.8 Normal 0.6-6.3 101 ng/[place] [address] [phone] Laboratory 05/18/2019 [facility] Creatine 188 U/L Normal 10- 223 test finding Kinase(CK) [place] [address] [phone] C Reactive Protein 12.87 mg/L High <8.01 Urinalysis Profile 05/18/2019 [facility] Urine Color Neda [address] [place] [address] [phone] Urine Appearance Clear Urine Specific [place] 1.025 Normal 1.010-1.030 Urine pH 5.0 Normal 5-9 Urine Urobilinogen Positive Abnormal Negative Urine Ketones Negative Negative Urine Protein 2+(100 mg/dL) Abnormal Negative Urine Leukocytes Negative Negative Urine Blood Negative Negative Urine Nitrite Negative Negative Urine Bilirubin Negative Negative Urine Glucose Negative Negative Urine White Blood Cell Trace(0-5/hpf) Absent Urine Red Blood Cell Trace(0-2/hpf) Absent Urine Bacteria Absent Absent Urine Squamous Epithelial Cell Present Abnormal Absent Urine Hyaline Casts Present Abnormal Absent Laboratory test 05/18/2019 [facility] B-Type 123 High <=[address] Natriuretic pg/[place] [address] Peptide BNP [phone] Inr/Protime 05/18/2019 [facility] Inr 1.31 High 0.82-1. [address] 09 [place], [place] [id number] [phone] Urine Culture 05/18/2019 [facility] Urine Culture SEE [address] [place] [address] BELOW [phone] Laboratory test 05/12/2019 [facility] Troponin-I 0.19 Critical <0.04 [address] (TnI) ng/mL high [place], [place] [id number] [phone] B-Type Natriuretic Peptide BNP 241 pg/mL High <=100 Comp Metabolic 05/12/2019 [facility] Sodium 138 mmol/L Normal 135-[address] [place] [address] [phone] Potassium 3.9 mmol/L Normal 3.5-5.0 Chloride 105 mmol/L Normal 101-111 Co2 Carbon Dioxide 24 mmol/L Normal 22-32 Anion Gap 9 mmol/L Normal 2-11 Glucose 87 mg/dL Normal 70-100 Blood Urea Nitrogen 22 mg/dL Normal 6-24 Creatinine 1.58 mg/dL High 0.67-1.17 BUN/Creatinine Ratio 13.9 Normal 8-20 Calcium 9.4 mg/dL Normal 8.6-10.3 Total Protein 6.7 g/dL Normal 6.4-8.9 Albumin 4.2 g/dL Normal 3.2-5.2 Globulin 2.5 g/dL Normal 2-4 Albumin/Globulin Ratio 1.7 Normal 1-3 Total Bilirubin 0.70 mg/dL Normal 0.2-1.0 Alkaline Phosphatase 73 U/L Normal 34-104 Alt 31 U/L Normal 7-52 Ast 19 U/L Normal 13-39 Egfr Non- 46.7 >60 Egfr 56.5 >60 12 Laboratory 05/12/2019 [facility] Partial 30.0 Normal 26.0- 38.0 test finding [address] [place] [address] Time PTT [phone] Inr/Protime 05/12/2019 [facility] Inr 1.24 High 0.82-1.[address] [place] [address] [phone] CBC Auto Diff 05/12/2019 [facility] White Blood 13.5 High 3.5- 10.[address] Count 10^3/[place] [address] [phone] Red Blood Count 5.17 10^6/uL Normal 4.18-5.48 Hemoglobin 14.4 g/dL Normal 14.0-18.0 Hematocrit 44 % Normal 42-52 Mean Corpuscular Volume 85 fL Normal 80-94 Mean Corpuscular Hemoglobin 28 pg Normal 27-31 Mean Corpuscular HGB Conc 33 g/dL Normal 31-36 Red Cell Distribution Width 16 % High 10-15 Platelet Count 195 10^3/uL Normal 150-450 Mean Platelet Volume 8.1 fL Normal 7.4-10.4 Abs Neutrophils 10.7 10^3/uL High 1.5-7.7 Abs Lymphocytes 1.6 10^3/uL Normal 1.0-4.8 Abs Monocytes 1.1 10^3/uL High 0-0.8 Abs Eosinophils 0.1 10^3/uL Normal 0-0.6 Abs Basophils 0.1 10^3/uL Normal 0-0.2 Abs Nucleated RBC 0.0 10^3/uL Granulocyte % 79.2 % Lymphocyte % 11.5 % Monocyte % 8.4 % Eosinophil % 0.4 % Basophil % 0.5 % Nucleated Red Blood Cells % 0.0 Laboratory 05/12/2019 [facility] Troponin-I 0.21 ng/mL Critical <0.04 15 test finding [address] (TnI) [place] [address] [phone] Laboratory 05/12/2019 [facility] Troponin-I 0.21 ng/mL Critical <0.04 16 test finding [address] (TnI) [place] [address] [phone] Drug Abuse 20 05/10/2019 [facility] Urine Negative 17, Urine [address] Amphetamine ng/mL 18 [place] [address] [phone] Urine Barbiturates Negative ng/mL 19 Urine Benzodiazepines Negative ng/mL 20 Urine Cocaine Presumptive Posi <SEE NOTE> Abnormal 21 ng/mL Urine Phencyclidine Negative ng/mL Cutoff: 25 Urine Tetrahydrocannabinol Negative ng/mL Cutoff: 50 22 Creatinine, Urine 40.4 mg/dL Specific [place] 1.009 pH 5.4 Oxidants Negative 23 Adulterants Comment Normal Codeine, Ur Not Detected ng/mL Cutoff: 25 24 Jmzvghg-8-aajg-glucuronide, Ur Not Detected ng/mL 25 Morphine, Ur Not Detected ng/mL Cutoff: 25 26 Uhpwqxrl-9-wjnn-glucuronide, U Not Detected ng/mL 27 6-monoacetylmorphine, Ur Not Detected ng/mL Cutoff: 25 28 Hydrocodone, Ur Not Detected ng/mL Cutoff: 25 29 Norhydrocodone, Ur Not Detected ng/mL Cutoff: 25 30 Dihydrocodeine, Ur Not Detected ng/mL Cutoff: 25 31 Hydromorphone, Ur Not Detected ng/mL Cutoff: 25 32 Julglozxbkjor3atkaqrnxmubkdoa Not Detected ng/mL 33 Oxycodone, Ur Present ng/mL Abnormal Cutoff: 25 34 Noroxycodone, Ur Present ng/mL Abnormal Cutoff: 25 35 Oxymorphone, Ur Not Detected ng/mL Cutoff: 25 36 Iylgkzoxlgv-6-zrwt-glucuronide Present ng/mL Abnormal 37 Noroxymorphone, Ur Present ng/mL Abnormal Cutoff: 25 38 Fentanyl, Ur Not Detected ng/mL Cutoff: 2 39 Norfentanyl, Ur Not Detected ng/mL Cutoff: 2 40 Meperidine, Ur Not Detected ng/mL Cutoff: 25 41 Normeperidine, Ur Not Detected ng/mL Cutoff: 25 42 Naloxone, Ur Not Detected ng/mL Cutoff: 25 43 Eynjdpwa-9-ksvt-glucuronide, U Not Detected ng/mL 44 Methadone, Ur Not Detected ng/mL Cutoff: 25 45 Eddp, Ur Not Detected ng/mL Cutoff: 25 46 Propoxyphene, Ur Not Detected ng/mL Cutoff: 25 47 Norpropoxyphene, Ur Not Detected ng/mL Cutoff: 25 48 Tramadol, Ur Not Detected ng/mL Cutoff: 25 49 O-desmethyltramadol, Ur Not Detected ng/mL Cutoff: 25 50 Tapentadol, Ur Not Detected ng/mL Cutoff: 25 51 N-desmethyltapentadol, Ur Not Detected ng/mL Cutoff: 50 52 Nudkiykzek-ddub-gmwlhoalcdx, U Not Detected ng/mL 53 Buprenorphine, Ur Not Detected ng/mL Cutoff: 5 54 Norbuprenorphine, Ur Not Detected ng/mL Cutoff: 5 55 Norbuprenorphine glucuronide Not Detected ng/mL Cutoff: 20 56 Opioid Interpretation See Comment 57 Urine Cocaine 05/10/2019 [facility] Urine Negative Cutoff: [address] Cocaine ng/[place] [address] Confirm [phone] (GC/MS) Ur Benzoylecgonine Confirm 2239 ng/mL Cutoff: 50 Urine Cocaine Interpretation Positive. 58 CBC Auto 04/24/2019 [facility] White Blood 9.1 10^3/uL Normal 3.5-10.[address] Count [place], [place] [id number] [phone] Red Blood Count 5.43 10^6/uL Normal 4.18-5.48 [...] Blood Cells % 0.0 Comp Metabolic 04/24/2019 [facility] Sodium 138 mmol/L Normal 135-[address] [place], [place] [address] [phone] Chloride 103 mmol/L Normal 101-111 Co2 Carbon [...] Egfr Non- 40.1 >60 Egfr 48.6 >60 59 Potassium 3.6 mmol/L Normal 3.5-5.0 Anion Gap 7 mmol/L Normal 2-11 Ast 21 U/L Normal 13-39 Laboratory test 04/24/2019 [facility] C Reactive 9.35 mg/L High <8.01 finding [address] [facility] [place] [address] [phone] Troponin-I (TnI) 0.13 ng/mL Critical high <0.04 60 B-Type Natriuretic Peptide BNP 52 pg/mL <=100 Laboratory test 04/22/2019 [facility] B-Type 96 pg/mL <=[address] [place] [address] Peptide BNP [phone] Magnesium 1.7 mg/dL Low 1.9-2.7 Basic Metabolic 04/22/2019 [facility] Sodium 139 mmol/L Normal 135-[address] [place] [address] [phone] Potassium 4.0 mmol/L Normal 3.5-5.0 Chloride 104 mmol/L Normal 101-111 Co2 Carbon Dioxide 28 mmol/L Normal 22-32 Anion Gap 7 mmol/L Normal 2-11 Glucose 102 mg/dL High 70-100 Blood Urea Nitrogen 14 mg/dL Normal 6-24 Creatinine 1.48 mg/dL High 0.67-1.17 BUN/Creatinine Ratio 9.5 Normal 8-20 Calcium 9.4 mg/dL Normal 8.6-10.3 Egfr Non- 50.3 >60 Egfr 60.9 >60 61 Order 04/18/2019 [facility] EKG given to Lipid Profile 04/13/2019 [facility] Triglycerides 88 mg/dL 62 (Trig/Chol/HDL) [address] [place] [address] [phone] Cholesterol 157 mg/dL 63 HDL Cholesterol 43.8 mg/dL 64 LDL Cholesterol 96 mg/dL 65 Laboratory test 04/13/2019 [facility] Hemoglobin A1c 6.0 % High 4.0-5.6 [address] (Glyco HGB) [place] [address] [phone] Xray 03/27/2019 [facility] CT Spine Lumbar <pending [address] W/O > [place] [address] [phone] MRI Lumbar Spine W/Wo <pending> 1 Result TnIDx:0.16 Called to SHAYLEE at: 11:30:27 by:[id number] Read back by: [email or web address] Troponin-I testing on Plasma Separator Tubes (PST) has a known false positive rate of 0.20-0.40%. All positive troponins reflex immediately to secondary confirmatory testing. Using the [employer] DxI 800 Access Immunoassay systems, the 99th percentile upper reference limit was demonstrated to be < 0.03 ng/mL. 2 Presumptive Positive Presumptive positive results are unconfirmed. 3 Presumptive Positive Presumptive positive results are unconfirmed. 4 The urine specimen was tested at the listed cutoffs: Drug class test level (ng/mL) Amphetamines 500 Barbiturates 200 Benzodiazepine metabolites 200 Cocaine metabolites 150 Cannabinoids 50 Opiates 300 Pcp 25 Specimen was received without chain of custody. Results should be used for medical purposes only. 5 Because ethnic data is not always readily [...] 15-29 5 Kidney failure <15 (or dialysis) 6 Specimen Hemolyzed. Result may not be valid. Unable to report test result due to hemolysis. 7 Unable to report test result due to hemolysis. 8 Result TnIDx:0.19 Called to [id number] at: 08:25:55 by:[id number] Read back by: [id number] Troponin-I testing on Plasma Separator Tubes (PST) has a known false positive rate of 0.20-0.40%. All positive troponins reflex immediately to secondary confirmatory testing. Using the [employer] DxI 800 Access Immunoassay systems, the 99th percentile upper reference limit was demonstrated to be < 0.03 ng/mL. 9 Standard intensity warfarin therapeutic range: 2.0-3.0 High intensity warfarin therapeutic range: 2.5-3.5 10 SEE RESULT BELOW Name: ANDREA SANCHEZ : [address]: Lashon Whitehead DO Acct: [id number] Unit: [id number] AGE: 48 Location: [place] [address] Re05/18/19 SEX: M Status: ADM Timur SPEC: [id number] ROSANNA: 05/18/19-0937 [facility] DR: Jaspreet Del Angel MD REQ: [id number] RECD: 05/18/19 STATUS: SAVANNAH GARNER DR: Lashon Whitehead DO _ SOURCE: URINE [facility]: ORDERED: Urine Culture Procedure Result Reported Site Urine Culture Final 05/19/19- 0851 ML No Growth (<1,000 CFU/mL) * ML - Main Lab . END OF REPORT DEPARTMENT OF PATHOLOGY, [address] [place] [address] Jaxon Galindo M.D. Director [facility] # [id number] 11 Result TnIDx:0.19 Called to [id number] at: 06:55:02 by:[id number] Read back by: [id number] Troponin-I testing on Plasma Separator Tubes (PST) has a known false positive rate of 0.20-0.40%. All positive troponins reflex immediately to secondary confirmatory testing. Using the [employer] 800 Access Immunoassay systems, the 99th percentile upper reference limit was demonstrated to be < 0.03 ng/mL. 12 Because ethnic data is not always readily [...] 15-29 5 Kidney failure <15 (or dialysis) 13 Standard intensity warfarin therapeutic range: 2.0-3.0 High intensity warfarin therapeutic range: 2.5-3.5 14 Comment: last collection clotted 15 Result TnIDx:0.21 Called to [id number] at: 08:59 by:[id number] Read back by: [id number] Troponin-I testing on Plasma Separator Tubes (PST) has a known false positive rate of 0.20-0.40%. All positive troponins reflex immediately to secondary confirmatory testing. Using the [employer] DxI 800 Access Immunoassay systems, the 99th percentile upper reference limit was demonstrated to be < 0.03 ng/mL. 16 Result TnIDx:0.21 Called to [id number] at: 10:47:08 by:[id number] Read back by: [id number] Troponin-I testing on Plasma Separator Tubes (PST) has a known false positive rate of 0.20-0.40%. All positive troponins reflex immediately to secondary confirmatory testing. Using the [employer] DxI 800 Access Immunoassay systems, the 99th percentile upper reference limit was demonstrated to be < 0.03 ng/mL. 17 [id number] REFERENCE VALUE Cutoff: 500 19 REFERENCE VALUE Cutoff: 200 20 REFERENCE VALUE Cutoff: 100 21 Presumptive Positive Drug confirmation to follow. Presumptive Positive means that the screening method is positive, but the test needs to be run by a confirmatory method before being finalized. REFERENCE VALUE Cutoff: 150 22 ADDITIONAL INFORMATION This report is intended for use in clinical monitoring or management of patients. It is not intended for use in employment-related testing. Test Performed by: [facility] [address] [place] [address] Director [employer] Partnerships: Gabriel Lechuga M.D. Ph.D.; IA# [id number] 23 REFERENCE VALUE Cutoff: 200 mg/L 24 Tylenol 3 25 Metabolite of codeine REFERENCE VALUE Cutoff: 100 26 Masha Ludwig, Contin; Also a minor metabolite (10%) of codeine and can be seen in low concentrations (<2,000 ng/mL) with poppy seed ingestion. 27 Metabolite of morphine REFERENCE VALUE Cutoff: 100 28 Metabolite of heroin 29 Lortab, Blanco, Vicodin; Also a very minor metabolite of codeine and impurity (<1%) of oxycodone. 30 Metabolite of hydrocodone 31 Metabolite of hydrocodone 32 Dilaudid, Exalgo; Also a metabolite of hydrocodone and a minor (<5%) metabolite of morphine. 33 Metabolite of hydromorphone REFERENCE VALUE Cutoff: 100 34 Endocet, Percocet, Oxycontin 35 Metabolite of oxycodone 36 Numorphan, Opana; Also a metabolite of oxycodone. 37 Metabolite of oxymorphone REFERENCE VALUE Cutoff: 100 38 Metabolite of oxymorphone 39 Actiq, Duragesic, Fentora 40 Metabolite of fentanyl 41 Demerol 42 Metabolite of meperidine 43 Narcan 44 Metabolite of naloxone REFERENCE VALUE Cutoff: 100 45 Dolophine 46 Metabolite of methadone 47 Darvon, Darvocet 48 Metabolite of propoxyphene 49 Tradol, Ultram, Ultracet 50 Metabolite of tramadol 51 Nucynta 52 Metabolite of tapentadol 53 Metabolite of tapentadol REFERENCE VALUE Cutoff: 100 54 Buprenex, Suboxone 55 Metabolite of buprenorphine 56 Metabolite of buprenorphine 57 Test detected the presence of oxycodone and several metabolites (noroxycodone, noroxymorphone, and geqgmwtvonk-1-pabu-glucuronide). Suspect use of oxycodone and/or oxymorphone within the past three days. ADDITIONAL INFORMATION This test was developed and its performance characteristics determined by [facility] in a manner consistent with CLIA requirements. This test has not been cleared or approved by the U.S. Food and Drug Administration. 58 ADDITIONAL INFORMATION This report is intended for use in clinical monitoring and management of patients. It is not intended for use in employment-related testing. This test was developed and its performance characteristics determined by [facility] in a manner consistent with CLIA requirements. This test has not been cleared or approved by the U.S. Food and Drug Administration. Test Performed by: [facility] [place] [address] Director Agency & Strategic Partnerships: Gabriel Lechuga M.D. Ph.D.; CLIA# [id number] 59 Because ethnic data is not always readily [...] 15-29 5 Kidney failure <15 (or dialysis) 60 Result TnIDx:0.13 Called to [id number] at: 22:05:21 by:[id number] Read back by: [id number] Troponin-I testing on Plasma Separator Tubes (PST) has a known false positive rate of 0.20-0.40%. All positive troponins reflex immediately to secondary confirmatory testing. Using the [employer] DxI 800 Access Immunoassay systems, the 99th percentile upper reference limit was demonstrated to be < 0.03 ng/mL. 61 Because ethnic data is not always readily [...] 15-29 5 Kidney failure <15 (or dialysis) 62 Desirable: <150 Borderline High: 150-199 High: 200-499 Very High: >500 63 Desirable: <200 Borderline High: 200-239 High: >239 64 Low: <40 Desirable: 40-60 High: >60 65 Desirable: <100 Near Optimal: 100-129 Borderline High: 130-159 High: 160-189 Very High: >189 66 Therapeutic target for the treatment of diabetes mellitus patients is <7% HBA1C, and in selective patients <6.0%. Please refer to [place] [employer] diabetic care guidelines for further information. Procedures Date Code Description Status 05/12/2019 91330 ECHO Transthorasic Realtime 2D W Doppler & Color Flow Hosp Completed 04/18/2019 49146 EKG Tracing & Interpretation Completed Medical Devices Description No Information Available Encounters Type Date Location Provider Dx Diagnosis Office Visit 05/15/2019 [facility] Lashon Whitehead, I13.0 Hyp hrt & chr 9:37a Assoc,pc DO [place] dis w hrt Hospitalists fail and stg 1-4/unsp chr [place] I50.23 Acute on chronic systolic (congestive) heart failure N18.9 Chronic kidney disease, unspecified I95.1 Orthostatic hypotension Office Visit 05/14/2019 9:35a [facility] Helen Bell, I13.0 Hyp hrt & chr Assoc,pc MD [place] goldman w hrt Hospitalists fail and stg 1-4/unsp chr kdny N18.9 Chronic kidney disease, unspecified I50.23 Acute on chronic systolic (congestive) heart failure I95.1 Orthostatic hypotension F10.10 Alcohol abuse, uncomplicated F14.10 Cocaine abuse, uncomplicated Office Visit 05/12/2019 9:33a [facility] Alex, R07.89 Other chest Assoc,pc PA pain Hospitalists I50.9 Heart failure, unspecified F10.10 Alcohol abuse, uncomplicated F14.10 Cocaine abuse, uncomplicated I11.0 Hypertensive heart disease with heart failure Office Visit 05/10/2019 9:00a [facility] Internal Juanita Mcwilliams, K62.5 Hemorrhage of anus Medicine - Suite and rectum R G89.4 Chronic pain syndrome J44.9 Chronic obstructive pulmonary disease, unspecified Office Visit 04/26/2019 4:00p [facility] Internal Uvaldo Ford, I50.22 Chronic systolic Medicine - Suite (congestive) heart R failure G89.4 Chronic pain syndrome 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, thoracic region R05 Cough I11.0 Hypertensive heart disease with heart failure Office Visit 04/18/2019 4:00p [facility] Internal Aarti I50.22 Chronic systolic Medicine - MD Sudhir (congestive) heart Suite R failure R05 Cough I11.0 Hypertensive heart disease with heart failure Office Visit 04/13/2019 9:40a [facility] Internal Medicine - Lashon Whitehead DO R05 Cough Suite R I11.0 Hypertensive heart disease with heart failure I10 Essential (primary) hypertension J44.9 Chronic obstructive pulmonary disease, unspecified G47.33 Obstructive sleep apnea (adult) (pediatric) E66.8 Other obesity Office Visit 04/03/2019 [facility] M47.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, lumbar region Office Visit 02/20/2019 [facility] Rita M54.16 Radiculopathy, 1:00p [facility] lumbar region Z98.1 Arthrodesis status Assessments Date Code Description Provider 05/16/2019 I21.4 Non-St elevation (Nstemi) myocardial Lashon Whitehead DO infarction 05/16/2019 I13.0 Hypertensive heart and chronic kidney Lashon Whitehead, DO disease with heart failure and stage 1 through stage 4 chronic kidney disease, or unspecified chronic kidney disease 05/16/2019 I50.23 Acute on chronic systolic (congestive) Lashon Senner, DO heart failure 05/16/2019 N18.9 Chronic kidney disease, unspecified Lashon Senner, DO 05/16/2019 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, unspecified with other Lashon Senner, 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 05/16/2019 F10.988 Alcohol use, unspecified with other Lashon Senner, DO alcohol-induced disorder 05/16/2019 Z53.21 Procedure and treatment not carried out Lashon Whitehead DO due to patient leaving prior to being seen by health care provider 05/15/2019 I13.0 Hypertensive heart and chronic kidney Lashon Whitehead, DO disease with heart failure and stage 1 through stage 4 chronic kidney disease, or unspecified chronic kidney disease 05/15/2019 I50.23 Acute on chronic systolic (congestive) Lashon Whitehead, DO heart failure 05/15/2019 N18.9 Chronic kidney disease, unspecified Lashon Senner, DO 05/15/2019 I95.1 Orthostatic hypotension Lashon Whitehead, DO 05/14/2019 I13.0 Hypertensive heart and chronic kidney Helen Bell MD disease with heart failure and stage 1 through stage 4 chronic kidney disease, or unspecified chronic kidney disease 05/14/2019 N18.9 Chronic kidney disease, unspecified Helen Bell MD 05/14/2019 I50.23 Acute on chronic systolic (congestive) Helen Bell MD heart failure 05/14/2019 I95.1 Orthostatic hypotension Helen Bell MD 05/14/2019 F10.10 Alcohol abuse, uncomplicated Helen Bell MD 05/14/2019 F14.10 Cocaine abuse, uncomplicated Helen Bell MD 05/13/2019 I50.23 Acute on chronic systolic (congestive) Carl Chester, DO [facility] heart failure 05/13/2019 I13.0 Hypertensive heart and chronic kidney Helen Bell MD disease with heart failure and stage 1 through stage 4 chronic kidney disease, or unspecified chronic kidney disease 05/13/2019 I42.9 Cardiomyopathy, unspecified Carl Chester, DO FACC 05/13/2019 I50.23 Acute on chronic systolic (congestive) Helen Bell MD heart failure 05/13/2019 I13.0 Hypertensive heart and chronic kidney Carl Chester, DO FACC disease with heart failure and stage 1 through stage 4 chronic kidney disease, or unspecified chronic kidney disease 05/13/2019 N18.9 Chronic kidney disease, unspecified Helen Bell MD 05/13/2019 N18.9 Chronic kidney disease, unspecified Carl Chester, DO FACC 05/13/2019 I95.1 Orthostatic hypotension Helen Bell MD 05/13/2019 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, unspecified with other Carl Chester, DO [facility] cocaine-induced disorder 05/13/2019 R74.8 Abnormal levels of other serum enzymes Helen Bell MD 05/12/2019 I50.9 Heart failure, unspecified Carl Chester, DO FACC 05/12/2019 I11.0 Hypertensive heart disease with heart Carl Chester, DO FACC failure 05/12/2019 I13.0 Hypertensive heart and chronic kidney Carl Chester DO FACC disease with heart failure and stage 1 through stage 4 chronic kidney disease, or unspecified chronic kidney disease 05/12/2019 N18.9 Chronic kidney disease, unspecified Carl SXimena Chester, DO FACC 05/12/2019 R07.89 Other chest pain ALISTAIR [place]ward 05/12/2019 I50.23 Acute on chronic systolic (congestive) Carl Chester, DO FACC heart failure 05/12/2019 F14.90 Cocaine use, unspecified, uncomplicated Carl SXimena Chester, DO FACC 05/12/2019 Z91.128 Patient's intentional underdosing of Carl S. Henrik, DO [facility] medication regimen for other reason 05/12/2019 I50.9 Heart failure, unspecified ALISTAIR [place] 05/12/2019 F10.10 Alcohol abuse, uncomplicated ALISTAIR [place] 05/12/2019 F14.10 Cocaine abuse, uncomplicated ALISTAIR [place] 05/12/2019 I11.0 Hypertensive heart disease with heart ALISTAIR Hayward failure 05/10/2019 K62.5 Hemorrhage of anus and rectum Juanita Mcwilliams MD 05/10/2019 G89.4 Chronic pain syndrome Juanita Mcwilliams MD 05/10/2019 J44.9 Chronic obstructive pulmonary disease, Juanita Mcwilliams MD unspecified 04/26/2019 I50.22 Chronic systolic (congestive) heart Uvaldo Ford MD failure 04/26/2019 G89.4 Chronic pain syndrome Uvaldo Ford MD 04/26/2019 M47.814 Lumbar spondylosis Uvaldo Ford MD 04/26/2019 R05 Cough Uvaldo Ford MD 04/26/2019 I11.0 Hypertensive heart disease with heart Uvaldo Ford MD failure 04/18/2019 I50.22 Chronic systolic (congestive) heart Aarti Peguero MD failure 04/18/2019 R05 Katie Peguero MD 04/18/2019 I11.0 Hypertensive heart disease with heart Aarti Peguero MD failure 04/13/2019 R05 Cough Lashon Whitehead DO 04/13/2019 I11.0 Hypertensive heart disease with heart Lashon Whitehead DO failure 04/13/2019 I10 Essential (primary) hypertension Lashon Whitehead DO 04/13/2019 J44.9 Chronic obstructive pulmonary disease, Lashon Whitehead DO unspecified 04/13/2019 G47.33 Obstructive sleep apnea (adult) Lashon Whitehead DO (pediatric) 04/13/2019 E66.8 Other obesity Lashon Whitehead DO 04/03/2019 M47.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 ALISTAIR Erickson radiculopathy, lumbar region 02/20/2019 M54.16 Radiculopathy, lumbar region ALISTAIR Eric[place]on 02/20/2019 Z98.1 Arthrodesis status ALISTAIR [place] Plan of Treatment Future Appointment(s):06/09/2019 9:00 am - Lashon Whitehead DO at [facility] - [address]/10/2019 - Juanita Mcwilliams MDK62.5 Hemorrhage of anus and rectumReferral:Darren Zamora MD, MrijkhpbuktbsknsT65.4 Chronic pain syndromeComments:Medication was refilled for 30 daysJ44.9 Chronic obstructive pulmonary disease, unspecifiedComments:Script sent in for ventolin Functional Status Description No Information Available Mental Status Description No Information Available Referrals Refer to Dr Reason for Referral Status Appt Date Darren Zamora MD [address] [place] [address] [phone] Carl Chester, DO, FACC increased cough, ?PND for last month. Sent 2018 missed last appointment with you. tachycardic. [facility] [place] [address] [phone] Jamaal Morales MD 48 y/o male poat L4 - S1 fusion has severe Scheduled axial low back pain currently taking oxycodone 10 mg, but is not effective, 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 [address] [place] [address] [phone]
[2019-05-28 04:55] LABS: Troponin I 0.13 ng/mL (<0.04)
[2019-05-28 05:05] LABS: Albumin 4.4 g/dL (3.2-5.2); Anion Gap 15 mmol/L (2-11); CO2 Carbon Dioxide 19 mmol/L (22-32); Calcium 9.4 mg/dL (8.6-10.3); Chloride 104 mmol/L (101-111); Potassium 4.4 mmol/L (3.5-5.0); Sodium 138 mmol/L (135-145)
[2019-05-28 05:08] LABS: ALT 37 U/L (7-52); AST 24 U/L (13-39); Albumin/Globulin Ratio 1.8 (1-3); Alkaline Phosphatase 69 U/L (34-104); BUN/Creatinine Ratio 12.8 (8-20); Blood Urea Nitrogen 17 mg/dL (6-24); EGFR African American 68.9 (>60); EGFR Non-African American 56.9 (>60); Globulin 2.4 g/dL (2-4); Glucose 91 mg/dL (70-100); Total Protein 6.8 g/dL (6.4-8.9)
[2019-05-28 05:20] LABS: Mean Platelet Volume 7.9 fL (7.4-10.4); Platelet Count 272 10^3/uL (150-450)
[2019-05-28 05:25] LABS: ABS Basophils 0.1 10^3/ul (0-0.2); ABS Lymphocytes 1.1 10^3/ul (1.0-4.8); ABS Monocytes 0.9 10^3/ul (0-0.8); ABS Neutrophils 9.1 10^3/ul (1.5-7.7); Eosinophil % 0.3 %; Hematocrit 44 % (42-52); Hemoglobin 14.4 g/dL (14.0-18.0); Lymphocyte % 10.1 %; Mean Corpuscular HGB Conc 33 g/dL (31-36); Mean Corpuscular Hemoglobin 28 pg (27-31); Mean Corpuscular Volume 86 fL (80-94); Red Blood Count 5.09 10^6 /uL (4.18-5.48); Red Cell Distribution Width 16 % (10-15); White Blood Count 11.2 10^3/uL (3.5-10.8)
[2019-05-28 05:33] LABS: INR 1.23 (0.82-1.09)
[2019-05-28 06:03] LABS: Troponin I 0.16 ng/mL (<0.04)
[2019-05-28 07:50] VITALS: BP 137/84
== END 2019-05-28 07:48 | disposition home or self-care (01) ==
LOC: ED 02:49
DX: F12.10 Cannabis abuse, uncomplicated (principal); F14.90 Cocaine use, unspecified, uncomplicated; I47.2 Ventricular tachycardia; I11.0 Hypertensive heart disease with heart failure; I50.23 Acute on chronic systolic (congestive) heart failure; Z88.8 Allergy status to other drugs, medicaments and biological substances; Z88.6 Allergy status to analgesic agent; Z91.041 Radiographic dye allergy status; Z91.040 Latex allergy status; F17.210 Nicotine dependence, cigarettes, uncomplicated
CPT/HCPCS: 36415; 80053; 84484; 85025; 85610; 93005; 99282

== ENCOUNTER 2019-08-08 13:27 | Emergency (ER) | payer OTHER ==
--- OUTSIDE RECORDS SUMMARY | 2019-08-08 13:40 | XMS REPORT ---
:1970 Author Name Karma Hebert Address [facility] [address] [id number] Care Team Providers Name Role Phone Karma Hebert Unavailable Unavailable Allergies, Adverse Reactions, Alerts Allergy Code CodeSystem Reaction Severity Status Substance RxNorm Medications Medication Medication Medication Start Route Dose Status Fill Code CodeSystem Date Instructions RxNorm NoCurrentDosage Active NoCurrentFrequency RxNorm NoCurrentDosage Active NoCurrentFrequency RxNorm NoCurrentDosage Active NoCurrentFrequency RxNorm NoCurrentDosage Active NoCurrentFrequency RxNorm NoCurrentDosage Active NoCurrentFrequency RxNorm NoCurrentDosage Active NoCurrentFrequency RxNorm NoCurrentDosage Active NoCurrentFrequency RxNorm NoCurrentDosage Active NoCurrentFrequency RxNorm NoCurrentDosage Active NoCurrentFrequency RxNorm NoCurrentDosage Active NoCurrentFrequency RxNorm NoCurrentDosage Active NoCurrentFrequency Hospital Discharge Medications Medication Direction Start Date Status Indications Fill Instuctions No Discharge Medication Problems Problem Name Code CodeSystem Start Date End Date Status SNOMED-CT 2019-04-14 Active Laboratory Values/Results Test Test Code Code System Actual Result Date LOINC Procedures Procedure Name Code CodeSystem Target Site Date of Procedure SNOMED-CT () 2019-04-14 SNOMED-CT () 2019-05-09 Encounter Diagnosis Code CodeSystem Description Date Finding Finding Code Status 51942 CPT Non-Billable 2019-04-23 - SNOMED-CT Active 9 Vital Signs Vitals Date Value Immunizations Vaccine Name Vaccine Code CodeSystem Date Status Social History Element Description Start Date End Date Code CodeSystem Description SNOMED-CT Hospital Discharge Instructions Reason For Referral
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
[2019-08-08 15:44] LABS: Urine Benzodiazepine Screen None Detected (None Detect); Urine Opiates Screen None Detected (None Detect)
[2019-08-08 16:02] VITALS: BP 170/115
== END 2019-08-08 16:01 | disposition home or self-care (01) ==
LOC: ED 13:27
DX: R21 Rash and other nonspecific skin eruption (principal); G89.29 Other chronic pain; W57.XXXA Bitten or stung by nonvenomous insect and other nonvenomous arthropods, initial encounter; Y92.9 Unspecified place or not applicable; F17.210 Nicotine dependence, cigarettes, uncomplicated; F41.9 Anxiety disorder, unspecified; I11.0 Hypertensive heart disease with heart failure; I50.9 Heart failure, unspecified
CPT/HCPCS: 80307; 99282

== ENCOUNTER 2020-04-20 13:09 | Inpatient (IN) ==
[2020-04-20] MEDS ORDERED: NS 0.9% 1000 ml BAG 1,000 ML IV ONE ×2 (15:16→15:20)
[2020-04-20 15:30] LABS: ABS Eosinophils 0.2 10^3/ul (0-0.6); ABS Lymphocytes 1.9 10^3/ul (1.0-4.8); ABS Monocytes 0.8 10^3/ul (0-0.8); ABS Neutrophils 4.4 10^3/ul (1.5-7.7); Eosinophil % 2.2 %; Hematocrit 44 % (42-52); Hemoglobin 14.8 g/dL (14.0-18.0); Mean Corpuscular HGB Conc 33 g/dL (31-36); Mean Corpuscular Hemoglobin 29 pg (27-31); Mean Corpuscular Volume 87 fL (80-94); Mean Platelet Volume 8.5 fL (7.4-10.4); Nucleated Red Blood Cells % 0.1; Platelet Count 237 10^3/uL (150-450); Red Blood Count 5.11 10^6 /uL (4.18-5.48); Red Cell Distribution Width 16 % (10-15); White Blood Count 7.3 10^3/uL (3.5-10.8)
[2020-04-20 15:46] LABS: ALT 51 U/L (7-52); AST 33 U/L (13-39); Albumin 3.8 g/dL (3.2-5.2); Albumin/Globulin Ratio 1.6 (1-3); Alkaline Phosphatase 57 U/L (34-104); Anion Gap 4 mmol/L (2-11); BUN/Creatinine Ratio 12.7 (8-20); Blood Urea Nitrogen 19 mg/dL (6-24); CO2 Carbon Dioxide 27 mmol/L (22-32); Calcium 8.9 mg/dL (8.6-10.3); Chloride 109 mmol/L (101-111); EGFR African American 59.7 (>60); EGFR Non-African American 49.3 (>60); Globulin 2.4 g/dL (2-4); Glucose 86 mg/dL (70-100); Magnesium 1.9 mg/dL (1.9-2.7); Potassium 4.1 mmol/L (3.5-5.0); Sodium 140 mmol/L (135-145); Total Protein 6.2 g/dL (6.4-8.9)
[2020-04-20 15:49] LABS: Troponin I 0.18 ng/mL (<0.03)
[2020-04-20] MEDS ORDERED: Lidocaine PATCH 5% PATCH TRANSDERM ONE (15:50)
[2020-04-20] MEDS ORDERED: Furosemide 40 mg/4 ml IV VIAL IV ONE (15:55)
[2020-04-20 16:36] LABS: Alcohol, S < 10 mg/dL (<10)
[2020-04-20] MEDS ORDERED: Albuterol HFA INHALER 8 gm MDI INH PRN (16:41)
[2020-04-20 19:21] LABS: Troponin I 0.16 ng/mL (<0.03)
[2020-04-20] MEDS: Lidocaine Patch REMOVE PATCH PATCH OFF SCH (20:11)
[2020-04-21] MEDS: Furosemide 40 mg/4 ml IV VIAL IV SCH ×2 (09:21→17:32)
[2020-04-21 10:09] LABS: ABS Eosinophils 0.3 10^3/ul (0-0.6); ABS Lymphocytes 1.9 10^3/ul (1.0-4.8); ABS Monocytes 0.6 10^3/ul (0-0.8); ABS Neutrophils 4.8 10^3/ul (1.5-7.7); Eosinophil % 3.4 %; Hematocrit 46 % (42-52); Hemoglobin 15.2 g/dL (14.0-18.0); Lymphocyte % 24.9 %; Mean Corpuscular HGB Conc 33 g/dL (31-36); Mean Corpuscular Hemoglobin 29 pg (27-31); Mean Corpuscular Volume 87 fL (80-94); Mean Platelet Volume 8.9 fL (7.4-10.4); Nucleated Red Blood Cells % 0.1; Platelet Count 225 10^3/uL (150-450); Red Blood Count 5.33 10^6 /uL (4.18-5.48); Red Cell Distribution Width 15 % (10-15); White Blood Count 7.6 10^3/uL (3.5-10.8)
[2020-04-21 11:42] LABS: BUN/Creatinine Ratio 13.6 (8-20); Calcium 9.1 mg/dL (8.6-10.3); EGFR African American 61.1 (>60); EGFR Non-African American 50.5 (>60); Potassium 4.3 mmol/L (3.5-5.0)
[2020-04-21] MEDS: Lidocaine Patch REMOVE PATCH PATCH OFF SCH (21:17)
[2020-04-22 05:54] LABS: BUN/Creatinine Ratio 18.6 (8-20); Calcium 8.9 mg/dL (8.6-10.3); EGFR African American 62.1 (>60); EGFR Non-African American 51.3 (>60)
[2020-04-22] MEDS: Furosemide 40 mg/4 ml IV VIAL IV SCH (08:40)
[2020-04-22 11:41] VITALS: BP 120/72
== END 2020-04-22 14:35 | disposition home or self-care (01) | DRG 194 ==
LOC: ED 13:09 → MEDTELE 16:25
PROVIDERS: ADMIT Hospitalist; ATTEND Internal Medicine

== ENCOUNTER 2020-05-09 19:48 | Observation (INO) ==
[2020-05-09 20:39] LABS: Hematocrit 53 % (42-52); Hemoglobin 17.3 g/dL (14.0-18.0); Mean Corpuscular HGB Conc 33 g/dL (31-36); Mean Corpuscular Hemoglobin 28 pg (27-31); Mean Corpuscular Volume 85 fL (80-94); Mean Platelet Volume 8.3 fL (7.4-10.4); Platelet Count 210 10^3/uL (150-450); Red Blood Count 6.22 10^6 /uL (4.18-5.48); Red Cell Distribution Width 15 % (10-15)
[2020-05-09 20:51] LABS: ABS Lymphocytes 1.3 10^3/ul (1.0-4.8); ABS Monocytes 0.9 10^3/ul (0-0.8); ABS Neutrophils 1.8 10^3/ul (1.5-7.7); Eosinophil % 0.2 %; Lymphocyte % 32.1 %; Nucleated Red Blood Cells % 0.1
[2020-05-09 21:20] LABS: Troponin I 0.22 ng/mL (<0.03)
[2020-05-09 22:23] LABS: Albumin 4.1 g/dL (3.2-5.2); Anion Gap 12 mmol/L (2-11); CO2 Carbon Dioxide 22 mmol/L (22-32); Calcium 9.6 mg/dL (8.6-10.3); Chloride 101 mmol/L (101-111); Potassium 4.2 mmol/L (3.5-5.0); Sodium 135 mmol/L (135-145)
[2020-05-09 22:29] LABS: ALT 37 U/L (7-52); AST 38 U/L (13-39); Albumin/Globulin Ratio 1.5 (1-3); Alkaline Phosphatase 67 U/L (34-104); BUN/Creatinine Ratio 9.9 (8-20); Blood Urea Nitrogen 34 mg/dL (6-24); EGFR African American 22.8 (>60); EGFR Non-African American 18.9 (>60); Globulin 2.8 g/dL (2-4); Glucose 101 mg/dL (70-100); Total Protein 6.9 g/dL (6.4-8.9)
[2020-05-09] MEDS ORDERED: NS 0.9% 1000 ml BAG 1,000 ML IV ONE (22:32)
[2020-05-09] MEDS ORDERED: NS 0.9% 1000 ml BAG 1,000 ML IV SCH (23:45)
[2020-05-10] MEDS ORDERED: Albuterol HFA INHALER 8 gm MDI INH PRN (00:55)
[2020-05-10 01:16] LABS: Troponin I 0.22 ng/mL (<0.03)
[2020-05-10 03:46] LABS: Magnesium 1.9 mg/dL (1.9-2.7)
[2020-05-10 06:58] LABS: ABS Lymphocytes 1.1 10^3/ul (1.0-4.8); ABS Monocytes 0.8 10^3/ul (0-0.8); ABS Neutrophils 1.9 10^3/ul (1.5-7.7); Eosinophil % 0.3 %; Hematocrit 47 % (42-52); Hemoglobin 15.5 g/dL (14.0-18.0); Mean Corpuscular HGB Conc 33 g/dL (31-36); Mean Corpuscular Hemoglobin 28 pg (27-31); Mean Corpuscular Volume 86 fL (80-94); Mean Platelet Volume 8.1 fL (7.4-10.4); Nucleated Red Blood Cells % 0.1; Platelet Count 181 10^3/uL (150-450); Red Blood Count 5.51 10^6 /uL (4.18-5.48); Red Cell Distribution Width 15 % (10-15); White Blood Count 3.9 10^3/uL (3.5-10.8)
[2020-05-10 07:18] LABS: BUN/Creatinine Ratio 11.7 (8-20); Calcium 8.5 mg/dL (8.6-10.3); EGFR African American 28.8 (>60); EGFR Non-African American 23.8 (>60); Potassium 3.7 mmol/L (3.5-5.0)
[2020-05-10] MEDS ORDERED: Magnesium Sulfate IV 1GM/100ML 1 GM/100 ML BAG IV ONE (08:12)
[2020-05-10] MEDS ORDERED: Potassium Chlor 20 meq TAB.ER PO ONE (08:12)
[2020-05-10 08:29] LABS: Urine Appearance Clear; Urine Bilirubin Negative (Negative); Urine Blood Negative (Negative); Urine Color Yellow; Urine Glucose Negative (Negative); Urine Ketones Negative (Negative); Urine Nitrite Negative (Negative); Urine Protein Negative (Negative); Urine Specific Gravity 1.012 (1.010-1.030); Urine Urobilinogen Negative (Negative)
[2020-05-10 10:10] LABS: Troponin I 0.22 ng/mL (<0.03)
[2020-05-10 12:43] LABS: Urine Sodium Concentration < 18 mmol/L
[2020-05-10 13:23] LABS: Urine Creatinine Concentration 376.33 mg/dL
[2020-05-11 05:01] VITALS: BP 132/72
== END 2020-05-11 07:00 | disposition left against medical advice (07) ==
LOC: MEDTELE 19:48 → ED 19:48 → MEDTELE 05-10 01:41
PROVIDERS: ADMIT Nurse Practitioner; ATTEND Hospitalist